=== PATIENT | male | born 1945 | race Caucasian/White ===

== ENCOUNTER 2020-03-19 10:42 | Inpatient (IN) | payer MEDICARE, SELFPAY ==
[2020-03-19 10:57] VITALS: BP 140/78; BP 169/85; PULSE 110; PULSE 112; RESP 18; TEMP 37.1; O2SAT 98; BMI 28.2
--- NOTE | 2020-03-19 11:00 | ECG_ITS ---
Test Reason : ABNORMAL LABS Blood Pressure : / mmHG Vent. Rate : 091 BPM Atrial Rate : 340 BPM P-R Int : 000 ms QRS Dur : 124 ms QT Int : 376 ms P-R-T Axes : 000 -18 -12 degrees QTc Int : 462 ms Atrial fibrillation with premature ventricular or aberrantly conducted complexes Right bundle branch block Abnormal ECG When compared with ECG of 24-JAN-2006 15:05, Atrial fibrillation has replaced Sinus rhythm Right bundle branch block has replaced Incomplete right bundle branch block Referred By: Isaac Morse Electronically Signed By:MARGIE ACEVEDO MD
--- NOTE | 2020-03-19 11:02 | XR_ITS ---
EXAMINATION: XR CHEST CLINICAL INFORMATION: Concern for pneumonia. COMPARISON: Chest radiographs from 10/05/2017 through 11/01/2019. Chest CT on 01/14/2020 TECHNIQUE: Frontal view of the chest was obtained. FINDINGS: The lungs are hyperinflated consistent with COPD. The cardiomediastinal and hilar contours are stable. The aorta is heavily calcified. There are no lobar consolidations. Coarse, diffuse interstitial markings are unchanged in extent when compared to multiple prior radiographs. No pleural effusion or pneumothorax identified. XR/XR chest 1V IMPRESSION: No acute process identified. Stable emphysematous changes.
--- NOTE | 2020-03-19 11:19 | ED.RECABL ---
HPI - Recheck/Abnormal Lab/Rx General Chief Complaint: Recheck/Abnormal Lab/Rx Stated Complaint: NEW ONSET AFIB Time Seen by Provider: 03/19/20 10:57 Source: patient Mode of arrival: ambulatory Limitations: no limitations History of Present Illness HPI narrative: Patient presentls to the ED for new Atrial fibrillation. patient has no complaint. patient was at his PCP for a physical and his PCP noticed that he had an irregular heart beat. He states he was informed he had an irregular EKG. Related Data Home Medications Medication Instructions Recorded Confirmed aspirin 81 mg tablet,delayed 81 mg PO DAILY 03/19/20 03/19/20 release fluticasone 250 mcg-salmeterol 50 1 inh INHALATION Q12H 03/19/20 03/19/20 mcg/dose blistr powdr for inhalation lidocaine 5 % topical ointment 1 applic TOPICAL BID 03/19/20 03/19/20 tamsulosin 0.4 mg capsule 0.4 mg PO DAILY 03/19/20 03/19/20 Previous Rx's Medication Instructions Recorded pregabalin 50 mg capsule 50 mg PO BID PRN 30 Days #60 cap 03/06/20 albuterol sulfate 90 mcg/actuation 2 puff INHALATION Q4-6H PRN #8.5 g 03/19/20 aerosol inhaler simvastatin 40 mg tablet 40 mg PO DAILY #90 tab 03/19/20 Allergies Allergy/AdvReac Type Severity Reaction Status Date / Time gabapentin Allergy Unknown Insomnia, Verified 03/19/20 09:50 increased pain Latex Allergy Unknown Slight Verified 03/19/20 09:50 reaction, rash nicotine Allergy Unknown patch- Verified 03/19/20 09:50 rash, rash Review of Systems Constitutional: Constitutional: Reports as per HPI and Reports no additional constitutional complaints Eyes: Eyes: Reports as per HPI and Reports no additional eye complaints ENT: Reports system reviewed and no additional complaints, except as documented and Reports as per HPI Cardiovascular: Cardiovascular: Reports as per HPI, Reports no additional cardiovascular complaints, Denies chest pain, Denies chest pain at rest, Denies chest pain with activity, Denies Epigastric Pain, Denies dyspnea, Denies dyspnea on exertion, Denies orthopnea and Denies paroxysmal nocturnal dyspnea Respiratory: Respiratory: Reports as per HPI, Reports no additional respiratory complaints, Denies cough, Denies pain on inspiration, Denies pain with cough, Denies dyspnea and Denies dyspnea on exertion Gastrointestinal: Gastrointestinal: Reports as per HPI and Reports no additional gastrointestinal complaints Genitourinary: Genitourinary: Reports no additional male genitourinary complaints and Reports as per HPI Musculoskeletal: Musculoskeletal: Reports no additional musculoskeletal complaints and Reports as per HPI Neurologic: Reports system reviewed and no additional complaints, except as documented and Reports as per HPI Psychiatric: Psychiatric: Reports no additional psychiatric complaints and Reports as per HPI [facility] Past Medical History Medical History (Updated 03/19/20 @ 16:49 by SILVA Garcia) Asbestosis Bladder diverticulum BPH (benign prostatic hyperplasia) COPD (chronic obstructive pulmonary disease) History of alcohol abuse Hypercholesterolemia Post herpetic neuralgia Thrombocytopenia Tobacco abuse Vitamin D deficiency Surgical History (Updated 03/16/20 @ 13:29 by STEPHANIE Alexander) H/O hand surgery Lesion of tongue Family History Family History (Updated 03/16/20 @ 13:31 by STEPHANIE Alexander) Father Bladder cancer Mother Colon cancer Chronic mental illness Brother Myocardial infarction Social History Social History (Updated 03/19/20 @ 09:56 by Lacho Mcdonnell MD) Alcohol intake: former Smoking Status: Former smoker Packs Per Day: 0.25 Smoked in Last 30 Days: No Use of substances other than those prescribed or required for medical reasons: No Advance Directives: No Advance Directives Information Provided: Yes Physical Exam Vital Signs: Vital Signs: Last Vital Signs Temp 98.8 F 03/19/20 10:57 Pulse 131 H 03/19/20 13:35 Resp 18 03/19/20 10:57 BP 169/85 H 03/19/20 13:35 Pulse Ox 98 03/19/20 10:57 Body Mass Index 28.2 Const: General: cooperative, healthy appearing, comfortable, no acute distress, well developed, alert, awake and Physically active Orientation/consciousness: patient oriented x3 HENMT: Head: Yes normal to inspection and Yes No palpable skull fracture present Eyes: General: appearance normal, both eyes and all related structures Neck: Neck: Yes normal visual inspection, Yes full ROM, Yes no lymphadenopathy, Yes no meningeal signs and Yes tender Chest: Chest palpation & inspection: normal inspection of the chest, normal palpation of entire chest wall and no localized rib tenderness Resp: Effort & Inspection: normal respiratory effort and able to speak in complete sentences Auscultation: clear to auscultation bilaterally Cardio: Jugular venous distension: no JVD Rate: tachycardic GI: Inspection: Yes normal to inspection and No abdominal wall ecchymosis Palpation (GI): Soft to palpation, not firm, nontender, no guarding and not rigid : General: No CVA tenderness and Yes no CVA tenderness Back/Spine/Pelvis: Back: no CVA tenderness, No CVA tenderness and No back tenderness Skin: General skin exam: no rashes or lesions noted Neuro: General: patient oriented x3, no meningeal signs and CN's II-XI intact bilaterally Cranial nerves: Yes CN's II-XII intact bilaterally Extrem: General: Yes normal to inspection and Yes full ROM Psych: Appearance: grossly normal, well kempt and not disheveled Course Course Course Narrative: patient will have baseline EKG and cardiac evaluation. patient heart rate on monitor is between 91-118. Reevaluation(s) Reevaluation #1: patient still not in any distress. patient's Heart rate on monitor fluctuates between 86 to 122. patient presently is asymptomatic. patient has elevated D-dimer and will be sent for Chest CTA to rule PE. patient's HR rate will go 131 for one second and than will go back to down to 88 immediately Time: 13:09 Reevaluation #2: patient placed on cardizem drip due to HR now stating presently in 120-130s. patient chest CTA negative for PE. Magneium and TSH is normal. patient states he has not had an alcohol drink in 35 years. patient to be admitted to the hospital. Time: 16:48 MDM - Recheck/Abnormal Lab/Rx MDM Narrative Medical decision making narrative: new onset atiral brillation Lab Data Result diagrams: 03/19/20 11:55 03/19/20 11:55 Labs: Lab Results 03/19/20 03/19/20 03/19/20 Range/Units 11:55 11:55 11:55 WBC 7.6 (4.8-10.8) X10*3/uL RBC 4.85 (4.60-5.80) X10*6/uL Hgb 14.8 (14.0-18.0) g/dl Hct 45.3 (42-52) % MCV 93.4 (80-98) fL MCH 30.5 (27.0-33.0) pg MCHC 32.7 (31.0-36.0) g/dl RDW 12.7 (11.0-16.0) % Plt Count 194 (160-400) X10*3/uL MPV 10.1 (9.4-12.4) fL Immature Gran % (Auto) 0.4 (0.0-0.4) % Neut % (Auto) 62.9 (45-73) % Lymph % (Auto) 25.7 (20-40) % [place] % (Auto) 6.5 (2-11) % Eos % (Auto) 4.2 H (0-4) % Baso % (Auto) 0.3 (0-2) % Lymph # (Auto) 2.0 (1.2-4.9) X10*3/uL [place] # (Auto) 0.5 (0.1-1.2) X10*3/uL Eos # (Auto) 0.3 (0.0-0.4) X10*3/uL Baso # (Auto) 0.0 (0.0-0.2) X10*3/uL Abs Immat Gran (auto) 0.03 (0.00-0.03) X10*3/uL Absolute Neuts (auto) 4.8 (2.0-8.3) X10*3/uL Absolute Nucleated RBC 0.000 (0.0-0.012) X10*3/uL Nucleated RBC % (auto) 0.0 (0.0-0.2) /100WBC PT 11.8 (10.8-13.0) SEC INR 1.0 (0.9-1.1) APTT 36.8 (24.1-38.0) SEC D-Dimer NG/ML Sodium 139 (135-145) mmol/L Potassium 4.7 (3.3-5.1) mmol/l Chloride 104 (96-108) mmol/L Carbon Dioxide 29 (22-29) mmol/L Anion Gap 11 L (12-20) BUN 22 H (9-16) mg/dL Creatinine 0.93 (0.5-1.4) mg/dL Estim Creat Clear Calc 65.7 Estimated GFR > 60 Random Glucose 85 (60-115) mg/dL Calcium 9.6 (8.4-10.2) mg/dL Magnesium (1.6-2.6) mg/dL Total Bilirubin 0.3 (0.0-1.0) mg/dL AST 32 (5-37) U/L ALT 37 (0-40) U/L Alkaline Phosphatase 73 (39-117) U/L Troponin I High Sens (<3.5-35.0) ng/L Total Protein 7.6 (6.5-8.0) g/dL Albumin 4.7 (3.5-5.0) g/dL TSH (0.32-4.0) uIU/mL Urine Color Urine Appearance Urine pH (5.0-8.0) Ur Specific [place] (1.005-1.025) Urine Protein (NEG-TRACE) MG/DL Urine Glucose (UA) (NEG) MG/DL Urine Ketones (NEG) MG/DL Urine Blood (NEG) Urine Nitrite (NEG) Ur Leukocyte Esterase (NEG) 03/19/20 03/19/20 03/19/20 Range/Units 11:55 11:55 11:55 WBC (4.8-10.8) X10*3/uL RBC (4.60-5.80) X10*6/uL Hgb (14.0-18.0) g/dl Hct (42-52) % MCV (80-98) fL MCH (27.0-33.0) pg MCHC (31.0-36.0) g/dl RDW (11.0-16.0) % Plt Count (160-400) X10*3/uL MPV (9.4-12.4) fL Immature Gran % (Auto) (0.0-0.4) % Neut % (Auto) (45-73) % Lymph % (Auto) (20-40) % [place] % (Auto) (2-11) % Eos % (Auto) (0-4) % Baso % (Auto) (0-2) % Lymph # (Auto) (1.2-4.9) X10*3/uL [place] # (Auto) (0.1-1.2) X10*3/uL Eos # (Auto) (0.0-0.4) X10*3/uL Baso # (Auto) (0.0-0.2) X10*3/uL Abs Immat Gran (auto) (0.00-0.03) X10*3/uL Absolute Neuts (auto) (2.0-8.3) X10*3/uL Absolute Nucleated RBC (0.0-0.012) X10*3/uL Nucleated RBC % (auto) (0.0-0.2) /100WBC PT (10.8-13.0) SEC INR (0.9-1.1) APTT (24.1-38.0) SEC D-Dimer 660 NG/ML Sodium (135-145) mmol/L Potassium (3.3-5.1) mmol/l Chloride (96-108) mmol/L Carbon Dioxide (22-29) mmol/L Anion Gap (12-20) BUN (9-16) mg/dL Creatinine (0.5-1.4) mg/dL Estim Creat Clear Calc Estimated GFR Random Glucose (60-115) mg/dL Calcium (8.4-10.2) mg/dL Magnesium 2.1 (1.6-2.6) mg/dL Total Bilirubin (0.0-1.0) mg/dL AST (5-37) U/L ALT (0-40) U/L Alkaline Phosphatase (39-117) U/L Troponin I High Sens 5.3 (<3.5-35.0) ng/L Total Protein (6.5-8.0) g/dL Albumin (3.5-5.0) g/dL TSH 0.89 (0.32-4.0) uIU/mL Urine Color Urine Appearance Urine pH (5.0-8.0) Ur Specific [place] (1.005-1.025) Urine Protein (NEG-TRACE) MG/DL Urine Glucose (UA) (NEG) MG/DL Urine Ketones (NEG) MG/DL Urine Blood (NEG) Urine Nitrite (NEG) Ur Leukocyte Esterase (NEG) 03/19/20 Range/Units 13:03 WBC (4.8-10.8) X10*3/uL RBC (4.60-5.80) X10*6/uL Hgb (14.0-18.0) g/dl Hct (42-52) % MCV (80-98) fL MCH (27.0-33.0) pg MCHC (31.0-36.0) g/dl RDW (11.0-16.0) % Plt Count (160-400) X10*3/uL MPV (9.4-12.4) fL Immature Gran % (Auto) (0.0-0.4) % Neut % (Auto) (45-73) % Lymph % (Auto) (20-40) % [place] % (Auto) (2-11) % Eos % (Auto) (0-4) % Baso % (Auto) (0-2) % Lymph # (Auto) (1.2-4.9) X10*3/uL [place] # (Auto) (0.1-1.2) X10*3/uL Eos # (Auto) (0.0-0.4) X10*3/uL Baso # (Auto) (0.0-0.2) X10*3/uL Abs Immat Gran (auto) (0.00-0.03) X10*3/uL Absolute Neuts (auto) (2.0-8.3) X10*3/uL Absolute Nucleated RBC (0.0-0.012) X10*3/uL Nucleated RBC % (auto) (0.0-0.2) /100WBC PT (10.8-13.0) SEC INR (0.9-1.1) APTT (24.1-38.0) SEC D-Dimer NG/ML Sodium (135-145) mmol/L Potassium (3.3-5.1) mmol/l Chloride (96-108) mmol/L Carbon Dioxide (22-29) mmol/L Anion Gap (12-20) BUN (9-16) mg/dL Creatinine (0.5-1.4) mg/dL Estim Creat Clear Calc Estimated GFR Random Glucose (60-115) mg/dL Calcium (8.4-10.2) mg/dL Magnesium (1.6-2.6) mg/dL Total Bilirubin (0.0-1.0) mg/dL AST (5-37) U/L ALT (0-40) U/L Alkaline Phosphatase (39-117) U/L Troponin I High Sens (<3.5-35.0) ng/L Total Protein (6.5-8.0) g/dL Albumin (3.5-5.0) g/dL TSH (0.32-4.0) uIU/mL Urine Color STRAW Urine Appearance CLEAR Urine pH 5.5 (5.0-8.0) Ur Specific [place] 1.010 (1.005-1.025) Urine Protein NEG (NEG-TRACE) MG/DL Urine Glucose (UA) NEG (NEG) MG/DL Urine Ketones NEG (NEG) MG/DL Urine Blood NEG (NEG) Urine Nitrite NEG (NEG) Ur Leukocyte Esterase NEG (NEG) ECG Data Interpretation: Atrial fribillation with PVC, Right bundle branch block. Vent rate 91 and QRS duration 124. Discharge Plan Discharge Clinical Impression: Atrial fibrillation by electrocardiogram Patient Disposition: Admitted As Inpatient
[2020-03-19 12:02] LABS: MANUAL DIFF FLAG NO
[2020-03-19 12:03] LABS: Basophils Percent Auto 0.3 % (0-2); Eosinophils Absolute Auto 0.3 X10*3/uL (0.0-0.4); Eosinophils Percent Auto 4.2 % (0-4); Hematocrit 45.3 % (42-52); Hemoglobin 14.8 g/dl (14.0-18.0); Imm Gran Abs Auto 0.03 X10*3/uL (0.00-0.03); Imm Gran Pct Auto 0.4 % (0.0-0.4); Lymphocytes Percent Auto 25.7 % (20-40); Mean Corpuscular HGB Conc 32.7 g/dl (31.0-36.0); Mean Corpuscular Hemoglobin 30.5 pg (27.0-33.0); Mean Corpuscular Volume 93.4 fL (80-98); Mean Platelet Volume 10.1 fL (9.4-12.4); Monocytes Absolute Auto 0.5 X10*3/uL (0.1-1.2); Monocytes Percent Auto 6.5 % (2-11); Neutrophils Absolute Auto 4.8 X10*3/uL (2.0-8.3); Neutrophils Percent Auto 62.9 % (45-73); Platelet Count 194 X10*3/uL (160-400); Red Blood Count 4.85 X10*6/uL (4.60-5.80); Red Cell Distribution Width 12.7 % (11.0-16.0); White Blood Count 7.6 X10*3/uL (4.8-10.8)
[2020-03-19 12:10] LABS: Prothrombin Time 11.8 SEC (10.8-13.0)
[2020-03-19 12:13] LABS: Partial Thromboplastin Time 36.8 SEC (24.1-38.0)
[2020-03-19 12:14] LABS: D Dimer 660 NG/ML
[2020-03-19 12:26] LABS: Magnesium 2.1 mg/dL (1.6-2.6)
[2020-03-19 12:29] LABS: Alanine Aminotransferase 37 U/L (0-40); Albumin Level 4.7 g/dL (3.5-5.0); Alkaline Phosphatase 73 U/L (39-117); Anion Gap 11 (12-20); Aspartate Amino Transferase 32 U/L (5-37); Bilirubin Total 0.3 mg/dL (0.0-1.0); Blood Urea Nitrogen 22 mg/dL (9-16); Calcium 9.6 mg/dL (8.4-10.2); Carbon Dioxide 29 mmol/L (22-29); Chloride 104 mmol/L (96-108); Creatinine Clr Calc Pharmacy 65.7; Estimated Glomerular Filt Rate > 60; Glucose Random 85 mg/dL (60-115); Potassium 4.7 mmol/l (3.3-5.1); Sodium 139 mmol/L (135-145); Total Protein 7.6 g/dL (6.5-8.0)
[2020-03-19 12:31] LABS: Troponin-I High Sensitivity 5.3 ng/L (<3.5-35.0)
[2020-03-19 12:48] LABS: Thyroid Stimulating Hormone 0.89 uIU/mL (0.32-4.0)
[2020-03-19 13:16] LABS: Glucose Urine UA NEG (NEG); Leukocyte Esterase Urine NEG (NEG); Nitrite Urine NEG (NEG); PH 5.5 (5.0-8.0); Urine Blood NEG (NEG); Urine Ketones NEG (NEG); Urine Protein NEG (NEG-TRACE)
[2020-03-19 13:18] LABS: Appearance Urine CLEAR; Color Urine STRAW
[2020-03-19 13:35] VITALS: BP 169/85; PULSE 131
[2020-03-19] MEDS: dilTIAZem HCL 30 MG TABLET PO (13:35)
--- NOTE | 2020-03-19 14:35 | CT_ITS ---
EXAMINATION: CT ANGIOGRAM OF THE CHEST WITH AND WITHOUT CONTRAST (CT PULMONARY ANGIOGRAM FOR PE) CLINICAL INFORMATION: Reason for Exam elevated D-dimer. PE? COMPARISON: Chest radiograph from today. CT performed 01/14/2020. TECHNIQUE: Prior to contrast administration, noncontrast localization images were obtained. Subsequently, multidetector volumetric imaging was performed from the thoracic inlet to below the diaphragms following the administration of 65 mL Omnipaque 350 intravenous contrast. No contrast reaction reported Sagittal, coronal, and MIP oblique sagittal reformatted images were obtained on the CT workstation, uploaded to PACS, and reviewed. This CT examination was performed using dose optimization techniques as appropriate, variously including the following: *Automated exposure control *Adjustment of mA and/or kV according to patient size (this includes techniques or standardized protocols for targeted exams where dose is matched to indication/reason for exam; i.e. extremities or head) *Use of iterative reconstruction technique Total exam dose-length product 254 mGy-cm FINDINGS: QUALITY OF STUDY/CONTRAST BOLUS: Satisfactory. PULMONARY ARTERIES: No central or segmental pulmonary emboli. THORACIC AORTA: No aneurysm or dissection. LUNG: The central airways are patent. There is moderate to severe centrilobular and paraseptal emphysema. Mild bronchial wall thickening noted. Subpleural changes are seen in the anterior right upper lobe with nodular scarring. This is similar to prior. Multiple areas of pleural plaque formation in the anterior left lung as well. Calcified granulomata noted. Scattered bronchial filling defects. Unchanged 0.2 cm left lower lobe nodule on series 7 image 421. PLEURA: No pleural effusion or pneumothorax. MEDIASTINUM: Normal heart size. No pericardial effusion. Coronary artery calcifications. No hilar or mediastinal lymphadenopathy. No evidence of septal bowing or right heart strain. CHEST WALL/AXILLA: No axillary or internal mammary lymphadenopathy. OSSEOUS STRUCTURES: No acute or suspicious osseous abnormality. Mild scoliotic curvature of the spine. UPPER ABDOMEN: Unremarkable. No reflux of contrast into the hepatic veins to suggest elevated right heart pressures. CT/CT angio chest PE protocol IMPRESSION: 1. No pulmonary embolism. 2. Moderate to severe emphysema. Bronchial wall thickening with bronchial filling defects noted which can be seen with chronic bronchitis. Areas of scarring and pleural thickening are again noted. VTE: negative
[2020-03-19] MEDS: iohexoL 350 MG/ML 100 ML INFUS..BTL IV (14:56)
--- NOTE | 2020-03-19 16:42 | PC.NURSE ---
updated in waiting room, will return home now and bring back some belongings for pt. hospitalist at bedside for eval, pending inpt admission.
[2020-03-19 16:44] VITALS: BP 136/59; PULSE 82; RESP 20; O2SAT 99
--- NOTE | 2020-03-19 17:11 | P.EN_ITS ---
Event Note Date of Service: 03/19/20 Event Note: AFib 74-year-old male was sent from PCP office after found to have AFib, patient currently denies any chest pain shortness of breath or palpitation on exam alert abdomen soft CVS irregular rhythm tachycardia, lungs mild rhonchi admitted with AFib with RVR new onset , Chads Vasc score 2 started on Cardizem drip monitor on telemetry cardiology consult, Will get echocardiogram tomorrow, patient wants to discuss anticoagulation with product representative Patient seen and examined with the midlevel agree with H&P assessment and plan
--- NOTE | 2020-03-19 17:21 | P.HPHOSP_ITS ---
History of Present Illness Date of Service: 03/19/20 Chief Complaint: abnormal EKG this is a 74-year-old male who was sent to the emergency department from his PCP's office after his routine EKG showed new onset atrial fibrillation. heart rate was initially in the low 100s. he received dose of oral Cardizem but continued to be tachycardic so was started on a Cardizem drip. Patient is asymptomatic and denies any chest pain, palpitations, shortness of breath, dizziness. Lab work was unremarkable with the exception of D-dimer of 660. CTA was negative for PE. Review of Systems Review of Systems: Yes all other systems are reviewed and are negative Constitutional: Constitutional: Denies chills and Denies fever(s) Cardiovascular: Cardiovascular: Denies chest pain Respiratory: Respiratory: Denies cough Gastrointestinal: Gastrointestinal: Denies abdominal pain Neurologic: Reports system reviewed and no additional complaints, except as documented and Reports as per [facility] Medical History Asbestosis Bladder diverticulum BPH (benign prostatic hyperplasia) COPD (chronic obstructive pulmonary disease) History of alcohol abuse Hypercholesterolemia Post herpetic neuralgia Thrombocytopenia Tobacco abuse Vitamin D deficiency Functional capacity: independent ambulation Family History Father Bladder cancer Mother Colon cancer Chronic mental illness Brother Myocardial infarction Surgical History H/O hand surgery Lesion of tongue Social History Alcohol intake: former Smoking Status: Former smoker Packs Per Day: 0.25 Smoked in Last 30 Days: No Use of substances other than those prescribed or required for medical reasons: No Advance Directives: No Advance Directives Information Provided: Yes Meds Allergies Allergy/AdvReac Type Severity Reaction Status Date / Time gabapentin Allergy Unknown Insomnia, Verified 03/19/20 09:50 increased pain Latex Allergy Unknown Slight Verified 03/19/20 09:50 reaction, rash nicotine Allergy Unknown patch- Verified 03/19/20 09:50 rash, rash Home Medications Medication Instructions Recorded Confirmed Type aspirin 81 mg tablet,delayed 81 mg PO DAILY 03/19/20 03/19/20 History release fluticasone 250 mcg-salmeterol 50 1 inh INHALATION Q12H 03/19/20 03/19/20 History mcg/dose blistr powdr for inhalation lidocaine 5 % topical ointment 1 applic TOPICAL TID 03/19/20 03/19/20 History oxybutynin chloride 1 tab PO DAILY 03/19/20 03/19/20 History tamsulosin 0.4 mg capsule 0.4 mg PO DAILY 03/19/20 03/19/20 History Physical Exam Vital Signs and Narrative: Vital Signs: Last Vital Signs Temp 98.8 F 03/19/20 10:57 Pulse 82 03/19/20 16:44 Resp 20 03/19/20 16:44 BP 136/59 L 03/19/20 16:44 Pulse Ox 99 03/19/20 16:44 Body Mass Index 28.2 Const: Nutritional Appearance: well nourished Orientation/consciousness: patient oriented x3 HENMT: Head: Yes normocephalic and Yes atraumatic Eyes: Sclerae: sclerae normal Chest: Chest palpation & inspection: normal inspection of the chest Resp: Other: Scattered wheezes, prolonged expiratory phase Effort & Inspection: normal respiratory effort and no respiratory distress Cardio: Rate: tachycardic Rhythm: abnormal rhythm irregularly irregular GI: Palpation (GI): Soft to palpation and nontender Skin: General skin exam: no rashes or lesions noted Neuro: General: patient oriented x3 Cranial nerves: Yes CN's II-XII intact bilaterally and Yes Bilaterally intact EOM present Extrem: General: Yes normal to inspection Results Labs CBC and Chem 7: 03/19/20 11:55 03/19/20 11:55 Labs: Laboratory Results - last 24 hr 03/19/20 03/19/20 03/19/20 11:55 11:55 11:55 MCV 93.4 MCH 30.5 MCHC 32.7 RDW 12.7 Plt Count 194 MPV 10.1 Immature Gran % (Auto) 0.4 Neut % (Auto) 62.9 Lymph % (Auto) 25.7 [place] % (Auto) 6.5 Eos % (Auto) 4.2 H Baso % (Auto) 0.3 Lymph # (Auto) 2.0 [place] # (Auto) 0.5 Eos # (Auto) 0.3 Baso # (Auto) 0.0 Abs Immat Gran (auto) 0.03 Absolute Neuts (auto) 4.8 Absolute Nucleated RBC 0.000 Nucleated RBC % (auto) 0.0 PT 11.8 INR 1.0 APTT 36.8 D-Dimer Anion Gap 11 L Estim Creat Clear Calc 65.7 Estimated GFR > 60 Random Glucose 85 Calcium 9.6 Magnesium Total Bilirubin 0.3 AST 32 ALT 37 Alkaline Phosphatase 73 Troponin I High Sens Total Protein 7.6 Albumin 4.7 TSH Urine Color Urine Appearance Urine pH Ur Specific [place] Urine Protein Urine Glucose (UA) Urine Ketones Urine Blood Urine Nitrite Ur Leukocyte Esterase 03/19/20 03/19/20 03/19/20 11:55 11:55 11:55 MCV MCH MCHC RDW Plt Count MPV Immature Gran % (Auto) Neut % (Auto) Lymph % (Auto) [place] % (Auto) Eos % (Auto) Baso % (Auto) Lymph # (Auto) [place] # (Auto) Eos # (Auto) Baso # (Auto) Abs Immat Gran (auto) Absolute Neuts (auto) Absolute Nucleated RBC Nucleated RBC % (auto) PT INR APTT D-Dimer 660 Anion Gap Estim Creat Clear Calc Estimated GFR Random Glucose Calcium Magnesium 2.1 Total Bilirubin AST ALT Alkaline Phosphatase Troponin I High Sens 5.3 Total Protein Albumin TSH 0.89 Urine Color Urine Appearance Urine pH Ur Specific [place] Urine Protein Urine Glucose (UA) Urine Ketones Urine Blood Urine Nitrite Ur Leukocyte Esterase 03/19/20 13:03 MCV MCH MCHC RDW Plt Count MPV Immature Gran % (Auto) Neut % (Auto) Lymph % (Auto) [place] % (Auto) Eos % (Auto) Baso % (Auto) Lymph # (Auto) [place] # (Auto) Eos # (Auto) Baso # (Auto) Abs Immat Gran (auto) Absolute Neuts (auto) Absolute Nucleated RBC Nucleated RBC % (auto) PT INR APTT D-Dimer Anion Gap Estim Creat Clear Calc Estimated GFR Random Glucose Calcium Magnesium Total Bilirubin AST ALT Alkaline Phosphatase Troponin I High Sens Total Protein Albumin TSH Urine Color STRAW Urine Appearance CLEAR Urine pH 5.5 Ur Specific [place] 1.010 Urine Protein NEG Urine Glucose (UA) NEG Urine Ketones NEG Urine Blood NEG Urine Nitrite NEG Ur Leukocyte Esterase NEG Imaging Radiologist's Impressions: Impressions Chest X-Ray 03/19/20 11:02 IMPRESSION: No acute process identified. Stable emphysematous changes. Chest CTA 03/19/20 14:35 IMPRESSION: 1. No pulmonary embolism. 2. Moderate to severe emphysema. Bronchial wall thickening with bronchial filling defects noted which can be seen with chronic bronchitis. Areas of scarring and pleural thickening are again noted. VTE: negative Assessment and Plan (1) Atrial fibrillation with rapid ventricular response: Status: Acute this is a 74-year-old male sent to the emergency department from PCP's office after routine EKG revealed new onset atrial fibrillation atrial fibrillation with rapid ventricular response new onset. asymptomatic TSH, magnesium wnl -CHADS2 Vasc score 2 for age 74, patient is hesitant about starting anticoagulation and would like to discuss with cardiology first. will continue aspirin for now -continue Cardizem drip - echo - cardiology consult COPD scattered wheezing, no shortness of breath continue home inhalers dyslipidemia continue statin BPH continue oxybutynin, Flomax post herpetic neuralgia continue pregabalin DVT prophylaxis- mechanical devices code status- full code this case was discussed with Dr. Randolph
--- NOTE | 2020-03-19 17:21 | PC.NURSE ---
pt ambulating to and from bathroom w steady gait.
[2020-03-19 19:15] VITALS: BP 125/50; PULSE 61; RESP 16; TEMP 36.6; O2SAT 98
[2020-03-19] MEDS: Pregabalin 50 MG CAPSULE PO (21:11)
[2020-03-19 22:08] VITALS: BP 111/61; PULSE 60; RESP 16; TEMP 36.3; O2SAT 99
[2020-03-19 23:10] VITALS: PULSE 58; RESP 16; O2SAT 98
[2020-03-19 23:31] LABS: COVID-19 Test Negative (Negative); IDNOW Serial# 9DD0AD1C
[2020-03-20 00:47] VITALS: BP 159/58; PULSE 59; RESP 20; TEMP 36.4; O2SAT 97
[2020-03-20] MEDS: 0.9 % Sodium Chloride Flush 3 ML SYRINGE IVFLUSH ×2 (01:02→09:08)
--- NOTE | 2020-03-20 01:03 | PC.NURSE ---
PT ARRIVED TO [facility] [place] FROM ED VIA STRETCHER WITH NEW AFIB. PT AMBULATED TO BED WITHOUT DIFFICULTY. HE IS NOT A FALL RISK. VSS. PAPERHANGER SUPERVISOR APPLIED. PT IS IN SR IN THE 70S WITH PVCS. NOTIFIED. PT ORIENTED TO UNIT. PLAN OF CARE EXPLAINED AND PT IS AGREEBALE TO. CALL [facility] USE DEMONSTRATED. NO C/O AT THIS TIME. CALL [facility] IN REACH. WILL CONTINUE TO MONITOR.
[2020-03-20 03:37] VITALS: BP 125/58; PULSE 64; RESP 18; TEMP 36.9; O2SAT 97
[2020-03-20 06:14] LABS: Hematocrit 40.6 % (42-52); Hemoglobin 13.4 g/dl (14.0-18.0); Mean Corpuscular Hemoglobin 30.8 pg (27.0-33.0); Mean Corpuscular Volume 93.3 fL (80-98); Mean Platelet Volume 10.7 fL (9.4-12.4); Platelet Count 191 X10*3/uL (160-400); Red Blood Count 4.35 X10*6/uL (4.60-5.80); Red Cell Distribution Width 12.7 % (11.0-16.0)
[2020-03-20 06:49] LABS: Anion Gap 15 (12-20); Blood Urea Nitrogen 29 mg/dL (9-16); Calcium 8.7 mg/dL (8.4-10.2); Carbon Dioxide 25 mmol/L (22-29); Chloride 106 mmol/L (96-108); Creatinine Clr Calc Pharmacy 58.2; Estimated Glomerular Filt Rate > 60; Glucose Random 75 mg/dL (60-115); Potassium 4.7 mmol/l (3.3-5.1); Sodium 141 mmol/L (135-145)
[2020-03-20 08:00] VITALS: BP 136/63; PULSE 64; RESP 20; TEMP 36.6; O2SAT 98
[2020-03-20] MEDS: Aspirin Enteric Coated 81 MG TABLET.DR PO (09:20)
[2020-03-20] MEDS: Atorvastatin Calcium 20 MG TABLET PO (09:20)
[2020-03-20] MEDS: Lidocaine 5 % Ointment 35 GM 1 APPL TOPICAL (09:21)
[2020-03-20] MEDS: Albuterol Sulfate 90 MCG 8 GM INHALER 2 PUFF INHALE (09:21)
[2020-03-20] MEDS: Tamsulosin HCL 0.4 MG CAPSULE PO (09:21)
[2020-03-20] MEDS: Flu Vacc QS2020-21(6mos up)/PF 0.5 ML SYRINGE IM (09:22)
--- NOTE | 2020-03-20 10:57 | PM.CNCAR ---
History of Present Illness History of Present Illness Date of Consult: March 20, 2020 Chief complaint: New onset afib Narrative: This is a cardiology consultation regarding atrial fibrillation. Patient states that he does not have any history of atrial fibrillation or other cardiac arrhythmias. He underwent a cardiac catheterization decades ago and at that time, it was unremarkable per patient. He went for a regular PCP visit in that showed atrial fibrillation leading to this hospitalization. He received oral Cardizem but he continued to be tachycardic but then was put on Cardizem drip. Subsequently, converted to sinus rhythm. He states that he never had any symptoms of angina or shortness of breath or palpitations or in fact any cardiac symptoms whatsoever. Review of Systems Review of Systems: Cardiac- no angina or shortness of breath. No palpitations or dizzy spells or syncopal episodes. Yes all other systems are reviewed and are negative [facility] Past Medical History Medical History Asbestosis Bladder diverticulum BPH (benign prostatic hyperplasia) COPD (chronic obstructive pulmonary disease) History of alcohol abuse Hypercholesterolemia Post herpetic neuralgia Thrombocytopenia Tobacco abuse Vitamin D deficiency Functional capacity: independent ambulation Family History Family History Father Bladder cancer Mother Colon cancer Chronic mental illness Brother Myocardial infarction Surgical History Surgical History H/O hand surgery Lesion of tongue Social History Social History Household Members: Spouse Housing: House Do you presently have visiting nurse or other home services: No Alcohol intake: former Smoking Status: Current every day smoker Tobacco Type: Cigarette Packs Per Day: 0.25 Cigarettes Per Day: 5.0 Smoked in Last 30 Days: Yes Patient Interested in Nicotine Replacement: No Patient Given Instructions on How to Stop Smoking: No Second Hand Smoke Exposure: No Use of substances other than those prescribed or required for medical reasons: No Currently Displaying Signs/Symptoms of Drug Intoxication Withdrawal: No Any prior treatment program specific to substance use: No Have you been hit, kicked, punched, or otherwise hurt by someone within the past year? If so, by whom?: No Do you feel safe in your current relationship?: Yes Is there a partner from a previous relationship who is making you feel unsafe now?: No Are you made to feel afraid or neglected: No Advance Directives: No Advance Directives Information Provided: Yes Advance Directives on File: No Do you have thoughts of harming others: None Do you have a plan to hurt others: No Plan Recently lost weight without trying: No Meds Allergies Allergy/AdvReac Type Severity Reaction Status Date / Time gabapentin Allergy Unknown Insomnia, Verified 03/19/20 09:50 increased pain Latex Allergy Unknown Slight Verified 03/19/20 09:50 reaction, rash nicotine Allergy Unknown patch- Verified 03/19/20 09:50 rash, rash Home Medications Medication Instructions Recorded Confirmed Type aspirin 81 mg tablet,delayed 81 mg PO DAILY 03/19/20 03/19/20 History release fluticasone 250 mcg-salmeterol 50 1 inh INHALATION Q12H 03/19/20 03/19/20 History mcg/dose blistr powdr for inhalation lidocaine 5 % topical ointment 1 applic TOPICAL TID 03/19/20 03/19/20 History oxybutynin chloride 1 tab PO DAILY 03/19/20 03/19/20 History tamsulosin 0.4 mg capsule 0.4 mg PO DAILY 03/19/20 03/19/20 History Physical Exam Vital Signs: Vital Signs: Last Vital Signs Temp 97.8 F 03/20/20 08:00 Pulse 64 03/20/20 08:00 Resp 20 03/20/20 08:00 BP 136/63 03/20/20 08:00 Pulse Ox 98 03/20/20 08:00 Body Mass Index 28.2 Comfortable, no distress No pallor, icterus or cyanosis HEENT -unremarkable JVD- normal Cardiac- normal heart sounds, no murmurs, gallops or rubs, normal PMI Respiratory-normal breath sounds bilaterally, no crackles, no wheeze Abdomen- soft, nontender Neuro- alert and oriented Lower extremities- no significant edema, warm well perfused Results Labs and Meds Result diagrams: 03/20/20 05:27 03/20/20 05:27 Lab results: Laboratory Results - last 24 hr 03/19/20 03/19/20 03/19/20 11:55 11:55 11:55 WBC 7.6 RBC 4.85 Hgb 14.8 Hct 45.3 MCV 93.4 MCH 30.5 MCHC 32.7 RDW 12.7 Plt Count 194 MPV 10.1 Immature Gran % (Auto) 0.4 Neut % (Auto) 62.9 Lymph % (Auto) 25.7 [place] % (Auto) 6.5 Eos % (Auto) 4.2 H Baso % (Auto) 0.3 Lymph # (Auto) 2.0 [place] # (Auto) 0.5 Eos # (Auto) 0.3 Baso # (Auto) 0.0 Abs Immat Gran (auto) 0.03 Absolute Neuts (auto) 4.8 Absolute Nucleated RBC 0.000 Nucleated RBC % (auto) 0.0 PT 11.8 INR 1.0 APTT 36.8 D-Dimer Sodium 139 Potassium 4.7 Chloride 104 Carbon Dioxide 29 Anion Gap 11 L BUN 22 H Creatinine 0.93 Estim Creat Clear Calc 65.7 Estimated GFR > 60 Random Glucose 85 Calcium 9.6 Magnesium Total Bilirubin 0.3 AST 32 ALT 37 Alkaline Phosphatase 73 Troponin I High Sens Total Protein 7.6 Albumin 4.7 TSH Urine Color Urine Appearance Urine pH Ur Specific [place] Urine Protein Urine Glucose (UA) Urine Ketones Urine Blood Urine Nitrite Ur Leukocyte Esterase COVID-19 (RALPH) COVID-19 [employer] Com 03/19/20 03/19/20 03/19/20 11:55 11:55 11:55 WBC RBC Hgb Hct MCV MCH MCHC RDW Plt Count MPV Immature Gran % (Auto) Neut % (Auto) Lymph % (Auto) [place] % (Auto) Eos % (Auto) Baso % (Auto) Lymph # (Auto) [place] # (Auto) Eos # (Auto) Baso # (Auto) Abs Immat Gran (auto) Absolute Neuts (auto) Absolute Nucleated RBC Nucleated RBC % (auto) PT INR APTT D-Dimer 660 Sodium Potassium Chloride Carbon Dioxide Anion Gap BUN Creatinine Estim Creat Clear Calc Estimated GFR Random Glucose Calcium Magnesium 2.1 Total Bilirubin AST ALT Alkaline Phosphatase Troponin I High Sens 5.3 Total Protein Albumin TSH 0.89 Urine Color Urine Appearance Urine pH Ur Specific [place] Urine Protein Urine Glucose (UA) Urine Ketones Urine Blood Urine Nitrite Ur Leukocyte Esterase COVID-19 (RALPH) COVID-19 Clin Com 03/19/20 03/19/20 03/20/20 13:03 22:46 05:27 WBC 7.0 RBC 4.35 L Hgb 13.4 L Hct 40.6 L MCV 93.3 MCH 30.8 MCHC 33.0 RDW 12.7 Plt Count 191 MPV 10.7 Immature Gran % (Auto) Neut % (Auto) Lymph % (Auto) [place] % (Auto) Eos % (Auto) Baso % (Auto) Lymph # (Auto) [place] # (Auto) Eos # (Auto) Baso # (Auto) Abs Immat Gran (auto) Absolute Neuts (auto) Absolute Nucleated RBC 0.000 Nucleated RBC % (auto) 0.0 PT INR APTT D-Dimer Sodium Potassium Chloride Carbon Dioxide Anion Gap BUN Creatinine Estim Creat Clear Calc Estimated GFR Random Glucose Calcium Magnesium Total Bilirubin AST ALT Alkaline Phosphatase Troponin I High Sens Total Protein Albumin TSH Urine Color STRAW Urine Appearance CLEAR Urine pH 5.5 Ur Specific [place] 1.010 Urine Protein NEG Urine Glucose (UA) NEG Urine Ketones NEG Urine Blood NEG Urine Nitrite NEG Ur Leukocyte Esterase NEG COVID-19 (RALPH) Negative COVID-19 Clin Com See Note 03/20/20 05:27 WBC RBC Hgb Hct MCV MCH MCHC RDW Plt Count MPV Immature Gran % (Auto) Neut % (Auto) Lymph % (Auto) [place] % (Auto) Eos % (Auto) Baso % (Auto) Lymph # (Auto) [place] # (Auto) Eos # (Auto) Baso # (Auto) Abs Immat Gran (auto) Absolute Neuts (auto) Absolute Nucleated RBC Nucleated RBC % (auto) PT INR APTT D-Dimer Sodium 141 Potassium 4.7 Chloride 106 Carbon Dioxide 25 Anion Gap 15 BUN 29 H Creatinine 1.05 Estim Creat Clear Calc 58.2 Estimated GFR > 60 Random Glucose 75 Calcium 8.7 D Magnesium Total Bilirubin AST ALT Alkaline Phosphatase Troponin I High Sens Total Protein Albumin TSH Urine Color Urine Appearance Urine pH Ur Specific [place] Urine Protein Urine Glucose (UA) Urine Ketones Urine Blood Urine Nitrite Ur Leukocyte Esterase COVID-19 (RALPH) COVID-19 Clin Com Assessment and Plan (1) Atrial fibrillation with rapid ventricular response: Status: Acute Admission EKG with atrial fibrillation at 91/Min with aberrantly conducted complexes versus PVC. Right bundle-branch block pattern noted. Currently, he is in sinus rhythm by EKG. Negative high sensitivity troponins. We can start him on oral diltiazem. Start Eliquis. Stop aspirin. Echocardiogram can be performed as an outpatient if it can't be completed today. Procedures Abscess I/D Date of Service: 03/20/20
--- NOTE | 2020-03-20 11:20 | MHC.CM.PN ---
pt dcd home no servceis
--- NOTE | 2020-03-20 11:33 | P.DS_ITS ---
DS: Providers Provider Date of admission: 03/19/20 17:05 Primary care physician: Lacho Mcdonnell MD Consults: 03/20/20 00:12 Consult to Cardiology Routine Consulting Provider: Anderson Lane Reason for consultation: new onset afib DS: Diagnosis Discharge Diagnosis (1) Atrial fibrillation with rapid ventricular response: Status: Acute DS: Medications Discharge Medications Home Medications: Home Medications Medication Instructions Recorded Confirmed fluticasone 250 mcg-salmeterol 50 1 inh INHALATION Q12H 03/19/20 03/19/20 mcg/dose blistr powdr for inhalation lidocaine 5 % topical ointment 1 applic TOPICAL TID 03/19/20 03/19/20 oxybutynin chloride 1 tab PO DAILY 03/19/20 03/19/20 tamsulosin 0.4 mg capsule 0.4 mg PO DAILY 03/19/20 03/19/20 Previous Rx's Medication Instructions Recorded pregabalin 50 mg capsule 50 mg PO BID PRN 30 Days #60 cap 03/06/20 albuterol sulfate 90 mcg/actuation 2 puff INHALATION Q4-6H PRN #8.5 g 03/19/20 aerosol inhaler simvastatin 40 mg tablet 40 mg PO DAILY #90 tab 03/19/20 apixaban [Eliquis] 5 mg PO BID #30 tab 03/20/20 diltiazem HCl [Cardizem CD] 120 mg PO DAILY #30 cap 03/20/20 DS: Summary Hospital Course Hospital Course: 74-year-old male admitted with chest pain with mildly elevated high sensitivity troponin admitted to rule out NSTEMI, patient was seen by Cardiology recommended Lovenox , echocardiogram was done shows EF 55-60%, CT PA chest was done shows no pulmonary embolus, patient underwent stress test, stress test was negative, cardiology recommended starting on aspirin statin and Lopressor, chest pain resolved, patient was stable discharged home on aspirin statin and Lopressor, patient will follow up cardiology as outpatient Time Spent with Patient Time attestation: Total time spent providing and/or coordinating discharge services: Physical Exam Vital Signs: Vital Signs: Last Vital Signs Temp 97.8 F 03/20/20 08:00 Pulse 64 03/20/20 08:00 Resp 20 03/20/20 08:00 BP 136/63 03/20/20 08:00 Pulse Ox 98 03/20/20 08:00 Body Mass Index 28.2 Const: Other: Last Vital Signs Temp 97.8 F 03/20/20 08:00 Pulse 64 03/20/20 08:00 Resp 20 03/20/20 08:00 BP 136/63 03/20/20 08:00 Pulse Ox 98 03/20/20 08:00 Body Mass Index 28.2 Cardio: Other: Last Vital Signs Temp 97.8 F 03/20/20 08:00 Pulse 64 03/20/20 08:00 Resp 20 03/20/20 08:00 BP 136/63 03/20/20 08:00 Pulse Ox 98 03/20/20 08:00 Body Mass Index 28.2 DS: Data Data Completed and Pending Labs on day of discharge: 03/19/20 11:00 ECG 12 lead EKG Stat 03/19/20 11:01 EKG Documentation DIRECTED 03/19/20 11:02 XR chest 1V Stat 03/19/20 11:55 Complete Blood Count Auto Diff Stat Comprehensive Met. Panel Stat D Dimer Stat Magnesium Stat Partial Thromboplastin Time Stat Prothrombin Time INR Stat Thyroid Stimulating Hormone Stat Troponin-I High Sensitivity Stat 03/19/20 13:03 UA CC w/rflx Micro + Cult Stat 03/19/20 13:26 dilTIAZem HCL [Cardizem] 30 mg PO ONCE STA 03/19/20 14:35 CT angio chest PE protocol Stat 03/19/20 14:55 iohexoL 350 MG/ML [Omnipaque 350 MG/ML] 100 ml IV ONCE ONE 03/19/20 15:27 dilTIAZem HCL [Cardizem] 125 mg IVCONT .STK-MED ONE 03/19/20 15:30 0.9 % Sodium Chloride [Ns] 100 ml dilTIAZem HCL [Cardizem] 125 mg IVCONT Per Protocol mg/hr 03/19/20 16:40 Consult Rx Perform Med Rec 1 each MISCELLANE ONCE PRN 03/19/20 17:01 Transfer Order Routine 03/19/20 20:51 Pregabalin [Lyrica] 50 mg PO ONCE ONE 03/19/20 22:46 COVID-19 ID NOW (Sung) Stat 03/20/20 01:29 RT Smoking Initial Cessation ONCE 03/20/20 05:27 Basic Metabolic Panel DAILY@0600 Complete Blood Count no Diff DAILY@0600 03/20/20 09:00 Flu Vacc [id number](6mos up)/PF [Fluarix Quad [id number]] 0.5 ml IM .ONCE ONE Laboratory Last Values WBC 7.0 X10*3/uL (4.8-10.8) 03/20/20 05:27 RBC 4.35 X10*6/uL (4.60-5.80) L 03/20/20 05:27 Hgb 13.4 g/dl (14.0-18.0) L 03/20/20 05:27 Hct 40.6 % (42-52) L 03/20/20 05:27 MCV 93.3 fL (80-98) 03/20/20 05:27 MCH 30.8 pg (27.0-33.0) 03/20/20 05:27 MCHC 33.0 g/dl (31.0-36.0) 03/20/20 05:27 RDW 12.7 % (11.0-16.0) 03/20/20 05:27 Plt Count 191 X10*3/uL (160-400) 03/20/20 05:27 MPV 10.7 fL (9.4-12.4) 03/20/20 05:27 Immature Gran % (Auto) 0.4 % (0.0-0.4) 03/19/20 11:55 Neut % (Auto) 62.9 % (45-73) 03/19/20 11:55 Lymph % (Auto) 25.7 % (20-40) 03/19/20 11:55 [place] % (Auto) 6.5 % (2-11) 03/19/20 11:55 Eos % (Auto) 4.2 % (0-4) H 03/19/20 11:55 Baso % (Auto) 0.3 % (0-2) 03/19/20 11:55 Lymph # (Auto) 2.0 X10*3/uL (1.2-4.9) 03/19/20 11:55 [place] # (Auto) 0.5 X10*3/uL (0.1-1.2) 03/19/20 11:55 Eos # (Auto) 0.3 X10*3/uL (0.0-0.4) 03/19/20 11:55 Baso # (Auto) 0.0 X10*3/uL (0.0-0.2) 03/19/20 11:55 Abs Immat Gran (auto) 0.03 X10*3/uL (0.00-0.03) 03/19/20 11:55 Absolute Neuts (auto) 4.8 X10*3/uL (2.0-8.3) 03/19/20 11:55 Absolute Nucleated RBC 0.000 X10*3/uL (0.0-0.012) 03/20/20 05:27 Nucleated RBC % (auto) 0.0 /100WBC (0.0-0.2) 03/20/20 05:27 PT 11.8 SEC (10.8-13.0) 03/19/20 11:55 INR 1.0 (0.9-1.1) 03/19/20 11:55 APTT 36.8 SEC (24.1-38.0) 03/19/20 11:55 D-Dimer 660 NG/ML 03/19/20 11:55 Sodium 141 mmol/L (135-145) 03/20/20 05:27 Potassium 4.7 mmol/l (3.3-5.1) 03/20/20 05:27 Chloride 106 mmol/L (96-108) 03/20/20 05:27 Carbon Dioxide 25 mmol/L (22-29) 03/20/20 05:27 Anion Gap 15 (12-20) 03/20/20 05:27 BUN 29 mg/dL (9-16) H 03/20/20 05:27 Creatinine 1.05 mg/dL (0.5-1.4) 03/20/20 05:27 Estim Creat Clear Calc 58.2 03/20/20 05:27 Estimated GFR > 60 03/20/20 05:27 Random Glucose 75 mg/dL (60-115) 03/20/20 05:27 Calcium 8.7 mg/dL (8.4-10.2) D 03/20/20 05:27 Magnesium 2.1 mg/dL (1.6-2.6) 03/19/20 11:55 Total Bilirubin 0.3 mg/dL (0.0-1.0) 03/19/20 11:55 AST 32 U/L (5-37) 03/19/20 11:55 ALT 37 U/L (0-40) 03/19/20 11:55 Alkaline Phosphatase 73 U/L (39-117) 03/19/20 11:55 Troponin I High Sens 5.3 ng/L (<3.5-35.0) 03/19/20 11:55 Total Protein 7.6 g/dL (6.5-8.0) 03/19/20 11:55 Albumin 4.7 g/dL (3.5-5.0) 03/19/20 11:55 TSH 0.89 uIU/mL (0.32-4.0) 03/19/20 11:55 Urine Color STRAW 03/19/20 13:03 Urine Appearance CLEAR 03/19/20 13:03 Urine pH 5.5 (5.0-8.0) 03/19/20 13:03 Ur Specific [place] 1.010 (1.005-1.025) 03/19/20 13:03 Urine Protein NEG MG/DL (NEG-TRACE) 03/19/20 13:03 Urine Glucose (UA) NEG MG/DL (NEG) 03/19/20 13:03 Urine Ketones NEG MG/DL (NEG) 03/19/20 13:03 Urine Blood NEG (NEG) 03/19/20 13:03 Urine Nitrite NEG (NEG) 03/19/20 13:03 Ur Leukocyte Esterase NEG (NEG) 03/19/20 13:03 COVID-19 (RALPH) Negative (Negative) 03/19/20 22:46 COVID-19 Clin Com See Note 03/19/20 22:46 Discharge Plan Discharge Anticipated Discharge Date/Time: 03/20/20 11:23 Patient Disposition: Home, Self-Care Referrals: Po,Lacho Delgado MD [Primary Care Provider] - Discharge Medications: New diltiazem HCl [Cardizem CD] 120 mg capsule,extended release 24hr 120 mg PO DAILY Qty: 30 RF: 0 Eliquis 5 mg tablet 5 mg PO BID Qty: 30 RF: 0 Continued pregabalin 50 mg capsule 50 mg PO BID PRN (Reason: pain) 30 Days Qty: 60 RF: 0 oxybutynin chloride 10 mg tablet extended release 24hr 1 tab PO DAILY RF: 0 tamsulosin [Flomax] 0.4 mg capsule 0.4 mg PO DAILY RF: 0 fluticasone propion-salmeterol [Wixela Inhub] 250-50 mcg/dose blister with device 1 inh inhalation Q12H RF: 0 lidocaine 5 % ointment 1 applic topical TID RF: 0 simvastatin 40 mg tablet 40 mg PO DAILY Qty: 90 RF: 2 albuterol sulfate [ProAir HFA] 90 mcg/actuation HFA aerosol inhaler 2 puff inhalation Q4-6H PRN (Reason: bronchospasm) Qty: 8.5 RF: 1 Discontinued aspirin [Adult Aspirin Regimen] 81 mg tablet,delayed release (DR/EC) 81 mg PO DAILY RF: 0 Discharge Orders: Discharge Order (Routine); Ordered 03/20/20 Ordered By: Raymond Randolph Diet: advance to usual diet Activity on Discharge: As tolerated Discharge Date/Time: 03/20/20 12:45 Visit Report Forms: Patient Portal Discharge page Care Plan Goals: treat afib Health Concerns: afib Plan of Treatment: sena
[2020-03-20 11:39] VITALS: BP 115/61; PULSE 64; RESP 20; TEMP 36.2; O2SAT 96
[2020-03-20] MEDS: Apixaban 5 MG TABLET PO (12:10)
--- NOTE | 2020-03-20 12:15 | MHC.CM.PN ---
dc plsn home no services
--- NOTE | 2020-03-20 14:04 | MHC.CM.PN ---
A request was received from the [employer] who DC this Patient today. She had received a request from to identify whether or not insurance would cover Eliquis. I called the Pts pharmacy. I spoke with the pharmacist neil Gilbert co-pay. The Pharmacy received the script for 15 day duration. Per pharmacist The patient can not use the 30 day trail of Eliqis coupon from [facility]. The MD was notified via tiger text.
--- NOTE | 2020-03-22 16:35 | PM.DS ---
DS: Providers Provider Date of admission: 03/19/20 17:05 Primary care physician: Lacho Mcdonnell MD Consults: 03/20/20 00:12 Consult to Cardiology Routine Consulting Provider: Anderson Lane Reason for consultation: new onset afib DS: Diagnosis Discharge Diagnosis (1) Atrial fibrillation with rapid ventricular response: Status: Acute DS: Medications Discharge Medications Home Medications: Home Medications Medication Instructions Recorded Confirmed fluticasone 250 mcg-salmeterol 50 1 inh INHALATION Q12H 03/19/20 03/19/20 mcg/dose blistr powdr for inhalation lidocaine 5 % topical ointment 1 applic TOPICAL TID 03/19/20 03/19/20 oxybutynin chloride 1 tab PO DAILY 03/19/20 03/19/20 tamsulosin 0.4 mg capsule 0.4 mg PO DAILY 03/19/20 03/19/20 Previous Rx's Medication Instructions Recorded pregabalin 50 mg capsule 50 mg PO BID PRN 30 Days #60 cap 03/06/20 albuterol sulfate 90 mcg/actuation 2 puff INHALATION Q4-6H PRN #8.5 g 03/19/20 aerosol inhaler simvastatin 40 mg tablet 40 mg PO DAILY #90 tab 03/19/20 apixaban [Eliquis] 5 mg PO BID #30 tab 03/20/20 diltiazem HCl [Cardizem CD] 120 mg PO DAILY #30 cap 03/20/20 DS: Summary Hospital Course Hospital Course: 74 y o m admitted with afib with RVR , patient was started on IV Cardizem drip, patient was converted to sinus rhythm, patient was seen by Cardiology commended starting Cardizem and Eliquis, patient remains in sinus rhythm, heart rate was stable, patient was discharged home on p.o. Cardizem and Eliquis, patient will follow up cardiology Dr. Lane as outpatient for echocardiogram Time Spent with Patient Time attestation: Total time spent providing and/or coordinating discharge services: Physical Exam Vital Signs: Vital Signs: Last Vital Signs Temp 97.2 F 03/20/20 11:39 Pulse 64 03/20/20 11:39 Resp 20 03/20/20 11:39 BP 115/61 03/20/20 11:39 Pulse Ox 96 03/20/20 11:39 Body Mass Index 28.2 Const: Other: Last Vital Signs Temp 97.2 F 03/20/20 11:39 Pulse 64 03/20/20 11:39 Resp 20 03/20/20 11:39 BP 115/61 03/20/20 11:39 Pulse Ox 96 03/20/20 11:39 Body Mass Index 28.2 Cardio: Other: Last Vital Signs Temp 97.2 F 03/20/20 11:39 Pulse 64 03/20/20 11:39 Resp 20 03/20/20 11:39 BP 115/61 03/20/20 11:39 Pulse Ox 96 03/20/20 11:39 Body Mass Index 28.2 DS: Data Data Completed and Pending Labs on day of discharge: 03/19/20 11:00 ECG 12 lead EKG Stat 03/19/20 11:01 EKG Documentation DIRECTED 03/19/20 11:02 XR chest 1V Stat 03/19/20 11:55 Complete Blood Count Auto Diff Stat Comprehensive Met. Panel Stat D Dimer Stat Magnesium Stat Partial Thromboplastin Time Stat Prothrombin Time INR Stat Thyroid Stimulating Hormone Stat Troponin-I High Sensitivity Stat 03/19/20 13:03 UA CC w/rflx Micro + Cult Stat 03/19/20 13:26 dilTIAZem HCL [Cardizem] 30 mg PO ONCE STA 03/19/20 14:35 CT angio chest PE protocol Stat 03/19/20 14:55 iohexoL 350 MG/ML [Omnipaque 350 MG/ML] 100 ml IV ONCE ONE 03/19/20 15:27 dilTIAZem HCL [Cardizem] 125 mg IVCONT .STK-MED ONE 03/19/20 15:30 0.9 % Sodium Chloride [Ns] 100 ml dilTIAZem HCL [Cardizem] 125 mg IVCONT Per Protocol mg/hr 03/19/20 16:40 Consult Rx Perform Med Rec 1 each MISCELLANE ONCE PRN 03/19/20 17:01 Transfer Order Routine 03/19/20 17:03 Code Status Routine 03/19/20 20:51 Pregabalin [Lyrica] 50 mg PO ONCE ONE 03/19/20 22:46 COVID-19 ID NOW (Sung) Stat 03/20/20 00:12 0.9 % Sodium Chloride Flush [NS Flush] 3 ml IVFLUSH QSHIFT Acetaminophen [Tylenol] 650 mg PO Q6H PRN Albuterol Sulfate [Ventolin] 2 puff INHALE RQ4H PRN Docusate Sodium [Colace] 100 mg PO DAILY PRN Lidocaine 5 % Ointment [Xylocaine 5 % Ointment] 1 appl TOPICAL TID Pregabalin [Lyrica] 50 mg PO BID PRN ondansetron HCL [Zofran] 4 mg IVPUSH Q8H PRN 03/20/20 00:12 Ambulate QSHIFT WHILE AWAKE Compression Therapy QSHIFT Cont. Telemetry w/Vital Sign limit Q4HR IV insert/maintain Q4HR Intake and Output QSHIFTE Pulse Oximetry Q4HR Vital Signs Q4HR 03/20/20 01:29 RT Smoking Initial Cessation ONCE 03/20/20 05:27 Basic Metabolic Panel DAILY@0600 Complete Blood Count no Diff DAILY@0600 03/20/20 08:00 Fluticasone/Vilanterol 100/25 [Breo Ellipta 100/25] 1 puff INHALE RDAILY 03/20/20 09:00 Aspirin Enteric Coated [Ecotrin] 81 mg PO DAILY Atorvastatin Calcium [Lipitor] 20 mg PO DAILY Flu Vacc [id number](6mos up)/PF [Fluarix Quad 5912-4261] 0.5 ml IM .ONCE ONE Oxybutynin Chloride ER [Ditropan XL] 10 mg PO DAILY Tamsulosin HCL [Flomax] 0.4 mg PO DAILY 03/20/20 11:21 Apixaban [Eliquis] 5 mg PO ONCE ONE Laboratory Last Values WBC 7.0 X10*3/uL (4.8-10.8) 03/20/20 05:27 RBC 4.35 X10*6/uL (4.60-5.80) L 03/20/20 05:27 Hgb 13.4 g/dl (14.0-18.0) L 03/20/20 05:27 Hct 40.6 % (42-52) L 03/20/20 05:27 MCV 93.3 fL (80-98) 03/20/20 05:27 MCH 30.8 pg (27.0-33.0) 03/20/20 05:27 MCHC 33.0 g/dl (31.0-36.0) 03/20/20 05:27 RDW 12.7 % (11.0-16.0) 03/20/20 05:27 Plt Count 191 X10*3/uL (160-400) 03/20/20 05:27 MPV 10.7 fL (9.4-12.4) 03/20/20 05:27 Immature Gran % (Auto) 0.4 % (0.0-0.4) 03/19/20 11:55 Neut % (Auto) 62.9 % (45-73) 03/19/20 11:55 Lymph % (Auto) 25.7 % (20-40) 03/19/20 11:55 [place] % (Auto) 6.5 % (2-11) 03/19/20 11:55 Eos % (Auto) 4.2 % (0-4) H 03/19/20 11:55 Baso % (Auto) 0.3 % (0-2) 03/19/20 11:55 Lymph # (Auto) 2.0 X10*3/uL (1.2-4.9) 03/19/20 11:55 [place] # (Auto) 0.5 X10*3/uL (0.1-1.2) 03/19/20 11:55 Eos # (Auto) 0.3 X10*3/uL (0.0-0.4) 03/19/20 11:55 Baso # (Auto) 0.0 X10*3/uL (0.0-0.2) 03/19/20 11:55 Abs Immat Gran (auto) 0.03 X10*3/uL (0.00-0.03) 03/19/20 11:55 Absolute Neuts (auto) 4.8 X10*3/uL (2.0-8.3) 03/19/20 11:55 Absolute Nucleated RBC 0.000 X10*3/uL (0.0-0.012) 03/20/20 05:27 Nucleated RBC % (auto) 0.0 /100WBC (0.0-0.2) 03/20/20 05:27 PT 11.8 SEC (10.8-13.0) 03/19/20 11:55 INR 1.0 (0.9-1.1) 03/19/20 11:55 APTT 36.8 SEC (24.1-38.0) 03/19/20 11:55 D-Dimer 660 NG/ML 03/19/20 11:55 Sodium 141 mmol/L (135-145) 03/20/20 05:27 Potassium 4.7 mmol/l (3.3-5.1) 03/20/20 05:27 Chloride 106 mmol/L (96-108) 03/20/20 05:27 Carbon Dioxide 25 mmol/L (22-29) 03/20/20 05:27 Anion Gap 15 (12-20) 03/20/20 05:27 BUN 29 mg/dL (9-16) H 03/20/20 05:27 Creatinine 1.05 mg/dL (0.5-1.4) 03/20/20 05:27 Estim Creat Clear Calc 58.2 03/20/20 05:27 Estimated GFR > 60 03/20/20 05:27 Random Glucose 75 mg/dL (60-115) 03/20/20 05:27 Calcium 8.7 mg/dL (8.4-10.2) D 03/20/20 05:27 Magnesium 2.1 mg/dL (1.6-2.6) 03/19/20 11:55 Total Bilirubin 0.3 mg/dL (0.0-1.0) 03/19/20 11:55 AST 32 U/L (5-37) 03/19/20 11:55 ALT 37 U/L (0-40) 03/19/20 11:55 Alkaline Phosphatase 73 U/L (39-117) 03/19/20 11:55 Troponin I High Sens 5.3 ng/L (<3.5-35.0) 03/19/20 11:55 Total Protein 7.6 g/dL (6.5-8.0) 03/19/20 11:55 Albumin 4.7 g/dL (3.5-5.0) 03/19/20 11:55 TSH 0.89 uIU/mL (0.32-4.0) 03/19/20 11:55 Urine Color STRAW 03/19/20 13:03 Urine Appearance CLEAR 03/19/20 13:03 Urine pH 5.5 (5.0-8.0) 03/19/20 13:03 Ur Specific [place] 1.010 (1.005-1.025) 03/19/20 13:03 Urine Protein NEG MG/DL (NEG-TRACE) 03/19/20 13:03 Urine Glucose (UA) NEG MG/DL (NEG) 03/19/20 13:03 Urine Ketones NEG MG/DL (NEG) 03/19/20 13:03 Urine Blood NEG (NEG) 03/19/20 13:03 Urine Nitrite NEG (NEG) 03/19/20 13:03 Ur Leukocyte Esterase NEG (NEG) 03/19/20 13:03 COVID-19 (RALPH) Negative (Negative) 03/19/20 22:46 COVID-19 Clin Com See Note 03/19/20 22:46 Discharge Plan Discharge Anticipated Discharge Date/Time: 03/20/20 11:23 Patient Disposition: Home, Self-Care Referrals: Po,Lacho Delgado MD [Primary Care Provider] - Discharge Medications: New diltiazem HCl [Cardizem CD] 120 mg capsule,extended release 24hr 120 mg PO DAILY Qty: 30 RF: 0 Eliquis 5 mg tablet 5 mg PO BID Qty: 30 RF: 0 Continued pregabalin 50 mg capsule 50 mg PO BID PRN (Reason: pain) 30 Days Qty: 60 RF: 0 oxybutynin chloride 10 mg tablet extended release 24hr 1 tab PO DAILY RF: 0 tamsulosin [Flomax] 0.4 mg capsule 0.4 mg PO DAILY RF: 0 fluticasone propion-salmeterol [Wixela Inhub] 250-50 mcg/dose blister with device 1 inh inhalation Q12H RF: 0 lidocaine 5 % ointment 1 applic topical TID RF: 0 simvastatin 40 mg tablet 40 mg PO DAILY Qty: 90 RF: 2 albuterol sulfate [ProAir HFA] 90 mcg/actuation HFA aerosol inhaler 2 puff inhalation Q4-6H PRN (Reason: bronchospasm) Qty: 8.5 RF: 1 Discontinued aspirin [Adult Aspirin Regimen] 81 mg tablet,delayed release (DR/EC) 81 mg PO DAILY RF: 0 Discharge Orders: Discharge Order (Routine); Ordered 03/20/20 Ordered By: Raymond Randolph Diet: advance to usual diet Activity on Discharge: As tolerated Discharge Date/Time: 03/20/20 12:45 Visit Report Forms: Patient Portal Discharge page Care Plan Goals: treat afib Health Concerns: afib Plan of Treatment: sena
== END 2020-03-20 12:45 | disposition home or self-care (01) | DRG 309 ==
LOC: HO.ED 22:12 → HO.IMC 03-20 00:01
PROVIDERS: Physician Assistant; Physician Assistant Medical; Admitting Provider Internal Medicine; Emergency Provider Emergency Medicine; PCP Internal Medicine; Visit Provider Internal Medicine
DX: I48.91 Unspecified atrial fibrillation (principal); B02.29 Other postherpetic nervous system involvement; E78.5 Hyperlipidemia, unspecified; Z20.828 Contact with and (suspected) exposure to other viral communicable diseases; Z23 Encounter for immunization; Z79.01 Long term (current) use of anticoagulants; Z79.52 Long term (current) use of systemic steroids; Z79.899 Other long term (current) drug therapy
CPT/HCPCS: 36415; 71045; 71275; 80048; 80053; 81003; 83735; 84443; 84484; 85025; 85027; 85379; 85610; 85730; 87635; 90686; 93005; 99285; Q9967

== ENCOUNTER → 2020-03-24 10:47 | Outpatient (BNVA) | payer MEDICARE, SELFPAY | PROVIDERS: PCP Internal Medicine; Visit Provider Urology | DX: R35.0 Frequency of micturition (principal) | CPT/HCPCS: 81002; 99202 ==

== ENCOUNTER → 2020-04-16 12:43 | Outpatient (REF) | payer MEDICARE, SELFPAY ==
--- NOTE | 2020-04-16 12:48 | ECG_ITS ---
Hook-up date: 2020-04-16 13:32:00 Duration: 25:40:00 Test Indications: AFIB Medications: 64247 QRS complexes 43 Ventricular ectopics which represent <1 % of total QRS comp. 155 Supraventricular ectopics which represent <1 % of total QRS comp. * Paced QRS complexs which represent % of total QRS comp. VENTRICULAR ECTOPY 41 Isolated 0 Bigeminal Cycles 1 Couplets 0 Runs 0 Beats in Runs * Beats LONGEST at * BPM at :: -- * Beats FASTEST at * BPM at :: -- SUPRAVENTRICULAR ECTOPY 109 Isolated 12 Couplets 5 Runs 22 Beats in Runs 8 Beats LONGEST at 96 BPM at 01:46:18 2020-04-17 3 Beats FASTEST at 119 BPM at 09:48:43 2020-04-17 HEART RATES 46 MIN at 22:28:36 2020-04-16 60 AVG 101 MAX at 15:02:38 2020-04-16 LONGEST RR 1.3920 secs at 23:25:51 2020-04-16 S-T LEVELS Channel 1 - 128 mm at 13:32:00 2020-04-16 - 128 mm at 13:32:00 2020-04-16 Channel 2 - 128 mm at 13:32:00 2020-04-16 - 128 mm at 13:32:00 2020-04-16 Channel 3 - 128 mm at 03:25:11 -- - 128 mm at 03:25:11 Underlying rhythm is sinus; Average ventricular rate 60/min; range 46-101/min; Occasional supraventricular and ventricular ectopy; No sustained arrhythmias; Patient did not report any symptoms in the diary Referred By: Jannie Morales Overread By: KRISTINE RICHEY
--- NOTE | 2020-04-16 12:48 | CA_ITS ---
Transthoracic Echocardiogram Patient (Last, First, Middle): Ravin Lowery P Gender: Male Date of : 1945 Age: 74 Procedure Date: 04/16/2020 Procedure Type: Transthoracic Echocardiogram Location: OP Height: 170.18 cm Weight: 65.77 kg BSA: 1.76 m2 Heart Rate: bpm BP: 164 / 50 mmHg Box Attacher: Referring MD: Jannie Morales SUBSTATION OPERATOR HELPER- Fire Prevention Inspector: Leopoldo Mcclendon MD Symptoms: I48.91 - Unspecified atrial fibrillation Study Quality: Good ECG Rhythm: Sinus Conclusions: - 1. Normal LV systolic function with impaired relaxation filling pattern 2. Mild aortic regurgitation 3. Normal RV systolic pressure 4. No pericardial effusion Findings Left Ventricle Normal left ventricular size, thickness, and systolic function. The visually estimated ejection fraction is between 60-65%. Spectral Doppler is indicative of an impaired relaxation filling pattern. E/E prime ratio is between 8 and 15 consistent with indeterminate filling pressures. Right Ventricle Normal right ventricular cavity size and systolic function. Atria The left atrium is likely dilated. There is lipomatous hypertrophy of the interatrial septum. There is a mobile atrial septum noted. There is no evidence of interatrial shunt. The right atrium is normal in size. Aortic Valve There is mild calcification of the aortic valve. There is moderate thickening of the aortic valve. There is no aortic valve stenosis. There is mild aortic valve regurgitation. Mitral Valve There is mild anterior and posterior mitral leaflet thickening. There is mild mitral annular calcification. There is trace mitral valve regurgitation. There is no mitral valve stenosis. Pulmonic Valve The pulmonic valve was not well visualized. Tricuspid Valve Likely normal tricuspid valve structure and function. There is mild tricuspid valve regurgitation. The right ventricular systolic pressure is normal. The right ventricular systolic pressure is 34 mmHg. Normal right atrial pressure. Great Vessels All visible segments of the aorta are normal in size. The pulmonary artery was not well visualized. Venous The inferior vena cava is normal in size and collapses greater than 50% with inspiration. Pericardium/Pleural There is no evidence of pericardial effusion. Prior Study Comparison No prior study available for comparison. Measurements 2D Linear Measurements RVIDd: 2.75 RVIDd Index: 1.56 IVSd: 0.67 0.6-0.9/0.6-1.0 cm LVIDd: 4.78 3.9-5.3/4.2-5.9 cm LVIDd Index: 2.72 2.4-3.2/2.2-3.1 cm/m2 LVIDs: 2.84 2.0-3.6 cm LVPWd: 1.05 0.7-1.1 cm Ao Root: 3.10 2.1-3.5 cm LA Diam: 3.30 2.7-3.8/3.0-4.0 cm LAIDs Index: 1.88 1.5-2.3 cm/m2 LV Mass: 172.42 67-162/88-224 g LV Mass Index: 97.97 43-95/49-115 g/m2 LVOT Diam: 2.00 3.0+(-)1.3 cm 2D Systolic Function EF 4C: 78.20 >55% EF 2C: 57.50 >55% EF BiP: 67.90 >55% Mitral Valve MV Pk E: 0.86 MV PK A: 0.92 MV Decel Time: 276.00 E/A: 0.90 E'Lateral: 9.57 E'Medial: 5.87 E/E' Med: 14.60 E/E' Lat: 9.00 Aortic Valve AoV Pk Royce: 1.85 AoV Mn Royce: 1.39 AoV VTI: 0.44 AoV Pk Grad: 14.00 Aov Mn Grad: 9.00 GARRETT Cont.VTI: 1.90 AI Pk Royce: 4.23 AI Hart: 2.23 LVOT LVOT Pk Royce: 1.30 LVOT Mn Royce: 0.89 LVOT VTI: 0.27 LVOT Pk Grad: 7.00 LVOT Mn Grad: 4.00 LVOT Diam: 2.00 LVOT Area: 3.14 Diastolic Function MV Pk E: 0.86 MV Pk A: 0.92 E/A: 0.90 E'Medial: 5.87 E/E' Med: 14.60 E' Laterial: 9.57 E/E' Lat: 9.00 Tricuspid Valve TR Pk Royce: 2.80 TR Pk Grad: 31.00 RA Press: 3.00 RVSP: 34.00 Great Vessels Aorta Ao Root-2D: 3.10 2.0-3.7 cm Ao Asc: 3.10 2.1-3.4 cm Updated in Other Vendor System with Status of Final Leopoldo Mcclendon MD electronically signed on 04/16/2020 2:49:50 PM with status of Final
== END ==
LOC: HO.CARD 12:43
PROVIDERS: Visit Provider Nurse Practitioner Family
DX: I48.91 Unspecified atrial fibrillation (principal)
CPT/HCPCS: 93225; 93226; 93306

== ENCOUNTER → 2020-04-28 13:08 | Outpatient (BNVA) | payer MEDICARE, SELFPAY | PROVIDERS: PCP Internal Medicine; Visit Provider Internal Medicine | DX: I48.0 Paroxysmal atrial fibrillation (principal); Z79.01 Long term (current) use of anticoagulants; I35.1 Nonrheumatic aortic (valve) insufficiency | CPT/HCPCS: 99212 ==

== ENCOUNTER 2020-05-19 04:27 | Emergency (ER) | payer MEDICARE, SELFPAY ==
--- NOTE | 2020-05-19 | CT_ITS ---
EXAMINATION: CT HEAD WITHOUT CONTRAST CLINICAL INFORMATION: Fall on atelectasis COMPARISON: None TECHNIQUE: Contiguous axial imaging was performed from the skull base to vertex without intravenous administration of contrast. This CT examination was performed using dose optimization techniques as appropriate, variously including the following: *Automated exposure control *Adjustment of mA and/or kV according to patient size (this includes techniques or standardized protocols for targeted exams where dose is matched to indication/reason for exam; i.e. extremities or head) *Use of iterative reconstruction technique DLP: 748 mGy-cm FINDINGS: There is no evidence of acute intracranial hemorrhage or territorial infarction. There is a subtle hypodensity seen in the left devon. No abnormal mass effect or midline shift is seen. Erazo to white matter differentiation is well preserved. No extra-axial fluid collections are identified. The lateral ventricles are enlarged and slightly asymmetrical. Mild prominence of cortical sulci seen. The osseous structures and soft tissues are normal. The mastoid air cells and visualized portions of the paranasal sinuses are well aerated. CT/CT head/brain wo con IMPRESSION: No acute intracranial bleed seen. There is subtle hypodensity left devon likely artifact, less likely tiny infarct. Correlate with clinical symptoms Results were discussed with Dr. Lewis in ER by phone at 8:30 AM
--- NOTE | 2020-05-19 | ECG_ITS ---
Test Reason : SYNCOPE Blood Pressure : / mmHG Vent. Rate : 103 BPM Atrial Rate : 110 BPM P-R Int : 000 ms QRS Dur : 134 ms QT Int : 396 ms P-R-T Axes : 000 010 -26 degrees QTc Int : 518 ms Atrial fibrillation with rapid rate Right bundle branch block Abnormal ECG No significant changes when compared with the previous EKG of 19 mar 2020 Referred By: Ernesto Arora Electronically Signed By:KRISTINE RICHEY
--- NOTE | 2020-05-19 | CT_ITS ---
EXAMINATION: CT ANGIOGRAM NECK WITH CONTRAST CT ANGIOGRAM BRAIN WITH CONTRAST CLINICAL INFORMATION: Syncope. COMPARISON: None available. TECHNIQUE: Test bolus sequences followed by intravenous administration 80 mL of Omnipaque 350. Helical imaging was performed in the axial plane from the thoracic inlet to the skull vertex. Delayed postcontrast imaging of the head was also performed. The data was processed at the tissue technologist workstation for generation of MIP sequences. Angled MIPs and volume rendered reformatted images were also generated at an offline 3D workstation under concurrent supervision. Stenoses are assessed in accordance with NASCET criteria unless otherwise indicated. This CT examination was performed using dose optimization techniques as appropriate, variously including the following: *Automated exposure control *Adjustment of mA and/or kV according to patient size (this includes techniques or standardized protocols for targeted exams where dose is matched to indication/reason for exam; i.e. extremities or head) *Use of iterative reconstruction technique FINDINGS: BRAIN: [There is no intracranial hemorrhage, hydrocephalus, extra-axial surface collection, midline shift, or other herniation pattern. Erazo to white matter differentiation is diffusely maintained without evidence of an evolved acute territorial infarct. The basilar cisterns are preserved. No significant soft tissue abnormality. No acute osseous abnormality. The paranasal sinuses and the mastoid air cells are well aerated.] CERVICAL SOFT TISSUES AND LUNG APICES: Partially imaged pleural parenchymal scarring adjacent to chronic right rib fractures is stable in appearance. There is centrilobular emphysema within the imaged upper lungs. No significant soft tissue findings within the neck. There is multilevel cervical spondylosis. NECK CTA: [There is a classic 3 vessel configuration of the aortic arch. Proximal arch vessels are non-stenotic. The vertebral arteries are codominant. No significant ostial stenosis is visualized on either side. Both vertebral arteries are widely patent throughout their extracranial cervical course. Both common carotid arteries are normal in course and caliber. There is evidence is chronic calcification involving the carotid bifurcations bilaterally resulting in less than 50% stenoses of the proximal internal carotid arteries bilaterally.] BRAIN CTA: -type certified medical coding specialist bilaterally. No focal flow-limiting stenosis nor discrete proximal large artery occlusion. No aneurysm. Timing of the contrast bolus allows assessment of the major dural venous sinuses, which all opacify normally] CT/CT angio head neck IMPRESSION: - No acute intracranial findings. - No acute arterial occlusion and no significant arterial stenoses within the head or neck.
[2020-05-19 07:27] LABS: Anion Gap 14 (12-20); Blood Urea Nitrogen 21 mg/dL (9-16); Calcium 9.2 mg/dL (8.4-10.2); Carbon Dioxide 25 mmol/L (22-29); Chloride 107 mmol/L (96-108); Estimated Glomerular Filt Rate > 60; Glucose Random 99 mg/dL (60-115); Sodium 142 mmol/L (135-145)
[2020-05-19 07:31] VITALS: BMI 26.6
[2020-05-19 07:39] LABS: MANUAL DIFF FLAG NO
[2020-05-19 07:42] LABS: INTERNATIONAL NORM RATIO 1.1 (0.9-1.1); Partial Thromboplastin Time 36.6 SEC (24.1-38.0); Prothrombin Time 13.2 SEC (10.8-13.0)
--- NOTE | 2020-05-19 07:42 | PC.NURSE ---
report taken from obey donovan pt here for syncopal episode at home, pt known afib, hr appears 110-130 on tele and irregular. pt comfortable in stretcher, rr even/unlabored. asking for bacitracin for small lac on r eye, provided. awaiting ct scan results. wctm.
[2020-05-19 07:51] LABS: Basophils Percent Auto 0.3 % (0-2); Eosinophils Absolute Auto 0.3 X10*3/uL (0.0-0.4); Eosinophils Percent Auto 3.8 % (0-4); Hemoglobin 14.8 g/dl (14.0-18.0); Imm Gran Abs Auto 0.02 X10*3/uL (0.00-0.03); Imm Gran Pct Auto 0.3 % (0.0-0.4); Lymphocytes Absolute Auto 1.5 X10*3/uL (1.2-4.9); Lymphocytes Percent Auto 21.7 % (20-40); Mean Corpuscular HGB Conc 33.6 g/dl (31.0-36.0); Mean Corpuscular Hemoglobin 29.8 pg (27.0-33.0); Mean Corpuscular Volume 88.5 fL (80-98); Monocytes Absolute Auto 0.5 X10*3/uL (0.1-1.2); Monocytes Percent Auto 7.3 % (2-11); Neutrophils Absolute Auto 4.7 X10*3/uL (2.0-8.3); Neutrophils Percent Auto 66.6 % (45-73); Platelet Count 149 X10*3/uL (160-400); Red Blood Count 4.97 X10*6/uL (4.60-5.80); Red Cell Distribution Width 12.7 % (11.0-16.0)
--- NOTE | 2020-05-19 08:16 | PC.NURSE ---
troy rec completed w help from pt via telephone.
[2020-05-19 08:42] LABS: Glucose, Whole Blood 100 mg/dL (60-115)
[2020-05-19] MEDS: iohexoL 350 MG/ML 100 ML INFUS..BTL IV (10:48)
[2020-05-19 11:59] VITALS: BP 119/68; PULSE 126; RESP 18; O2SAT 99
--- NOTE | 2020-05-19 12:00 | PC.NURSE ---
rsting quietly in bed. recalls events of the am, states he likely lost equilibrium d/t ear issues, leaking ear:. skin pwd. no nuero deficits. st in 120's.
[2020-05-19 12:58] VITALS: BP 126/76; PULSE 121
[2020-05-19] MEDS: dilTIAZem HCL CD 120 MG CAP.ER.DEG PO (12:58)
== END 2020-05-19 04:36 | disposition home or self-care (01) ==
PROVIDERS: Emergency Provider Emergency Medicine; PCP Internal Medicine
DX: R55 Syncope and collapse (principal); S01.112A Laceration without foreign body of left eyelid and periocular area, initial encounter; R00.0 Tachycardia, unspecified; I48.0 Paroxysmal atrial fibrillation; F10.21 Alcohol dependence, in remission; F17.210 Nicotine dependence, cigarettes, uncomplicated; W17.89XA Other fall from one level to another, initial encounter; Y93.9 Activity, unspecified; Y92.019 Unspecified place in single-family (private) house as the place of occurrence of the external cause; Y99.9 Unspecified external cause status; Z79.01 Long term (current) use of anticoagulants
CPT/HCPCS: 36415; 70450; 70496; 70498; 80048; 82947; 84484; 85025; 85610; 85730; 93005; 99283; Q9967

== ENCOUNTER → 2020-05-21 13:57 | Outpatient (BNVA) | payer MEDICARE, SELFPAY | PROVIDERS: PCP Internal Medicine; Visit Provider Internal Medicine | DX: I48.0 Paroxysmal atrial fibrillation (principal); I35.1 Nonrheumatic aortic (valve) insufficiency; R55 Syncope and collapse; Z79.01 Long term (current) use of anticoagulants | CPT/HCPCS: 99212 ==

== ENCOUNTER 2020-06-03 | Outpatient (REF) | payer MEDICARE, SELFPAY | END 2020-06-03 00:01 | disposition home or self-care (01) | LOC: HO.VC | PROVIDERS: Visit Provider Internal Medicine | DX: Z23 Encounter for immunization (principal) | CPT/HCPCS: 0011A ==

== ENCOUNTER → 2020-06-23 09:45 | Outpatient (BNVA) | payer MEDICARE, SELFPAY | PROVIDERS: PCP Internal Medicine; Visit Provider Urology | DX: B02.29 Other postherpetic nervous system involvement (principal); N40.1 Benign prostatic hyperplasia with lower urinary tract symptoms; R39.14 Feeling of incomplete bladder emptying | CPT/HCPCS: 81002; 99212 ==

== ENCOUNTER 2020-06-30 | Outpatient (REF) | payer MEDICARE, SELFPAY | END 2020-06-30 00:01 | disposition home or self-care (01) | LOC: HO.VC | PROVIDERS: Visit Provider Internal Medicine | DX: Z23 Encounter for immunization (principal) | CPT/HCPCS: 0012A ==

== ENCOUNTER 2020-08-06 06:36 | Outpatient (REF) | payer MEDICARE, SELFPAY ==
[2020-08-06 06:58] LABS: MANUAL DIFF FLAG NO
[2020-08-06 07:08] LABS: Basophils Percent Auto 0.4 % (0-2); Eosinophils Absolute Auto 0.3 X10*3/uL (0.0-0.4); Eosinophils Percent Auto 3.7 % (0-4); Hematocrit 45.9 % (42-52); Imm Gran Abs Auto 0.03 X10*3/uL (0.00-0.03); Imm Gran Pct Auto 0.4 % (0.0-0.4); Lymphocytes Absolute Auto 2.9 X10*3/uL (1.2-4.9); Lymphocytes Percent Auto 36.6 % (20-40); Mean Corpuscular HGB Conc 32.7 g/dl (31.0-36.0); Mean Corpuscular Hemoglobin 29.4 pg (27.0-33.0); Mean Corpuscular Volume 89.8 fL (80-98); Monocytes Absolute Auto 0.7 X10*3/uL (0.1-1.2); Monocytes Percent Auto 8.8 % (2-11); Neutrophils Percent Auto 50.1 % (45-73); Platelet Count 172 X10*3/uL (160-400); Red Blood Count 5.11 X10*6/uL (4.60-5.80); Red Cell Distribution Width 13.6 % (11.0-16.0); White Blood Count 7.9 X10*3/uL (4.8-10.8)
[2020-08-06 07:29] LABS: Alanine Aminotransferase 23 U/L (0-40); Albumin Level 4.4 g/dL (3.5-5.0); Alkaline Phosphatase 68 U/L (39-117); Anion Gap 11 (12-20); Aspartate Amino Transferase 21 U/L (5-37); Bilirubin Total 0.8 mg/dL (0.0-1.0); Blood Urea Nitrogen 22 mg/dL (9-16); Calcium 9.4 mg/dL (8.4-10.2); Carbon Dioxide 29 mmol/L (22-29); Chloride 105 mmol/L (96-108); Cholesterol 210 mg/dL; Estimated Glomerular Filt Rate > 60; Glucose Random 101 mg/dL (60-115); HDL Cholesterol 69 mg/dL; LDL Cholesterol Calculated 124 mg/dl; Magnesium 2.2 mg/dL (1.6-2.6); Potassium 4.3 mmol/L (3.3-5.1); Sodium 141 mmol/L (135-145); Total Protein 6.9 g/dL (6.5-8.0); Triglycerides 86 mg/dL
[2020-08-06 07:52] LABS: Free T4 (Free Thyroxine) 0.96 ng/dL (0.71-1.85); Thyroid Stimulating Hormone 2.46 uIU/mL (0.32-4.0)
[2020-08-06 08:26] LABS: Prostate Specific Antigen Scr 9.08 ng/mL (<0.05-4.0)
== END 2020-08-06 06:37 | disposition home or self-care (01) ==
LOC: HO.LAB 06:36
PROVIDERS: PCP Internal Medicine; Visit Provider Internal Medicine
DX: R97.20 Elevated prostate specific antigen [PSA] (principal); I48.0 Paroxysmal atrial fibrillation; E78.00 Pure hypercholesterolemia, unspecified; N40.1 Benign prostatic hyperplasia with lower urinary tract symptoms; R39.14 Feeling of incomplete bladder emptying
CPT/HCPCS: 36415; 80053; 80061; 83735; 84153; 84439; 84443; 85025

== ENCOUNTER 2020-08-20 06:22 | Outpatient (REF) | payer MEDICARE, SELFPAY ==
[2020-08-20 08:19] LABS: PSA,Total (Free>4and<10) 8.44 ng/mL (0.00-4.00)
[2020-08-21 12:07] LABS: Free Prostate Spec Ag 1.1 ng/mL; Percent Free Prostate Spec Ag 16 % (calc) (>25)
== END 2020-08-20 06:23 | disposition home or self-care (01) ==
LOC: HO.LAB 06:22
PROVIDERS: Visit Provider Internal Medicine
DX: R97.20 Elevated prostate specific antigen [PSA] (principal)
CPT/HCPCS: 36415; 84153; 84154

== ENCOUNTER → 2020-09-22 08:35 | Outpatient (BNVA) | payer MEDICARE, SELFPAY | PROVIDERS: PCP Internal Medicine; Visit Provider Urology | DX: N40.1 Benign prostatic hyperplasia with lower urinary tract symptoms (principal); R39.14 Feeling of incomplete bladder emptying; R97.20 Elevated prostate specific antigen [PSA] | CPT/HCPCS: 51798; 99212 ==

== ENCOUNTER 2020-10-06 11:15 | Outpatient (REF) | payer MEDICARE, SELFPAY ==
[2020-10-06 11:55] VITALS: BMI 23.5
[2020-10-06 11:56] VITALS: BP 136/50; PULSE 68; RESP 16; TEMP 36.8; O2SAT 98
--- NOTE | 2020-10-06 12:46 | W.PM.OPN ---
Operative Note Operative Note Date of Service: 10/06/20 Narrative: Preoperative diagnosis: Elevated PSA Postoperative diagnosis: Elevated PSA Procedure: 1. transrectal ultrasound measurement of prostate 2. transrectal ultrasound-guided pudendal nerve block 3. transrectal ultrasound-guided prostate biopsy 12 core Surgeon: Dr. Trevor Malave Anesthetic: Local Indications for procedure: Elevated PSA 8-9 range Procedure: After informed consent was verified, the patient was brought into the procedure area and lay left-hand side down on the table. Patient identity confirmed. Perioperative antibiotics confirmed. Gel was placed per rectum Ultrasound probe was placed per rectum The prostate was measured in 3 dimensions Total volume equals 40 gm There were no cystic structures and no calcifications noted and the prostate was homogeneous in nature A ultrasound-guided pudendal nerve block was performed using 10 cc of 1% lidocaine. 8 cc was placed at the base and 2 cc of the apex. A 12 core biopsy was performed with 6 cores each side. Two cores were taken at the apex, mid and base. Cores were spaced between lateral and medial. He tolerated the procedure well. Was able to ambulate to bathroom after 5 minutes. Printed instructions regarding antibiotic use and common side effects such as low-grade temperature and bleeding were given.
[2020-10-06 12:50] VITALS: BP 152/44; PULSE 70; RESP 16; O2SAT 98
== END 2020-10-06 11:16 | disposition home or self-care (01) ==
LOC: HO.MS 11:15
PROVIDERS: PCP Internal Medicine; Visit Provider Urology
PROC: (CPT 55700; principal; 2020-10-06 12:00)
DX: C61 Malignant neoplasm of prostate (principal); R97.20 Elevated prostate specific antigen [PSA]
CPT/HCPCS: 55700; 76942; 88305

== ENCOUNTER → 2020-10-12 09:42 | Outpatient (REF) | payer BC, SELFPAY ==
--- NOTE | 2020-10-12 16:00 | ECG_ITS ---
Hook-up date: 2020-10-12 10:15:00 Duration: 28:32:00 Test Indications: PAF Medications: 03016 QRS complexes 490 Ventricular ectopics which represent <1 % of total QRS comp. 528 Supraventricular ectopics which represent <1 % of total QRS comp. * Paced QRS complexs which represent % of total QRS comp. VENTRICULAR ECTOPY 483 Isolated 0 Bigeminal Cycles 2 Couplets 1 Runs 3 Beats in Runs 3 Beats LONGEST at 58 BPM at 10:19:58 2020-10-12 3 Beats FASTEST at 58 BPM at 10:19:58 2020-10-12 SUPRAVENTRICULAR ECTOPY 483 Isolated 10 Couplets 4 Runs 25 Beats in Runs 11 Beats LONGEST at 133 BPM at 08:51:16 2020-10-13 11 Beats FASTEST at 133 BPM at 08:51:16 2020-10-13 HEART RATES 47 MIN at 23:21:23 2020-10-12 62 AVG 101 MAX at 07:29:09 2020-10-13 LONGEST RR 1.5360 secs at 05:43:01 2020-10-13 S-T LEVELS Channel 1 - 128 mm at 10:15:00 2020-10-12 - 128 mm at 10:15:00 2020-10-12 Channel 2 - 128 mm at 10:15:00 2020-10-12 - 128 mm at 10:15:00 2020-10-12 Channel 3 - 128 mm at 02:93:41 -- - 128 mm at 02:93:41 Underlying rhythm is sinus; Average ventricular rate 62/min; range 47-101/min; About 53% of the time, rate <60/min; Rare PACs with very brief runs (possibly brief flutter episode); Rare PVCs with no significant runs; Patient did not report any symptoms in the diary Referred By: Kristine Richey Overread By: KRISTINE RICHEY
== END ==
LOC: HO.CARD 09:42
PROVIDERS: PCP Internal Medicine; Visit Provider Internal Medicine
DX: I48.0 Paroxysmal atrial fibrillation (principal)
CPT/HCPCS: 93226

== ENCOUNTER → 2020-10-13 10:00 | Outpatient (BNVA) | payer BC, SELFPAY | PROVIDERS: Visit Provider Urology ==

== ENCOUNTER 2020-10-21 08:49 | Outpatient (REF) | payer BC, SELFPAY ==
--- NOTE | ~2020-10-21 | NM_ITS ---
EXAMINATION: NM BONE SCAN OF THE WHOLE BODY CLINICAL INFORMATION: Malignant neoplasm of prostate. COMPARISON: No previous bone scan or recent radiographs are available for comparison. CTA the chest dated 03/19/2020 and of the head and neck dated 05/19/2020 are available for comparison. TECHNIQUE: Multiple gamma scintillation camera images of the whole body were performed 3 hours following the intravenous administration of 25 mCi Tc-99m MDP. FINDINGS: In the head, no significant abnormalities are present. In the thoracic cage and upper extremities, there is minimally increased activity in the sternoclavicular joints bilaterally. Some residual radiopharmaceutical at the injection site in the left antecubital fossa is noted. In the spine, a minimal S-shaped thoracolumbar scoliosis is present with lumbar convexity to the right. There is mildly increased activity in the right posterior elements at L5-S1, likely due to facet arthropathy. In the pelvis, there is very mildly increased activity in the inferior aspect of the right sacroiliac joint. In the lower extremities, minimally increased activity in the patellar and medial compartments of the right knee are noted. No other definite bony abnormalities are noted. The urinary bladder and faint visualization of both kidneys are noted. NM/NM bone scan whole body IMPRESSION: A few minimal nonspecific abnormalities are noted as described above and these are all likely arthritic or traumatic in etiology. None of these abnormalities is strongly suspicious for metastatic disease.
--- NOTE | ~2020-10-21 | CT_ITS ---
EXAMINATION: CT PELVIS WITHOUT CONTRAST CLINICAL INFORMATION: Malignant neoplasm of prostate COMPARISON: None TECHNIQUE: Helical scanning was performed with submillimeter collimation through the pelvis. Sagittal and coronal multiplanar 2-D reconstructions were obtained. This CT examination was performed using dose optimization techniques as appropriate, variously including the following: *Automated exposure control *Adjustment of mA and/or kV according to patient size (this includes techniques or standardized protocols for targeted exams where dose is matched to indication/reason for exam; i.e. extremities or head) *Use of iterative reconstruction technique DLP: 371 mGy-cm FINDINGS: PELVIS: The prostate gland is enlarged and slightly irregular shaped. The urinary bladder is nondistended with mild bladder wall thickening. No mass or radiopaque calculi seen. There is scattered diverticuli and stool seen in the mid sigmoid colon and the rest of the visualized colon. The appendix is normal caliber. There is no free air or free fluid. There is no abnormal inguinal or pelvic lymph nodes. OSSEOUS STRUCTURES: Visualized sacrum, pelvic and lower lumbar spine appear unremarkable. No lytic process. CT/CT pelvis wo con IMPRESSION: 1. Mild prostate enlargement with irregular shape but no focal heterogeneity seen. 2. No abnormal pelvic or inguinal lymph nodes. 3. Colonic diverticulosis without diverticulitis.
== END 2020-10-21 08:50 | disposition home or self-care (01) ==
LOC: HO.CT 08:49
PROVIDERS: Visit Provider Urology
DX: C61 Malignant neoplasm of prostate (principal); C79.51 Secondary malignant neoplasm of bone
CPT/HCPCS: 72192; 78306; A9503

== ENCOUNTER → 2020-10-28 11:32 | Outpatient (BNVA) | payer BC, SELFPAY | PROVIDERS: PCP Internal Medicine; Visit Provider Urology | DX: I48.0 Paroxysmal atrial fibrillation (principal); I35.1 Nonrheumatic aortic (valve) insufficiency; F17.200 Nicotine dependence, unspecified, uncomplicated | CPT/HCPCS: 96402; J9217 ==

== ENCOUNTER 2020-12-14 08:47 | Outpatient (REF) | payer MEDICARE, SELFPAY ==
[2020-12-14 10:56] LABS: Blood Urea Nitrogen 27 mg/dL (9-16); Estimated Glomerular Filt Rate > 60
== END 2020-12-14 08:48 | disposition home or self-care (01) ==
LOC: HO.LAB 08:47
PROVIDERS: PCP Internal Medicine; Visit Provider Urology
DX: C61 Malignant neoplasm of prostate (principal); R39.15 Urgency of urination
CPT/HCPCS: 36415; 82565; 84520

== ENCOUNTER → 2020-12-25 15:34 | Outpatient (BNVA) | payer MEDICARE, SELFPAY | PROVIDERS: PCP Internal Medicine; Visit Provider Urology | CPT/HCPCS: Q3014 ==

== ENCOUNTER 2021-01-14 07:29 | Outpatient (REF) | payer MEDICARE, SELFPAY ==
[2021-01-14 07:46] VITALS: BP 154/42; PULSE 67; RESP 16; TEMP 36.6; O2SAT 97
[2021-01-14 07:48] VITALS: BMI 23.3
--- NOTE | 2021-01-14 08:35 | W.PM.OPN ---
Operative Note Operative Note Date of Service: 01/14/21 Narrative: Preoperative diagnosis: Prostate cancer Postoperative diagnosis: Prostate cancer Procedure: 1. Transrectal ultrasound-guided pudendal nerve block 2. Transrectal ultrasound-guided gold seed placement Surgeon: Dr. Trevor Malave Anesthetic: Local Indications for procedure: Prostate Cancer Procedure: After informed consent was verified, the patient was brought into the procedure area and lay left-hand side down on the table. Patient identity confirmed. Perioperative antibiotics confirmed. Gel was placed per rectum Ultrasound probe was placed per rectum A ultrasound-guided pudendal nerve block was performed using 10 cc of 1% lidocaine. 8 cc was placed at the base and 2 cc of the apex. 3 gold seed markers placed. 2 on the right (Base and apex), 1 on the left (mid) The purpose is for triangulation. He tolerated the procedure well. Was able to ambulate to bathroom after 5 minutes. Printed instructions regarding antibiotic use and common side effects such as low-grade temperature and bleeding were given
== END 2021-01-14 07:30 | disposition home or self-care (01) ==
LOC: HO.MS 07:29
PROVIDERS: PCP Internal Medicine; Visit Provider Urology
PROC: (CPT 55876; principal; 2021-01-14 08:00)
DX: C61 Malignant neoplasm of prostate (principal)
CPT/HCPCS: 55876; 76942; A4648

== ENCOUNTER 2021-04-19 13:12 | Inpatient (IN) | payer MEDICARE, SELFPAY ==
[2021-04-19] VITALS (8 sets, daily range): BP systolic 100–144; BP diastolic 46–60; PULSE 59–82; RESP 15–22; TEMP 36.6–36.8; O2SAT 85–95; BMI 23.3
--- NOTE | ~2021-04-19 | US_ITS ---
EXAMINATION: US RETROPERITONEAL LIMITED (RENAL ONLY) CLINICAL INFORMATION: Urinary retention. UTI. History of prostate cancer.. COMPARISON: CT abdomen 03/25/2008 TECHNIQUE: Grayscale ultrasound. Color Doppler exam. FINDINGS: RIGHT KIDNEY: 11 x 3.6 x 4.5 cm (SAG x AP x TRV). The kidney is normal in size, contour, and echogenicity. Renal cortical thickness is normal. No calculi or focal parenchymal lesions. No hydronephrosis. LEFT KIDNEY: 10.7 x 4.7 x 6 cm (SAG x AP x TRV). The kidney is normal in size, contour, and echogenicity. Renal cortical thickness is normal. No calculi or focal parenchymal lesions. No hydronephrosis. US/US renal BI IMPRESSION: Normal ultrasound of the kidneys..
--- NOTE | ~2021-04-19 | XR_ITS ---
EXAMINATION: XR CHEST CLINICAL INFORMATION: Hypoxia. COMPARISON: Chest upright AP 03/19/2020 TECHNIQUE: Frontal view of the chest was obtained. FINDINGS: The lungs are well-expanded with coarse interstitial markings throughout both lungs. There is bandlike density in the right midlung likely scarring or atelectasis. No consolidation seen. There is mild blunting of right CP angle from pleural thickening. Heart size and pulmonary vascularity is normal. No gross bony abnormality except for mild scoliosis. XR/XR chest 1V IMPRESSION: Hyperinflated lungs with bilateral increase interstitial markings, stable. Chronic bandlike atelectasis right midlung. Blunting of right CP angle from pleural thickening.
--- NOTE | ~2021-04-19 | CT_ITS ---
EXAMINATION: CT ANGIOGRAM OF THE CHEST WITH AND WITHOUT CONTRAST (CT PULMONARY ANGIOGRAM FOR PE) CLINICAL INFORMATION: Reason for Exam hypoxia with hx prostate ca COMPARISON: CT angiogram chest 03/19/2020 TECHNIQUE: Prior to contrast administration, noncontrast localization images were obtained. Subsequently, multidetector volumetric imaging was performed from the thoracic inlet to below the diaphragms following the administration of 65 mL Omnipaque 350 intravenous contrast. No contrast reaction reported Sagittal, coronal, and MIP oblique sagittal reformatted images were obtained on the CT workstation, uploaded to PACS, and reviewed. This CT examination was performed using dose optimization techniques as appropriate, variously including the following: *Automated exposure control *Adjustment of mA and/or kV according to patient size (this includes techniques or standardized protocols for targeted exams where dose is matched to indication/reason for exam; i.e. extremities or head) *Use of iterative reconstruction technique Total exam dose-length product 263 mGy-cm FINDINGS: QUALITY OF STUDY/CONTRAST BOLUS: Satisfactory. PULMONARY ARTERIES: No central or segmental pulmonary emboli. THORACIC AORTA: No aneurysm or dissection. LUNGS and PLEURA: Again seen are severe emphysematous changes throughout the lungs. New small pleural effusions are seen. Again seen are some pleural plaques bilaterally some with calcification (7:138, 206 and 301). An area of scarring/rounded atelectasis in the right middle lobe is increased when compared to the prior study. Again seen is peribronchial thickening/cuffing, slightly worse when compared to the prior study. No evidence of pulmonary metastatic disease. MEDIASTINUM: Normal heart size. No pericardial effusion. No hilar or mediastinal lymphadenopathy. No evidence of septal bowing or right heart strain. CHEST WALL/AXILLA: No axillary or internal mammary lymphadenopathy. OSSEOUS STRUCTURES: No acute or suspicious osseous abnormality. Small sclerotic area in right lateral fifth rib unchanged (7:227). No evidence of metastatic disease. UPPER ABDOMEN: Unremarkable. No reflux of contrast into the hepatic veins to suggest elevated right heart pressures. CT/CT angio chest PE protocol IMPRESSION: 1. No evidence of pulmonary emboli. 2. Severe COPD 3. No bilateral pleural effusions with slight increase in peribronchial thickening. Correlate for CHF on physical exam. 4. Bilateral pleural plaques and rounded atelectasis again noted, slightly increased in the right middle lobe. 5. No convincing evidence of metastatic prostate carcinoma VTE: negative
--- NOTE | 2021-04-19 13:58 | ECG_ITS ---
Test Reason : FATIGUE Blood Pressure : / mmHG Vent. Rate : 059 BPM Atrial Rate : 059 BPM P-R Int : 174 ms QRS Dur : 120 ms QT Int : 480 ms P-R-T Axes : 050 004 014 degrees QTc Int : 475 ms Sinus bradycardia with Premature atrial complexes Right bundle branch block Abnormal ECG When compared with ECG of 19-MAY-2020 04:55, Sinus rhythm has replaced Atrial fibrillation Vent. rate has decreased BY 44 BPM Referred By: Nicholas Liu Electronically Signed By:KRISTINE RICHEY
--- NOTE | 2021-04-19 14:01 | ED.GENADULT ---
HPI - General Adult General Chief complaint: Weakness Stated complaint: WEAKNESS S/P CHEMO Time Seen by Provider: 04/19/21 13:19 Source: patient, family and old records reviewed History of Present Illness HPI narrative: Patient with a history of prostate cancer was several weeks post radiation therapy presents with generalized weakness and dyspnea on exertion. For the patient and his he has been getting progressively more weak which he describes general weakness and fatigue. He has also been more short of breath and can not walk across the room without severe dyspnea. He has been having urinary frequency and urgency. No fevers or chills. Cough with phlegm. He called his radiation oncologist last week and was encouraged to come to the emergency department for Sykes catheter and workup of potential sepsis. He comes in today as she has been progressively getting worse. No history of home oxygen dependence, but he does have a history of COPD. Related Data Home Medications Medication Instructions Recorded Confirmed naproxen sodium 220 mg capsule 220 mg PO BID PRN 04/19/21 04/19/21 (Aleve) omeprazole 20 mg capsule,delayed 1 cap PO DAILY 04/19/21 04/19/21 release simvastatin 40 mg tablet 1 tab PO DAILY 04/19/21 04/19/21 tolterodine 4 mg capsule,extended 1 cap PO DAILY 04/19/21 04/19/21 release 24 hr Previous Rx's Medication Instructions Recorded tamsulosin 0.4 mg capsule (Flomax) 0.8 mg PO BEDTIME 90 Days #180 cap 09/22/20 diltiazem HCl 120 mg 120 mg PO DAILY 30 Days #30 cap 10/13/20 capsule,extended release 24 hr (Cardizem CD) apixaban 5 mg tablet (Eliquis) 5 mg PO BID #60 tab 11/10/20 fluticasone 250 mcg-salmeterol 50 1 inh INHALATION BID #3 ea 01/26/21 mcg/dose blistr powdr for inhalation (Advair Diskus) albuterol sulfate 90 mcg/actuation 2 puff INHALATION QID PRN #1 ea 03/03/21 aerosol inhaler (ProAir HFA) finasteride 5 mg tablet 5 mg PO DAILY 90 Days #90 tab 04/07/21 Allergies Allergy/AdvReac Type Severity Reaction Status Date / Time gabapentin Allergy Unknown Insomnia, Verified 12/16/20 08:45 increased pain Latex Allergy Unknown Slight Verified 12/16/20 08:45 reaction, rash nicotine Allergy Unknown patch- Verified 12/16/20 08:45 rash, rash Review of Systems Constitutional: Comments: General malaise Cardiovascular: Comments: No chest pain Respiratory: Comments: Cough with phlegm, dyspnea especially on exertion Gastrointestinal: Comments: No nausea vomiting diarrhea or constipation Genitourinary: Comments: Urinary frequency Integumentary/Breasts: Comments: No rash Neurologic: Comments: Generalized weakness without focal deficit [facility] Past Medical History Medical History (Updated 04/19/21 @ 18:07 by Nicholas Liu MD) Asbestosis Bladder diverticulum BPH (benign prostatic hyperplasia) COPD (chronic obstructive pulmonary disease) History of alcohol abuse 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 PAF (paroxysmal atrial fibrillation) Post herpetic neuralgia Thrombocytopenia Tobacco abuse Vitamin D deficiency Surgical History H/O hand surgery Lesion of tongue Family History Family History Father Bladder cancer Mother Colon cancer Chronic mental illness Brother Myocardial infarction Social History Social History Household Members: Spouse Housing: House Do you presently have visiting nurse or other home services: No Alcohol intake: former Patient Tobacco Use Status: Former Tobacco user Tobacco use type: Cigarette Cigarette Packs Per Day: 0.25 Cigarettes Per Day: 3 Years Smoked: stopped smoking april 14, 2020 Smoked in Last 30 Days: Yes e-Cigarette/Vaping Use: Never Used Second Hand Smoke Exposure: No Use of substances other than those prescribed or required for medical reasons: No Advance Directives: Yes Advance Directives on File: Yes Advance Directives Date on File: 03/23/20 service: No Current occupational status: retired Physical Exam Vital Signs: Vital Signs: Last Vital Signs Temp 98.1 F 04/19/21 16:37 Pulse 62 04/19/21 16:37 Resp 15 04/19/21 16:37 BP 130/55 L 04/19/21 16:37 Pulse Ox 95 04/19/21 16:37 BMI result Body Mass Index 23.3 Const: Other: Awake and alert. Appears fatigued. HENMT: Other: Mucosa dry Resp: Other: Lung sounds diminished bilaterally without wheezes rales or rhonchi. Poor to fair air entry overall Cardio: Other: Regular rate and rhythm without murmurs rubs or gallops GI: Other: Soft nontender nondistended. No specific suprapubic mass or tenderness noted Skin: Other: Warm pink and dry without rash. Poor turgor Neuro: Other: Nonfocal Course Course Course Narrative: Hypoxia and dyspnea. Pneumonia Pulmonary embolism possible given history of cancer COPD exacerbation Urinary frequency post recent radiation therapy Urinary retention Urinary tract infection Generalized weakness Renal failure Dehydration Electrolyte imbalance No obvious evidence of sepsis at this time given no fevers and stable blood pressure and heart rate. Treatment IV fluids Albuterol nebulizer IV Solu-Medrol Bladder scan for possible urinary retention 4:30 p.m.. Bladder scan shows over 600 cc. Sykes catheter ordered. 6:05 p.m. a hemoglobin noted to be significantly lower than prior results. Stool guaiac performed. Brown stool, no melena or bright blood. Specimen sent to lab. No evidence of active GI bleeding at the moment however. Medical Decision Making Lab Data Result diagrams: 04/19/21 14:38 04/19/21 14:38 Labs: Lab Results 04/19/21 04/19/21 04/19/21 Range/Units 14:38 14:38 14:38 WBC 3.8 L (4.8-10.8) X10*3/uL RBC 2.77 L (4.60-5.80) X10*6/uL Hgb 8.9 L (14.0-18.0) g/dl Hct 28.0 L (42.0-52.0) % MCV 101.1 H (80.0-98.0) fL MCH 32.1 (27.0-33.0) pg MCHC 31.8 (31.0-36.0) g/dl RDW 14.7 (11.0-16.0) % Plt Count 285 (160-400) X10*3/uL MPV 9.6 (9.4-12.4) fL Immature Gran % (Auto) 2.1 H (0.0-0.4) % Neut % (Auto) 67.0 (45-73) % Lymph % (Auto) 15.3 L (20-40) % [place] % (Auto) 10.0 (2-11) % Eos % (Auto) 5.3 H (0-4) % Baso % (Auto) 0.3 (0-2) % Lymph # (Auto) 0.6 L (1.2-4.9) X10*3/uL [place] # (Auto) 0.4 (0.1-1.2) X10*3/uL Eos # (Auto) 0.2 (0.0-0.4) X10*3/uL Baso # (Auto) 0.0 (0.0-0.2) X10*3/uL Abs Immat Gran (auto) 0.08 H (0.00-0.03) X10*3/uL Absolute Neuts (auto) 2.6 (2.0-8.3) x10*3/uL Absolute Nucleated RBC 0.000 (0.0-0.012) X10*3/uL Nucleated RBC % (auto) 0.0 (0.0-0.2) /100WBC PT (9.9-13.0) SEC INR (0.9-1.1) Sodium 140 (135-145) mmol/L Potassium 4.6 (3.3-5.1) mmol/L Chloride 106 (96-108) mmol/L Carbon Dioxide 27 (22-29) mmol/L Anion Gap 12 (12-20) BUN 20 H (9-16) mg/dL Creatinine 0.82 (0.5-1.4) mg/dL Estim Creat Clear Calc 71.6 Estimated GFR > 60 Random Glucose 98 (60-115) mg/dL Lactic Acid 2.2 H* (0.5-2.0) mmol/L Calcium 8.6 D (8.4-10.2) mg/dL Total Bilirubin 0.5 (0.0-1.0) mg/dL AST 40 H D (5-37) U/L ALT 62 H (0-40) U/L Alkaline Phosphatase 140 H D (39-117) U/L Troponin I High Sens (<3.5-35.0) ng/L B-Natriuretic Peptide (<100) pg/mL Total Protein 5.3 L D (6.5-8.0) g/dL Albumin 3.0 L D (3.5-5.0) g/dL Urine Color Urine Appearance Urine pH (5.0-8.0) Ur Specific [place] (1.005-1.025) Urine Protein (NEG-TRACE) MG/DL Urine Glucose (UA) (NEG) MG/DL Urine Ketones (NEG) MG/DL Urine Blood (NEG) Urine Nitrite (NEG) Ur Leukocyte Esterase (NEG) Influenza Type A (PCR) (Negative) Influenza Type B (PCR) (Negative) RSV RNA Qual (PCR) (Negative) SARS-CoV-2 RNA (RT-PCR) (Negative) 04/19/21 04/19/21 04/19/21 Range/Units 14:38 14:43 16:16 WBC (4.8-10.8) X10*3/uL RBC (4.60-5.80) X10*6/uL Hgb (14.0-18.0) g/dl Hct (42.0-52.0) % MCV (80.0-98.0) fL MCH (27.0-33.0) pg MCHC (31.0-36.0) g/dl RDW (11.0-16.0) % Plt Count (160-400) X10*3/uL MPV (9.4-12.4) fL Immature Gran % (Auto) (0.0-0.4) % Neut % (Auto) (45-73) % Lymph % (Auto) (20-40) % [place] % (Auto) (2-11) % Eos % (Auto) (0-4) % Baso % (Auto) (0-2) % Lymph # (Auto) (1.2-4.9) X10*3/uL [place] # (Auto) (0.1-1.2) X10*3/uL Eos # (Auto) (0.0-0.4) X10*3/uL Baso # (Auto) (0.0-0.2) X10*3/uL Abs Immat Gran (auto) (0.00-0.03) X10*3/uL Absolute Neuts (auto) (2.0-8.3) x10*3/uL Absolute Nucleated RBC (0.0-0.012) X10*3/uL Nucleated RBC % (auto) (0.0-0.2) /100WBC PT (9.9-13.0) SEC INR (0.9-1.1) Sodium (135-145) mmol/L Potassium (3.3-5.1) mmol/L Chloride (96-108) mmol/L Carbon Dioxide (22-29) mmol/L Anion Gap (12-20) BUN (9-16) mg/dL Creatinine (0.5-1.4) mg/dL Estim Creat Clear Calc Estimated GFR Random Glucose (60-115) mg/dL Lactic Acid (0.5-2.0) mmol/L Calcium (8.4-10.2) mg/dL Total Bilirubin (0.0-1.0) mg/dL AST (5-37) U/L ALT (0-40) U/L Alkaline Phosphatase (39-117) U/L Troponin I High Sens 8.9 (<3.5-35.0) ng/L B-Natriuretic Peptide 93 (<100) pg/mL Total Protein (6.5-8.0) g/dL Albumin (3.5-5.0) g/dL Urine Color ORANGE Urine Appearance HAZY Urine pH 7.0 (5.0-8.0) Ur Specific [place] 1.010 (1.005-1.025) Urine Protein 1+ H (NEG-TRACE) MG/DL Urine Glucose (UA) 100 H (NEG) MG/DL Urine Ketones NEG (NEG) MG/DL Urine Blood NEG (NEG) Urine Nitrite POS H (NEG) Ur Leukocyte Esterase 2+ H (NEG) Influenza Type A (PCR) NEGATIVE (Negative) Influenza Type B (PCR) NEGATIVE (Negative) RSV RNA Qual (PCR) NEGATIVE (Negative) SARS-CoV-2 RNA (RT-PCR) NEGATIVE (Negative) 04/19/21 Range/Units 16:20 WBC (4.8-10.8) X10*3/uL RBC (4.60-5.80) X10*6/uL Hgb (14.0-18.0) g/dl Hct (42.0-52.0) % MCV (80.0-98.0) fL MCH (27.0-33.0) pg MCHC (31.0-36.0) g/dl RDW (11.0-16.0) % Plt Count (160-400) X10*3/uL MPV (9.4-12.4) fL Immature Gran % (Auto) (0.0-0.4) % Neut % (Auto) (45-73) % Lymph % (Auto) (20-40) % [place] % (Auto) (2-11) % Eos % (Auto) (0-4) % Baso % (Auto) (0-2) % Lymph # (Auto) (1.2-4.9) X10*3/uL [place] # (Auto) (0.1-1.2) X10*3/uL Eos # (Auto) (0.0-0.4) X10*3/uL Baso # (Auto) (0.0-0.2) X10*3/uL Abs Immat Gran (auto) (0.00-0.03) X10*3/uL Absolute Neuts (auto) (2.0-8.3) x10*3/uL Absolute Nucleated RBC (0.0-0.012) X10*3/uL Nucleated RBC % (auto) (0.0-0.2) /100WBC PT 18.7 H (9.9-13.0) SEC INR 1.6 H (0.9-1.1) Sodium (135-145) mmol/L Potassium (3.3-5.1) mmol/L Chloride (96-108) mmol/L Carbon Dioxide (22-29) mmol/L Anion Gap (12-20) BUN (9-16) mg/dL Creatinine (0.5-1.4) mg/dL Estim Creat Clear Calc Estimated GFR Random Glucose (60-115) mg/dL Lactic Acid (0.5-2.0) mmol/L Calcium (8.4-10.2) mg/dL Total Bilirubin (0.0-1.0) mg/dL AST (5-37) U/L ALT (0-40) U/L Alkaline Phosphatase (39-117) U/L Troponin I High Sens (<3.5-35.0) ng/L B-Natriuretic Peptide (<100) pg/mL Total Protein (6.5-8.0) g/dL Albumin (3.5-5.0) g/dL Urine Color Urine Appearance Urine pH (5.0-8.0) Ur Specific [place] (1.005-1.025) Urine Protein (NEG-TRACE) MG/DL Urine Glucose (UA) (NEG) MG/DL Urine Ketones (NEG) MG/DL Urine Blood (NEG) Urine Nitrite (NEG) Ur Leukocyte Esterase (NEG) Influenza Type A (PCR) (Negative) Influenza Type B (PCR) (Negative) RSV RNA Qual (PCR) (Negative) SARS-CoV-2 RNA (RT-PCR) (Negative) Discharge Plan Discharge Patient Disposition: Admitted As Inpatient Prescriptions: No Action tamsulosin [Flomax] 0.4 mg capsule 0.8 mg PO BEDTIME 90 Days Qty: 180 RF: 2 diltiazem HCl [Cardizem CD] 120 mg capsule,extended release 24hr 120 mg PO DAILY 30 Days Qty: 30 RF: 6 apixaban [Eliquis] 5 mg tablet 5 mg PO BID Qty: 60 RF: 6 fluticasone propion-salmeterol [Advair Diskus] 250-50 mcg/dose blister with device 1 inh inhalation BID Qty: 3 RF: 3 albuterol sulfate [ProAir HFA] 90 mcg/actuation HFA aerosol inhaler 2 puff inhalation QID PRN (Reason: shortness of breath or wheezing) Qty: 1 RF: 0 finasteride 5 mg tablet 5 mg PO DAILY 90 Days Qty: 90 RF: 0 tolterodine 4 mg capsule,extended release 24hr 1 cap PO DAILY RF: 0 simvastatin 40 mg tablet 1 tab PO DAILY RF: 0 omeprazole 20 mg capsule,delayed release(DR/EC) 1 cap PO DAILY RF: 0 naproxen sodium [Aleve] 220 mg Capsule 220 mg PO BID PRN (Reason: Pain) RF: 0
[2021-04-19] MEDS: Albuterol Sulfate (0.083%) 2.5 MG/3 ML VIAL.NEB INHALE (14:15)
[2021-04-19] MEDS: 0.9 % Sodium Chloride 1,000 ML 999 ML IV (14:41)
[2021-04-19 14:45] LABS: Basophils Percent Auto 0.3 % (0-2); Eosinophils Absolute Auto 0.2 X10*3/uL (0.0-0.4); Eosinophils Percent Auto 5.3 % (0-4); Hemoglobin 8.9 g/dl (14.0-18.0); Imm Gran Abs Auto 0.08 X10*3/uL (0.00-0.03); Imm Gran Pct Auto 2.1 % (0.0-0.4); Lymphocytes Absolute Auto 0.6 X10*3/uL (1.2-4.9); Lymphocytes Percent Auto 15.3 % (20-40); MANUAL DIFF FLAG NO; Mean Corpuscular HGB Conc 31.8 g/dl (31.0-36.0); Mean Corpuscular Hemoglobin 32.1 pg (27.0-33.0); Mean Corpuscular Volume 101.1 fL (80.0-98.0); Mean Platelet Volume 9.6 fL (9.4-12.4); Monocytes Absolute Auto 0.4 X10*3/uL (0.1-1.2); Neutrophils Absolute Auto 2.6 x10*3/uL (2.0-8.3); Platelet Count 285 X10*3/uL (160-400); Red Blood Count 2.77 X10*6/uL (4.60-5.80); Red Cell Distribution Width 14.7 % (11.0-16.0); White Blood Count 3.8 X10*3/uL (4.8-10.8)
[2021-04-19 14:54] LABS: Lactic Acid 2.2 mmol/L (0.5-2.0)
[2021-04-19 15:01] LABS: Alanine Aminotransferase 62 U/L (0-40); Alkaline Phosphatase 140 U/L (39-117); Anion Gap 12 (12-20); Aspartate Amino Transferase 40 U/L (5-37); Bilirubin Total 0.5 mg/dL (0.0-1.0); Blood Urea Nitrogen 20 mg/dL (9-16); Calcium 8.6 mg/dL (8.4-10.2); Carbon Dioxide 27 mmol/L (22-29); Chloride 106 mmol/L (96-108); Creatinine Clr Calc Pharmacy 71.6; Estimated Glomerular Filt Rate > 60; Glucose Random 98 mg/dL (60-115); Potassium 4.6 mmol/L (3.3-5.1); Sodium 140 mmol/L (135-145); Total Protein 5.3 g/dL (6.5-8.0)
[2021-04-19 15:06] LABS: B Type Natriuretic Peptide 93 pg/mL (<100); Troponin-I High Sensitivity 8.9 ng/L (<3.5-35.0)
--- NOTE | 2021-04-19 15:26 | PC.NURSE ---
Pt. retaining 600+ cc of urine post void residual
[2021-04-19 15:27] LABS: Influenza A PCR NEGATIVE (Negative); Influenza B PCR NEGATIVE (Negative); Resp Syncy Virus RNA Qual PCR NEGATIVE (Negative); SARS COV2 PCR INHOUSE NEGATIVE (Negative)
--- NOTE | 2021-04-19 16:28 | PHA.MEDREC ---
Pharmacy Consult ? Medication Reconciliation Pharmacy has completed the medication reconciliation.
[2021-04-19] MEDS: cefTRIAXone sodium 1 GM in 0.9 % Sodium Chloride 50 ML IV (16:33)
[2021-04-19 16:42] LABS: Reflex Lactate? Lactic Acid Added
[2021-04-19] MEDS: iohexoL 350 MG/ML 100 ML INFUS..BTL IV (17:06)
[2021-04-19 17:08] LABS: Appearance Urine HAZY; Glucose Urine UA 100 MG/DL (NEG); Leukocyte Esterase Urine 2+ (NEG); Nitrite Urine POS (NEG); UACC Culture Trigger YES; Urine Blood NEG (NEG); Urine Ketones NEG (NEG); Urine Protein 1+ MG/DL (NEG-TRACE)
[2021-04-19 17:16] LABS: Color Urine ORANGE
[2021-04-19 17:48] LABS: INTERNATIONAL NORM RATIO 1.6 (0.9-1.1); Prothrombin Time 18.7 SEC (9.9-13.0)
[2021-04-19 18:15] LABS: Mucus Urine TRACE /LPF; Squamous Epithelial Cell Urine TRACE /LPF
[2021-04-19 18:16] LABS: Bacteria Urine 1+ /LPF; RBC Urine 0 /HPF (0)
[2021-04-19 18:19] LABS: OBS Int Ctl Valid YES; OBS1 NEGATIVE (NEGATIVE)
--- NOTE | 2021-04-19 19:39 | P.HPHOSP_ITS ---
History of Present Illness Date of Service: 04/19/21 Chief Complaint: SOB 75-year-old male with a past medical history of paroxysmal AFib on Eliquis, BPH, COPD, tobacco dependence, hyperlipidemia, vitamin-D deficiency, asbestosis, recent history of prostate cancer status post radiotherapy finished 2 weeks ago; presented to the hospital today with a chief complaint of shortness of breath. Patient reports that over the past 1 month he has been having shortness of breath which has been gradually worsening. More decline over the past 2 weeks. Mentioned that he has been smoking cigarettes. Denies any chest pain palpitations, cough, fever or chills. Reports that over the past few days he also noted difficulty urinating; Noted to be generally weak and tired; hence presented to the ER for further evaluation. Denies any numbness tingling or focal weakness. Denies any falls or trauma. Denies any blood in the urine. Review of all other systems is negative except mentioned above ER course: Per ER team patient on presentation noted to be saturating 87% on room air; placed on supplemental oxygen with improvement in oxygenation; lung sounds are diminished/tight; given nebulizer treatments; improved. Patient refused steroid given he had prior history of a steroid induced agitation/psychosis when he got dexamethasone during his prostate cancer therapy. Also noted to have abnormal urinalysis consistent UTI-given antibiotics. CT chest was done which showed no evidence of pulmonary embolism. On labs noted to have hip drop in hemoglobin from 12-8.9; stool guaiac was negative. Patient denied any obvious signs of bleeding. Likely contributing to his fatigue. Patient had Sykes catheter placed with 600 cc of urine output. Admitted for further management. [facility] Medical History (Updated 04/19/21 @ 18:07 by Nicholas Liu MD) Asbestosis Bladder diverticulum BPH (benign prostatic hyperplasia) COPD (chronic obstructive pulmonary disease) History of alcohol abuse Hypercholesterolemia USP current use of anticoagulant PAF (paroxysmal atrial fibrillation) Post herpetic neuralgia Thrombocytopenia Tobacco abuse Vitamin D deficiency Family History Father Bladder cancer Mother Colon cancer Chronic mental illness Brother Myocardial infarction Pertinent family history: As mentioned above Surgical History H/O hand surgery Lesion of tongue Social History Household Members: Spouse Housing: House Do you presently have visiting nurse or other home services: No Alcohol intake: former Patient Tobacco Use Status: Former Tobacco user Tobacco use type: Cigarette Cigarette Packs Per Day: 0.25 Cigarettes Per Day: 3 Years Smoked: stopped smoking april 14, 2020 Smoked in Last 30 Days: Yes e-Cigarette/Vaping Use: Never Used Second Hand Smoke Exposure: No Use of substances other than those prescribed or required for medical reasons: No Advance Directives: Yes Advance Directives on File: Yes Advance Directives Date on File: 03/23/20 service: No Current occupational status: retired Meds Allergies Allergy/AdvReac Type Severity Reaction Status Date / Time gabapentin Allergy Unknown Insomnia, Verified 12/16/20 08:45 increased pain Latex Allergy Unknown Slight Verified 12/16/20 08:45 reaction, rash nicotine Allergy Unknown patch- Verified 12/16/20 08:45 rash, rash Active Medications: Current Medications Acetaminophen (Acetaminophen 325 Mg Tablet) 650 mg PO Q6H PRN PRN Reason: Pain, Mild (Pain Scale 1-3) Albuterol Sulfate (Albuterol Sulfate 90 Mcg 8 Gm Inhaler) 2 puff INHALE QID PRN PRN Reason: shortness of breath or wheezin Albuterol/Ipratropium (Albuterol/Iprat 2.5/0.5mg 3 Ml Ampul.Neb) 3 ml INHALE RQ6H WHILE AWAKE EMILY Albuterol/Ipratropium (Albuterol/Iprat 2.5/0.5mg 3 Ml Ampul.Neb) 3 ml INHALE RQ4H PRN PRN Reason: Shortness of Breath/Wheezing Apixaban (Apixaban 5 Mg Tablet) 5 mg PO BID EMILY Diltiazem HCl (Diltiazem Hcl Cd 120 Mg Cap.Er.Deg) 60 mg PO DAILY EMILY; Protocol Docusate Sodium (Docusate Sodium 100 Mg Capsule) 100 mg PO DAILY PRN PRN Reason: Constipation Finasteride (Finasteride 5 Mg Tablet) 5 mg PO DAILY EMILY Sodium Chloride (Ns) 1,000 mls @ 100 mls/hr IVCONT .Q10H EMILY Melatonin (Melatonin 3 Mg Tablet) 6 mg PO BEDTIME PRN PRN Reason: Insomnia Omeprazole (Omeprazole 20 Mg Capsule.Dr) 20 mg PO DAILY EMILY Oxycodone HCl (Oxycodone Hcl Immed Release 5 Mg Tablet) 5 mg PO Q6H PRN PRN Reason: Pain, Severe (Pain Scale 7-10) Pharmacy Consult (Consult Rx Perform Med Rec) 1 each MISCELLANE ONCE PRN PRN Reason: Consult order Pharmacy Consult (Consult Rx Perform Med Rec) 1 each MISCELLANE ONCE PRN PRN Reason: Consult order Senna (Sennosides 8.6 Mg Tablet) 17.2 mg PO BEDTIME PRN PRN Reason: Constipation Sodium Chloride (0.9 % Sodium Chloride Flush 3 Ml Syringe) 3 ml IVFLUSH QSHIFT EMILY Tamsulosin HCl (Tamsulosin Hcl 0.4 Mg Capsule) 0.8 mg PO BEDTIME EMILY Tolterodine Tartrate (Tolterodine Tartrate La 4 Mg Cap.Er.24h) 4 mg PO DAILY COUNT INCLUDES THE [facility] Home Medications Medication Instructions Recorded Confirmed Last Taken Type naproxen sodium 220 mg capsule 220 mg PO BID PRN 04/19/21 04/19/21 04/19/21 History (Aleve) omeprazole 20 mg capsule,delayed 1 cap PO DAILY 04/19/21 04/19/21 04/19/21 History release simvastatin 40 mg tablet 1 tab PO DAILY 04/19/21 04/19/21 04/19/21 History tolterodine 4 mg capsule,extended 1 cap PO DAILY 04/19/21 04/19/21 04/19/21 History release 24 hr Physical Exam Vital Signs and Narrative: Vital Signs: Last Vital Signs Temp 98.1 F 04/19/21 18:34 Pulse 62 04/19/21 18:34 Resp 16 04/19/21 18:34 BP 100/46 L 04/19/21 18:34 Pulse Ox 95 04/19/21 18:34 BMI result Body Mass Index 23.3 Gen: Appears be in no acute distress HEENT: NCAT, Moist mucosa. Pulmonary: Occasional expiratory wheezes. On supplemental oxygen. Breathing comfortably. Speaks in full sentences. CVS: Normal S1-S2 Abdomen: BS+, Soft, Nontender Extremities: Warm well perfused Neuro: Alert and awake. Results Labs CBC and Chem 7: 04/19/21 14:38 04/19/21 14:38 Labs: Laboratory Results - last 24 hr 04/19/21 04/19/21 04/19/21 14:38 14:38 14:38 MCV 101.1 H MCH 32.1 MCHC 31.8 RDW 14.7 Plt Count 285 MPV 9.6 Immature Gran % (Auto) 2.1 H Neut % (Auto) 67.0 Lymph % (Auto) 15.3 L Bradford % (Auto) 10.0 Eos % (Auto) 5.3 H Baso % (Auto) 0.3 Lymph # (Auto) 0.6 L Bradford # (Auto) 0.4 Eos # (Auto) 0.2 Baso # (Auto) 0.0 Abs Immat Gran (auto) 0.08 H Absolute Neuts (auto) 2.6 Absolute Nucleated RBC 0.000 Nucleated RBC % (auto) 0.0 PT INR Anion Gap 12 Estim Creat Clear Calc 71.6 Estimated GFR > 60 Random Glucose 98 Lactic Acid 2.2 H* Calcium 8.6 D Total Bilirubin 0.5 AST 40 H D ALT 62 H Alkaline Phosphatase 140 H D Troponin I High Sens B-Natriuretic Peptide Total Protein 5.3 L D Albumin 3.0 L D Urine Color Urine Appearance Urine pH Ur Specific [place] Urine Protein Urine Glucose (UA) Urine Ketones Urine Blood Urine Nitrite Ur Leukocyte Esterase Urine RBC Urine WBC Ur Squamous Epith Cells Urine Bacteria Urine Mucus Stool Occult Blood Influenza Type A (PCR) Influenza Type B (PCR) RSV RNA Qual (PCR) SARS-CoV-2 RNA (RT-PCR) 04/19/21 04/19/21 04/19/21 14:38 14:43 16:16 MCV MCH MCHC RDW Plt Count MPV Immature Gran % (Auto) Neut % (Auto) Lymph % (Auto) Bradford % (Auto) Eos % (Auto) Baso % (Auto) Lymph # (Auto) Bradford # (Auto) Eos # (Auto) Baso # (Auto) Abs Immat Gran (auto) Absolute Neuts (auto) Absolute Nucleated RBC Nucleated RBC % (auto) PT INR Anion Gap Estim Creat Clear Calc Estimated GFR Random Glucose Lactic Acid Calcium Total Bilirubin AST ALT Alkaline Phosphatase Troponin I High Sens 8.9 B-Natriuretic Peptide 93 Total Protein Albumin Urine Color ORANGE Urine Appearance HAZY Urine pH 7.0 Ur Specific [place] 1.010 Urine Protein 1+ H Urine Glucose (UA) 100 H Urine Ketones NEG Urine Blood NEG Urine Nitrite POS H Ur Leukocyte Esterase 2+ H Urine RBC 0 Urine WBC 15-29 H Ur Squamous Epith Cells TRACE Urine Bacteria 1+ Urine Mucus TRACE Stool Occult Blood Influenza Type A (PCR) NEGATIVE Influenza Type B (PCR) NEGATIVE RSV RNA Qual (PCR) NEGATIVE SARS-CoV-2 RNA (RT-PCR) NEGATIVE 04/19/21 04/19/21 16:20 18:10 MCV MCH MCHC RDW Plt Count MPV Immature Gran % (Auto) Neut % (Auto) Lymph % (Auto) Bradford % (Auto) Eos % (Auto) Baso % (Auto) Lymph # (Auto) Bradford # (Auto) Eos # (Auto) Baso # (Auto) Abs Immat Gran (auto) Absolute Neuts (auto) Absolute Nucleated RBC Nucleated RBC % (auto) PT 18.7 H INR 1.6 H Anion Gap Estim Creat Clear Calc Estimated GFR Random Glucose Lactic Acid Calcium Total Bilirubin AST ALT Alkaline Phosphatase Troponin I High Sens B-Natriuretic Peptide Total Protein Albumin Urine Color Urine Appearance Urine pH Ur Specific [place] Urine Protein Urine Glucose (UA) Urine Ketones Urine Blood Urine Nitrite Ur Leukocyte Esterase Urine RBC Urine WBC Ur Squamous Epith Cells Urine Bacteria Urine Mucus Stool Occult Blood NEGATIVE Influenza Type A (PCR) Influenza Type B (PCR) RSV RNA Qual (PCR) SARS-CoV-2 RNA (RT-PCR) Imaging Radiologist's Impressions: Impressions Chest X-Ray 04/19/21 14:30 IMPRESSION: Hyperinflated lungs with bilateral increase interstitial markings, stable. Chronic bandlike atelectasis right midlung. Blunting of right CP angle from pleural thickening. Chest CTA 04/19/21 17:09 IMPRESSION: 1. No evidence of pulmonary emboli. 2. Severe COPD 3. No bilateral pleural effusions with slight increase in peribronchial thickening. Correlate for CHF on physical exam. 4. Bilateral pleural plaques and rounded atelectasis again noted, slightly increased in the right middle lobe. 5. No convincing evidence of metastatic prostate carcinoma VTE: negative Assessment and Plan 75-year-old male with a past medical history of paroxysmal AFib on Eliquis, BPH, COPD, tobacco dependence, hyperlipidemia, vitamin-D deficiency, asbestosis, recent history of prostate cancer status post radiotherapy finished 2 weeks ago; presented to the hospital today with a chief complaint of shortness of breath. Noted to have following conditions Acute COPD exacerbation: Patient was noted to be hypoxic on presentation; placed on supplemental oxygen. Goal oxygen saturation 93%. Improving respiratory status. Continue nebulizations standing and p.r.n. Patient denied steroids for now. Azithromycin UTI/urinary retention: Continue ceftriaxone. Follow up cultures. Patient had Sykes placed in the ER with 600 cc of urine output. Given recent history of prostate cancer 3 status post radiotherapy-will consult Urology for further recommendations. Renal ultrasound BPH: Continue home Flomax, finasteride, tolterodine Atrial fibrillation: Currently rate controlled. Patient on diltiazem. Will reduce the dose of diltiazem to 60mg given blood pressure on the normal side. Can be titrated up as tolerated. Continue home Eliquis. Anemia: Patient is drop in hemoglobin from 12-8.9; likely contributing to his fatigue. Stool guaiac negative. Will continue to monitor. Iron studies. Tobacco dependence: Counseled on smoking cessation. DVT prophylaxis:Patient on Eliquis Code status: Full code Quality Stroke Does the patient have a stroke diagnosis?: No VTE Prior VTE?: No VTE Risk Level:: Medical - moderate - high VTE Device Contraindication: N/A - Device Ordered VTE Drug Contraindication: Treatment Not Indicated
[2021-04-19] MEDS: Albuterol/Iprat 2.5/0.5MG 3 ML AMPUL.NEB INHALE (20:03)
[2021-04-19 20:13] LABS: ~Lactic Acid-LAB USE ONLY 1.2 mmol/L (0.5-2.0)
[2021-04-19] MEDS: Tamsulosin HCL 0.4 MG CAPSULE 0.8 MG PO (20:46)
[2021-04-19] MEDS: 0.9 % Sodium Chloride 1,000 ML 100 ML IVCONT (20:46)
[2021-04-19] MEDS: Apixaban 5 MG TABLET PO (20:46)
[2021-04-19 22:24] LABS: Iron 45 mcg/dL (45-160); Percent Iron Saturation 18 % (15-50); Total Iron Binding Capacity 251 mcg/dL (228-428); Unsaturated Iron Binding 206 ug/dL
[2021-04-19 22:31] LABS: Ferritin 920 ng/mL (20-250)
[2021-04-19 22:50] LABS: Folate 11.8 ng/mL (> or = 4.0); Vitamin B12 728 pg/mL (200-900)
[2021-04-19] MEDS: Azithromycin 500 MG TABLET PO (22:51)
[2021-04-20] VITALS (13 sets, daily range): BP systolic 120–149; BP diastolic 47–56; PULSE 74–97; RESP 16–25; TEMP 36.4–36.8; O2SAT 95–96
--- NOTE | 2021-04-20 04:00 | PC.NURSE ---
PT called this RN into the room and requested to use the bathroom to have BM. This RN informed the PT that a bedside commode would be easier for the PT to use while still on oxygen. PT agreed and then this RN helped the PT transfer to commode. PT left in room until he rang call vera and informed this RN that he needed help getting back into bed. After PT transferred to bed he began to become SOB. O2 sat dropped to 75% on 4 L/min of O2 and PT had audible wheezing. This RN increased O2 to 6 L/min via NC and called RT to request administration of breathing treatment. When RT arrived, PT O2 sat had improved to 93% with O2 titrated back down to 4 L/min. PT received breathing treatment and reported decreased SOB. PT titrated down to 3 L/min of O2 per RT, current O2 sat at 90-91%.
--- NOTE | 2021-04-20 05:20 | PC.NURSE ---
PT satting at 87-88% while sleeping with 3 L/min of O2. O2 increased to 4 L/min. Sat increased to 90-91%
[2021-04-20] MEDS: 0.9 % Sodium Chloride 1,000 ML 100 ML IVCONT (06:42)
[2021-04-20 07:26] LABS: MANUAL DIFF FLAG NO
[2021-04-20] MEDS: Albuterol/Iprat 2.5/0.5MG 3 ML AMPUL.NEB INHALE ×2 (07:38→13:39)
[2021-04-20 07:41] LABS: Basophils Percent Auto 0.2 % (0-2); Eosinophils Absolute Auto 0.1 X10*3/uL (0.0-0.4); Eosinophils Percent Auto 1.7 % (0-4); Hemoglobin 7.7 g/dl (14.0-18.0); Imm Gran Abs Auto 0.08 X10*3/uL (0.00-0.03); Imm Gran Pct Auto 1.7 % (0.0-0.4); Lymphocytes Absolute Auto 0.5 X10*3/uL (1.2-4.9); Lymphocytes Percent Auto 9.5 % (20-40); Mean Corpuscular HGB Conc 30.8 g/dl (31.0-36.0); Mean Corpuscular Hemoglobin 31.6 pg (27.0-33.0); Mean Corpuscular Volume 102.5 fL (80.0-98.0); Monocytes Absolute Auto 0.5 X10*3/uL (0.1-1.2); Monocytes Percent Auto 10.1 % (2-11); Neutrophils Absolute Auto 3.7 x10*3/uL (2.0-8.3); Neutrophils Percent Auto 76.8 % (45-73); Platelet Count 271 X10*3/uL (160-400); Red Blood Count 2.44 X10*6/uL (4.60-5.80); Red Cell Distribution Width 14.9 % (11.0-16.0); White Blood Count 4.8 X10*3/uL (4.8-10.8)
[2021-04-20 08:11] LABS: Anion Gap 9 (12-20); Blood Urea Nitrogen 17 mg/dL (9-16); Calcium 8.1 mg/dL (8.4-10.2); Carbon Dioxide 25 mmol/L (22-29); Chloride 110 mmol/L (96-108); Creatinine Clr Calc Pharmacy 72.5; Estimated Glomerular Filt Rate > 60; Glucose Random 95 mg/dL (60-115); Potassium 3.9 mmol/L (3.3-5.1); Sodium 140 mmol/L (135-145)
[2021-04-20] MEDS: Finasteride 5 MG TABLET PO (08:33)
[2021-04-20] MEDS: Omeprazole 20 MG CAPSULE.DR PO (08:33)
[2021-04-20] MEDS: Apixaban 5 MG TABLET PO ×2 (08:33→22:31)
--- NOTE | 2021-04-20 09:37 | PC.NURSE ---
Pt A&Ox3, lungs with crackles throughout, no complaints of pain at this time, floey draining damian colored urine at this time. Unable to give Dilt due to wrong dose/fomula, called pharmacy who is working on the discrepancy. Pt controlled A fib in the 80's on the monitor. VS as charted, awaiting bed assignment, O2 sat mid 90's on 4L NC at this time. Call vera within reach, will continue to monitor.
[2021-04-20] MEDS: Tolterodine Tartrate LA 4 MG CAP.ER.24H PO (10:34)
--- NOTE | 2021-04-20 11:04 | PC.NURSE ---
Pt resting at this time, no complaints, discussed why IV fluids were stopped. Family visiting at this time, awaiting bed assignment, will continue to monitor.
--- NOTE | 2021-04-20 11:10 | MHC.CM.PN ---
Addendum entered by Leslie Catalan 04/20/21 11:16: Patient received Moderna vaccines on 06/03 and 06/30. Original Note: Met with patient in regards to discharge planning. Patient lives with his , ambulates independently and had no services prior to coming to the hospital. PCP verified. Copy of HCP verified to be on file. IMM explained and signed. Patient received 2 Moderna vaccines. Patient's will transport him home when medically stable. Continue to monitor for d/c needs.
--- NOTE | 2021-04-20 12:49 | PC.NURSE ---
Pt has RBS ready in blood bank, MD Bruno made aware of need for signed consent, awaiting consent to be signed, then will request blood. Pt resting at this time, offers no complaints. Will continue to monitor.
--- NOTE | 2021-04-20 14:32 | HO.PM.IMPN ---
Subjective Subjective Date of Service: 04/20/21 Interval History: Complaining of weakness, shortness of breath is better at rest, denies lightheadedness or dizziness, no chest pain, no palpitation. Review of Systems Review of Systems: Yes all other systems are reviewed and are negative Physical Exam Vital Signs: Vital Signs: Last Vital Signs Temp 98.1 F 04/20/21 13:50 Pulse 97 04/20/21 13:50 Resp 16 04/20/21 13:50 BP 127/54 L 04/20/21 13:50 Pulse Ox 96 04/20/21 08:37 BMI result Body Mass Index 23.3 General awake alert x3, no acute distress. Neck supple no JVD. CVS regular rate rhythm, Respiratory lungs clear to auscultation, no respiratory distress, no wheeze, no rhonchi. Gastrointestinal abdomen soft, nontender, bowel sounds audible, Extremities no edema. Neuro nonfocal . Skin pale/warm/ no rash Psych appropriate affect Sykes orange tinged urine Objective Data Active Medications Acetaminophen (Acetaminophen 325 Mg Tablet) 650 mg PO Q6H PRN PRN Reason: Pain, Mild (Pain Scale 1-3) Albuterol Sulfate (Albuterol Sulfate 90 Mcg 8 Gm Inhaler) 2 puff INHALE QID PRN PRN Reason: shortness of breath or wheezin Albuterol/Ipratropium (Albuterol/Iprat 2.5/0.5mg 3 Ml Ampul.Neb) 3 ml INHALE RQ6H WHILE AWAKE [facility] Last Admin: 04/20/21 13:39 Dose: 3 ml Documented by: ALEXUS Albuterol/Ipratropium (Albuterol/Iprat 2.5/0.5mg 3 Ml Ampul.Neb) 3 ml INHALE RQ4H PRN PRN Reason: Shortness of Breath/Wheezing Apixaban (Apixaban 5 Mg Tablet) 5 mg PO BID [facility] Last Admin: 04/20/21 08:33 Dose: 5 mg Documented by: ARIANA Azithromycin (Azithromycin 500 Mg Tablet) 500 mg PO Q24H [facility] Last Admin: 04/19/21 22:51 Dose: 500 mg Documented by: SHREYA Diltiazem HCl (Diltiazem Hcl Cd 120 Mg Cap.Er.Deg) 60 mg PO DAILY [facility]; Protocol Docusate Sodium (Docusate Sodium 100 Mg Capsule) 100 mg PO DAILY PRN PRN Reason: Constipation Finasteride (Finasteride 5 Mg Tablet) 5 mg PO DAILY [facility] Last Admin: 04/20/21 08:33 Dose: 5 mg Documented by: ARIANA Melatonin (Melatonin 3 Mg Tablet) 6 mg PO BEDTIME PRN PRN Reason: Insomnia Omeprazole (Omeprazole 20 Mg Capsule.Dr) 20 mg PO DAILY [facility] Last Admin: 04/20/21 08:33 Dose: 20 mg Documented by: ARIANA Oxycodone HCl (Oxycodone Hcl Immed Release 5 Mg Tablet) 5 mg PO Q6H PRN PRN Reason: Pain, Severe (Pain Scale 7-10) Pharmacy Consult (Consult Rx Perform Med Rec) 1 each MISCELLANE ONCE PRN PRN Reason: Consult order Pharmacy Consult (Consult Rx Perform Med Rec) 1 each MISCELLANE ONCE PRN PRN Reason: Consult order Senna (Sennosides 8.6 Mg Tablet) 17.2 mg PO BEDTIME PRN PRN Reason: Constipation Sodium Chloride (0.9 % Sodium Chloride Flush 3 Ml Syringe) 3 ml IVFLUSH QSHIFT [facility] Last Admin: 04/20/21 09:40 Dose: Not Given Documented by: ARIANA Non-Admin Reason: IV Running Tamsulosin HCl (Tamsulosin Hcl 0.4 Mg Capsule) 0.8 mg PO BEDTIME [facility] Last Admin: 04/19/21 20:46 Dose: 0.8 mg Documented by: SHREYA Tolterodine Tartrate (Tolterodine Tartrate La 4 Mg Cap.Er.24h) 4 mg PO DAILY [facility] Last Admin: 04/20/21 10:34 Dose: 4 mg Documented by: ARIANA Labs CBC & Chem 7: 04/20/21 06:57 04/20/21 06:57 Labs: Laboratory Results - last 24 hr 04/19/21 04/19/21 04/19/21 14:38 14:38 14:38 MCV 101.1 H MCH 32.1 MCHC 31.8 RDW 14.7 Plt Count 285 MPV 9.6 Immature Gran % (Auto) 2.1 H Neut % (Auto) 67.0 Lymph % (Auto) 15.3 L [place] % (Auto) 10.0 Eos % (Auto) 5.3 H Baso % (Auto) 0.3 Lymph # (Auto) 0.6 L [place] # (Auto) 0.4 Eos # (Auto) 0.2 Baso # (Auto) 0.0 Abs Immat Gran (auto) 0.08 H Absolute Neuts (auto) 2.6 Absolute Nucleated RBC 0.000 Nucleated RBC % (auto) 0.0 PT INR Anion Gap 12 Estim Creat Clear Calc 71.6 Estimated GFR > 60 Random Glucose 98 Lactic Acid 2.2 H* Lactic Acid F/U @ 2Hr Calcium 8.6 D Iron 45 TIBC 251 % Saturation 18 Unsat Iron Binding 206 Ferritin 920 H Total Bilirubin 0.5 AST 40 H D ALT 62 H Alkaline Phosphatase 140 H D Troponin I High Sens B-Natriuretic Peptide Total Protein 5.3 L D Albumin 3.0 L D Vitamin B12 Folate Urine Color Urine Appearance Urine pH Ur Specific Morrice Urine Protein Urine Glucose (UA) Urine Ketones Urine Blood Urine Nitrite Ur Leukocyte Esterase Urine RBC Urine WBC Ur Squamous Epith Cells Urine Bacteria Urine Mucus Stool Occult Blood Influenza Type A (PCR) Influenza Type B (PCR) RSV RNA Qual (PCR) SARS-CoV-2 RNA (RT-PCR) Blood Type Antibody Screen Crossmatch 04/19/21 04/19/21 04/19/21 14:38 14:38 14:43 MCV MCH MCHC RDW Plt Count MPV Immature Gran % (Auto) Neut % (Auto) Lymph % (Auto) [place] % (Auto) Eos % (Auto) Baso % (Auto) Lymph # (Auto) [place] # (Auto) Eos # (Auto) Baso # (Auto) Abs Immat Gran (auto) Absolute Neuts (auto) Absolute Nucleated RBC Nucleated RBC % (auto) PT INR Anion Gap Estim Creat Clear Calc Estimated GFR Random Glucose Lactic Acid Lactic Acid F/U @ 2Hr Calcium Iron TIBC % Saturation Unsat Iron Binding Ferritin Total Bilirubin AST ALT Alkaline Phosphatase Troponin I High Sens 8.9 B-Natriuretic Peptide 93 Total Protein Albumin Vitamin B12 728 Folate 11.8 Urine Color Urine Appearance Urine pH Ur Specific [place] Urine Protein Urine Glucose (UA) Urine Ketones Urine Blood Urine Nitrite Ur Leukocyte Esterase Urine RBC Urine WBC Ur Squamous Epith Cells Urine Bacteria Urine Mucus Stool Occult Blood Influenza Type A (PCR) NEGATIVE Influenza Type B (PCR) NEGATIVE RSV RNA Qual (PCR) NEGATIVE SARS-CoV-2 RNA (RT-PCR) NEGATIVE Blood Type Antibody Screen Crossmatch 04/19/21 04/19/21 04/19/21 16:16 16:20 18:10 MCV MCH MCHC RDW Plt Count MPV Immature Gran % (Auto) Neut % (Auto) Lymph % (Auto) [place] % (Auto) Eos % (Auto) Baso % (Auto) Lymph # (Auto) [place] # (Auto) Eos # (Auto) Baso # (Auto) Abs Immat Gran (auto) Absolute Neuts (auto) Absolute Nucleated RBC Nucleated RBC % (auto) PT 18.7 H INR 1.6 H Anion Gap Estim Creat Clear Calc Estimated GFR Random Glucose Lactic Acid Lactic Acid F/U @ 2Hr Calcium Iron TIBC % Saturation Unsat Iron Binding Ferritin Total Bilirubin AST ALT Alkaline Phosphatase Troponin I High Sens B-Natriuretic Peptide Total Protein Albumin Vitamin B12 Folate Urine Color ORANGE Urine Appearance HAZY Urine pH 7.0 Ur Specific Morrice 1.010 Urine Protein 1+ H Urine Glucose (UA) 100 H Urine Ketones NEG Urine Blood NEG Urine Nitrite POS H Ur Leukocyte Esterase 2+ H Urine RBC 0 Urine WBC 15-29 H Ur Squamous Epith Cells TRACE Urine Bacteria 1+ Urine Mucus TRACE Stool Occult Blood NEGATIVE Influenza Type A (PCR) Influenza Type B (PCR) RSV RNA Qual (PCR) SARS-CoV-2 RNA (RT-PCR) Blood Type Antibody Screen Crossmatch 04/19/21 04/20/21 04/20/21 19:39 06:57 06:57 MCV 102.5 H MCH 31.6 MCHC 30.8 L RDW 14.9 Plt Count 271 MPV 10.0 Immature Gran % (Auto) 1.7 H Neut % (Auto) 76.8 H Lymph % (Auto) 9.5 L [place] % (Auto) 10.1 Eos % (Auto) 1.7 Baso % (Auto) 0.2 Lymph # (Auto) 0.5 L [place] # (Auto) 0.5 Eos # (Auto) 0.1 Baso # (Auto) 0.0 Abs Immat Gran (auto) 0.08 H Absolute Neuts (auto) 3.7 Absolute Nucleated RBC 0.000 Nucleated RBC % (auto) 0.0 PT INR Anion Gap 9 L Estim Creat Clear Calc 72.5 Estimated GFR > 60 Random Glucose 95 Lactic Acid Lactic Acid F/U @ 2Hr 1.2 Calcium 8.1 L Iron TIBC % Saturation Unsat Iron Binding Ferritin Total Bilirubin AST ALT Alkaline Phosphatase Troponin I High Sens B-Natriuretic Peptide Total Protein Albumin Vitamin B12 Folate Urine Color Urine Appearance Urine pH Ur Specific [place]rice Urine Protein Urine Glucose (UA) Urine Ketones Urine Blood Urine Nitrite Ur Leukocyte Esterase Urine RBC Urine WBC Ur Squamous Epith Cells Urine Bacteria Urine Mucus Stool Occult Blood Influenza Type A (PCR) Influenza Type B (PCR) RSV RNA Qual (PCR) SARS-CoV-2 RNA (RT-PCR) Blood Type Antibody Screen Crossmatch 04/20/21 10:33 MCV MCH MCHC RDW Plt Count MPV Immature Gran % (Auto) Neut % (Auto) Lymph % (Auto) [place] % (Auto) Eos % (Auto) Baso % (Auto) Lymph # (Auto) [place] # (Auto) Eos # (Auto) Baso # (Auto) Abs Immat Gran (auto) Absolute Neuts (auto) Absolute Nucleated RBC Nucleated RBC % (auto) PT INR Anion Gap Estim Creat Clear Calc Estimated GFR Random Glucose Lactic Acid Lactic Acid F/U @ 2Hr Calcium Iron TIBC % Saturation Unsat Iron Binding Ferritin Total Bilirubin AST ALT Alkaline Phosphatase Troponin I High Sens B-Natriuretic Peptide Total Protein Albumin Vitamin B12 Folate Urine Color Urine Appearance Urine pH Ur Specific [place] Urine Protein Urine Glucose (UA) Urine Ketones Urine Blood Urine Nitrite Ur Leukocyte Esterase Urine RBC Urine WBC Ur Squamous Epith Cells Urine Bacteria Urine Mucus Stool Occult Blood Influenza Type A (PCR) Influenza Type B (PCR) RSV RNA Qual (PCR) SARS-CoV-2 RNA (RT-PCR) Blood Type B Positive Antibody Screen NEGATIVE Crossmatch See Detail Microbiology Microbiology Results: Microbiology 04/19/21 Unknown Urine Culture - Preliminary Urine clean catch - Urine turcios top Enterococcus/Streptococcus sp Assessment and Plan (1) Acute dehydration: Status: Acute (2) Acute urinary retention: Status: Acute (3) Urinary tract infection: Status: Acute (4) Prostate cancer: Status: Acute (5) Anemia: Status: Acute Assessment and Plan: 75-year-old male with a past medical history of paroxysmal AFib on Eliquis, BPH, COPD, tobacco dependence, hyperlipidemia, vitamin-D deficiency, asbestosis, recent history of prostate cancer status post radiotherapy finished 2 weeks ago; presented to the hospital today with a chief complaint of shortness of breath.? Noted to have following conditions Shortness of breath likely multifactorial due to Acute COPD exacerbation and acute anemia Feels better continue nebulizer treatment, azithromycin, oxygen support, hold steroid since patient declined, transfuse blood. UTI/urinary retention:? Urine culture grew Enterococcus /enterococcus, urine WBC 15 to 29, 1+ bacteria will place on iv vanco consult ID /Sykes catheter with clear orange urine Normal Renal ultrasound BPH/prostate cancer: Continue home Flomax, finasteride, tolterodine, await Uro input Atrial fibrillation: Currently rate controlled. At home on diltiazem 120 mg due to low blood pressure will change diltiazem to 15 mg q.6 hours continue home Eliquis no active bleeding noted Acute Anemia: No acute blood loss noted stool guaiac negative, elevated MCV will check hemolysis screen, B12 and folate will transfuse 1 unit follow CBC likely due to chemotherapy Tobacco dependence:? Patient not smoking for last couple months ,Counseled on smoking cessation. DVT prophylaxis:Patient on Eliquis Code status: Full code Quality Stroke Does the patient have a stroke diagnosis?: No VTE Prior VTE?: No VTE Risk Level:: Medical - moderate - high VTE Device Contraindication: N/A - Device Ordered VTE Drug Contraindication: Treatment Not Indicated
--- NOTE | 2021-04-20 16:51 | PC.NURSE ---
Blood transfusion completed, pt offers no complaints. Will continue to moniotr.
[2021-04-20] MEDS: vancomycin HCL 1,250 MG in 0.9 % Sodium Chloride 250 ML 166.67 MG IV (17:52)
--- NOTE | 2021-04-20 18:40 | PC.NURSE ---
Pt A&Ox3, no complaints of pain at this time. tolerated blood transfusion with no reaction. A fib on the monitor, called pharmacy for 1800 dose of cardizem, awaiting arrival at this time. Call vera within reach, dinner tray provided, will continue to monitor.
--- NOTE | 2021-04-20 19:45 | PC.NURSE ---
Assumed care of pt Pt resting on stretcher Denies any pain NAD Will continue to monitor
[2021-04-20 20:31] LABS: Immature Retic Fraction 27.4 % (2.3-13.4); Retic HGB Equivalent 29.4 pg (30.0-35.0); Reticulocyte Percent 6.2 % (0.5-1.8)
[2021-04-20 20:46] LABS: Lactate Dehydrogenase 315 U/L (118-273)
[2021-04-20 20:48] LABS: Iron 203 mcg/dL (45-160); Percent Iron Saturation 90 % (15-50); Total Iron Binding Capacity 225 mcg/dL (228-428); Unsaturated Iron Binding 22 ug/dL
[2021-04-20 21:08] LABS: Ferritin 670 ng/mL (20-250)
[2021-04-20 21:20] LABS: Folate 11.4 ng/mL (> or = 4.0); Vitamin B12 581 pg/mL (200-900)
--- NOTE | 2021-04-20 22:15 | PC.NURSE ---
Pt assisted to bedside commode, standby assist Pt given wipes Small soft BM Pt back on stretcher Will continue to monitor
[2021-04-20] MEDS: Tamsulosin HCL 0.4 MG CAPSULE 0.8 MG PO (22:31)
[2021-04-20] MEDS: dilTIAZem HCL 30 MG TABLET 15 MG PO (22:32)
--- NOTE | 2021-04-20 22:40 | PC.NURSE ---
Pt medicated per MAR Pt tolerated well Will continue to monitor
[2021-04-20] MEDS: Azithromycin 500 MG TABLET PO (23:29)
[2021-04-21] VITALS (14 sets, daily range): BP systolic 111–131; BP diastolic 41–82; PULSE 66–125; RESP 11–20; TEMP 36.3–37.2; O2SAT 92–95; BMI 23.3
[2021-04-21] MEDS: dilTIAZem HCL 30 MG TABLET 15 MG PO ×3 (03:03→12:49)
--- NOTE | 2021-04-21 03:03 | PC.NURSE ---
Pt's HR increased to 110s-120s bpm A. fib on monitor Pt denies any increasing SOB or CP or palpitations Dr. Lyn made aware. Per Dr. Jenkins, edin to give midnight dose of diltiazem. per Dr. Jenkins, edin for HR to fluctuate between 110 and 120s. Call if HR is consistent in 120s or goes up above 120s. Pt medicated per JUN Will continue to monitor
--- NOTE | 2021-04-21 04:20 | PC.NURSE ---
Pt resting on stretcher wtih eyes closed breathing even and unlabored A. fib with HR fluctuating from low 100s to 120s bpm Will continue to monitor
--- NOTE | 2021-04-21 05:25 | PC.NURSE ---
Pt HR fluctuating between 110s to low 130s. Pt asymptomatic Per edin Kennedy to give pt next dose of PO diltiazem. Pt medicated per JUN Pt tolerated well Will continue to monitor
[2021-04-21 06:50] LABS: Hematocrit 31.5 % (42.0-52.0); Mean Corpuscular HGB Conc 31.7 g/dl (31.0-36.0); Mean Corpuscular Hemoglobin 30.9 pg (27.0-33.0); Mean Corpuscular Volume 97.2 fL (80.0-98.0); Mean Platelet Volume 9.2 fL (9.4-12.4); Platelet Count 265 X10*3/uL (160-400); Red Blood Count 3.24 X10*6/uL (4.60-5.80); Red Cell Distribution Width 16.8 % (11.0-16.0); White Blood Count 5.2 X10*3/uL (4.8-10.8)
[2021-04-21 07:02] LABS: Anion Gap 11 (12-20); Blood Urea Nitrogen 14 mg/dL (9-16); Calcium 8.3 mg/dL (8.4-10.2); Carbon Dioxide 25 mmol/L (22-29); Chloride 106 mmol/L (96-108); Creatinine Clr Calc Pharmacy 78.3; Estimated Glomerular Filt Rate > 60; Glucose Random 90 mg/dL (60-115); Potassium 3.9 mmol/L (3.3-5.1); Sodium 138 mmol/L (135-145)
--- NOTE | 2021-04-21 07:30 | HE.PHANOTE ---
VANCOMYCIN ADDENDUM Renal function is stable with SCr of 0.75. With current regimen of 1250mg Q24H the predicted AUC would be subtherapeutic using the modified model on insight. Will increase dose to 1500mg Q24H. Trough will be drawn on 04/23. Pharmacy will continue to monitor renal function daily. Gema Gonzalez [facility]
[2021-04-21] MEDS: Omeprazole 20 MG CAPSULE.DR PO (08:34)
[2021-04-21] MEDS: Apixaban 5 MG TABLET PO ×2 (08:34→20:20)
[2021-04-21] MEDS: Finasteride 5 MG TABLET PO (08:35)
[2021-04-21] MEDS: Tolterodine Tartrate LA 4 MG CAP.ER.24H PO (08:35)
[2021-04-21] MEDS: 0.9 % Sodium Chloride Flush 3 ML SYRINGE IVFLUSH ×2 (08:36→17:40)
[2021-04-21] MEDS: Albuterol/Iprat 2.5/0.5MG 3 ML AMPUL.NEB INHALE ×3 (08:46→20:02)
--- NOTE | 2021-04-21 09:15 | PM.HEMONCCN ---
Subjective - Subjective Chief complaint: Consult for: Prostate carcinoma. Anemia. Patient: new to practice Consult date: 04/21/21 Requesting Physician: ANGELIA Primary Care Provider: Lacho Mcdonnell MD Medical Summary: DIAGNOSIS: ANEMIA. PROSTATE CANCER. HPI - Consult Narrative Reason for consult: Consult for: 1. Prostate cancer. 2. Anemia. Narrative: Ravin Lowery is a pleasant 75 year old gentleman, with recent history of prostate cancer status post radiotherapy finished 2 weeks ago; presented to the hospital today with a chief complaint of shortness of breath. Patient reports that over the past 1 month he has been having shortness of breath which has been gradually worsening. More decline over the past 2 weeks. Mentioned that he has been smoking cigarettes. Denies any chest pain palpitations, cough, fever or chills. Reports that over the past few days he also noted difficulty urinating; Noted to be generally weak and tired; hence presented to the ER for further evaluation. Denies any numbness tingling or focal weakness. Denies any falls or trauma. Denies any blood in the urine. PAST MEDICAL HISTORY: 1. Paroxysmal AFib on Eliquis, BPH, COPD, tobacco dependence, hyperlipidemia, vitamin-D deficiency, asbestosis. Review of Systems - Constitutional Reports system reviewed and no additional complaints, except as documented, Reports daytime sleepiness, Reports lack of energy, Reports malaise - Eyes Reports system reviewed and no additional complaints, except as documented - ENT Reports system reviewed and no additional complaints, except as documented - Cardiovascular Reports system reviewed and no additional complaints, except as documented - Respiratory Reports no additional respiratory complaints - Gastrointestinal Reports system reviewed and no additional complaints, except as documented - Genitourinary Genitourinary: Reports no additional male genitourinary complaints - Musculoskeletal Reports system reviewed and no additional complaints, except as documented - Integumentary/Breasts Skin/Breast: Reports no additional skin complaints - Neurologic Reports system reviewed and no additional complaints, except as documented - Psychiatric Reports system reviewed and no additional complaints, except as documented - Endocrine Reports no additional endocrine complaints - Hematologic/Lymphatic Reports system reviewed and no additional complaints, except as documented - Allergic/Immunologic Reports system reviewed and no additional complaints, except as documented Oncology Screenings - ECOG Performance Status ECOG Performance Status: 1 ON LICENSE OF [facility] Medical History: Medical History (Last Updated 05/06/21 @ 14:00 by Trevor Malave MD) Asbestosis Bladder diverticulum BPH (benign prostatic hyperplasia) COPD (chronic obstructive pulmonary disease) History of alcohol abuse 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 PAF (paroxysmal atrial fibrillation) Post herpetic neuralgia Prostate cancer Prostate cancer Thrombocytopenia Tobacco abuse Vitamin D deficiency Functional capacity: uses cane/walker Patient : No Family History: Family History (Last Reviewed 05/04/21 @ 16:[address] MD) Father Bladder cancer Mother Colon cancer Chronic mental illness Brother Myocardial infarction Surgical History: Surgical History (Last Reviewed 05/04/21 @ 16:[address] MD) H/O hand surgery Lesion of tongue Social History: Social History (Last Reviewed 05/04/21 @ 16:[address] MD) Living Situation History: Household Members: Spouse Housing: House Do you presently have visiting nurse or other home services: No Tobacco History: Patient Tobacco Use Status: Former Tobacco user Tobacco use type: Cigarette Cigarette Packs Per Day: 0.25 Years Smoked: stopped smoking april 14, 2020 Packs Per Year: 0 e-Cigarette/Vaping Use: Never Used Second Hand Smoke Exposure: No Advance Directives: Advance Directives Date on File: 03/23/20 Occupation Assessmet: service: No Current occupational status: retired Home Medications and Allergies Current Medications: Current Medications Acetaminophen (Acetaminophen 325 Mg Tablet) 650 mg PO Q6H PRN PRN Reason: Pain, Mild (Pain Scale 1-3) Albuterol Sulfate (Albuterol Sulfate 90 Mcg 8 Gm Inhaler) 2 puff INHALE QID PRN PRN Reason: shortness of breath or wheezin Albuterol/Ipratropium (Albuterol/Iprat 2.5/0.5mg 3 Ml Ampul.Neb) 3 ml INHALE RQ6H WHILE AWAKE [facility] Last Admin: 04/21/21 08:46 Dose: 3 ml Documented by: Albuterol/Ipratropium (Albuterol/Iprat 2.5/0.5mg 3 Ml Ampul.Neb) 3 ml INHALE RQ4H PRN PRN Reason: Shortness of Breath/Wheezing Apixaban (Apixaban 5 Mg Tablet) 5 mg PO BID [facility] Last Admin: 04/21/21 08:34 Dose: 5 mg Documented by: Azithromycin (Azithromycin 500 Mg Tablet) 500 mg PO Q24H [facility] Last Admin: 04/20/21 23:29 Dose: 500 mg Documented by: Diltiazem HCl (Diltiazem Hcl 30 Mg Tablet) 15 mg PO Q6H [facility] Last Admin: 04/21/21 05:22 Dose: 15 mg Documented by: Docusate Sodium (Docusate Sodium 100 Mg Capsule) 100 mg PO DAILY PRN PRN Reason: Constipation Finasteride (Finasteride 5 Mg Tablet) 5 mg PO DAILY [facility] Last Admin: 04/21/21 08:35 Dose: 5 mg Documented by: Vancomycin HCl 1,500 mg/ (Sodium Chloride) 500 mls @ 333.333 mls/hr IV Q24H [facility] Melatonin (Melatonin 3 Mg Tablet) 6 mg PO BEDTIME PRN PRN Reason: Insomnia Omeprazole (Omeprazole 20 Mg Capsule.Dr) 20 mg PO DAILY [facility] Last Admin: 04/21/21 08:34 Dose: 20 mg Documented by: Oxycodone HCl (Oxycodone Hcl Immed Release 5 Mg Tablet) 5 mg PO Q6H PRN PRN Reason: Pain, Severe (Pain Scale 7-10) Pharmacy Consult (Consult Rx Perform Med Rec) 1 each MISCELLANE ONCE PRN PRN Reason: Consult order Pharmacy Consult (Consult Rx Perform Med Rec) 1 each MISCELLANE ONCE PRN PRN Reason: Consult order Pharmacy Consult (Consult Rx Vancomycin Dosing) 1 each MISCELLANE DAILY PRN PRN Reason: Consult order Senna (Sennosides 8.6 Mg Tablet) 17.2 mg PO BEDTIME PRN PRN Reason: Constipation Sodium Chloride (0.9 % Sodium Chloride Flush 3 Ml Syringe) 3 ml IVFLUSH QSHIFT [facility] Last Admin: 04/21/21 08:36 Dose: 3 ml Documented by: Tamsulosin HCl (Tamsulosin Hcl 0.4 Mg Capsule) 0.8 mg PO BEDTIME [facility] Last Admin: 04/20/21 22:31 Dose: 0.8 mg Documented by: Tolterodine Tartrate (Tolterodine Tartrate La 4 Mg Cap.Er.24h) 4 mg PO DAILY [facility] Last Admin: 04/21/21 08:35 Dose: 4 mg Documented by: Home Medications Medication Instructions Recorded Confirmed Type omeprazole 20 mg capsule,delayed 1 cap PO DAILY 04/19/21 05/04/21 History release simvastatin 40 mg tablet 1 tab PO DAILY 04/19/21 05/04/21 History Allergies Allergy/AdvReac Type Severity Reaction Status Date / Time gabapentin Allergy Unknown Insomnia, Verified 05/07/21 13:05 increased pain Latex Allergy Unknown Slight Verified 05/07/21 13:05 reaction, rash nicotine Allergy Unknown patch- Verified 05/07/21 13:05 rash, rash Physical Exam Vital signs: Vital Signs Temp 97.5 F 04/21/21 06:00 Pulse 82 04/21/21 08:46 Resp 16 04/21/21 06:00 BP 127/59 L 04/21/21 06:00 Pulse Ox 95 04/21/21 06:00 Intake & Output 04/20/21 04/21/21 04/21/21 18:59 06:59 18:59 Intake Total 1350.000 / 1600.000 250 / 1600.000 Output Total 1200 / 3350 2150 / 3350 Balance 150.000 / -1750.000 -1900 / -1750.000 Urine Output (Average ml/kg/hr) 1.48 2.65 Intake: Intake (Blood Product) Amount 350 / 350 Red Blood Cells (E0382) Unit 350 / 350 [id number] Intake, IV Amount 1000.000 / 1250.000 250 / 1250.000 vancomycin HCL 1,250 mg In 0.9 250 / 250 % Sodium Chloride 250 ml @ 166. 667 mls/hr IV Q24H [facility] Rx#: [id number] 0.9 % Sodium Chloride 1,000 ml 1000.000 / 1000.000 @ 100 mls/hr IVCONT .Q10H [facility] Rx#:[id number] Output: Output, Urine Amount (Catheter) 1200 / 3350 2150 / 3350 2-way Urethral 1200 / 3350 2150 / 3350 Other: Urine Color Straw Weight 67.585 kg - Constitutional Present: mild distress - Routine HEENT Exam Head: Present: normal inspection ENT: Present: mucous membranes moist - Routine Neck Exam Present: supple - Routine Respiratory Exam Present: CTAB - Routine Cardiovascular Exam Cardiovascular: Present: RRR, S2 - Routine Extremities Exam Present: nontender - Routine Neurological Exam Present: alert, oriented X3 - Detailed Neurological Exam: Coma Scale Eye Opening: Spontaneous (4) Verbal Response: Oriented (5) Motor Response: Obeys commands (6) Cuate Coma Scale Total: 15 - Routine Psychiatric Exam Present: depressed Hem/Onc Consult Result - Labs CBC & Chem 7: 04/23/21 05:56 04/23/21 05:56 Labs: Short CBC 04/21/21 Range/Units 06:35 WBC 5.2 (4.8-10.8) X10*3/uL Hgb 10.0 L D (14.0-18.0) g/dl Hct 31.5 L D (42.0-52.0) % Plt Count 265 (160-400) X10*3/uL [facility] 04/21/21 06:35 Sodium 138 Potassium 3.9 Chloride 106 Carbon Dioxide 25 BUN 14 Creatinine 0.75 Calcium 8.3 L Assessment and Plan Patient Active problem list reviewed?: Yes (1) Prostate cancer Status: Inactive Assessment and plan: 75-year-old gentleman with history of Prostate Cancer, recently completed radical radiation therapy, for cure. Presents with significant anemia. DIFFERENTIAL DIAGNOSIS: 1. IRON DEFICIENCY ANEMIA: IRON PROFILE: 203/225/22/670. 2. ANEMIA OF CHRONIC DISEASE: 3. HEMOLYTIC ANEMIA: Retic count is elevated at 6.2. LDH elevated at 315. Haptoglobin and Eva test are pending. 4. BONE MARROW SUPPRESSION: Related to the recent radiation to the pelvis. This is most likely, since the patient has recently completed radiation. 5. MYELO INFILTRATIVE DISORDER: Possible at his age however less likely. Can have myelo infiltration from prostate cancer but he has early stage disease, radiation given as an attempt for cure. PLAN: Will proceed with further evaluation. Will check haptoglobin: 149, normal and Eva test: Negative, to complete workup for hemolysis. Follow his blood count. Hemoglobin is up after transfusion. If the above workup is non revealing can consider proceeding with a bone marrow exam, in future. Thank you for this consult, I will follow along with you. - Time Spent With Patient Time Spent with Patient (in minutes): 30
--- NOTE | 2021-04-21 11:35 | PM.UROCN ---
History of Present Illness Consult details Consult date: 04/20/21 Narrative: Ravin is known to Urology Has recently completed external beam radiation for prostate cancer Towards the end of therapy started to have weakness of stream Since then has had trouble with his urination Appears to have developed urinary tract infection on the background of incomplete emptying May have infection within prostate Presents for treatment and is being given IV antibiotics Urine culture pending Recommendation to maximize tamsulosin with 0.8 mg p.o. daily Has outpatient follow-up with me in a few weeks Review of Systems Constitutional: Constitutional: Reports as per HPI and Reports no additional constitutional complaints Cardiovascular: Cardiovascular: Reports as per HPI and Reports no additional cardiovascular complaints Respiratory: Respiratory: Reports as per HPI and Reports no additional respiratory complaints Gastrointestinal: Gastrointestinal: Reports as per HPI and Reports no additional gastrointestinal complaints Genitourinary: Genitourinary: Reports as per HPI Musculoskeletal: Musculoskeletal: Reports no additional musculoskeletal complaints and Reports as per HPI Neurologic: Reports system reviewed and no additional complaints, except as documented and Reports as per HPI PMFSH Past Medical History Medical History (Updated 04/21/21 @ 09:18 by Subha Mata MD) Asbestosis Bladder diverticulum BPH (benign prostatic hyperplasia) COPD (chronic obstructive pulmonary disease) History of alcohol abuse Hypercholesterolemia assisted current use of anticoagulant PAF (paroxysmal atrial fibrillation) Post herpetic neuralgia Thrombocytopenia Tobacco abuse Vitamin D deficiency Functional capacity: uses cane/walker Family History Family History Father Bladder cancer Mother Colon cancer Chronic mental illness Brother Myocardial infarction Surgical History Surgical History (Updated 04/21/21 @ 09:18 by Subha Mata MD) H/O hand surgery Lesion of tongue Social History Social History Household Members: Spouse Housing: House Do you presently have visiting nurse or other home services: No Alcohol intake: former Patient Tobacco Use Status: Former Tobacco user Tobacco use type: Cigarette Cigarette Packs Per Day: 0.25 Years Smoked: stopped smoking april 14, 2020 Smoked in Last 30 Days: Yes e-Cigarette/Vaping Use: Never Used Second Hand Smoke Exposure: No Use of substances other than those prescribed or required for medical reasons: No Advance Directives: Yes Advance Directives on File: Yes Advance Directives Date on File: 03/23/20 service: No Current occupational status: retired Meds Allergies Allergy/AdvReac Type Severity Reaction Status Date / Time gabapentin Allergy Unknown Insomnia, Verified 12/16/20 08:45 increased pain Latex Allergy Unknown Slight Verified 12/16/20 08:45 reaction, rash nicotine Allergy Unknown patch- Verified 12/16/20 08:45 rash, rash Active Medications: Current Medications Acetaminophen (Acetaminophen 325 Mg Tablet) 650 mg PO Q6H PRN PRN Reason: Pain, Mild (Pain Scale 1-3) Albuterol Sulfate (Albuterol Sulfate 90 Mcg 8 Gm Inhaler) 2 puff INHALE QID PRN PRN Reason: shortness of breath or wheezin Albuterol/Ipratropium (Albuterol/Iprat 2.5/0.5mg 3 Ml Ampul.Neb) 3 ml INHALE RQ6H WHILE AWAKE [facility] Last Admin: 04/21/21 08:46 Dose: 3 ml Documented by: Albuterol/Ipratropium (Albuterol/Iprat 2.5/0.5mg 3 Ml Ampul.Neb) 3 ml INHALE RQ4H PRN PRN Reason: Shortness of Breath/Wheezing Apixaban (Apixaban 5 Mg Tablet) 5 mg PO BID [facility] Last Admin: 04/21/21 08:34 Dose: 5 mg Documented by: Azithromycin (Azithromycin 500 Mg Tablet) 500 mg PO Q24H [facility] Last Admin: 04/20/21 23:29 Dose: 500 mg Documented by: Diltiazem HCl (Diltiazem Hcl 30 Mg Tablet) 15 mg PO Q6H [facility] Last Admin: 04/21/21 05:22 Dose: 15 mg Documented by: Docusate Sodium (Docusate Sodium 100 Mg Capsule) 100 mg PO DAILY PRN PRN Reason: Constipation Finasteride (Finasteride 5 Mg Tablet) 5 mg PO DAILY [facility] Last Admin: 04/21/21 08:35 Dose: 5 mg Documented by: Vancomycin HCl 1,500 mg/ (Sodium Chloride) 500 mls @ 333.333 mls/hr IV Q24H [facility] Melatonin (Melatonin 3 Mg Tablet) 6 mg PO BEDTIME PRN PRN Reason: Insomnia Omeprazole (Omeprazole 20 Mg Capsule.) 20 mg PO DAILY [facility] Last Admin: 04/21/21 08:34 Dose: 20 mg Documented by: Oxycodone HCl (Oxycodone Hcl Immed Release 5 Mg Tablet) 5 mg PO Q6H PRN PRN Reason: Pain, Severe (Pain Scale 7-10) Pharmacy Consult (Consult Rx Perform Med Rec) 1 each MISCELLANE ONCE PRN PRN Reason: Consult order Pharmacy Consult (Consult Rx Perform Med Rec) 1 each MISCELLANE ONCE PRN PRN Reason: Consult order Pharmacy Consult (Consult Rx Vancomycin Dosing) 1 each MISCELLANE DAILY PRN PRN Reason: Consult order Senna (Sennosides 8.6 Mg Tablet) 17.2 mg PO BEDTIME PRN PRN Reason: Constipation Sodium Chloride (0.9 % Sodium Chloride Flush 3 Ml Syringe) 3 ml IVFLUSH QSHIFT [facility] Last Admin: 04/21/21 08:36 Dose: 3 ml Documented by: Tamsulosin HCl (Tamsulosin Hcl 0.4 Mg Capsule) 0.8 mg PO BEDTIME [facility] Last Admin: 04/20/21 22:31 Dose: 0.8 mg Documented by: Tolterodine Tartrate (Tolterodine Tartrate La 4 Mg Cap.Er.24h) 4 mg PO DAILY [facility] Last Admin: 04/21/21 08:35 Dose: 4 mg Documented by: Home Medications Medication Instructions Recorded Confirmed Last Taken Type naproxen sodium 220 mg capsule 220 mg PO BID PRN 04/19/21 04/19/21 04/19/21 History (Aleve) omeprazole 20 mg capsule,delayed 1 cap PO DAILY 04/19/21 04/19/21 04/19/21 History release simvastatin 40 mg tablet 1 tab PO DAILY 04/19/21 04/19/21 04/19/21 History tolterodine 4 mg capsule,extended 1 cap PO DAILY 04/19/21 04/19/21 04/19/21 History release 24 hr Physical Exam Vital Signs: Vital Signs: Last Vital Signs Temp 97.7 F 04/21/21 10:23 Pulse 78 04/21/21 10:23 Resp 11 L 04/21/21 10:23 BP 116/45 L 04/21/21 10:23 Pulse Ox 94 04/21/21 10:23 BMI result Body Mass Index 23.3 Const: General: cooperative, healthy appearing, comfortable and no acute distress Orientation/consciousness: patient oriented x3 HENMT: Face and sinus: Yes normal facial exam Mouth: moist mucous membranes Neck: Neck: Yes normal visual inspection, Yes full ROM and Yes trachea midline Chest: Chest palpation & inspection: normal inspection of the chest Resp: Effort & Inspection: normal respiratory effort, able to speak in complete sentences and no respiratory distress GI: Inspection: Yes normal to inspection Back/Spine/Pelvis: Cervical Spine: normal cervical lordosis Thoracic/Lumbar Spine: thoracic and lumbar spine normal to inspection Skin: General skin exam: no rashes or lesions noted Neuro: General: patient oriented x3, tone normal and moves all extremities Extrem: General: Yes normal to inspection and Yes capillary refill normal Results Labs Result diagrams: 04/21/21 06:35 04/21/21 06:35 Labs: Abnormal lab results 04/20/21 04/20/21 04/20/21 Range/Units 10:33 20:14 20:14 RBC (4.60-5.80) X10*6/uL Hgb (14.0-18.0) g/dl Hct (42.0-52.0) % RDW (11.0-16.0) % MPV (9.4-12.4) fL Absolute Retic 0.180 H (0.026-0.095) X10*6/uL Percent Retic 6.2 H (0.5-1.8) % Immature Retic Fraction 27.4 H (2.3-13.4) % Retic Hgb Equivalent 29.4 L (30.0-35.0) pg Anion Gap (12-20) Calcium (8.4-10.2) mg/dL Iron (45-160) mcg/dL TIBC (228-428) mcg/dL % Saturation (15-50) % Ferritin (20-250) ng/mL Lactate Dehydrogenase 315 H (118-273) U/L Crossmatch See Detail 04/20/21 04/21/21 04/21/21 Range/Units 20:14 06:35 06:35 RBC 3.24 L D (4.60-5.80) X10*6/uL Hgb 10.0 L D (14.0-18.0) g/dl Hct 31.5 L D (42.0-52.0) % RDW 16.8 H (11.0-16.0) % MPV 9.2 L (9.4-12.4) fL Absolute Retic (0.026-0.095) X10*6/uL Percent Retic (0.5-1.8) % Immature Retic Fraction (2.3-13.4) % Retic Hgb Equivalent (30.0-35.0) pg Anion Gap 11 L (12-20) Calcium 8.3 L (8.4-10.2) mg/dL Iron 203 H (45-160) mcg/dL TIBC 225 L (228-428) mcg/dL % Saturation 90 H (15-50) % Ferritin 670 H (20-250) ng/mL Lactate Dehydrogenase (118-273) U/L Crossmatch Short CBC 04/21/21 Range/Units 06:35 WBC 5.2 (4.8-10.8) X10*3/uL Hgb 10.0 L D (14.0-18.0) g/dl Hct 31.5 L D (42.0-52.0) % Plt Count 265 (160-400) X10*3/uL BMP 04/21/21 06:35 Sodium 138 Potassium 3.9 Chloride 106 Carbon Dioxide 25 BUN 14 Creatinine 0.75 Calcium 8.3 L Urine 04/19/21 Range/Units 16:16 Urine Color ORANGE Urine Appearance HAZY Urine pH 7.0 (5.0-8.0) Ur Specific [place] 1.010 (1.005-1.025) Urine Protein 1+ H (NEG-TRACE) MG/DL Urine Glucose (UA) 100 H (NEG) MG/DL All other labs normal. Assessment and Plan (1) Urinary tract infection: Qualifiers: Hematuria presence: with hematuria Urinary tract infection type: acute cystitis Qualified Code(s): N30.01 - Acute cystitis with hematuria Status: Acute (2) Prostate cancer: Status: Acute Antibiotics Would continue for total of 14 days Procedures Date of Service Date of Service: 04/20/21
--- NOTE | 2021-04-21 13:01 | PC.NURSE ---
Pt medicated as per MAR orders with VS as charted, MD aware of HR and BP at time of medical biller/coder. Pt is A&Ox3, no complaints of pain at this time. Awaiting bed assignment, will continue to monitor.
--- NOTE | 2021-04-21 14:40 | MHC.CM.PN ---
[facility] is still in play to offer a bed today. in the event this does not materialize refs have been made to an expanded [facility]. cm to cont. to follow.
--- NOTE | 2021-04-21 16:00 | P.CNID_ITS ---
History of Present Illness Data of Consult Service Date: 04/21/21 Requesting physician: Jarrett Damon Primary Care Provider: MD YASMIN Jacobs Reason for consult: weakness post radiation therapy He presents with weakness and frequent urination worse over last 3-4 days He has enterococcus in urine He has no fever or chills He does have cough and COPD Review of Systems Review of Systems: Yes all other systems are reviewed and are negative PMFSH Past Medical History Medical History Asbestosis Bladder diverticulum BPH (benign prostatic hyperplasia) COPD (chronic obstructive pulmonary disease) History of alcohol abuse Hypercholesterolemia [facility] current use of anticoagulant PAF (paroxysmal atrial fibrillation) Post herpetic neuralgia Thrombocytopenia Tobacco abuse Vitamin D deficiency Functional capacity: uses cane/walker Family History Family History Father Bladder cancer Mother Colon cancer Chronic mental illness Brother Myocardial infarction Family history: reviewed and not pertinent Surgical History Surgical History H/O hand surgery Lesion of tongue Social History Social History Household Members: Spouse Housing: House Do you presently have visiting nurse or other home services: No Alcohol intake: former Patient Tobacco Use Status: Former Tobacco user Tobacco use type: Cigarette Cigarette Packs Per Day: 0.25 Years Smoked: stopped smoking april 14, 2020 Smoked in Last 30 Days: Yes e-Cigarette/Vaping Use: Never Used Second Hand Smoke Exposure: No Use of substances other than those prescribed or required for medical reasons: No Advance Directives: Yes Advance Directives on File: Yes Advance Directives Date on File: 03/23/20 service: No Current occupational status: retired Meds Allergies Allergy/AdvReac Type Severity Reaction Status Date / Time gabapentin Allergy Unknown Insomnia, Verified 12/16/20 08:45 increased pain Latex Allergy Unknown Slight Verified 12/16/20 08:45 reaction, rash nicotine Allergy Unknown patch- Verified 12/16/20 08:45 rash, rash Active Medications: Current Medications Acetaminophen (Acetaminophen 325 Mg Tablet) 650 mg PO Q6H PRN PRN Reason: Pain, Mild (Pain Scale 1-3) Albuterol Sulfate (Albuterol Sulfate 90 Mcg 8 Gm Inhaler) 2 puff INHALE QID PRN PRN Reason: shortness of breath or wheezin Albuterol/Ipratropium (Albuterol/Iprat 2.5/0.5mg 3 Ml Ampul.Neb) 3 ml INHALE RQ6H WHILE AWAKE [facility] Last Admin: 04/21/21 13:04 Dose: 3 ml Documented by: Albuterol/Ipratropium (Albuterol/Iprat 2.5/0.5mg 3 Ml Ampul.Neb) 3 ml INHALE RQ4H PRN PRN Reason: Shortness of Breath/Wheezing Apixaban (Apixaban 5 Mg Tablet) 5 mg PO BID [facility] Last Admin: 04/21/21 08:34 Dose: 5 mg Documented by: Azithromycin (Azithromycin 500 Mg Tablet) 500 mg PO Q24H [facility] Last Admin: 04/20/21 23:29 Dose: 500 mg Documented by: Diltiazem HCl (Diltiazem Hcl 30 Mg Tablet) 15 mg PO Q6H [facility] Last Admin: 04/21/21 12:49 Dose: 15 mg Documented by: Docusate Sodium (Docusate Sodium 100 Mg Capsule) 100 mg PO DAILY PRN PRN Reason: Constipation Finasteride (Finasteride 5 Mg Tablet) 5 mg PO DAILY [facility] Last Admin: 04/21/21 08:35 Dose: 5 mg Documented by: Levofloxacin (Levofloxacin 500 Mg Tablet) 500 mg PO Q24H [facility] Melatonin (Melatonin 3 Mg Tablet) 6 mg PO BEDTIME PRN PRN Reason: Insomnia Omeprazole (Omeprazole 20 Mg Capsule.) 20 mg PO DAILY [facility] Last Admin: 04/21/21 08:34 Dose: 20 mg Documented by: Oxycodone HCl (Oxycodone Hcl Immed Release 5 Mg Tablet) 5 mg PO Q6H PRN PRN Reason: Pain, Severe (Pain Scale 7-10) Pharmacy Consult (Consult Rx Perform Med Rec) 1 each MISCELLANE ONCE PRN PRN Reason: Consult order Pharmacy Consult (Consult Rx Perform Med Rec) 1 each MISCELLANE ONCE PRN PRN Reason: Consult order Pharmacy Consult (Consult Rx Vancomycin Dosing) 1 each MISCELLANE DAILY PRN PRN Reason: Consult order Senna (Sennosides 8.6 Mg Tablet) 17.2 mg PO BEDTIME PRN PRN Reason: Constipation Sodium Chloride (0.9 % Sodium Chloride Flush 3 Ml Syringe) 3 ml IVFLUSH QSHIFT [facility] Last Admin: 04/21/21 08:36 Dose: 3 ml Documented by: Tamsulosin HCl (Tamsulosin Hcl 0.4 Mg Capsule) 0.8 mg PO BEDTIME [facility] Last Admin: 04/20/21 22:31 Dose: 0.8 mg Documented by: Tolterodine Tartrate (Tolterodine Tartrate La 4 Mg Cap.Er.24h) 4 mg PO DAILY [facility] Last Admin: 04/21/21 08:35 Dose: 4 mg Documented by: Home Medications Medication Instructions Recorded Confirmed Last Taken Type naproxen sodium 220 mg capsule 220 mg PO BID PRN 04/19/21 04/19/21 04/19/21 History (Aleve) omeprazole 20 mg capsule,delayed 1 cap PO DAILY 04/19/21 04/19/21 04/19/21 History release simvastatin 40 mg tablet 1 tab PO DAILY 04/19/21 04/19/21 04/19/21 History tolterodine 4 mg capsule,extended 1 cap PO DAILY 04/19/21 04/19/21 04/19/21 History release 24 hr Physical Exam Vital Signs: Vital Signs: Last Vital Signs Temp 97.7 F 04/21/21 10:23 Pulse 72 04/21/21 14:17 Resp 20 04/21/21 14:17 BP 111/41 L 04/21/21 14:17 Pulse Ox 95 04/21/21 14:17 BMI result Body Mass Index 23.3 Const: General: cooperative Orientation/consciousness: patient oriented x3 Eyes: Pupils: Equal, round and reactive pupils present Resp: Effort & Inspection: normal respiratory effort Cardio: Rate: regular rate Rhythm: regular rhythm GI: Palpation (GI): Soft to palpation and nontender Percussion: Yes Other (Sykes catheter) Skin: General skin exam: no rashes or lesions noted Neuro: General: patient oriented x3 and moves all extremities Cranial nerves: Yes Equal, round and reactive pupils present Results Labs CBC & Chem 7: 04/21/21 06:35 04/21/21 06:35 Labs: Short CBC 04/21/21 Range/Units 06:35 WBC 5.2 (4.8-10.8) X10*3/uL Hgb 10.0 L D (14.0-18.0) g/dl Hct 31.5 L D (42.0-52.0) % Plt Count 265 (160-400) X10*3/uL BMP 04/21/21 06:35 Sodium 138 Potassium 3.9 Chloride 106 Carbon Dioxide 25 BUN 14 Creatinine 0.75 Calcium 8.3 L Microbiology Microbiology Results: Microbiology 04/19/21 Unknown Urine clean catch - Urine turcios top Urine Culture - Final Enterococcus faecalis 04/19/21 16:20 Blood - Venous Blood Culture - Preliminary No growth after 24 hours. 04/19/21 14:37 Blood - Venous Blood Culture - Preliminary No growth after 24 hours. Assessment and Plan (1) Urinary tract infection: Qualifiers: Hematuria presence: with hematuria Urinary tract infection type: acute cystitis Qualified Code(s): N30.01 - Acute cystitis with hematuria Status: Acute He has enterococcal UTI,symptomatic Blood cultures are pending He has prostate cancer (2) Prostate cancer: Status: Acute Levaquin and may change to po for 10 days Urology to evaluate as patient has Sykes
--- NOTE | 2021-04-21 16:31 | HO.PM.IMPN ---
Subjective Subjective Date of Service: 04/21/21 Interval History: Events from last night noted patient went into AFib with RVR last night converted to normal sinus rhythm this morning, denies chest pain, no palpitation, overall feels better this morning with less weakness. Sykes catheter with clear urine, no fevers no chills no nausea vomiting diarrhea. Review of Systems Review of Systems: Yes all other systems are reviewed and are negative Physical Exam Vital Signs: Vital Signs: Last Vital Signs Temp 97.7 F 04/21/21 10:23 Pulse 72 04/21/21 14:17 Resp 20 04/21/21 14:17 BP 111/41 L 04/21/21 14:17 Pulse Ox 95 04/21/21 14:17 BMI result Body Mass Index 23.3 General awake aler t x3, no acute dis tress.? Neck suppl e no JVD. CVS? reg ular rate rhythm, Respiratory lungs clear to auscultat ion, no respirator y distress, no whe blaise, no rhonchi. G astrointestinal ab domen soft, nonten cindy, bowel sounds audible, Extremiti es no edema. Neuro nonfocal . Skin p reid/warm/ no rash Psych appropriate affect Sykes orang e tinged urine Objective Data Active Medications Acetaminophen (Acetaminophen 325 Mg Tablet) 650 mg PO Q6H PRN PRN Reason: Pain, Mild (Pain Scale 1-3) Albuterol Sulfate (Albuterol Sulfate 90 Mcg 8 Gm Inhaler) 2 puff INHALE QID PRN PRN Reason: shortness of breath or wheezin Albuterol/Ipratropium (Albuterol/Iprat 2.5/0.5mg 3 Ml Ampul.Neb) 3 ml INHALE RQ6H WHILE AWAKE [facility] Last Admin: 04/21/21 13:04 Dose: 3 ml Documented by: CASEY Albuterol/Ipratropium (Albuterol/Iprat 2.5/0.5mg 3 Ml Ampul.Neb) 3 ml INHALE RQ4H PRN PRN Reason: Shortness of Breath/Wheezing Apixaban (Apixaban 5 Mg Tablet) 5 mg PO BID [facility] Last Admin: 04/21/21 08:34 Dose: 5 mg Documented by: ARIANA Diltiazem HCl (Diltiazem Hcl 30 Mg Tablet) 15 mg PO Q6H [facility] Last Admin: 04/21/21 12:49 Dose: 15 mg Documented by: ARIANA Docusate Sodium (Docusate Sodium 100 Mg Capsule) 100 mg PO DAILY PRN PRN Reason: Constipation Finasteride (Finasteride 5 Mg Tablet) 5 mg PO DAILY [facility] Last Admin: 04/21/21 08:35 Dose: 5 mg Documented by: ARIANA Levofloxacin (Levofloxacin 500 Mg Tablet) 500 mg PO Q24H [facility] Melatonin (Melatonin 3 Mg Tablet) 6 mg PO BEDTIME PRN PRN Reason: Insomnia Omeprazole (Omeprazole 20 Mg Capsule.Dr) 20 mg PO DAILY [facility] Last Admin: 04/21/21 08:34 Dose: 20 mg Documented by: ARIANA Oxycodone HCl (Oxycodone Hcl Immed Release 5 Mg Tablet) 5 mg PO Q6H PRN PRN Reason: Pain, Severe (Pain Scale 7-10) Pharmacy Consult (Consult Rx Perform Med Rec) 1 each MISCELLANE ONCE PRN PRN Reason: Consult order Pharmacy Consult (Consult Rx Perform Med Rec) 1 each MISCELLANE ONCE PRN PRN Reason: Consult order Pharmacy Consult (Consult Rx Vancomycin Dosing) 1 each MISCELLANE DAILY PRN PRN Reason: Consult order Senna (Sennosides 8.6 Mg Tablet) 17.2 mg PO BEDTIME PRN PRN Reason: Constipation Sodium Chloride (0.9 % Sodium Chloride Flush 3 Ml Syringe) 3 ml IVFLUSH QSHIFT [facility] Last Admin: 04/21/21 08:36 Dose: 3 ml Documented by: ARIANA Tamsulosin HCl (Tamsulosin Hcl 0.4 Mg Capsule) 0.8 mg PO BEDTIME [facility] Last Admin: 04/20/21 22:31 Dose: 0.8 mg Documented by: TURNER Tolterodine Tartrate (Tolterodine Tartrate La 4 Mg Cap.Er.24h) 4 mg PO DAILY [facility] Last Admin: 04/21/21 08:35 Dose: 4 mg Documented by: ARIANA Labs CBC & Chem 7: 04/21/21 06:35 04/21/21 06:35 Labs: Laboratory Results - last 24 hr 04/20/21 04/20/21 04/20/21 10:33 20:14 20:14 MCV MCH MCHC RDW Plt Count MPV Absolute Nucleated RBC Nucleated RBC % (auto) Absolute Retic 0.180 H Percent Retic 6.2 H Immature Retic Fraction 27.4 H Retic Hgb Equivalent 29.4 L Anion Gap Estim Creat Clear Calc Estimated GFR Random Glucose Calcium Iron TIBC % Saturation Unsat Iron Binding Ferritin Lactate Dehydrogenase 315 H Prostate Specific Ag Vitamin B12 Folate Blood Type B Positive Antibody Screen NEGATIVE ANAYELI, Polyspecific NEGATIVE Positive ANAYELI Work-up TNP Crossmatch See Detail 04/20/21 04/20/21 04/21/21 20:14 20:14 06:35 MCV 97.2 D MCH 30.9 MCHC 31.7 RDW 16.8 H Plt Count 265 MPV 9.2 L Absolute Nucleated RBC 0.000 Nucleated RBC % (auto) 0.0 Absolute Retic Percent Retic Immature Retic Fraction Retic Hgb Equivalent Anion Gap Estim Creat Clear Calc Estimated GFR Random Glucose Calcium Iron 203 H TIBC 225 L % Saturation 90 H Unsat Iron Binding 22 Ferritin 670 H Lactate Dehydrogenase Prostate Specific Ag Vitamin B12 581 Folate 11.4 Blood Type Antibody Screen ANAYELI, Polyspecific Positive ANAYELI Work-up Crossmatch 04/21/21 06:35 MCV MCH MCHC RDW Plt Count MPV Absolute Nucleated RBC Nucleated RBC % (auto) Absolute Retic Percent Retic Immature Retic Fraction Retic Hgb Equivalent Anion Gap 11 L Estim Creat Clear Calc 78.3 Estimated GFR > 60 Random Glucose 90 Calcium 8.3 L Iron TIBC % Saturation Unsat Iron Binding Ferritin Lactate Dehydrogenase Prostate Specific Ag 0.90 Vitamin B12 Folate Blood Type Antibody Screen ANAYELI, Polyspecific Positive ANAYELI Work-up Crossmatch Microbiology Microbiology Results: Microbiology 04/19/21 Unknown Urine Culture - Final Urine clean catch - Urine turcios top Enterococcus faecalis 04/19/21 16:20 Blood Culture - Preliminary Blood - Venous No growth after 24 hours. 04/19/21 14:37 Blood Culture - Preliminary Blood - Venous No growth after 24 hours. Assessment and Plan (1) Prostate cancer: Status: Acute (2) Anemia: Status: Acute (3) Acute dehydration: Status: Acute (4) Acute urinary retention: Status: Acute (5) Urinary tract infection: Status: Acute Assessment and Plan: 75-year-old male with a past medical history of paroxysmal AFib on Eliquis, BPH, COPD, tobacco dependence, hyperlipidemia, vitamin-D deficiency, asbestosis, recent history of prostate cancer status post radiotherapy finished 2 weeks ago; presented to the hospital today with a chief complaint of shortness of breath.? Noted to have following conditions Shortness of breath likely multifactorial due to Acute COPD exacerbation and acute anemia Feels better continue nebulizer treatment, azithromycin,and oxygen support, gradually wean oxygen as tolerated, not on home oxygen, recommend out of bed and ambulation Obtain PT eval prior to discharge UTI/urinary retention:? Urine culture grew Enterococcus sensitive to Levaquin, will DC IV vanco and place patient on by mouth Levaquin for total 10 days Normal Renal ultrasound BPH/prostate cancer: Continue Flomax, finasteride, tolterodine, seen by Dr. Malave case discussed with him he recommend outpatient follow-up with him in 2 weeks and to continue Sykes catheter Atrial fibrillation: Currently rate controlled. Will increase dose of diltiazem to 30 mg q.6 hours and if tolerated will place him back on home dose diltiazem 120 mg daily continue Eliquis Acute Anemia:? No acute blood loss noted stool guaiac negative, elevated MCV, B12 and folate within normal range, hematocrit improved after 1 unit of packed Haptoglobin and Eva test pending, followed by Dr. Mata from Hematology Tobacco dependence:? Patient not smoking for last couple months ,Counseled on smoking cessation. DVT prophylaxis:Patient on Eliquis Code status: Full code Quality Stroke Does the patient have a stroke diagnosis?: No VTE Prior VTE?: No VTE Risk Level:: Medical - moderate - high VTE Device Contraindication: N/A - Device Ordered VTE Drug Contraindication: Treatment Not Indicated
[2021-04-21] MEDS: levoFLOXacin 500 MG TABLET PO (17:37)
[2021-04-21] MEDS: dilTIAZem HCL 30 MG TABLET PO ×2 (17:37→23:31)
--- NOTE | 2021-04-21 19:19 | PC.NURSE ---
Admission assessment completed by this RN.
[2021-04-21] MEDS: Tamsulosin HCL 0.4 MG CAPSULE 0.8 MG PO (20:19)
[2021-04-22] VITALS (12 sets, daily range): BP systolic 114–137; BP diastolic 49–63; PULSE 60–88; RESP 18–20; TEMP 36.1–37.4; O2SAT 86–96
[2021-04-22] MEDS: 0.9 % Sodium Chloride Flush 3 ML SYRINGE IVFLUSH ×3 (00:35→14:16)
--- NOTE | 2021-04-22 01:28 | PC.NURSE ---
Pt arrived to rm 452 at 2159 on a bed, alert and oriented, denies any pain, conversant, still with mild SOB on exertion as claimed, tolerating O2 at 5L/min via NC, ko cath intact and patent, instructed to use callbell for needs, plan of care instructed, slept after.
[2021-04-22] MEDS: dilTIAZem HCL 30 MG TABLET PO ×3 (05:30→17:27)
[2021-04-22 05:45] LABS: Hematocrit 29.9 % (42.0-52.0); Hemoglobin 9.3 g/dl (14.0-18.0); Mean Corpuscular HGB Conc 31.1 g/dl (31.0-36.0); Mean Corpuscular Hemoglobin 30.1 pg (27.0-33.0); Mean Corpuscular Volume 96.8 fL (80.0-98.0); Mean Platelet Volume 9.5 fL (9.4-12.4); Platelet Count 268 X10*3/uL (160-400); Red Blood Count 3.09 X10*6/uL (4.60-5.80); Red Cell Distribution Width 16.5 % (11.0-16.0); White Blood Count 4.3 X10*3/uL (4.8-10.8)
[2021-04-22 06:11] LABS: Creatinine Clr Calc Pharmacy 64.5; Estimated Glomerular Filt Rate > 60
[2021-04-22] MEDS: Albuterol/Iprat 2.5/0.5MG 3 ML AMPUL.NEB INHALE ×3 (07:41→20:33)
[2021-04-22] MEDS: Finasteride 5 MG TABLET PO (08:35)
[2021-04-22] MEDS: Omeprazole 20 MG CAPSULE.DR PO (08:35)
[2021-04-22] MEDS: Tolterodine Tartrate LA 4 MG CAP.ER.24H PO (08:35)
[2021-04-22] MEDS: Apixaban 5 MG TABLET PO ×2 (08:35→20:57)
--- NOTE | 2021-04-22 12:46 | MHC.CM.PN ---
met with pt who lives with he is agreeable to hvns when dcd for home pt
[2021-04-22] MEDS: levoFLOXacin 500 MG TABLET PO (14:16)
--- NOTE | 2021-04-22 14:28 | HO.PM.IMPN ---
Subjective Subjective Date of Service: 04/22/21 Interval History: Feeling better this morning, slept well no nausea no vomiting, less generalized weakness, denies shortness of breath , no chest pain, no palpitations, no other acute issues overnight. Review of Systems Review of Systems: Yes all other systems are reviewed and are negative Physical Exam Vital Signs: Vital Signs: Last Vital Signs Temp 98 F 04/22/21 11:05 Pulse 76 04/22/21 13:35 Resp 18 04/22/21 13:35 BP 119/52 L 04/22/21 11:05 Pulse Ox 90 L 04/22/21 11:05 BMI result Body Mass Index 23.3 General awake alert x3, no acute distress.? Neck supple no JVD. CVS? regular rate rhythm, Respiratory lungs clear to auscultation, no respiratory distress, no wheeze, no rhonchi. Gastrointestinal abdomen soft, non tender, bowel sounds audible, Extremities no edema. Neuro?non focal . Skin pale/warm/ no rash Psych appropriate affect Sykes orange tinged urine Objective Data Active Medications Acetaminophen (Acetaminophen 325 Mg Tablet) 650 mg PO Q6H PRN PRN Reason: Pain, Mild (Pain Scale 1-3) Albuterol Sulfate (Albuterol Sulfate 90 Mcg 8 Gm Inhaler) 2 puff INHALE QID PRN PRN Reason: shortness of breath or wheezin Albuterol/Ipratropium (Albuterol/Iprat 2.5/0.5mg 3 Ml Ampul.Neb) 3 ml INHALE RQ6H WHILE AWAKE [facility] Last Admin: 04/22/21 13:32 Dose: 3 ml Documented by: JAKE Albuterol/Ipratropium (Albuterol/Iprat 2.5/0.5mg 3 Ml Ampul.Neb) 3 ml INHALE RQ4H PRN PRN Reason: Shortness of Breath/Wheezing Apixaban (Apixaban 5 Mg Tablet) 5 mg PO BID [facility] Last Admin: 04/22/21 08:35 Dose: 5 mg Documented by: CELESTINO Diltiazem HCl (Diltiazem Hcl 30 Mg Tablet) 30 mg PO Q6H [facility] Last Admin: 04/22/21 12:23 Dose: 30 mg Documented by: LANDON Docusate Sodium (Docusate Sodium 100 Mg Capsule) 100 mg PO DAILY PRN PRN Reason: Constipation Finasteride (Finasteride 5 Mg Tablet) 5 mg PO DAILY [facility] Last Admin: 04/22/21 08:35 Dose: 5 mg Documented by: CELESTINO Levofloxacin (Levofloxacin 500 Mg Tablet) 500 mg PO Q24H [facility] Last Admin: 04/22/21 14:16 Dose: 500 mg Documented by: LANDON Melatonin (Melatonin 3 Mg Tablet) 6 mg PO BEDTIME PRN PRN Reason: Insomnia Omeprazole (Omeprazole 20 Mg Capsule.Dr) 20 mg PO DAILY [facility] Last Admin: 04/22/21 08:35 Dose: 20 mg Documented by: CELESTINO Oxycodone HCl (Oxycodone Hcl Immed Release 5 Mg Tablet) 5 mg PO Q6H PRN PRN Reason: Pain, Severe (Pain Scale 7-10) Pharmacy Consult (Consult Rx Perform Med Rec) 1 each MISCELLANE ONCE PRN PRN Reason: Consult order Pharmacy Consult (Consult Rx Perform Med Rec) 1 each MISCELLANE ONCE PRN PRN Reason: Consult order Pharmacy Consult (Consult Rx Vancomycin Dosing) 1 each MISCELLANE DAILY PRN PRN Reason: Consult order Senna (Sennosides 8.6 Mg Tablet) 17.2 mg PO BEDTIME PRN PRN Reason: Constipation Sodium Chloride (0.9 % Sodium Chloride Flush 3 Ml Syringe) 3 ml IVFLUSH QSHIFT [facility] Last Admin: 04/22/21 14:16 Dose: 3 ml Documented by: LANDON Tamsulosin HCl (Tamsulosin Hcl 0.4 Mg Capsule) 0.8 mg PO BEDTIME [facility] Last Admin: 04/21/21 20:19 Dose: 0.8 mg Documented by: ARINA Tolterodine Tartrate (Tolterodine Tartrate La 4 Mg Cap.Er.24h) 4 mg PO DAILY [facility] Last Admin: 04/22/21 08:35 Dose: 4 mg Documented by: CELESTINO Labs CBC & Chem 7: 04/22/21 05:29 04/22/21 05:29 Labs: Laboratory Results - last 24 hr 04/22/21 04/22/21 05:29 05:29 MCV 96.8 MCH 30.1 MCHC 31.1 RDW 16.5 H Plt Count 268 MPV 9.5 Absolute Nucleated RBC 0.000 Nucleated RBC % (auto) 0.0 Estim Creat Clear Calc 64.5 Estimated GFR > 60 Microbiology Microbiology Results: Microbiology 04/19/21 16:20 Blood Culture - Preliminary Blood - Venous No growth after 48 hours. 04/19/21 14:37 Blood Culture - Preliminary Blood - Venous No growth after 48 hours. Assessment and Plan (1) Prostate cancer: Status: Acute (2) Anemia: Status: Acute (3) Acute dehydration: Status: Acute (4) Acute urinary retention: Status: Acute (5) Urinary tract infection: Status: Acute Assessment and Plan: 75-year-old male with a past medical history of paroxysmal AFib on Eliquis, BPH, COPD, tobacco dependence, hyperlipidemia, vitamin-D deficiency, asbestosis, recent history of prostate cancer status post radiotherapy finished 2 weeks ago; presented to the hospital today with a chief complaint of shortness of breath.? Noted to have following conditions Shortness of breath likely multifactorial due to Acute COPD exacerbation and acute anemia Feels better this a.m. less shortness of breath, continue nebulizer treatment, and oxygen support, Will add Flovent and Spiriva Seen by PT they recommend home with PT service Home O2 eval obtained patient noted to have shortness of breath and significant drop in oxygenation to mid 80s with ambulation Will reasses oxygen status at a.m. UTI/urinary retention:? Urine culture grew Enterococcus sensitive to Levaquin, on Levaquin day 2 will treat with total 10 days of antibiotics Normal Renal ultrasound BPH/prostate cancer: Continue? Flomax, finasteride, tolterodine, seen by Dr. Malave case discussed with him he recommend outpatient follow-up with him in 2 weeks and to continue Sykes catheter Atrial fibrillation: Currently rate controlled on diltiazem 30 mg q.6 hours and if tolerated will place him back on home dose diltiazem 120 mg daily at a.m., continue Eliquis Acute Anemia:? No acute blood loss noted stool guaiac negative, elevated MCV, B12 and folate within normal range, hematocrit improved after 1 unit of prbc,ANAYELI negative Case discussed with Dr. Mata from Hematology, she feels anemia likely due to bone marrow suppression from radiation she recommend outpatient follow-up with her in next 2-3 weeks Tobacco dependence:? Patient not smoking for last couple months ,Counseled on smoking cessation. DVT prophylaxis:Patient on Eliquis Code status: Full code Quality Stroke Does the patient have a stroke diagnosis?: No VTE Prior VTE?: No VTE Risk Level:: Medical - moderate - high VTE Device Contraindication: N/A - Device Ordered VTE Drug Contraindication: Treatment Not Indicated
[2021-04-22] MEDS: Fluticasone Propionate 100 MCG BLST.W.DEV 2 PUFF INHALE (20:33)
[2021-04-22] MEDS: Tamsulosin HCL 0.4 MG CAPSULE 0.8 MG PO (20:57)
[2021-04-23] VITALS (8 sets, daily range): BP systolic 100–137; BP diastolic 51–60; PULSE 64–89; RESP 18–20; TEMP 36.7–36.9; O2SAT 92–97
[2021-04-23] MEDS: dilTIAZem HCL 30 MG TABLET PO ×2 (00:38→06:13)
[2021-04-23] MEDS: 0.9 % Sodium Chloride Flush 3 ML SYRINGE IVFLUSH ×2 (00:38→08:57)
[2021-04-23 06:40] LABS: Hematocrit 30.7 % (42.0-52.0); Hemoglobin 9.7 g/dl (14.0-18.0); Mean Corpuscular HGB Conc 31.6 g/dl (31.0-36.0); Mean Corpuscular Hemoglobin 30.7 pg (27.0-33.0); Mean Corpuscular Volume 97.2 fL (80.0-98.0); Mean Platelet Volume 9.7 fL (9.4-12.4); Platelet Count 278 X10*3/uL (160-400); Red Blood Count 3.16 X10*6/uL (4.60-5.80); White Blood Count 4.6 X10*3/uL (4.8-10.8)
[2021-04-23 07:06] LABS: Creatinine Clr Calc Pharmacy 69.1; Estimated Glomerular Filt Rate > 60
[2021-04-23] MEDS: Fluticasone Propionate 100 MCG BLST.W.DEV 2 PUFF INHALE (07:40)
[2021-04-23] MEDS: Albuterol/Iprat 2.5/0.5MG 3 ML AMPUL.NEB INHALE ×2 (07:40→15:05)
[2021-04-23] MEDS: Omeprazole 20 MG CAPSULE.DR PO (08:56)
[2021-04-23] MEDS: dilTIAZem HCL CD 120 MG CAP.ER.DEG PO (08:56)
[2021-04-23] MEDS: Apixaban 5 MG TABLET PO (08:57)
[2021-04-23] MEDS: Finasteride 5 MG TABLET PO (08:57)
[2021-04-23] MEDS: Tolterodine Tartrate LA 4 MG CAP.ER.24H PO (08:57)
--- NOTE | 2021-04-23 11:39 | MHC.CM.PN ---
CM MET WITH PT TO DISCUSS DC PLANNING PT IS AWARE HE WILL DC WITH NEW [facility] AND HOME O2 CM EXPLAINED HE WILL HAVE [facility] AND THEY WILL SEE HIM EARLY NEXT WEEK PTS NURSE HERE WILL EDUCATE HIM ON [facility] MANAGEMENT PRIOR TO DC HE WAS ALSO MADE AWARE RT WOULD BE ARRANGING FOR HIS HOME O2. CM REMINDED HIM HE MUST CALL THEM ONCE HE IS HOME SO THAT THEY CAN DELIVER THE EQUIPMENT CM ALSO INFORMED HIM THEY WOULD SET THE EQUIPMENT UP FOR HIM AND HE SHOULD ASK ANY QUESTIONS REGARDING EQUIPMENT USE AT THAT TIME. PT WAS ON THE PHONE WITH HIS AT THE TIME OF DISCUSSION TO ENSURE SHE DID NOT HAVE OTHER QUESTIONS PT REPORTS FEELING COMFORTABLE WITH THE DC PLAN PT WILL ARRANGE FOR A RIDE IN ABOUT AN HOUR TO ENSURE EVERYTHING IS READY PT WILL DC HOME TODAY WITH [facility] SERVICES
--- NOTE | 2021-04-23 15:13 | P.F2F_ITS ---
Service Date Service Date: 04/23/21 Encounter Date of encounter: 04/23/21 Reasons for Services Signs and symptoms assessed: Generalized weakness/shortness of breath due to anemia, COPD urinary retention and UTI Reason for intermediate: medication treatment and GI/ assessment Reason for physical therapy: home safety and mobility MD Overseeing Care: Lacho Mcdonnell Homebound: Leaving the home is medically contraindicated at this time without the asist of a device and/or another person due th the listed conditions above and below. Certification: Based on the above findings, I certify that this patient is confined to the home and needs intermittent intermediate care, physical therapy and/or speech therapy, or continues to need occupational therapy. The patient is under my care, and I have initiated the establishment of the plan of care. The patient will be followed by a physician who will periodically review the plan of care.
--- NOTE | 2021-04-23 15:14 | PM.DS ---
DS: Providers Provider Date of Service: 04/23/21 Date of admission: 04/19/21 19:17 Primary care physician: Lacho Mcdonnell MD Consults: 04/19/21 19:17 Consult to Urology Routine Consulting Provider: Trevor Malave Reason for consultation: uti; urine retension; recent prostrate ca 04/20/21 15:01 Consult to Infectious Diseases Routine Consulting Provider: Celsa Means Reason for consultation: enterococcusd bacteremia Has provider been notified: No 04/20/21 15:05 Consult to Hematology / Oncology Routine Consulting Provider: Subha Mata Reason for consultation: anemia Has provider been notified: No DS: Diagnosis Discharge Diagnosis (1) Prostate cancer: Status: Acute (2) Anemia: Status: Acute (3) Acute dehydration: Status: Acute (4) Acute urinary retention: Status: Acute (5) Urinary tract infection: Status: Acute DS: Summary Hospital Course Hospital Course: History of presenting illness Chief Complaint: SOB 75-year-old male with a past medical history of paroxysmal AFib on Eliquis, BPH, COPD, tobacco dependence, hyperlipidemia, vitamin-D deficiency, asbestosis, recent history of prostate cancer status post radiotherapy finished 2 weeks ago; presented to the hospital today with a chief complaint of shortness of breath.? Patient reports that over the past 1 month he has been having shortness of breath which has been gradually worsening.? More decline over the past 2 weeks.? Mentioned that he has been smoking cigarettes.? Denies any chest pain palpitations, cough, fever or chills.? Reports that over the past few days he also noted difficulty urinating; Noted to be generally weak and tired; hence presented to the ER for further evaluation.? Denies any numbness tingling or focal weakness.? Denies any falls or trauma.? Denies any blood in the urine.? Review of all other systems is negative except mentioned above ER course: Per ER team patient on presentation noted to be saturating 87% on room air; placed on supplemental oxygen with improvement in oxygenation; lung sounds are diminished/tight; given nebulizer treatments; improved.? Patient refused steroid given he had prior history of a steroid induced agitation/psychosis when he got dexamethasone during his prostate cancer therapy.? Also noted to have abnormal urinalysis consistent UTI-given antibiotics.? CT chest was done which showed no evidence of pulmonary embolism.? On labs noted to have hip drop in hemoglobin from 12-8.9; stool guaiac was negative.? Patient denied any obvious signs of bleeding.? Likely contributing to his fatigue.? Patient had? Sykes catheter placed with 600 cc of urine output.? Admitted for further management. Hospital course 75-year-old male with a past medical history of paroxysmal AFib on Eliquis, BPH, COPD, tobacco dependence, hyperlipidemia, vitamin-D deficiency, asbestosis, recent history of prostate cancer status post radiotherapy finished 2 weeks ago; presented to the hospital today with a chief complaint of shortness of breath, and found to have acute hypoxic respiratory failure likely multifactorial due to acute COPD exacerbation and acute anemia. Acute hypoxic respiratory failure due to acute COPD exacerbation and acute anemia Patient shortness of breath improved significantly at rest but continued to have shortness of breath with activity, hematocrit improved with blood transfusion, workup for anemia showed normal B12 folate and iron studies no evidence of hemolysis, stool guaiac negative, patient evaluated by highway traffic control technician Dr. Mata she feels patient has bone marrow suppression due to radiation she recommend outpatient follow-up with her in next 2-3 weeks , since patient remains hemodynamically stable with no recurrent drop in hematocrit he is being discharged home on Advair, albuterol as needed and Spiriva, home O2 eval was obtain and patient qualifies for 3 L of oxygen at rest and 4 L with ambulation , CT chest showed findings consistent with emphysema and bilateral pleural plaques likely due to prior asbestos exposure. In regard to UTI/urinary retention patient was seen in consultation by Dr. Malave he recommend to continue Sykes catheter and to have outpatient follow-up with him for voiding trials,Urine culture grew Enterococcus sensitive to Levaquin, therefore patient is being discharged home on by mouth Levaquin for 7 more days for total tender treatment. He has been recommended to continue Flomax finasteride and tolterodine. Paroxysmal Atrial fibrillation: Continue diltiazem CD 1 20 mg and Eliquis Time Spent with Patient Time attestation: Total time spent providing and/or coordinating discharge services: Discharge coordination time: Greater than 30 minutes Quality: Stroke Does the patient have a stroke diagnosis?: No Physical Exam Vital Signs: Vital Signs: Last Vital Signs Temp 98.4 F 04/23/21 11:52 Pulse 78 04/23/21 15:07 Resp 18 04/23/21 15:07 BP 126/60 04/23/21 11:52 Pulse Ox 96 04/23/21 11:52 BMI result Body Mass Index 23.3 General awake alert x3, no acute distress.? Neck supple no JVD. CVS? regular rate rhythm, Respiratory lungs clear to auscultation, diminished breath sounds, no respiratory distress, no wheeze, no rhonchi. Gastrointestinal abdomen soft, non tender, bowel sounds audible, Extremities no edema. Neuro?non focal . Skin pale/warm/ no rash Psych appropriate affect Sykes clear urine DS: Data Data Completed and Pending Labs on day of discharge: Laboratory Results - last 24 hr 04/23/21 04/23/21 05:56 05:56 WBC 4.6 L RBC 3.16 L Hgb 9.7 L Hct 30.7 L MCV 97.2 MCH 30.7 MCHC 31.6 RDW 16.0 Plt Count 278 MPV 9.7 Absolute Nucleated RBC 0.000 Nucleated RBC % (auto) 0.0 Creatinine 0.85 Estim Creat Clear Calc 69.1 Estimated GFR > 60 Preliminary micro results at discharge 04/19/21 16:20 Blood Culture - Preliminary Blood - Venous No growth after 48 hours. 04/19/21 14:37 Blood Culture - Preliminary Blood - Venous No growth after 48 hours. Discharge Plan Discharge Patient Disposition: Home Health Service Discharge Diagnosis: Acute hypoxic respiratory failure Mild acute COPD exacerbation Acute anemia Urinary retention UTI Referrals: Nick Hall [Outside] - 3-5 Days Po,Lacho Delgado MD [Primary Care Provider] - 1 Week Discharge Medications: New levofloxacin 500 mg tablet 500 mg PO DAILY 7 Days Qty: 7 RF: 0 Spiriva with HandiHaler 18 mcg Capsule, W/Inhalation Device 1 cap inhalation RDAILY Qty: 30 RF: 0 Continued tamsulosin [Flomax] 0.4 mg capsule 0.8 mg PO BEDTIME 90 Days Qty: 180 RF: 2 diltiazem HCl [Cardizem CD] 120 mg capsule,extended release 24hr 120 mg PO DAILY 30 Days Qty: 30 RF: 6 apixaban [Eliquis] 5 mg tablet 5 mg PO BID Qty: 60 RF: 6 fluticasone propion-salmeterol [Advair Diskus] 250-50 mcg/dose blister with device 1 inh inhalation BID Qty: 3 RF: 3 albuterol sulfate [ProAir HFA] 90 mcg/actuation HFA aerosol inhaler 2 puff inhalation QID PRN (Reason: shortness of breath or wheezing) Qty: 1 RF: 0 finasteride 5 mg tablet 5 mg PO DAILY 90 Days Qty: 90 RF: 0 tolterodine 4 mg capsule,extended release 24hr 1 cap PO DAILY RF: 0 simvastatin 40 mg tablet 1 tab PO DAILY RF: 0 omeprazole 20 mg capsule,delayed release(DR/EC) 1 cap PO DAILY RF: 0 Discontinued naproxen sodium [Aleve] 220 mg Capsule 220 mg PO BID PRN (Reason: Pain) RF: 0 Discharge Orders: Discharge Order (Routine); Ordered 04/23/21 Ordered By: Axel Bruno Diet: low fat, low cholesterol Activity on Discharge: As tolerated Stand Alone Forms: Patient Portal Discharge page Care Plan Goals: Acute hypoxic respiratory failure due to anemia and COPD exacerbation take oxygen 3 L at rest and 4 L with activity, use Spiriva 1 puff daily continue Advair and albuterol inhaler In regard to urinary retention continue Sykes catheter and follow-up with Dr. Malave in next 1-2 weeks Take by mouth antibiotic Levaquin for 7 more days. Health Concerns: Prostate cancer, urinary retention Plan of Treatment: Outpatient follow-up with primary care physician in 1-2 weeks and outpatient follow-up with Dr. Malave in 1-2 weeks. Assessment: Per discharge summary
[2021-04-27 01:31] LABS: Haptoglobin 149 mg/dL (43-212)
== END 2021-04-23 14:38 | disposition home health service (06) | DRG 190 ==
LOC: HO.ED 18:07 → HO.EDOVER 19:30 → HO.IMC 04-21 21:36
PROVIDERS: Internal Medicine Medical Oncology; Admitting Provider Hospitalist; Emergency Provider Emergency Medicine; PCP Internal Medicine; Visit Provider Hospitalist
DX: J43.9 Emphysema, unspecified (principal); J96.01 Acute respiratory failure with hypoxia; N39.0 Urinary tract infection, site not specified; E86.0 Dehydration; N40.1 Benign prostatic hyperplasia with lower urinary tract symptoms; R33.8 Other retention of urine; J61 Pneumoconiosis due to asbestos and other mineral fibers; C61 Malignant neoplasm of prostate; I48.0 Paroxysmal atrial fibrillation; D64.81 Anemia due to antineoplastic chemotherapy; D75.9 Disease of blood and blood-forming organs, unspecified; B95.2 Enterococcus as the cause of diseases classified elsewhere; F17.201 Nicotine dependence, unspecified, in remission; Z71.6 Tobacco abuse counseling; Z91.040 Latex allergy status; Z79.01 Long term (current) use of anticoagulants; Z79.51 Long term (current) use of inhaled steroids; Z79.899 Other long term (current) drug therapy
CPT/HCPCS: 0241U; 36415; 51798; 71045; 71275; 76775; 80048; 80053; 81001; 81003; 82272; 82565; 82607; 82728; 82746; 83010; 83540; 83605; 83615; 83880; 84153; 84484; 85025; 85027; 85045; 85610; 86850; 86880; 86900; 86901; 86923; 87040; 87086; 87088; 87186; 93005; 94640; 94664; 96361; 96365; 96375; 97162; 99285; J0696; J3370; P9016; Q9967

== ENCOUNTER → 2021-05-04 12:43 | Outpatient (BNVA) | payer MEDICARE, SELFPAY | PROVIDERS: PCP Internal Medicine; Referring Provider Internal Medicine; Visit Provider Internal Medicine | DX: I48.0 Paroxysmal atrial fibrillation (principal); I35.1 Nonrheumatic aortic (valve) insufficiency; J44.9 Chronic obstructive pulmonary disease, unspecified; D64.9 Anemia, unspecified; F17.210 Nicotine dependence, cigarettes, uncomplicated | CPT/HCPCS: 93005; 99212 ==

== ENCOUNTER → 2021-05-06 10:57 | Outpatient (BNVA) | payer MEDICARE, SELFPAY | PROVIDERS: PCP Internal Medicine; Visit Provider Urology | DX: N40.1 Benign prostatic hyperplasia with lower urinary tract symptoms (principal); R39.14 Feeling of incomplete bladder emptying; N41.9 Inflammatory disease of prostate, unspecified; C61 Malignant neoplasm of prostate | CPT/HCPCS: 51700; 99212 ==

== ENCOUNTER 2021-05-07 14:10 | Outpatient (REF) | payer MEDICARE, SELFPAY ==
[2021-05-07 14:22] LABS: MANUAL DIFF FLAG NO
[2021-05-07 14:44] LABS: Basophils Percent Auto 0.2 % (0-2); Eosinophils Absolute Auto 0.2 X10*3/uL (0.0-0.4); Eosinophils Percent Auto 3.6 % (0-4); Hematocrit 36.8 % (42.0-52.0); Hemoglobin 11.9 g/dl (14.0-18.0); Imm Gran Abs Auto 0.03 X10*3/uL (0.00-0.03); Imm Gran Pct Auto 0.5 % (0.0-0.4); Immature Retic Fraction 6.1 % (2.3-13.4); Lymphocytes Absolute Auto 1.5 X10*3/uL (1.2-4.9); Lymphocytes Percent Auto 25.8 % (20-40); Mean Corpuscular HGB Conc 32.3 g/dl (31.0-36.0); Mean Corpuscular Hemoglobin 30.7 pg (27.0-33.0); Mean Corpuscular Volume 94.8 fL (80.0-98.0); Mean Platelet Volume 9.7 fL (9.4-12.4); Monocytes Absolute Auto 0.6 X10*3/uL (0.1-1.2); Monocytes Percent Auto 9.8 % (2-11); Neutrophils Absolute Auto 3.4 x10*3/uL (2.0-8.3); Neutrophils Percent Auto 60.1 % (45-73); Platelet Count 183 X10*3/uL (160-400); Red Blood Count 3.88 X10*6/uL (4.60-5.80); Red Cell Distribution Width 14.2 % (11.0-16.0); Retic HGB Equivalent 35.1 pg (30.0-35.0); Reticulocyte Percent 1.4 % (0.5-1.8); Reticulocytes Absolute 0.053 X10*6/uL (0.026-0.095); White Blood Count 5.6 X10*3/uL (4.8-10.8)
[2021-05-07 15:10] LABS: B Type Natriuretic Peptide 226 pg/mL (<100)
[2021-05-07 15:23] LABS: Alanine Aminotransferase 23 U/L (0-40); Albumin Level 3.8 g/dL (3.5-5.0); Alkaline Phosphatase 87 U/L (39-117); Anion Gap 11 (12-20); Aspartate Amino Transferase 20 U/L (5-37); Bilirubin Total 0.3 mg/dL (0.0-1.0); Blood Urea Nitrogen 21 mg/dL (9-16); Calcium 9.3 mg/dL (8.4-10.2); Carbon Dioxide 28 mmol/L (22-29); Chloride 106 mmol/L (96-108); Estimated Glomerular Filt Rate > 60; Glucose Random 88 mg/dL (60-115); Iron 76 mcg/dL (45-160); Percent Iron Saturation 24 % (15-50); Potassium 4.2 mmol/L (3.3-5.1); Sodium 141 mmol/L (135-145); Total Iron Binding Capacity 311 mcg/dL (228-428); Total Protein 6.6 g/dL (6.5-8.0); Unsaturated Iron Binding 235 ug/dL
[2021-05-07 15:40] LABS: Ferritin 486 ng/mL (20-250); Free T4 (Free Thyroxine) 0.98 ng/dL (0.71-1.85); Thyroid Stimulating Hormone 1.38 uIU/mL (0.32-4.0)
[2021-05-07 15:41] LABS: Folate 9.2 ng/mL (> or = 4.0); Vitamin B12 510 pg/mL (200-900)
[2021-05-07 16:10] LABS: PSA,Total (Free>4and<10) 0.48 ng/mL (0.00-4.00)
== END 2021-05-07 14:11 | disposition home or self-care (01) ==
LOC: HO.LAB 14:10
PROVIDERS: PCP Internal Medicine; Visit Provider Internal Medicine
DX: Z12.5 Encounter for screening for malignant neoplasm of prostate (principal); C61 Malignant neoplasm of prostate; I48.0 Paroxysmal atrial fibrillation
CPT/HCPCS: 36415; 80053; 82607; 82728; 82746; 83540; 83880; 84153; 84439; 84443; 85025; 85045

== ENCOUNTER → 2021-05-21 09:24 | Outpatient (BNVA) | payer MEDICARE, SELFPAY | PROVIDERS: PCP Internal Medicine; Visit Provider Urology | DX: C61 Malignant neoplasm of prostate (principal) | CPT/HCPCS: 51798; 96402; 99212; J9217 ==

== ENCOUNTER → 2021-06-03 11:12 | Outpatient (REF) | payer MEDICARE, SELFPAY ==
--- NOTE | 2021-06-03 11:21 | HM_ITS ---
Conclusion: 1. Patient was monitored for total period of 6 days and 10 hours next 2. Predominant underlying rhythm is normal sinus rhythm with average heart of 69 beats per minute 3. Intermittent episodes of atrial fibrillation with total burden of 10% with longest episode of atrial fibrillation lasting 7 hours and 30 minutes 4. Total of 785 PVCs accounting for 0.12% of total burden account for occasional PVCs 5. Total of 19,252 PACs accounting for 3.06% account for frequent PACs 6. No patient reported events MTDD
[2021-06-03 11:31] LABS: MANUAL DIFF FLAG NO
[2021-06-03 11:59] LABS: Basophils Percent Auto 0.3 % (0-2); Eosinophils Absolute Auto 0.2 X10*3/uL (0.0-0.4); Eosinophils Percent Auto 2.4 % (0-4); Imm Gran Abs Auto 0.02 X10*3/uL (0.00-0.03); Imm Gran Pct Auto 0.3 % (0.0-0.4); Lymphocytes Absolute Auto 1.4 X10*3/uL (1.2-4.9); Lymphocytes Percent Auto 23.3 % (20-40); Mean Corpuscular HGB Conc 32.5 g/dl (31.0-36.0); Mean Corpuscular Volume 92.2 fL (80.0-98.0); Mean Platelet Volume 10.2 fL (9.4-12.4); Monocytes Absolute Auto 0.6 X10*3/uL (0.1-1.2); Monocytes Percent Auto 9.4 % (2-11); Neutrophils Percent Auto 64.3 % (45-73); Platelet Count 171 X10*3/uL (160-400); Red Blood Count 4.34 X10*6/uL (4.60-5.80); Red Cell Distribution Width 13.2 % (11.0-16.0); White Blood Count 6.2 X10*3/uL (4.8-10.8)
[2021-06-03 12:25] LABS: B Type Natriuretic Peptide 113 pg/mL (<100)
[2021-06-03 12:29] LABS: Alanine Aminotransferase 32 U/L (0-40); Albumin Level 4.3 g/dL (3.5-5.0); Alkaline Phosphatase 77 U/L (39-117); Anion Gap 14 (12-20); Aspartate Amino Transferase 27 U/L (5-37); Bilirubin Total 0.6 mg/dL (0.0-1.0); Blood Urea Nitrogen 28 mg/dL (9-16); Calcium 9.7 mg/dL (8.4-10.2); Carbon Dioxide 26 mmol/L (22-29); Chloride 103 mmol/L (96-108); Estimated Glomerular Filt Rate > 60; Glucose Random 88 mg/dL (60-115); Iron 109 mcg/dL (45-160); Percent Iron Saturation 32 % (15-50); Sodium 139 mmol/L (135-145); Total Iron Binding Capacity 336 mcg/dL (228-428); Total Protein 6.9 g/dL (6.5-8.0); Unsaturated Iron Binding 227 ug/dL
[2021-06-03 12:52] LABS: Ferritin 374 ng/mL (20-250)
[2021-06-03 13:09] LABS: Folate 9.1 ng/mL (> or = 4.0); Vitamin B12 380 pg/mL (200-900)
== END ==
LOC: HO.CARD 11:12
PROVIDERS: Absent Provider Internal Medicine; PCP Internal Medicine; Visit Provider Internal Medicine
DX: I48.0 Paroxysmal atrial fibrillation (principal)
CPT/HCPCS: 36415; 80053; 82607; 82728; 82746; 83540; 83880; 85025; 93242

== ENCOUNTER 2021-08-03 06:05 | Outpatient (REF) | payer MEDICARE, SELFPAY ==
[2021-08-03 08:22] LABS: Prostate Specific Antigen 0.07 ng/mL (<0.05-4.0)
[2021-08-09 08:35] LABS: Testosterone, Total 13 ng/dL (250-1100)
== END 2021-08-03 06:06 | disposition home or self-care (01) ==
LOC: HO.LAB 06:05
PROVIDERS: PCP Internal Medicine; Visit Provider Urology
DX: Z12.5 Encounter for screening for malignant neoplasm of prostate (principal); C61 Malignant neoplasm of prostate
CPT/HCPCS: 36415; 84153; 84403

== ENCOUNTER → 2021-08-20 08:35 | Outpatient (BNVA) | payer MEDICARE, SELFPAY | PROVIDERS: PCP Internal Medicine; Visit Provider Urology | DX: C61 Malignant neoplasm of prostate (principal) | CPT/HCPCS: Q3014 ==

== ENCOUNTER → 2021-09-02 12:24 | Outpatient (BNVA) | payer MEDICARE, SELFPAY | PROVIDERS: PCP Internal Medicine; Referring Provider Internal Medicine; Visit Provider Internal Medicine | DX: I48.0 Paroxysmal atrial fibrillation (principal); I35.1 Nonrheumatic aortic (valve) insufficiency; J44.9 Chronic obstructive pulmonary disease, unspecified; Z87.891 Personal history of nicotine dependence | CPT/HCPCS: 99212 ==

== ENCOUNTER 2021-11-08 06:01 | Outpatient (REF) | payer MEDICARE, SELFPAY ==
[2021-11-08 06:15] LABS: MANUAL DIFF FLAG NO
[2021-11-08 08:06] LABS: Basophils Percent Auto 0.3 % (0-2); Eosinophils Absolute Auto 0.2 X10*3/uL (0.0-0.4); Eosinophils Percent Auto 5.3 % (0-4); Hematocrit 37.3 % (42.0-52.0); Hemoglobin 12.3 g/dl (14.0-18.0); Imm Gran Abs Auto 0.01 X10*3/uL (0.00-0.03); Imm Gran Pct Auto 0.3 % (0.0-0.4); Lymphocytes Absolute Auto 1.1 X10*3/uL (1.2-4.9); Lymphocytes Percent Auto 28.1 % (20-40); Mean Corpuscular Hemoglobin 29.6 pg (27.0-33.0); Mean Corpuscular Volume 89.9 fL (80.0-98.0); Mean Platelet Volume 10.1 fL (9.4-12.4); Monocytes Absolute Auto 0.3 X10*3/uL (0.1-1.2); Monocytes Percent Auto 8.8 % (2-11); Neutrophils Absolute Auto 2.2 x10*3/uL (2.0-8.3); Neutrophils Percent Auto 57.2 % (45-73); Platelet Count 155 X10*3/uL (160-400); Red Blood Count 4.15 X10*6/uL (4.60-5.80); Red Cell Distribution Width 13.2 % (11.0-16.0); Retic HGB Equivalent 34.5 pg (30.0-35.0); Reticulocyte Percent 1.1 % (0.5-1.8); Reticulocytes Absolute 0.047 X10*6/uL (0.026-0.095); White Blood Count 3.8 X10*3/uL (4.8-10.8)
[2021-11-08 08:29] LABS: Alanine Aminotransferase 20 U/L (0-40); Alkaline Phosphatase 72 U/L (39-117); Anion Gap 11 (12-20); Aspartate Amino Transferase 20 U/L (5-37); Bilirubin Total 0.5 mg/dL (0.0-1.0); Blood Urea Nitrogen 26 mg/dL (9-16); Carbon Dioxide 27 mmol/L (22-29); Chloride 107 mmol/L (96-108); Cholesterol 176 mg/dL; Estimated Glomerular Filt Rate > 60; Glucose Random 85 mg/dL (60-115); HDL Cholesterol 67 mg/dL; Iron 67 mcg/dL (45-160); LDL Cholesterol Calculated 97 mg/dl; Percent Iron Saturation 22 % (15-50); Potassium 4.2 mmol/L (3.3-5.1); Sodium 141 mmol/L (135-145); Total Iron Binding Capacity 299 mcg/dL (228-428); Total Protein 6.2 g/dL (6.5-8.0); Triglycerides 64 mg/dL; Unsaturated Iron Binding 232 ug/dL
[2021-11-08 08:32] LABS: B Type Natriuretic Peptide 121 pg/mL (<100)
[2021-11-08 08:50] LABS: Ferritin 211 ng/mL (20-250); Free T4 (Free Thyroxine) 0.86 ng/dL (0.71-1.85); Prostate Specific Antigen Scr < 0.05 ng/mL (<0.05-4.0)
[2021-11-08 08:53] LABS: Prostate Specific Antigen < 0.05 ng/mL (<0.05-4.0); Thyroid Stimulating Hormone 2.34 uIU/mL (0.32-4.0)
[2021-11-08 11:20] LABS: Folate 16.3 ng/mL (> or = 4.0); Vitamin B12 325 pg/mL (200-900)
[2021-11-14 01:07] LABS: Testosterone, Total 7 ng/dL (250-1100)
== END 2021-11-08 06:02 | disposition home or self-care (01) ==
LOC: HO.LAB 06:01
PROVIDERS: Absent Provider Internal Medicine; PCP Internal Medicine; Visit Provider Urology
DX: Z12.5 Encounter for screening for malignant neoplasm of prostate (principal); C61 Malignant neoplasm of prostate; E78.00 Pure hypercholesterolemia, unspecified; I48.91 Unspecified atrial fibrillation
CPT/HCPCS: 36415; 80053; 80061; 82607; 82728; 82746; 83540; 83735; 83880; 84153; 84403; 84439; 84443; 85025; 85045

== ENCOUNTER → 2021-11-23 09:12 | Outpatient (BNVA) | payer MEDICARE, SELFPAY | PROVIDERS: PCP Internal Medicine; Visit Provider Urology | DX: C61 Malignant neoplasm of prostate (principal) | CPT/HCPCS: 51798; 96402; 99212; J9217 ==

== ENCOUNTER 2022-02-07 10:57 | Outpatient (REF) | payer MEDICARE, SELFPAY ==
[2022-02-07 12:56] LABS: PSA,Total (Free>4and<10) < 0.05 ng/mL (0.00-4.00)
== END 2022-02-07 10:58 | disposition home or self-care (01) ==
LOC: HO.LAB 10:57
PROVIDERS: PCP Internal Medicine; Visit Provider Urology
DX: C61 Malignant neoplasm of prostate (principal)
CPT/HCPCS: 36415; 84153

== ENCOUNTER 2022-02-23 09:20 | Outpatient (REF) | payer MEDICARE, SELFPAY ==
--- NOTE | ~2022-02-23 | CT_ITS ---
EXAMINATION: CT CHEST SCREENING CLINICAL INFORMATION: Former smoker. 65 pack year history. Quit 1 year ago. COMPARISON: Previous chest CT most recent March 2021 TECHNIQUE: Multidetector volumetric CT imaging of the chest is performed without contrast using low dose technique. Additional 2D coronal and sagittal reformatted images and axial 3D maximum intensity projection (MIP) images are generated on the CT workstation. This CT examination was performed using dose optimization techniques as appropriate, variously including the following: *Automated exposure control *Adjustment of mA and/or kV according to patient size (this includes techniques or standardized protocols for targeted exams where dose is matched to indication/reason for exam; i.e. extremities or head) *Use of iterative reconstruction technique DLP: 228 mGy-cm FINDINGS: LUNGS: There is evidence of severe emphysema. There is mild biapical pleural and parenchymal scarring. There is mild bilateral lower lobe and right middle lobe bronchiectasis. There are scattered areas of bronchial soft tissue opacification. There are increased peripheral interstitial markings in both lower lobes questionable for mild interstitial lung disease. There is chronic scarring or subsegmental atelectasis in the right middle lobe that is stable. There is increased soft tissue in the left side of the trachea probably representing patient secretions. MEDIASTINUM: Normal heart size. No pericardial effusion. Severe atherosclerotic disease. Normal caliber thoracic aorta. No enlarged hilar or mediastinal lymph nodes. Normal thyroid gland. CORONARY ARTERY CALCIFICATION: Moderate PLEURA: There are scattered areas of pleural thickening or pleural plaques, some of which appear partially calcified. There are AXILLA: No lymphadenopathy. UPPER ABDOMEN: Unremarkable OSSEOUS STRUCTURES: Degenerative changes of the spine and scoliosis. CT/CT lung screening IMPRESSION: Severe emphysema. Calcified pleural plaques are questionable for specificity related disease. Increased interstitial markings at the lung bases questionable for mild pulmonary asbestosis. Stable scarring or chronic subsegmental atelectasis in the right middle lobe. Basilar mild bronchiectasis. Coronary artery and aortic valve calcification. ASSESSMENT: Lung-RADS category 2: Benign RECOMMENDATION: Annual low-dose chest CT follow-up recommended.
== END 2022-02-23 09:21 | disposition home or self-care (01) ==
LOC: HO.CT 09:20
PROVIDERS: PCP Internal Medicine; Visit Provider Physician Assistant Medical
DX: Z12.2 Encounter for screening for malignant neoplasm of respiratory organs (principal); F17.210 Nicotine dependence, cigarettes, uncomplicated
CPT/HCPCS: 71271

== ENCOUNTER → 2022-02-25 09:33 | Outpatient (BNVA) | payer MEDICARE, SELFPAY | PROVIDERS: PCP Internal Medicine; Visit Provider Urology | DX: C61 Malignant neoplasm of prostate (principal); N40.1 Benign prostatic hyperplasia with lower urinary tract symptoms; N13.8 Other obstructive and reflux uropathy; R33.9 Retention of urine, unspecified; Z92.3 Personal history of irradiation | CPT/HCPCS: Q3014 ==

== ENCOUNTER 2022-05-05 06:01 | Outpatient (REF) | payer MEDICARE, SELFPAY ==
[2022-05-05 06:07] LABS: MANUAL DIFF FLAG NO
[2022-05-05 07:42] LABS: Basophils Percent Auto 0.4 % (0-2); Eosinophils Absolute Auto 0.2 X10*3/uL (0.0-0.4); Eosinophils Percent Auto 4.1 % (0-4); Hematocrit 39.1 % (42.0-52.0); Hemoglobin 12.9 g/dl (14.0-18.0); Imm Gran Abs Auto 0.01 X10*3/uL (0.00-0.03); Imm Gran Pct Auto 0.2 % (0.0-0.4); Immature Retic Fraction 5.1 % (2.3-13.4); Lymphocytes Absolute Auto 1.9 X10*3/uL (1.2-4.9); Lymphocytes Percent Auto 37.8 % (20-40); Mean Corpuscular Hemoglobin 29.3 pg (27.0-33.0); Mean Corpuscular Volume 88.9 fL (80.0-98.0); Mean Platelet Volume 9.8 fL (9.4-12.4); Monocytes Absolute Auto 0.5 X10*3/uL (0.1-1.2); Monocytes Percent Auto 9.1 % (2-11); Neutrophils Absolute Auto 2.4 x10*3/uL (2.0-8.3); Neutrophils Percent Auto 48.4 % (45-73); Platelet Count 176 X10*3/uL (160-400); Red Cell Distribution Width 13.3 % (11.0-16.0); Retic HGB Equivalent 35.1 pg (30.0-35.0); Reticulocyte Percent 1.1 % (0.5-1.8); Reticulocytes Absolute 0.048 X10*6/uL (0.026-0.095); White Blood Count 4.9 X10*3/uL (4.8-10.8)
[2022-05-05 08:11] LABS: Alanine Aminotransferase 39 U/L (0-40); Albumin Level 4.2 g/dL (3.5-5.0); Alkaline Phosphatase 73 U/L (39-117); Anion Gap 13 (12-20); Aspartate Amino Transferase 33 U/L (5-37); Bilirubin Total 0.5 mg/dL (0.0-1.0); Blood Urea Nitrogen 27 mg/dL (9-16); Calcium 9.7 mg/dL (8.4-10.2); Carbon Dioxide 27 mmol/L (22-29); Chloride 107 mmol/L (96-108); Estimated Glomerular Filt Rate > 60; Glucose Random 90 mg/dL (60-115); Iron 83 mcg/dL (45-160); Percent Iron Saturation 28 % (15-50); Potassium 4.6 mmol/L (3.3-5.1); Sodium 142 mmol/L (135-145); Total Iron Binding Capacity 292 mcg/dL (228-428); Total Protein 6.5 g/dL (6.5-8.0); Unsaturated Iron Binding 209 ug/dL
[2022-05-05 08:27] LABS: PSA,Total (Free>4and<10) < 0.10 ng/mL (0.00-4.00)
[2022-05-05 08:28] LABS: Ferritin 245 ng/mL (20-250)
[2022-05-11 11:18] LABS: Testosterone, Total 26 ng/dL (250-1100)
== END 2022-05-05 06:02 | disposition home or self-care (01) ==
LOC: HO.LAB 06:01
PROVIDERS: Absent Provider Urology; PCP Internal Medicine; Visit Provider Internal Medicine
DX: Z12.5 Encounter for screening for malignant neoplasm of prostate (principal); C61 Malignant neoplasm of prostate
CPT/HCPCS: 36415; 80053; 82728; 83540; 84153; 84403; 85025; 85045

== ENCOUNTER → 2022-05-26 11:07 | Outpatient (BNVA) | payer MEDICARE, SELFPAY | PROVIDERS: PCP Internal Medicine; Visit Provider Urology | DX: C61 Malignant neoplasm of prostate (principal); R23.2 Flushing; T50.905A Adverse effect of unspecified drugs, medicaments and biological substances, initial encounter | CPT/HCPCS: Q3014 ==

== ENCOUNTER 2022-07-27 13:17 | Outpatient (REF) | payer MEDICARE, SELFPAY ==
[2022-07-27 15:28] LABS: Prostate Specific Antigen < 0.10 ng/mL (<0.05-4.0)
[2022-08-01 11:28] LABS: Testosterone, Total 5 ng/dL (250-1100)
== END 2022-07-27 13:18 | disposition home or self-care (01) ==
LOC: HO.LAB 13:17
PROVIDERS: PCP Internal Medicine; Visit Provider Urology
DX: Z12.5 Encounter for screening for malignant neoplasm of prostate (principal); C61 Malignant neoplasm of prostate
CPT/HCPCS: 36415; 84153; 84403

== ENCOUNTER → 2022-08-09 15:10 | Outpatient (BNVA) | payer MEDICARE, SELFPAY | PROVIDERS: PCP Internal Medicine; Visit Provider Urology | DX: C61 Malignant neoplasm of prostate (principal) | CPT/HCPCS: Q3014 ==

== ENCOUNTER → 2022-09-29 13:39 | Outpatient (BNVA) | payer MEDICARE, SELFPAY | PROVIDERS: PCP Internal Medicine; Referring Provider Internal Medicine; Visit Provider Internal Medicine | DX: I48.0 Paroxysmal atrial fibrillation (principal); I35.1 Nonrheumatic aortic (valve) insufficiency; J44.9 Chronic obstructive pulmonary disease, unspecified; Z87.891 Personal history of nicotine dependence | CPT/HCPCS: 93005; 99212 ==

== ENCOUNTER 2022-11-18 08:36 | Outpatient (AMB) | payer MEDICARE, SELFPAY ==
--- NOTE | 2022-11-18 08:44 | MHC.PC.OV ---
Vital Signs 11/18/22 08:45 Height 5 ft 7 in Weight 161 lb 8 oz BMI 25.3 BP 130/40 L Blood Pressure Location Rt brachial Position Sitting Pulse 57 Pulse Source Pulse Oximeter Pulse Oximetry (%) 98 Intake Visit Reasons: a fib , cholesterol Intake Note: pt is here for afib and cholesterol Parts Representative Required: No Accompanied by: Self / Same As Patient Allergies gabapentin Allergy (Unknown, Verified 11/18/22 08:46) Insomnia, increased pain latex Allergy (Unknown, Verified 11/18/22 08:46) Slight reaction - Rash nicotine Allergy (Unknown, Verified 11/18/22 08:46) patch- rash, rash Medication List - Last Reconciled 11/18/22 by Lacho Mcdonnell MD albuterol sulfate 90 mcg/actuation (ProAir HFA) 2 puffs inhalation QID PRN apixaban (Eliquis) 5 mg PO BID 90 days tngxjqelye-sorywjgnolk-tjdemrj 8-1-1 % apply to nail qhs >8 hours before washing; clean nail with alcohol q 7 days diltiazem HCl 180 mg PO DAILY 90 days fluticasone furoate-vilanterol 200-25 mcg/dose (Breo Ellipta) 1 inh inhalation Q24H furosemide (Lasix) 20 mg PO DAILY sertraline 25 mg PO DAILY 90 days simvastatin 40 mg PO DAILY 90 days tamsulosin (Flomax) 0.8 mg (2 x 0.4 mg) PO BEDTIME 90 days tobramycin 0.3% 2 drps otic (ear) left Q4H umeclidinium 62.5 mcg/actuation (Incruse Ellipta) 1 inh inhalation BEDTIME Tobacco use date assessed: 11/18/22 Fall risk assessment: No Falls in past year Last assessed Fall Risk: 11/18/22 Dental Screening Dental Screen Date: 11/18/22 Did you have a dental visit in the last 12 months?: No Did you have a dental problem in the last 6 months where you did not have access to dental care?: No Was dental information given to patient?: Patient declined (no dental insurance ) HPI a fib , cholesterol HPI Details 76-year-old male with prostate cancer COPD atrial fibrillation BPH hypercholesterolemia Isabella anxiety disorder and post herpetic neuralgia coming in for follow-up. 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 Otitis media PAF (paroxysmal atrial fibrillation) Post herpetic neuralgia Prostate cancer Prostate cancer Prostatitis PSA elevation Syncope Syncope and collapse Thrombocytopenia Tobacco abuse Vitamin D deficiency Surgical History H/O hand surgery Lesion of tongue Family History Father Bladder cancer Mother Colon cancer Chronic mental illness Brother Myocardial infarction Other Mental health disorder Social History Household Members: Spouse Housing: House Do you presently have visiting nurse or other home services: No Alcohol intake: former Year quit: 1979 Patient Tobacco Use Status: Former Tobacco user Quit Date: 2020 Years Smoked: 60 +/- e-Cigarette/Vaping Use: Never Used Second Hand Smoke Exposure: No Advance Directives Date on File: 03/23/20 service: No Current occupational status: retired Cognitive needs: No Hearing needs: No Vision needs: No Questionnaire PHQ-9 Over the last 2 weeks, how often have you been bothered by any of the following problems? 1. Little interest or pleasure in doing things: not at all 2. Feeling down, depressed, or hopeless: not at all 3. Trouble falling or staying asleep, or sleeping too much: not at all 4. Feeling tired or having little energy: not at all 5. Poor appetite or overeating: not at all 6. Feeling bad about yourself - or that you are a failure or have let yourself or your family down: not at all 7. Trouble concentrating on things, such as reading the newspaper or watching television: not at all 8. Moving or speaking so slowly that other people could have noticed. Or the opposite - being so fidgety or restless that you have been moving around a lot more than usual: not at all 9. Thoughts that you would be better off or of hurting yourself in some way: not at all Total score: 0 Depression Screening Interpretation: Negative 46884 - PHQ-9 Billing: Yes Source: Developed by Drs. Ravin Handy, Angella Reynolds, Rodger Hameed and colleagues, with an educational greg from [employer]. Thrive Questionnaire Date Thrive assessed: 05/09/22 I am a: Patient What is your living situation today?: I have a steady place to live Within the past 12 months, did the food you bought not last and you didn't have the money to get more?: Never true Within the past 12 months, did you worry whether your food would run out before you got money to buy more?: Never true Do you have trouble paying for medicines?: No Do you have trouble getting transportation to medical appointments?: No Do you have trouble paying your heating and electricity bill?: No Do you have trouble taking care of your child, family member or friend?: No Do you have trouble with day-to-day activities such as bathing, preparing meals, shopping, managing finances, etc.?: No Are you currently unemployed and looking for a job?: No Are you interested in more education?: No Please select the resources that you would like help with: None Currently or been in a relationship where the following occur: no concerns reported and I choose not to answer this question CONNOR-7 AMB Questionnaire CONNOR-7 Date CONNOR - 7 assessed: 05/09/22 Feeling nervous, anxious, or on edge: 0 = Not at all Not being able to stop or control worryin = Not at all Worrying too much about different things: 0 = Not at all Trouble relaxin = Not at all Being so restless that it is hard to sit still: 0 = Not at all Becoming easily annoyed or irritable: 0 = Not at all Feeling afraid as if something awful might happen: 0 = Not at all Total CONNOR-7 score (0-4 normal; 5-9 mild; 10-14 moderate; 15-21 severe): 0 Source: Developed by Drs. Ravin Handy, Rodger Samayoa and colleagues, with an educational greg from [employer]. CONNOR-7 Assessment Billing CONNOR-7 Assessment Tool: CONNOR-7 Assessment 60228 Physical exam (Primary Care) Vital Signs: Last Vital Signs Pulse 57 07/21/23 08:45 BP 130/40 L 11/18/22 08:45 Pulse Ox 98 11/18/22 08:45 BMI result Body Mass Index 25.3 Tobacco/Smoking Status: Tobacco use Status Tobacco use date assessed 11/18/22 11/18/22 08:49 Patient Tobacco Use Status Former Tobacco user 11/18/22 08:49 Tobacco use type 09/29/22 14:11 e-Cigarette/Vaping Use Never Used 11/18/22 08:49 PHQ-9: PHQ-9 Score PHQ-9: Total score 0 11/18/22 08:49 Depression Screening Interpretation: Negative Thrive Assessment: Date of Thrive Assessment Date Thrive assessed 05/09/22 11/18/22 08:49 Currently or been in a relationship where the following occur: no concerns reported and I choose not to answer this question Const General: alert; No acute distress Eyes Conjunctivae: conjunctivae normal Resp Auscultation: clear to auscultation bilaterally Cardio Rate: regular rate Rhythm: regular rhythm GI Inspection: Yes normal to inspection Extrem General: Yes normal to inspection and No edema Assessment and Plan Assessment & Plan (1) PAF (paroxysmal atrial fibrillation): Code(s): I48.0 - Paroxysmal atrial fibrillation Plan: Continue with anticoagulation and diltiazem patient follows up with Cardiology (2) COPD (chronic obstructive pulmonary disease): Code(s): J44.9 - Chronic obstructive pulmonary disease, unspecified Qualifiers: COPD type: unspecified COPD Qualified Code(s): J44.9 - Chronic obstructive pulmonary disease, unspecified Plan: Continue with inhaler (3) BPH (benign prostatic hyperplasia): Code(s): N40.0 - Benign prostatic hyperplasia without lower urinary tract symptoms Qualifiers: Lower urinary tract symptom presence: symptoms present Lower urinary tract symptom detail: incomplete bladder emptying Qualified Code(s): N40.1 - Benign prostatic hyperplasia with lower urinary tract symptoms; R39.14 - Feeling of incomplete bladder emptying Plan: Patient is on tamsulosin follows up with urology (4) Hypercholesterolemia: Code(s): E78.00 - Pure hypercholesterolemia, unspecified Plan: Avoid fried foods, chicken skin, eggs, butter margarine, pastries and meat. Be it pork or beef they have a lot of cholesterol patient was advised blood work patient is on simvastatin 40 mg once a day (5) Post herpetic neuralgia: Code(s): B02.29 - Other postherpetic nervous system involvement (6) Prostate cancer: Comment: October 2020 - high-grade, MRI extracapsular extension, high-grade prostate cancer external beam radiation with 18 m hormone therapy Code(s): C61 - Malignant neoplasm of prostate Plan: Continue to follow-up with Urology Medications: New fluticasone propion-salmeterol 250-50 mcg/dose (Advair Diskus) 1 inh inhalation BID 60 ea 0RF J44.9 - Chronic obstructive pulmonary disease, unspecified Refilled furosemide (Lasix) 20 mg PO DAILY 90 tabs 2RF sertraline 25 mg PO DAILY 90 days 90 tabs 2RF F41.1 - Generalized anxiety disorder albuterol sulfate 90 mcg/actuation (ProAir HFA) 2 puffs inhalation QID PRN 1 ea 0RF shortness of breath or wheezing J43.9 - Emphysema, unspecified Discontinued fluticasone furoate-vilanterol 200-25 mcg/dose (Breo Ellipta) Discontinued Reason: Ancillary Entered New Order 1 inh inhalation Q24H 60 ea 3RF J44.9 - Chronic obstructive pulmonary disease, unspecified Coding Level of Care Code Est Pt Level 4 (92073) Diagnoses PAF (paroxysmal atrial fibrillation) I48.0 COPD (chronic obstructive pulmonary disease) J44.9 COPD type: unspecified COPD BPH (benign prostatic hyperplasia) N40.1; R39.14 Lower urinary tract symptom presence: symptoms present Lower urinary tract symptom detail: incomplete bladder emptying Hypercholesterolemia E78.00 Post herpetic neuralgia B02.29 Prostate cancer C61 Additional Codes CONNOR-7 Assessment Billing - CONNOR-7 Assessment Tool: CONNOR-7 Assessment 37296 ([id number])
[2022-11-18 08:45] VITALS: BP 130/40; PULSE 57; O2SAT 98; BMI 25.3
== END 2022-11-18 09:23 | disposition home or self-care (01) ==
PROVIDERS: Visit Provider Internal Medicine
DX: I48.0 Paroxysmal atrial fibrillation (principal); J44.9 Chronic obstructive pulmonary disease, unspecified; C61 Malignant neoplasm of prostate; N40.1 Benign prostatic hyperplasia with lower urinary tract symptoms; R39.14 Feeling of incomplete bladder emptying; E78.00 Pure hypercholesterolemia, unspecified; B02.29 Other postherpetic nervous system involvement
CPT/HCPCS: 99214

== ENCOUNTER 2022-11-29 08:13 | Outpatient (REF) | payer MEDICARE, SELFPAY ==
[2022-11-29 08:46] LABS: MANUAL DIFF FLAG NO
[2022-11-29 09:00] LABS: Basophils Percent Auto 0.4 % (0-2); Eosinophils Absolute Auto 0.3 X10*3/uL (0.0-0.4); Eosinophils Percent Auto 4.8 % (0-4); Hematocrit 40.3 % (42.0-52.0); Hemoglobin 13.3 g/dl (14.0-18.0); Imm Gran Abs Auto 0.03 X10*3/uL (0.00-0.03); Imm Gran Pct Auto 0.6 % (0.0-0.4); Immature Retic Fraction 3.9 % (2.3-13.4); Lymphocytes Absolute Auto 1.2 X10*3/uL (1.2-4.9); Lymphocytes Percent Auto 23.5 % (20-40); Mean Corpuscular Volume 87.8 fL (80.0-98.0); Mean Platelet Volume 9.7 fL (9.4-12.4); Monocytes Absolute Auto 0.5 X10*3/uL (0.1-1.2); Monocytes Percent Auto 8.7 % (2-11); Neutrophils Absolute Auto 3.2 x10*3/uL (2.0-8.3); Platelet Count 160 X10*3/uL (160-400); Red Blood Count 4.59 X10*6/uL (4.60-5.80); Red Cell Distribution Width 13.6 % (11.0-16.0); Reticulocytes Absolute 0.046 X10*6/uL (0.026-0.095); White Blood Count 5.2 X10*3/uL (4.8-10.8)
[2022-11-29 09:48] LABS: Alanine Aminotransferase 25 U/L (0-40); Albumin Level 4.1 g/dL (3.5-5.0); Alkaline Phosphatase 72 U/L (39-117); Anion Gap 17 (12-20); Aspartate Amino Transferase 24 U/L (5-37); Bilirubin Total 0.5 mg/dL (0.0-1.0); Blood Urea Nitrogen 23 mg/dL (9-16); Calcium 9.7 mg/dL (8.4-10.2); Carbon Dioxide 21 mmol/L (22-29); Chloride 109 mmol/L (96-108); Cholesterol 209 mg/dL; Estimated Glomerular Filt Rate > 60; Glucose Random 96 mg/dL (60-115); HDL Cholesterol 69 mg/dL; Iron 79 mcg/dL (45-160); LDL Cholesterol Calculated 125 mg/dl; Percent Iron Saturation 28 % (15-50); Potassium 4.3 mmol/L (3.3-5.1); Sodium 143 mmol/L (135-145); Total Iron Binding Capacity 282 mcg/dL (228-428); Total Protein 6.9 g/dL (6.5-8.0); Triglycerides 77 mg/dL; Unsaturated Iron Binding 203 ug/dL
[2022-11-29 09:58] LABS: Ferritin 247 ng/mL (20-250); Free T4 (Free Thyroxine) 0.88 ng/dL (0.71-1.85); Thyroid Stimulating Hormone 2.38 uIU/mL (0.32-4.0)
[2022-11-29 10:04] LABS: Folate 13.4 ng/mL (> or = 4.0); Vitamin B12 356 pg/mL (200-900)
[2022-11-29 11:02] LABS: Prostate Specific Antigen < 0.10 ng/mL (<0.05-4.0)
[2022-12-03 14:12] LABS: Testosterone, Total 41 ng/dL (250-1100)
== END 2022-11-29 08:14 | disposition home or self-care (01) ==
LOC: HO.LAB 08:13
PROVIDERS: Absent Provider Internal Medicine; PCP Internal Medicine; Visit Provider Urology
DX: C61 Malignant neoplasm of prostate (principal); E78.00 Pure hypercholesterolemia, unspecified; Z12.5 Encounter for screening for malignant neoplasm of prostate
CPT/HCPCS: 36415; 80053; 80061; 82607; 82728; 82746; 83540; 84153; 84403; 84439; 84443; 85025; 85045

== ENCOUNTER 2022-12-13 12:44 | Outpatient (AMB) | payer MEDICARE, SELFPAY ==
--- NOTE | 2022-12-13 13:02 | MHC.OFFVIS ---
Intake Intake Visit Reasons: 4M PVR/PSA/Testo(set) Intake Note: Patient is present for Follow Up Labs/PVR Urology Med: Tamsulosin Antibiotic Allergy: None Blood Thinner: Apixaban Pharmacy: [facility] PVR: 107ML Allergies gabapentin Allergy (Unknown, Verified 12/13/22 13:04) Insomnia, increased pain latex Allergy (Unknown, Verified 12/13/22 13:04) Slight reaction - Rash nicotine Allergy (Unknown, Verified 12/13/22 13:04) patch- rash, rash Medication List - Last Reconciled 12/13/22 by Trevor Malave MD albuterol sulfate 90 mcg/actuation (ProAir HFA) 2 puffs inhalation QID PRN apixaban (Eliquis) 5 mg PO BID 90 days xhdgduaqcf-gxedlibnyix-zheljfs 8-1-1 % apply to nail qhs >8 hours before washing; clean nail with alcohol q 7 days diltiazem HCl 180 mg PO DAILY 90 days fluticasone propion-salmeterol 250-50 mcg/dose (Advair Diskus) 1 inh inhalation BID furosemide (Lasix) 20 mg PO DAILY sertraline 25 mg PO DAILY 90 days simvastatin 40 mg PO DAILY 90 days tamsulosin (Flomax) 0.8 mg (2 x 0.4 mg) PO BEDTIME 90 days tobramycin 0.3% 2 drps otic (ear) left Q4H umeclidinium 62.5 mcg/actuation (Incruse Ellipta) 1 inh inhalation BEDTIME HPI HPI Comments History of Present Illness Details Ravin is a very pleasant male. He is a patient of Dr Mcdonnell. He is seen for the following urologic conditions. - prostate cancer high-grade Slow recovery of testosterone PSA low Continue good response to tamsulosin Prostate cancer high-grade last GnRH 10/28/21 - external beam radiation with hormone therapy Diagnosis - Dr. Malave September 2020 PSA 08/20 <0.1 T 13, 11/19 <0.1 7, 02/19 <0.1, 05/23 <0.1 26, 07/21 <0.1 T 5, 12/21 <0.1 T 41 Initial PSA 9.1 Biopsy 10/19 Histologic type: Adenocarcinoma, acinar type Jerry score: 4+5=9 (right base lateral), 4+3=7 (right base medial), 3+4=7 (right mid lateral, right mid medial, right apex lateral, right apex medial), 3+3=6 (left base lateral, left mid lateral, left mid medial, left apex lateral, left apex medial) Tumor quantitation: Number cores positive: 11 Total number of cores: 12 Periprostatic fat inv.: Present Seminal vesicle inv.: Not identified Perineural inv.: Present LVI: Not identified Staging - 10/19 bone scan negative - 10/19 CT scan negative - no evidence of abdominal pelvic lymph nodes - 01/19 prostate MRI - PI-RADS 5 lesions, highly suspicious for local extracapsular extension. 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 Otitis media PAF (paroxysmal atrial fibrillation) Post herpetic neuralgia Prostate cancer Prostate cancer Prostatitis PSA elevation Syncope Syncope and collapse Thrombocytopenia Tobacco abuse Vitamin D deficiency Surgical History H/O hand surgery Lesion of tongue Family History Father Bladder cancer Mother Colon cancer Chronic mental illness Brother Myocardial infarction Other Mental health disorder Social History Household Members: Spouse Housing: House Do you presently have visiting nurse or other home services: No Alcohol intake: former Year quit: 1979 Patient Tobacco Use Status: Former Tobacco user Quit Date: 2020 Years Smoked: 60 +/- e-Cigarette/Vaping Use: Never Used Second Hand Smoke Exposure: No Advance Directives Date on File: 03/23/20 service: No Current occupational status: retired Cognitive needs: No Hearing needs: No Vision needs: No Review of Systems Const Denies chills and Denies fever(s) Card Reports no additional complaints and Denies syncope Resp Denies cough GI Denies abdominal pain and Denies heartburn Reports as per HPI and Denies change in libido Neuro Denies syncope Psych Denies change in libido Endo Denies change in libido Physical Exam Const General: cooperative, healthy appearing, comfortable and no acute distress Orientation/consciousness: patient oriented x3 HEENT Face and sinus: Yes normal facial exam Mouth: moist mucous membranes Neck Neck: Yes normal visual inspection, Yes full ROM and Yes trachea midline Chest Chest palpation & inspection: normal inspection of the chest Resp Effort & Inspection: normal respiratory effort, able to speak in complete sentences and no respiratory distress GI Inspection: Yes normal to inspection Back/Spine/Pelvis Cervical Spine: normal cervical lordosis Thoracic/Lumbar Spine: thoracic and lumbar spine normal to inspection Skin General skin exam: no rashes or lesions noted Neuro General: patient oriented x3, gait normal, tone normal and moves all extremities Extrem General: Yes normal to inspection and Yes capillary refill normal Office Procedures Post Void Residual Post Residual Void Post Void Residual (PVR): [id number] Void Residual by ultrasound Results AMB Urinalysis, Automated UA Leukoctes 0 Po/uL Last Edit by Annie Stoner [facility] on 12/13/22 13:13 UA Nitrite Negative Last Edit by Annie Stoner [facility] on 12/13/22 13:13 UA Urobilinogen 0.2 mg/dL Last Edit by Annie Stoner [facility] on 12/13/22 13:13 UA Protein 0 mg/dL Last Edit by Annie Stoner [facility] on 12/13/22 13:13 UA pH 5.0 Last Edit by Annie Stoner [facility] on 12/13/22 13:13 UA Blood 0 Herb/uL Last Edit by Annie Stoner [facility] on 12/13/22 13:13 UA Specific [place] 1.020 Last Edit by Annie Stoner [facility] on 12/13/22 13:13 UA Ketone Negative Last Edit by Annie Stoner [facility] on 12/13/22 13:13 UA Bilirubin 0 mg/dL Last Edit by Annie Stoner [facility] on 12/13/22 13:13 UA Glucose 0 mg/dL Last Edit by Annie Stoner [facility] on 12/13/22 13:13 Results Reviewed Results Reviewed: Laboratory Last Values Urine pH (Auto) 5.0 12/13/22 13:04 Specific [place] (Auto) 1.020 12/13/22 13:04 Urine Protein (Auto) 0 mg/dL 12/13/22 13:04 Glucose (UA)(Auto) 0 mg/dL 12/13/22 13:04 Urine Ketones (Auto) Negative 12/13/22 13:04 Urine Blood (Auto) 0 Herb/uL 12/13/22 13:04 Urine Nitrite (Auto) Negative 12/13/22 13:04 Urine Bilirubin (Auto) 0 mg/dL 12/13/22 13:04 Urine Urobilinogen (Auto) 0.2 mg/dL 12/13/22 13:04 Leukocyte Esterase (Auto) 0 Po/uL 12/13/22 13:04 Assessment & Plan Assessment & Plan (1) Prostate cancer: Comment: October 2020 - high-grade, MRI extracapsular extension, high-grade prostate cancer external beam radiation with 18 m hormone therapy Code(s): C61 - Malignant neoplasm of prostate (2) BPH (benign prostatic hyperplasia): Code(s): N40.0 - Benign prostatic hyperplasia without lower urinary tract symptoms Qualifiers: Lower urinary tract symptom presence: symptoms present Lower urinary tract symptom detail: incomplete bladder emptying Qualified Code(s): N40.1 - Benign prostatic hyperplasia with lower urinary tract symptoms; R39.14 - Feeling of incomplete bladder emptying Plan Four month follow-up Orders: Orders AMB Urinalysis Automated Today Z13.9 - Encounter for screening, unspecified AMB Post Void Residual by ultrasound Today N40.1 - Benign prostatic hyperplasia with lower urinary tract symptoms, R39.14 - Feeling of incomplete bladder emptying Prostate Specific Antigen 4 Months C61 - Malignant neoplasm of prostate Testosterone, Total 4 Months C61 - Malignant neoplasm of prostate Patient Instructions: Imaging studies, laboratory and physical exam results were discussed and reviewed in detail. No major barriers to patient understanding were identified. An opportunity to ask questions regarding the treatment plan was provided. All questions were answered. The patient expressed understanding and agreement with the above treatment plan. The patient is aware they should contact our office by phone for worsening of their current condition or the appearance of new urologic symptoms. Compliance is encouraged with any medications and followup testing that is ordered. It is a privilege to participate in the urologic care of your patient. If you have any questions or concerns regarding treatment for the above conditions, or other urologic issues, please do not hesitate to contact me. The office telephone contact is [phone]. This note is constructed using voice recognition software. While every effort has been made to ensure accuracy textiles sales representative errors may have been included. Yours sincerely, Dr Trevor Malave MD, [facility] - Urology Providers of Expert, Compassionate Care for the Genitourinary System Coding Level of Care Code Est Pt Level 3 (67005) Diagnoses Prostate cancer C61 BPH (benign prostatic hyperplasia) N40.1; R39.14 Lower urinary tract symptom presence: symptoms present Lower urinary tract symptom detail: incomplete bladder emptying CPT Codes Post Residual Void - PVR CPT Code: 62369-Fgpf Void Residual by ultrasound ([id number])
== END 2022-12-13 13:31 | disposition home or self-care (01) ==
PROVIDERS: Visit Provider Urology
DX: C61 Malignant neoplasm of prostate (principal); N40.1 Benign prostatic hyperplasia with lower urinary tract symptoms; R39.14 Feeling of incomplete bladder emptying
CPT/HCPCS: 99213

== ENCOUNTER → 2022-12-13 12:44 | Outpatient (BNVA) | payer MEDICARE, SELFPAY | PROVIDERS: Visit Provider Urology | DX: C61 Malignant neoplasm of prostate (principal); N40.1 Benign prostatic hyperplasia with lower urinary tract symptoms; R39.14 Feeling of incomplete bladder emptying | CPT/HCPCS: 51798; 99212 ==

== ENCOUNTER 2023-02-28 08:21 | Outpatient (AMB) | payer MEDICARE, SELFPAY ==
[2023-02-28 08:24] VITALS: BP 140/62; PULSE 68; O2SAT 96; BMI 25.4
--- NOTE | 2023-02-28 08:24 | MHC.PC.OV ---
Vital Signs 02/28/23 08:24 Height 5 ft 7 in Weight 162 lb BMI 25.4 BP 140/62 H Blood Pressure Location Lt brachial Position Sitting Pulse 68 Pulse Source Pulse Oximeter Pulse Oximetry (%) 96 Oxygen Delivery Method Room Air Intake Visit Reasons: Atrial fibrillation Allergies gabapentin Allergy (Unknown, Verified 02/28/23 08:25) Insomnia, increased pain latex Allergy (Unknown, Verified 02/28/23 08:25) Slight reaction - Rash nicotine Allergy (Unknown, Verified 02/28/23 08:25) patch- rash, rash Tobacco use date assessed: 11/18/22 Fall risk assessment: No Falls in past year Last assessed Fall Risk: 02/28/23 Dental Screening Dental Screen Date: 02/28/23 Did you have a dental visit in the last 12 months?: Yes Did you have a dental problem in the last 6 months where you did not have access to dental care?: No Was dental information given to patient?: Patient has dentist HPI Atrial fibrillation HPI Details 77-year-old male with atrial fibrillation on anticoagulation, COPD BPH hypercholesterolemia history of prostate cancer 2020(with external beam radiation and hormone therapy) and post herpetic neuralgia coming in for follow-up. Last seen in October 2022. Patient is up-to-date for colonoscopy July 2013. Patient follows up with urology November 2022 [facility] Medical History Asbestosis Bladder diverticulum BPH (benign prostatic hyperplasia) COPD (chronic obstructive pulmonary disease) History of alcohol abuse Hypercholesterolemia assisted current use of anticoagulant Otitis media PAF (paroxysmal atrial fibrillation) Post herpetic neuralgia Prostate cancer Prostate cancer Prostatitis PSA elevation Syncope Syncope and collapse Thrombocytopenia Tobacco abuse Vitamin D deficiency Surgical History H/O hand surgery Lesion of tongue Family History Father Bladder cancer Mother Colon cancer Chronic mental illness Brother Myocardial infarction Other Mental health disorder Social History Household Members: Spouse Housing: House Do you presently have visiting nurse or other home services: No Alcohol intake: former Year quit: 1979 Patient Tobacco Use Status: Former Tobacco user Quit Date: 2020 Tobacco use type: Cigarette Years Smoked: 60 +/- e-Cigarette/Vaping Use: Never Used Second Hand Smoke Exposure: No Advance Directives Date on File: 03/23/20 service: No Current occupational status: retired Cognitive needs: No Hearing needs: No Vision needs: No Questionnaire PHQ-9 Over the last 2 weeks, how often have you been bothered by any of the following problems? 1. Little interest or pleasure in doing things: not at all 2. Feeling down, depressed, or hopeless: not at all 3. Trouble falling or staying asleep, or sleeping too much: not at all 4. Feeling tired or having little energy: not at all 5. Poor appetite or overeating: not at all 6. Feeling bad about yourself - or that you are a failure or have let yourself or your family down: not at all 7. Trouble concentrating on things, such as reading the newspaper or watching television: not at all 8. Moving or speaking so slowly that other people could have noticed. Or the opposite - being so fidgety or restless that you have been moving around a lot more than usual: not at all 9. Thoughts that you would be better off or of hurting yourself in some way: not at all Total score: 0 Depression Screening Interpretation: Negative Depression Screening Done: Yes 36937 - PHQ-9 Billing: Yes Source: Developed by Drs. Ravin Handy, Angella Reynolds, Rodger Hameed and colleagues, with an educational greg from [employer]. Thrive Questionnaire Date Thrive assessed: 05/09/22 AUDIT C Alcohol Use Questionnaire (AUDIT-C) 1. How often do you have a drink containing alcohol?: Never 3. How often do you have six or more drinks on one occasion?: Never Total Score: 0 CONNOR-7 AMB Questionnaire CONNOR-7 Date CONNOR - 7 assessed: 05/09/22 Source: Developed by Drs. Ravin Handy, Angella Reynolds, Rodger Hameed and colleagues, with an educational greg from [employer]. Physical exam (Primary Care) Vital Signs: Last Vital Signs Pulse 68 02/28/23 08:24 BP 140/62 H 02/28/23 08:24 Pulse Ox 96 02/28/23 08:24 Oxygen Delivery Method Room Air 02/28/23 08:24 BMI result Body Mass Index 25.4 Tobacco/Smoking Status: Tobacco use Status Tobacco use date assessed 11/18/22 02/28/23 08:30 Patient Tobacco Use Status Former Tobacco user 02/28/23 08:30 Tobacco use type Cigarette 02/28/23 08:30 e-Cigarette/Vaping Use Never Used 02/28/23 08:30 PHQ-9: PHQ-9 Score PHQ-9: Total score 0 02/28/23 19:35 Depression Screening Interpretation: Negative Thrive Assessment: Date of Thrive Assessment Date Thrive assessed 05/09/22 02/28/23 08:30 Const General: alert; No acute distress Eyes Conjunctivae: conjunctivae normal Resp Auscultation: clear to auscultation bilaterally Cardio Rate: regular rate Rhythm: regular rhythm GI Inspection: Yes normal to inspection Extrem General: Yes normal to inspection and No edema Assessment and Plan Assessment & Plan (1) Prostate cancer: Comment: October 2020 - high-grade, MRI extracapsular extension, high-grade prostate cancer external beam radiation with 18 m hormone therapy Code(s): C61 - Malignant neoplasm of prostate Plan: Patient continue to follow-up with Urology and on surveillance (2) PAF (paroxysmal atrial fibrillation): Code(s): I48.0 - Paroxysmal atrial fibrillation Plan: Continue with anticoagulation Eliquis (3) Hypercholesterolemia: Code(s): E78.00 - Pure hypercholesterolemia, unspecified Plan: Avoid fried foods, chicken skin, eggs, butter margarine, pastries and meat. Be it pork or beef they have a lot of cholesterol LDL goal of less than 130 and triglyceride of less than 150 on simvastatin 40 mg once a day (4) COPD (chronic obstructive pulmonary disease): Code(s): J44.9 - Chronic obstructive pulmonary disease, unspecified Qualifiers: COPD type: unspecified COPD Qualified Code(s): J44.9 - Chronic obstructive pulmonary disease, unspecified Plan: Continue with inhaler as needed and Advair and Incruse (5) Generalized anxiety disorder: Code(s): F41.1 - Generalized anxiety disorder Plan: Continue with therapy (6) Low testosterone: Code(s): R79.89 - Other specified abnormal findings of blood chemistry Orders: Orders Liver Panel 2 Months E78.00 - Pure hypercholesterolemia, unspecified, R79.89 - Other specified abnormal findings of blood chemistry Magnesium 2 Months E78.00 - Pure hypercholesterolemia, unspecified Phosphorus 2 Months E78.00 - Pure hypercholesterolemia, unspecified Complete Blood Count Auto Diff 2 Months E78.00 - Pure hypercholesterolemia, unspecified Comprehensive Met. Panel 2 Months E78.00 - Pure hypercholesterolemia, unspecified Coding Level of Care Code Est Pt Level 4 (71893) Diagnoses Prostate cancer C61 PAF (paroxysmal atrial fibrillation) I48.0 Hypercholesterolemia E78.00 Pulmonary emphysema, unspecified emphysema type J44.9 COPD type: unspecified COPD Generalized anxiety disorder F41.1 Low testosterone R79.89
== END 2023-02-28 09:00 | disposition home or self-care (01) ==
PROVIDERS: PCP Internal Medicine; Visit Provider Internal Medicine
DX: C61 Malignant neoplasm of prostate (principal); I48.0 Paroxysmal atrial fibrillation; E78.00 Pure hypercholesterolemia, unspecified; J44.9 Chronic obstructive pulmonary disease, unspecified; F41.1 Generalized anxiety disorder; R79.89 Other specified abnormal findings of blood chemistry
CPT/HCPCS: 99214

== ENCOUNTER 2023-04-05 06:12 | Outpatient (REF) | payer MEDICARE, SELFPAY ==
[2023-04-05 06:34] LABS: MANUAL DIFF FLAG NO
[2023-04-05 07:29] LABS: Basophils Percent Auto 0.4 % (0-2); Eosinophils Absolute Auto 0.3 X10*3/uL (0.0-0.4); Hematocrit 40.7 % (42.0-52.0); Hemoglobin 13.3 g/dl (14.0-18.0); Imm Gran Abs Auto 0.02 X10*3/uL (0.00-0.03); Imm Gran Pct Auto 0.4 % (0.0-0.4); Lymphocytes Absolute Auto 1.6 X10*3/uL (1.2-4.9); Lymphocytes Percent Auto 35.4 % (20-40); Mean Corpuscular HGB Conc 32.7 g/dl (31.0-36.0); Mean Corpuscular Hemoglobin 29.2 pg (27.0-33.0); Mean Corpuscular Volume 89.3 fL (80.0-98.0); Monocytes Absolute Auto 0.4 X10*3/uL (0.1-1.2); Monocytes Percent Auto 9.1 % (2-11); Neutrophils Absolute Auto 2.2 x10*3/uL (2.0-8.3); Neutrophils Percent Auto 48.7 % (45-73); Platelet Count 172 X10*3/uL (160-400); Red Blood Count 4.56 X10*6/uL (4.60-5.80); Red Cell Distribution Width 13.3 % (11.0-16.0); White Blood Count 4.5 X10*3/uL (4.8-10.8)
[2023-04-05 07:57] LABS: Alanine Aminotransferase 25 U/L (0-40); Albumin Level 4.3 g/dL (3.5-5.0); Alkaline Phosphatase 76 U/L (39-117); Anion Gap 13 (12-20); Aspartate Amino Transferase 24 U/L (5-37); Bilirubin Direct 0.2 mg/dL (0.0-0.5); Bilirubin Total 0.4 mg/dL (0.0-1.0); Blood Urea Nitrogen 24 mg/dL (9-16); Calcium 9.8 mg/dL (8.4-10.2); Carbon Dioxide 25 mmol/L (22-29); Chloride 108 mmol/L (96-108); Estimated Glomerular Filt Rate > 60; Glucose Random 88 mg/dL (60-115); Magnesium 2.2 mg/dL (1.6-2.6); Phosphorus 3.6 mg/dL (2.7-4.5); Sodium 142 mmol/L (135-145); Total Protein 7.2 g/dL (6.5-8.0)
[2023-04-05 08:41] LABS: Prostate Specific Antigen < 0.10 ng/mL (<0.05-4.0)
[2023-04-09 14:23] LABS: Testosterone, Total 60 ng/dL (250-1100); Testosterone, Total 63 ng/dL (250-1100)
== END 2023-04-05 06:13 | disposition home or self-care (01) ==
LOC: HO.LAB 06:12
PROVIDERS: Absent Provider Urology; PCP Internal Medicine; Visit Provider Internal Medicine
DX: Z12.5 Encounter for screening for malignant neoplasm of prostate (principal); E78.00 Pure hypercholesterolemia, unspecified; R79.89 Other specified abnormal findings of blood chemistry; C61 Malignant neoplasm of prostate
CPT/HCPCS: 36415; 80053; 82248; 83735; 84100; 84153; 84403; 85025

== ENCOUNTER 2023-05-19 10:30 | Outpatient (AMB) | payer MEDICARE, SELFPAY ==
--- NOTE | 2023-05-19 10:33 | MHC.OFFVIS ---
Intake Intake Visit Reasons: PSA/Testosterone(set) Intake Note: Patient is Present for Telephone Follow Up labs Urology Med: Tamsulosin Antibiotic Allergy: None Blood Thinner: Eliquis Allergies gabapentin Allergy (Unknown, Verified 05/19/23 10:33) Insomnia, increased pain latex Allergy (Unknown, Verified 05/19/23 10:33) Slight reaction - Rash nicotine Allergy (Unknown, Verified 05/19/23 10:33) patch- rash, rash Medication List - Last Reconciled 05/19/23 by Trevor Malave MD albuterol sulfate 90 mcg/actuation (ProAir HFA) 2 puffs inhalation QID PRN apixaban (Eliquis) 5 mg PO BID 90 days diltiazem HCl 180 mg PO DAILY 90 days fluticasone propion-salmeterol 250-50 mcg/dose (Advair Diskus) 1 inh inhalation BID furosemide (Lasix) 20 mg PO DAILY sertraline 25 mg PO DAILY 90 days simvastatin 40 mg PO DAILY 90 days tamsulosin (Flomax) 0.8 mg (2 x 0.4 mg) PO BEDTIME 90 days tobramycin 0.3% 2 drps otic (ear) left Q4H umeclidinium 62.5 mcg/actuation (Incruse Ellipta) 1 inh inhalation BEDTIME HPI HPI Comments History of Present Illness Details Ravin is a very pleasant male. He is a patient of Dr Mcdonnell. He is seen for the following urologic conditions. - prostate cancer high-grade Telemedicine Evaluation 15 min Consultation Doximity Ann Video attempted Slow recovery of testosterone Continued PSA low Continue good response to tamsulosin - try 1 tab at night Prostate cancer high-grade last GnRH 10/28/21 - external beam radiation with hormone therapy Diagnosis - Dr. Malave September 2020 PSA 08/20 <0.1 T 13, 11/19 <0.1 7, 02/19 <0.1, 05/23 <0.1 26, 07/21 <0.1 T 5, 12/21 <0.1 T 41, 04/22 <0.1 80 Initial PSA 9.1 Biopsy 10/19 Histologic type: Adenocarcinoma, acinar type Jerry score: 4+5=9 (right base lateral), 4+3=7 (right base medial), 3+4=7 (right mid lateral, right mid medial, right apex lateral, right apex medial), 3+3=6 (left base lateral, left mid lateral, left mid medial, left apex lateral, left apex medial) Tumor quantitation: Number cores positive: 11 Total number of cores: 12 Periprostatic fat inv.: Present Seminal vesicle inv.: Not identified Perineural inv.: Present LVI: Not identified Staging - 10/19 bone scan negative - 10/19 CT scan negative - no evidence of abdominal pelvic lymph nodes - 01/19 prostate MRI - PI-RADS 5 lesions, highly suspicious for local extracapsular extension. 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 PAF (paroxysmal atrial fibrillation) History of alcohol abuse Bladder diverticulum Thrombocytopenia BPH (benign prostatic hyperplasia) Vitamin D deficiency COPD (chronic obstructive pulmonary disease) Hypercholesterolemia Tobacco abuse Asbestosis Post herpetic neuralgia Surgical History H/O hand surgery Lesion of tongue Family History Father Bladder cancer Mother Colon cancer Chronic mental illness Brother Myocardial infarction Other Mental health disorder Social History Household Members: Spouse Housing: House Do you presently have visiting nurse or other home services: No Alcohol intake: former Year quit: 1979 Patient Tobacco Use Status: Former Tobacco user Quit Date: 2020 Tobacco use type: Cigarette Years Smoked: 60 +/- e-Cigarette/Vaping Use: Never Used Second Hand Smoke Exposure: No Advance Directives Date on File: 03/23/20 service: No Current occupational status: retired Cognitive needs: No Hearing needs: No Vision needs: No Assessment & Plan Assessment & Plan (1) BPH (benign prostatic hyperplasia): Code(s): N40.0 - Benign prostatic hyperplasia without lower urinary tract symptoms Qualifiers: Lower urinary tract symptom presence: symptoms present Lower urinary tract symptom detail: incomplete bladder emptying Qualified Code(s): N40.1 - Benign prostatic hyperplasia with lower urinary tract symptoms; R39.14 - Feeling of incomplete bladder emptying (2) Prostate cancer: Comment: October 2020 - high-grade, MRI extracapsular extension, high-grade prostate cancer external beam radiation with 18 m hormone therapy Code(s): C61 - Malignant neoplasm of prostate Plan 4m f/u PSA/T Orders: Orders Prostate Specific Antigen 4 Months C61 - Malignant neoplasm of prostate Testosterone, Total 4 Months C61 - Malignant neoplasm of prostate Patient Instructions: Imaging studies, laboratory and physical exam results were discussed and reviewed in detail. No major barriers to patient understanding were identified. An opportunity to ask questions regarding the treatment plan was provided. All questions were answered. The patient expressed understanding and agreement with the above treatment plan. The patient is aware they should contact our office by phone for worsening of their current condition or the appearance of new urologic symptoms. Compliance is encouraged with any medications and followup testing that is ordered. It is a privilege to participate in the urologic care of your patient. If you have any questions or concerns regarding treatment for the above conditions, or other urologic issues, please do not hesitate to contact me. The office telephone contact is [phone]. This note is constructed using voice recognition software. While every effort has been made to ensure accuracy partnership development manager errors may have been included. Yours sincerely, Dr Trevor Malave MD, [facility] - Urology Providers of Expert, Compassionate Care for the Genitourinary System Telehealth Telehealth Location of provider rendering services: practice address Location of patient: address on file Patient Identification confirmed using: Name, : Yes Telehealth method: video Patient verbally consented to treatment: Yes Patient verbally consented to billing insurance company: Yes Patient informed of any privacy concerns related to visit: Yes Coding Level of Care Code Tele Est Pt Level 4 (67425) Diagnoses Benign prostatic hyperplasia with incomplete bladder emptying N40.1; R39.14 Lower urinary tract symptom presence: symptoms present Lower urinary tract symptom detail: incomplete bladder emptying Prostate cancer C61
== END 2023-05-19 11:41 | disposition home or self-care (01) ==
LOC: HO.HUSH 10:30
PROVIDERS: PCP Internal Medicine; Visit Provider Urology
DX: N40.1 Benign prostatic hyperplasia with lower urinary tract symptoms (principal); R39.14 Feeling of incomplete bladder emptying; C61 Malignant neoplasm of prostate
CPT/HCPCS: 99213

== ENCOUNTER → 2023-05-19 10:30 | Outpatient (BNVA) | payer MEDICARE, SELFPAY | PROVIDERS: PCP Internal Medicine; Visit Provider Urology ==

== ENCOUNTER 2023-06-09 08:24 | Outpatient (AMB) | payer MEDICARE, SELFPAY ==
[2023-06-09 08:27] VITALS: BP 138/72; PULSE 80; O2SAT 98; BMI 25.8
--- NOTE | 2023-06-09 08:27 | A.OFFPC_ITS ---
Vital Signs 06/09/23 08:27 Height 5 ft 7 in Weight 165 lb BMI 25.8 BP 138/72 Blood Pressure Location Lt brachial Position Sitting Pulse 80 Pulse Source Pulse Oximeter Pulse Oximetry (%) 98 Oxygen Delivery Method Room Air Intake Visit Reasons: atrial fib Allergies gabapentin Allergy (Unknown, Verified 06/09/23 08:27) Insomnia, increased pain latex Allergy (Unknown, Verified 06/09/23 08:27) Slight reaction - Rash nicotine Allergy (Unknown, Verified 06/09/23 08:27) patch- rash, rash Medication List - Last Reconciled 06/09/23 by Lacho Mcdonnell MD albuterol sulfate 90 mcg/actuation (ProAir HFA) 2 puffs inhalation QID PRN apixaban (Eliquis) 5 mg PO BID 90 days diltiazem HCl 180 mg PO DAILY 90 days fluticasone propion-salmeterol 250-50 mcg/dose (Advair Diskus) 1 inh inhalation BID furosemide (Lasix) 20 mg PO DAILY sertraline 25 mg PO DAILY 90 days simvastatin 40 mg PO DAILY 90 days tamsulosin (Flomax) 0.8 mg (2 x 0.4 mg) PO BEDTIME 90 days tobramycin 0.3% 2 drps otic (ear) left Q4H umeclidinium 62.5 mcg/actuation (Incruse Ellipta) 1 inh inhalation BEDTIME Tobacco use date assessed: 06/09/23 Fall risk assessment: No Falls in past year Last assessed Fall Risk: 06/09/23 Dental Screening Dental Screen Date: 06/09/23 Did you have a dental visit in the last 12 months?: No Did you have a dental problem in the last 6 months where you did not have access to dental care?: No Was dental information given to patient?: No HPI atrial fib HPI Details 77-year-old male with prostate cancer at [facility] fibrillation hypercholesterolemia COPD generalized anxiety disorder coming in for follow-up. Last seen 02/28/2023. Patient's colonoscopy is due this year. Review of the notes follows up with urology through Telehealth on tamsulosin had external beam radiation March 2021. 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 PAF (paroxysmal atrial fibrillation) History of alcohol abuse Bladder diverticulum Thrombocytopenia BPH (benign prostatic hyperplasia) Vitamin D deficiency COPD (chronic obstructive pulmonary disease) Hypercholesterolemia Tobacco abuse Asbestosis Post herpetic neuralgia Surgical History H/O hand surgery Lesion of tongue Family History Father Bladder cancer Mother Colon cancer Chronic mental illness Brother Myocardial infarction Other Mental health disorder Social History Household Members: Spouse Housing: House Do you presently have visiting nurse or other home services: No Alcohol intake: former Year quit: 1979 Patient Tobacco Use Status: Former Tobacco user Quit Date: 2020 Tobacco use type: Cigarette Years Smoked: 60 +/- e-Cigarette/Vaping Use: Never Used Second Hand Smoke Exposure: No Advance Directives Date on File: 03/23/20 service: No Current occupational status: retired Cognitive needs: No Hearing needs: No Vision needs: No Questionnaire PHQ-9 Over the last 2 weeks, how often have you been bothered by any of the following problems? 1. Little interest or pleasure in doing things: not at all 2. Feeling down, depressed, or hopeless: not at all 3. Trouble falling or staying asleep, or sleeping too much: not at all 4. Feeling tired or having little energy: not at all 5. Poor appetite or overeating: not at all 6. Feeling bad about yourself - or that you are a failure or have let yourself or your family down: not at all 7. Trouble concentrating on things, such as reading the newspaper or watching television: not at all 8. Moving or speaking so slowly that other people could have noticed. Or the opposite - being so fidgety or restless that you have been moving around a lot more than usual: not at all 9. Thoughts that you would be better off or of hurting yourself in some way: not at all Total score: 0 Depression Screening Interpretation: Negative Depression Screening Done: Yes 45159 - PHQ-9 Billing: Yes Source: Developed by Angella Franklin.W. Rodolfo, Rodger Hameed and colleagues, with an educational greg from [employer]. Thrive Questionnaire Date Thrive assessed: 06/09/23 I am a: Patient What is your living situation today?: I have a steady place to live Within the past 12 months, did the food you bought not last and you didn't have the money to get more?: Never true Within the past 12 months, did you worry whether your food would run out before you got money to buy more?: Never true Do you have trouble paying for medicines?: No Do you have trouble getting transportation to medical appointments?: No Do you have trouble paying your heating and electricity bill?: No Do you have trouble taking care of your child, family member or friend?: No Do you have trouble with day-to-day activities such as bathing, preparing meals, shopping, managing finances, etc.?: No Are you currently unemployed and looking for a job?: No Are you interested in more education?: No Currently or been in a relationship where the following occur: no concerns reported THRIVE Score: 0 AUDIT C Alcohol Use Questionnaire (AUDIT-C) 1. How often do you have a drink containing alcohol?: Never 3. How often do you have six or more drinks on one occasion?: Never Total Score: 0 CONNOR-7 AMB Questionnaire CONNOR-7 Date CONNOR - 7 assessed: 06/09/23 Feeling nervous, anxious, or on edge: 0 = Not at all Not being able to stop or control worryin = Not at all Worrying too much about different things: 0 = Not at all Trouble relaxin = Not at all Being so restless that it is hard to sit still: 0 = Not at all Becoming easily annoyed or irritable: 0 = Not at all Feeling afraid as if something awful might happen: 0 = Not at all Total CONNOR-7 score (0-4 normal; 5-9 mild; 10-14 moderate; 15-21 severe): 0 Source: Developed by Drs. Ravin Handy, Angella Reynolds, Rodger Hameed and colleagues, with an educational greg from [employer]. Physical exam (Primary Care) Vital Signs: Last Vital Signs Pulse 80 06/09/23 08:27 BP 138/72 06/09/23 08:27 Pulse Ox 98 06/09/23 08:27 Oxygen Delivery Method Room Air 06/09/23 08:27 BMI result Body Mass Index 25.8 Tobacco/Smoking Status: Tobacco use Status Tobacco use date assessed 06/09/23 06/09/23 08:32 Patient Tobacco Use Status Former Tobacco user 06/09/23 08:32 Tobacco use type Cigarette 06/09/23 08:32 e-Cigarette/Vaping Use Never Used 06/09/23 08:32 PHQ-9: PHQ-9 Score PHQ-9: Total score 0 06/09/23 08:32 Depression Screening Interpretation: Negative Thrive Assessment: Date of Thrive Assessment Date Thrive assessed 06/09/23 06/09/23 08:32 Currently or been in a relationship where the following occur: no concerns reported Const General: alert; No acute distress Eyes Conjunctivae: conjunctivae normal Resp Auscultation: clear to auscultation bilaterally Cardio Rate: regular rate Rhythm: regular rhythm GI Inspection: Yes normal to inspection Extrem General: Yes normal to inspection and No edema Assessment and Plan Assessment & Plan (1) Prostate cancer: Comment: October 2020 - high-grade, MRI extracapsular extension, high-grade prostate cancer external beam radiation with 18 m hormone therapy Code(s): C61 - Malignant neoplasm of prostate Plan: Patient continues to follow-up with urology and surveillance of PSA number patient also has low testosterone (2) PAF (paroxysmal atrial fibrillation): Code(s): I48.0 - Paroxysmal atrial fibrillation Plan: Continue with anticoagulation as well as diltiazem 180 mg once a day (3) Hypercholesterolemia: Code(s): E78.00 - Pure hypercholesterolemia, unspecified Plan: Avoid fried foods, chicken skin, eggs, butter margarine, pastries and meat. Be it pork or beef they have a lot of cholesterol LDL goal of less than 130 and triglyceride of less than 150. Patient on simvastatin 40 mg once a day November 2022 last blood work (4) COPD (chronic obstructive pulmonary disease): Code(s): J44.9 - Chronic obstructive pulmonary disease, unspecified Qualifiers: COPD type: unspecified COPD Qualified Code(s): J44.9 - Chronic obstructive pulmonary disease, unspecified Plan: Continue with inhaler as needed (5) Generalized anxiety disorder: Code(s): F41.1 - Generalized anxiety disorder Plan: Stable (6) Colon cancer screening: Code(s): Z12.11 - Encounter for screening for malignant neoplasm of colon Plan: Reminded about colonoscopy last done in 2013 Orders: Orders Complete Blood Count Auto Diff 6 Months E78.00 - Pure hypercholesterolemia, unspecified Free T4 (Free Thyroxine) 6 Months E78.00 - Pure hypercholesterolemia, unspecified IRON PROFILE 6 Months E78.00 - Pure hypercholesterolemia, unspecified Thyroid Stimulating Hormone 6 Months E78.00 - Pure hypercholesterolemia, unspecified Comprehensive Met. Panel 6 Months E78.00 - Pure hypercholesterolemia, unspecified Ferritin 6 Months E78.00 - Pure hypercholesterolemia, unspecified Reticulocyte Count 6 Months E78.00 - Pure hypercholesterolemia, unspecified Vitamin B12 and Folate 6 Months E78.00 - Pure hypercholesterolemia, unspecified Referrals Gastroenterology Referral Z12.11 - Encounter for screening for malignant neoplasm of colon Medications: Refilled simvastatin 40 mg PO DAILY 90 days 90 tabs 1RF Z12.11 - Encounter for screening for malignant neoplasm of colon furosemide (Lasix) 20 mg PO DAILY 90 tabs 2RF Z12.11 - Encounter for screening for malignant neoplasm of colon umeclidinium 62.5 mcg/actuation (Incruse Ellipta) 1 inh inhalation BEDTIME 30 ea 11RF J44.9 - Chronic obstructive pulmonary disease, unspecified Coding Level of Care Code Est Pt Level 4 (07461) Diagnoses Prostate cancer C61 PAF (paroxysmal atrial fibrillation) I48.0 Hypercholesterolemia E78.00 Pulmonary emphysema, unspecified emphysema type J44.9 COPD type: unspecified COPD Generalized anxiety disorder F41.1 Colon cancer screening Z12.11
== END 2023-06-09 08:54 | disposition home or self-care (01) ==
PROVIDERS: PCP Internal Medicine; Visit Provider Internal Medicine
DX: C61 Malignant neoplasm of prostate (principal); I48.0 Paroxysmal atrial fibrillation; E78.00 Pure hypercholesterolemia, unspecified; J44.9 Chronic obstructive pulmonary disease, unspecified; F41.1 Generalized anxiety disorder; Z12.11 Encounter for screening for malignant neoplasm of colon
CPT/HCPCS: 99214

== ENCOUNTER 2023-09-01 10:31 | Outpatient (REF) | payer MEDICARE, SELFPAY ==
[2023-09-01 13:02] LABS: Prostate Specific Antigen < 0.10 ng/mL (<0.05-4.0)
[2023-09-07 13:58] LABS: Testosterone, Total 46 ng/dL (250-1100)
== END 2023-09-01 10:32 | disposition home or self-care (01) ==
LOC: HO.LAB 10:31
PROVIDERS: PCP Internal Medicine; Visit Provider Urology
DX: Z12.5 Encounter for screening for malignant neoplasm of prostate (principal); C61 Malignant neoplasm of prostate
CPT/HCPCS: 36415; 84153; 84403

== ENCOUNTER 2023-09-19 13:28 | Outpatient (AMB) | payer MEDICARE, SELFPAY ==
--- NOTE | 2023-09-19 13:40 | MHC.OFFVIS ---
Intake Visit Reasons: 4M PSA/Testosterone(SET) Intake Note: Patient is Present for Follow Up Urology Medication: Tamsulosin Antibiotic Allergies: None Blood Thinners:Eliquis Allergies gabapentin Allergy (Unknown, Verified 06/09/23 08:27) Insomnia, increased pain latex Allergy (Unknown, Verified 06/09/23 08:27) Slight reaction - Rash nicotine Allergy (Unknown, Verified 06/09/23 08:27) patch- rash, rash Medication List - Last Reconciled 09/19/23 by Trevor Malave MD albuterol sulfate 90 mcg/actuation (ProAir HFA) 2 puffs inhalation QID PRN apixaban (Eliquis) 5 mg PO BID 90 days diltiazem HCl CD 180 mg PO DAILY fluticasone furoate-vilanterol 200-25 mcg/dose (Breo Ellipta) 1 inh inhalation DAILY furosemide (Lasix) 20 mg PO DAILY sertraline 25 mg PO DAILY 90 days simvastatin 40 mg PO DAILY 90 days tamsulosin (Flomax) 0.8 mg (2 x 0.4 mg) PO BEDTIME 90 days tobramycin 0.3% 2 drps otic (ear) left Q4H umeclidinium 62.5 mcg/actuation (Incruse Ellipta) 1 inh inhalation BEDTIME HPI Comments Details: Ravin is a very pleasant male. He is a patient of Dr Mcdonnell. He is seen for the following urologic conditions. - prostate cancer high-grade Continued low PSA Now at 2 year follow-up Move to every 6 months Continue good response to tamsulosin - requiring 2 tablets at night Does have questions about low testosterone. Prostate cancer high-grade last GnRH 10/28/21 - external beam radiation with hormone therapy Diagnosis - Dr. Malave September 2020 PSA 08/20 <0.1 T 13, 11/19 <0.1 7, 02/19 <0.1, 05/23 <0.1 26, 07/21 <0.1 T 5, 12/21 <0.1 T 41, 04/22 <0.1 80, 09/21 <0.1 T 46 Initial PSA 9.1 Biopsy 10/19 Histologic type: Adenocarcinoma, acinar type [place] score: 4+5=9 (right base lateral), 4+3=7 (right base medial), 3+4=7 (right mid lateral, right mid medial, right apex lateral, right apex medial), 3+3=6 (left base lateral, left mid lateral, left mid medial, left apex lateral, left apex medial) Tumor quantitation: Number cores positive: 11 Total number of cores: 12 Periprostatic fat inv.: Present Seminal vesicle inv.: Not identified Perineural inv.: Present LVI: Not identified Staging - 10/19 bone scan negative - 10/19 CT scan negative - no evidence of abdominal pelvic lymph nodes - 01/19 prostate MRI - PI-RADS 5 lesions, highly suspicious for local extracapsular extension. 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 PAF (paroxysmal atrial fibrillation) History of alcohol abuse Bladder diverticulum Thrombocytopenia BPH (benign prostatic hyperplasia) Vitamin D deficiency COPD (chronic obstructive pulmonary disease) Hypercholesterolemia Tobacco abuse Asbestosis Post herpetic neuralgia Surgical History H/O hand surgery Lesion of tongue Family History Father Bladder cancer Mother Colon cancer Chronic mental illness Brother Myocardial infarction Other Mental health disorder Social History Household Members: Spouse Housing: House Do you presently have visiting nurse or other home services: No Alcohol intake: former Year quit: 1979 Patient Tobacco Use Status: Former Tobacco user Quit Date: 2020 Tobacco use type: Cigarette Years Smoked: 60 +/- e-Cigarette/Vaping Use: Never Used Second Hand Smoke Exposure: No Advance Directives Date on File: 03/23/20 service: No Current occupational status: retired Cognitive needs: No Hearing needs: No Vision needs: No Review of Systems Const Denies chills and Denies fever(s) Card Reports no additional complaints and Denies syncope Resp Denies cough GI Denies abdominal pain and Denies heartburn Reports as per HPI and Denies change in libido Neuro Denies syncope Psych Denies change in libido Endo Denies change in libido Physical Exam Const General: cooperative, healthy appearing, comfortable and no acute distress Orientation/consciousness: patient oriented x3 HEENT Face and sinus: Yes normal facial exam Mouth: moist mucous membranes Neck Neck: Yes normal visual inspection, Yes full ROM and Yes trachea midline Chest Chest palpation & inspection: normal inspection of the chest Resp Effort & Inspection: normal respiratory effort, able to speak in complete sentences and no respiratory distress GI Inspection: Yes normal to inspection Back/Spine/Pelvis Cervical Spine: normal cervical lordosis Thoracic/Lumbar Spine: thoracic and lumbar spine normal to inspection Skin General skin exam: no rashes or lesions noted Neuro General: patient oriented x3, gait normal, tone normal and moves all extremities Extrem General: Yes normal to inspection and Yes capillary refill normal Assessment & Plan Assessment & Plan (1) Low testosterone: Code(s): R79.89 - Other specified abnormal findings of blood chemistry Category: Medical (2) Acute urinary retention: Code(s): R33.8 - Other retention of urine Category: Medical (3) BPH (benign prostatic hyperplasia): Code(s): N40.0 - Benign prostatic hyperplasia without lower urinary tract symptoms Category: Medical Qualifiers: Lower urinary tract symptom presence: symptoms present Lower urinary tract symptom detail: incomplete bladder emptying Qualified Code(s): N40.1 - Benign prostatic hyperplasia with lower urinary tract symptoms; R39.14 - Feeling of incomplete bladder emptying Plan Six-month follow-up Orders: Orders Prostate Specific Antigen 6 Months C61 - Malignant neoplasm of prostate Testosterone, Total 6 Months C61 - Malignant neoplasm of prostate Patient Instructions: Imaging studies, laboratory and physical exam results were discussed and reviewed in detail. No major barriers to patient understanding were identified. An opportunity to ask questions regarding the treatment plan was provided. All questions were answered. The patient expressed understanding and agreement with the above treatment plan. The patient is aware they should contact our office by phone for worsening of their current condition or the appearance of new urologic symptoms. Compliance is encouraged with any medications and followup testing that is ordered. It is a privilege to participate in the urologic care of your patient. If you have any questions or concerns regarding treatment for the above conditions, or other urologic issues, please do not hesitate to contact me. The office telephone contact is [phone]. This note is constructed using voice recognition software. While every effort has been made to ensure accuracy keyboard operator errors may have been included. Yours sincerely, Dr Trevor Malave MD, [facility] - Urology Providers of Expert, Compassionate Care for the Genitourinary System Coding Level of Care Code Est Pt Level 3 (13553) Diagnoses Low testosterone R79.89 Acute urinary retention R33.8 Benign prostatic hyperplasia with incomplete bladder emptying N40.1; R39.14 Lower urinary tract symptom presence: symptoms present Lower urinary tract symptom detail: incomplete bladder emptying
== END 2023-09-19 14:38 | disposition home or self-care (01) ==
PROVIDERS: PCP Internal Medicine; Visit Provider Urology
DX: R79.89 Other specified abnormal findings of blood chemistry (principal); N40.1 Benign prostatic hyperplasia with lower urinary tract symptoms; R33.8 Other retention of urine; R39.14 Feeling of incomplete bladder emptying
CPT/HCPCS: 99213

== ENCOUNTER → 2023-09-19 13:28 | Outpatient (BNVA) | payer MEDICARE, SELFPAY | PROVIDERS: PCP Internal Medicine; Visit Provider Urology | DX: N40.1 Benign prostatic hyperplasia with lower urinary tract symptoms (principal); R39.14 Feeling of incomplete bladder emptying; R79.89 Other specified abnormal findings of blood chemistry; R33.8 Other retention of urine | CPT/HCPCS: 99212 ==

== ENCOUNTER 2023-11-22 13:22 | Outpatient (AMB) | payer MEDICARE, SELFPAY ==
[2023-11-22 13:43] VITALS: BP 122/54; PULSE 58; BMI 25.2
--- NOTE | 2023-11-22 13:43 | A.OFFVIS_ITS ---
Vital Signs 11/22/23 13:43 Height 5 ft 7 in Weight 160 lb 14.999 oz BMI 25.2 BP 122/54 L Blood Pressure Location Lt brachial Position Sitting Pulse 58 Intake Visit Reasons: r/s 10/19/23 1 year followup w/ekg Sleever Required: No Accompanied by: Self / Same As Patient Allergies gabapentin Allergy (Unknown, Verified 06/09/23 08:27) Insomnia, increased pain latex Allergy (Unknown, Verified 06/09/23 08:27) Slight reaction - Rash nicotine Allergy (Unknown, Verified 06/09/23 08:27) patch- rash, rash Medication List - Last Reconciled 11/22/[address] MD albuterol sulfate 90 mcg/actuation (ProAir HFA) 2 puffs inhalation QID PRN apixaban (Eliquis) 5 mg PO BID 90 days diltiazem HCl CD 180 mg PO DAILY fluticasone furoate-vilanterol 200-25 mcg/dose (Breo Ellipta) 1 inh inhalation DAILY furosemide (Lasix) 20 mg PO DAILY sertraline 25 mg PO DAILY 90 days simvastatin 40 mg PO DAILY 90 days tamsulosin (Flomax) 0.8 mg (2 x 0.4 mg) PO BEDTIME 90 days tobramycin 0.3% 2 drps otic (ear) left Q4H umeclidinium 62.5 mcg/actuation (Incruse Ellipta) 1 inh inhalation BEDTIME HPI Comments Details: Ravin returns for follow-up regarding atrial fibrillation. He states he is actually doing quite good. In the last few days, he has walked at least 3-4 miles a day and he has done this for a long time. Shortness of breath seems to be at baseline. No recent atrial fibrillation issues. [facility] Medical History Syncope Prostatitis Prostate cancer Prostate cancer Otitis media PSA elevation Syncope and collapse FDC current use of anticoagulant PAF (paroxysmal atrial fibrillation) History of alcohol abuse Bladder diverticulum Thrombocytopenia BPH (benign prostatic hyperplasia) Vitamin D deficiency COPD (chronic obstructive pulmonary disease) Hypercholesterolemia Tobacco abuse Asbestosis Post herpetic neuralgia Surgical History H/O hand surgery Lesion of tongue Family History Father Bladder cancer Mother Colon cancer Chronic mental illness Brother Myocardial infarction Other Mental health disorder Social History Household Members: Spouse Housing: House Do you presently have visiting nurse or other home services: No Alcohol intake: former Year quit: 1979 Patient Tobacco Use Status: Former Tobacco user Tobacco use type: Cigarette Years Smoked: 60 +/- e-Cigarette/Vaping Use: Never Used Second Hand Smoke Exposure: No Advance Directives Date on File: 03/23/20 service: No Current occupational status: retired Cognitive needs: No Hearing needs: No Vision needs: No Review of Systems Const All systems reviewed & are unremarkable except as noted in HPI and below Reports as per HPI and Reports no additional complaints Eyes Reports as per HPI and Denies no additional complaints ENT Denies no additional complaints and Reports as per HPI Card Reports as per HPI, Reports no additional complaints, Denies acrocyanosis, Denies chest pain, Denies leg edema, Denies lightheadedness, Denies palpitations and Denies dyspnea Resp Reports as per HPI, Denies no additional complaints and Denies dyspnea GI Reports as per HPI and Denies no additional complaints Reports no additional complaints and Reports as per HPI Musc Reports no additional complaints and Reports as per HPI Skin/Breast Reports system reviewed and no additional complaints, except as documented Neuro Reports no additional complaints and Reports as per HPI Psych Reports no additional complaints and Reports as per HPI Endo Reports no additional complaints, Reports as per HPI and Denies palpitations Raphael/Lymph Reports no additional complaints and Reports as per HPI Aller/Immun Reports no additional complaints and Reports as per HPI Physical Exam Vital Signs: Last Vital Signs Pulse 58 11/22/23 13:43 BP 122/54 L 11/22/23 13:43 BMI result Body Mass Index 25.2 Const General: comfortable and no acute distress Orientation/consciousness: patient oriented x3 HEENT Other: Unremarkable Head: Yes normal to inspection Neck Neck: Yes normal visual inspection Chest Chest palpation & inspection: normal inspection of the chest Resp Auscultation: clear to auscultation bilaterally Cardio Palpation: normal PMI Heart sounds: S1 normal heart sound present, S2 normal heart sound present, no gallops, Murmur heart sound present systolic II/ and at the right sternal border and no rubs GI Palpation (GI): Soft to palpation Back/Spine/Pelvis Other: unremarkable Skin General skin exam: no rashes or lesions noted Neuro General: patient oriented x3 Extrem General: Yes normal to inspection Psych Mental Status: mental status grossly normal Office Procedures EKG Details: EKG with sinus bradycardia at 58/Min; right bundle-branch block pattern; [place] prolongation to 226 milliseconds [id number], Complete Assessment & Plan Assessment & Plan (1) PAF (paroxysmal atrial fibrillation): Code(s): I48.0 - Paroxysmal atrial fibrillation Category: Medical Plan: Stable. Continue diltiazem. Continue Eliquis. (2) Nonrheumatic aortic valve regurgitation: Code(s): I35.1 - Nonrheumatic aortic (valve) insufficiency Category: Medical Plan: In the last echocardiogram, there was moderate thickening of the aortic valve and mild aortic regurgitation. Not hemodynamically significant. LVEF is preserved at 60-65%. No specific management. We can check before next visit. (3) Atherosclerotic cardiovascular disease: Code(s): I25.10 - Atherosclerotic heart disease of [place] coronary artery without angina pectoris Category: Medical Plan: His chest CT scan shows coronary/atherosclerotic calcification. However, clinically he is walking miles with no angina and has got no symptoms at all. Mainly risk factor modification. He is on simvastatin. Last LDL is 125 mg/dL. We discussed about switching to high dose Crestor or Lipitor but he wants me to just let his PCP know about this. (4) COPD (chronic obstructive pulmonary disease): Code(s): J44.9 - Chronic obstructive pulmonary disease, unspecified Category: Medical Qualifiers: COPD type: unspecified COPD Qualified Code(s): J44.9 - Chronic obstructive pulmonary disease, unspecified Plan: In the CT scan, described to have severe COPD. He was on home oxygen but does not seem to be on it anymore. Seems fairly active. Orders: Orders CA echo transthoracic complete 1 Year I35.1 - Nonrheumatic aortic (valve) insufficiency Coding Level of Care Code Est Pt Level 4 (63116) Diagnoses PAF (paroxysmal atrial fibrillation) I48.0 Nonrheumatic aortic valve regurgitation I35.1 Atherosclerotic cardiovascular disease I25.10 Pulmonary emphysema, unspecified emphysema type J44.9 COPD type: unspecified COPD CPT Codes EKG - CPT: 94286-[id number], Complete ([id number])
== END 2023-11-22 14:22 | disposition home or self-care (01) ==
PROVIDERS: PCP Internal Medicine; Visit Provider Internal Medicine
DX: I48.0 Paroxysmal atrial fibrillation (principal); I35.1 Nonrheumatic aortic (valve) insufficiency; I25.10 Atherosclerotic heart disease of native coronary artery without angina pectoris; J44.9 Chronic obstructive pulmonary disease, unspecified
CPT/HCPCS: 93010; 99214

== ENCOUNTER → 2023-11-22 13:22 | Outpatient (BNVA) | payer MEDICARE, SELFPAY | PROVIDERS: PCP Internal Medicine; Visit Provider Internal Medicine | DX: I48.0 Paroxysmal atrial fibrillation (principal); I35.1 Nonrheumatic aortic (valve) insufficiency; I25.10 Atherosclerotic heart disease of native coronary artery without angina pectoris; J44.9 Chronic obstructive pulmonary disease, unspecified | CPT/HCPCS: 93005; 99212 ==

== ENCOUNTER 2023-12-13 06:12 | Outpatient (REF) | payer MEDICARE, SELFPAY ==
[2023-12-13 06:22] LABS: MANUAL DIFF FLAG NO
[2023-12-13 07:11] LABS: Basophils Percent Auto 0.4 % (0-2); Eosinophils Absolute Auto 0.5 X10*3/uL (0.0-0.4); Eosinophils Percent Auto 10.9 % (0-4); Hematocrit 36.4 % (42.0-52.0); Hemoglobin 12.3 g/dl (14.0-18.0); Imm Gran Abs Auto 0.03 X10*3/uL (0.00-0.03); Imm Gran Pct Auto 0.6 % (0.0-0.4); Immature Retic Fraction 3.9 % (2.3-13.4); Lymphocytes Absolute Auto 1.7 X10*3/uL (1.2-4.9); Mean Corpuscular HGB Conc 33.8 g/dl (31.0-36.0); Mean Corpuscular Hemoglobin 29.9 pg (27.0-33.0); Mean Corpuscular Volume 88.6 fL (80.0-98.0); Mean Platelet Volume 9.7 fL (9.4-12.4); Monocytes Absolute Auto 0.4 X10*3/uL (0.1-1.2); Neutrophils Absolute Auto 2.2 x10*3/uL (2.0-8.3); Neutrophils Percent Auto 45.1 % (45-73); Platelet Count 155 X10*3/uL (160-400); Red Blood Count 4.11 X10*6/uL (4.60-5.80); Red Cell Distribution Width 13.5 % (11.0-16.0); Reticulocytes Absolute 0.042 X10*6/uL (0.026-0.095); White Blood Count 4.9 X10*3/uL (4.8-10.8)
[2023-12-13 07:50] LABS: Alanine Aminotransferase 18 U/L (0-40); Albumin Level 4.1 g/dL (3.5-5.0); Alkaline Phosphatase 64 U/L (39-117); Anion Gap 11 (12-20); Aspartate Amino Transferase 22 U/L (5-37); Bilirubin Total 0.5 mg/dL (0.0-1.0); Blood Urea Nitrogen 26 mg/dL (9-16); Calcium 9.5 mg/dL (8.4-10.2); Carbon Dioxide 25 mmol/L (22-29); Chloride 107 mmol/L (96-108); Estimated Glomerular Filt Rate > 60; Glucose Random 84 mg/dL (60-115); Iron 73 mcg/dL (45-160); Percent Iron Saturation 27 % (15-50); Potassium 3.8 mmol/L (3.3-5.1); Sodium 139 mmol/L (135-145); Total Iron Binding Capacity 267 mcg/dL (228-428); Total Protein 6.6 g/dL (6.5-8.0); Unsaturated Iron Binding 194 ug/dL
[2023-12-13 08:08] LABS: Ferritin 227 ng/mL (20-250); Free T4 (Free Thyroxine) 0.83 ng/dL (0.71-1.85); Thyroid Stimulating Hormone 3.07 uIU/mL (0.32-4.0)
[2023-12-13 08:11] LABS: Vitamin B12 314 pg/mL (200-900)
== END 2023-12-13 06:13 | disposition home or self-care (01) ==
LOC: HO.LAB 06:12
PROVIDERS: PCP Internal Medicine; Visit Provider Internal Medicine
DX: E78.00 Pure hypercholesterolemia, unspecified (principal)
CPT/HCPCS: 36415; 80053; 82607; 82728; 82746; 83540; 84439; 84443; 85025; 85045

== ENCOUNTER 2023-12-22 10:40 | Outpatient (AMB) | payer MEDICARE, SELFPAY ==
[2023-12-22 10:59] VITALS: BP 132/78; PULSE 61; O2SAT 97; BMI 25.0
--- NOTE | 2023-12-22 11:00 | A.OFFVIS_ITS ---
Intake Vital Signs 12/22/23 10:59 Height 5 ft 7 in Weight 159 lb 8 oz BMI 25.0 BP 132/78 Blood Pressure Location Lt brachial Position Sitting Pulse 61 Pulse Source Pulse Oximeter Pulse Oximetry (%) 97 Oxygen Delivery Method Room Air Intake Visit Reasons: AWV [id number] Health And Safety Technician Required: No Allergies gabapentin Allergy (Unknown, Verified 12/22/23 11:00) Insomnia, increased pain latex Allergy (Unknown, Verified 12/22/23 11:00) Slight reaction - Rash nicotine Allergy (Unknown, Verified 12/22/23 11:00) patch- rash, rash Medication List - Last Reconciled 12/22/23 by Lacho Mcdonnell MD albuterol sulfate 90 mcg/actuation 2 puffs inhalation QID PRN apixaban (Eliquis) 5 mg PO BID 90 days diltiazem HCl CD 180 mg PO DAILY fluticasone furoate-vilanterol 200-25 mcg/dose (Breo Ellipta) 1 inh inhalation DAILY furosemide (Lasix) 20 mg PO DAILY sertraline 25 mg PO DAILY 90 days simvastatin 40 mg PO DAILY 90 days tamsulosin (Flomax) 0.8 mg (2 x 0.4 mg) PO BEDTIME 90 days tobramycin 0.3% 2 drps otic (ear) left Q4H umeclidinium 62.5 mcg/actuation (Incruse Ellipta) 1 inh inhalation BEDTIME Do you need a note to return to daycare/school/sports/work: No HPI AWV G0438 HPI Details 78-year-old male with atrial fibrillatio n history of prostate cancer hypercholesterolemia COPD generalized anxiety disorder last seen in 06/20/2023. Patient is here for an annual physical visit patient was reminded about colon cancer screening. Cardiology 11/18/2023 last echocardiogram EF 60-65%. On simva statin LDL 125 advised to get it down lower. 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 PAF (paroxysmal atrial fibrillation) History of alcohol abuse Bladder diverticulum Thrombocytopenia BPH (benign prostatic hyperplasia) Vitamin D deficiency COPD (chronic obstructive pulmonary disease) Hypercholesterolemia Tobacco abuse Asbestosis Post herpetic neuralgia Surgical History H/O hand surgery Lesion of tongue Family History Father Bladder cancer Mother Colon cancer Chronic mental illness Brother Myocardial infarction Other Mental health disorder Social History (Updated 12/22/23 @ 11:49 by Lacho Mcdonnell MD) Household Members: Spouse Housing: House Do you presently have visiting nurse or other home services: No Alcohol intake: former Year quit: 1979 Patient Tobacco Use Status: Former Tobacco user Tobacco use type: Cigarette Years Smoked: 60 +/- stopped 2020- on on nicotine lozenge still occ (12/21) e-Cigarette/Vaping Use: Never Used Second Hand Smoke Exposure: No Advance Directives Date on File: 03/23/20 service: No Current occupational status: retired Cognitive needs: No Hearing needs: No Vision needs: No Questionnaire Medicare Wellness Checkup [age] What gender do you identify with?: male During the past 4 weeks, how much have you been bothered by emotional problems such as feeling anxious, depressed, irritable, sad or downhearted, and blue?: not at all During the past 4 weeks, has your physical & emotional health limited your social activities with family, friends, neighbors, or groups?: not at all During the past 4 weeks, how much bodily pain have you generally had?: moderate pain During the past 4 weeks, was someone available to help you if you needed & wanted help?: yes, as much as I wanted During the past 4 weeks, what was the hardest physical activity you could do for at least 2 minutes?: moderate Can you get to places out of walking distance without help? (For eg., can you travel alone on buses, taxis or drive your car?): Yes Can you go shopping for groceries or clothes without someone's help?: Yes Can you prepare your own meals?: Yes Can you do your housework without help?: Yes Because of any health problems, do you need the help of another person with your personal care needs such as eating, bathing, dressing or getting around the house?: No Can you handle your own money without help?: Yes During the past 4 weeks, how would you rate your health in general?: good During the past 4 weeks how have things been going for you?: pretty well Are you having difficulties driving your car?: no Do you always fasten your seat belt when you are in a car?: yes, usually During past 4 weeks, have you been bothered by the following: never: Falling or dizzy when standing up, Sexual problems?, Trouble eating well? and Problems using the telephone?, sometimes: Tiredness or fatigue? and often: Teeth or denture problems? Have you fallen 2 or more times in the past year?: No Are you afraid of falling?: No Are you a smoker?: no During the past 4 weeks, how many drinks of wine, beer, or other alcoholic beverages did you have?: no alcohol at all Do you exercise for about 20 minutes 3 or more times a week?: yes, most of the time Have you been given information to help with the following?: no: Hazards in your house that might hurt you? and no: Keeping track of your medications? How often do you have trouble taking medicines the way you have been told to take them?: I always take medicine as prescribed How confident are you that you can control & manage most of your health problems?: very confident What is your race?: White PHQ-9 Over the last 2 weeks, how often have you been bothered by any of the following problems? 1. Little interest or pleasure in doing things: not at all 2. Feeling down, depressed, or hopeless: not at all 3. Trouble falling or staying asleep, or sleeping too much: not at all 4. Feeling tired or having little energy: several days 5. Poor appetite or overeating: not at all 6. Feeling bad about yourself - or that you are a failure or have let yourself or your family down: not at all 7. Trouble concentrating on things, such as reading the newspaper or watching television: not at all 8. Moving or speaking so slowly that other people could have noticed. Or the opposite - being so fidgety or restless that you have been moving around a lot more than usual: not at all 9. Thoughts that you would be better off or of hurting yourself in some way: not at all Total score: 1 Depression Screening Interpretation: Negative Depression Screening Done: Yes 37156 - PHQ-9 Billing: Yes Source: Developed by Drs. Ravin Handy, Angella Reynolds, Rodger Hameed and colleagues, with an educational greg from [employer]. PHQ-2/PHQ-9 PHQ-2 Over the last 2 weeks, how often have you been bothered by any of the following problems? 1. Little interest or pleasure in doing things: not at all 2. Feeling down, depressed, or hopeless: not at all Total score: 0 If score is 3 or greater, continue 3. Trouble falling or staying asleep, or sleeping too much: not at all 4. Feeling tired or having little energy: several days 5. Poor appetite or overeating: not at all 6. Feeling bad about yourself - or that you are a failure or have let yourself or your family down: not at all 7. Trouble concentrating on things, such as reading the newspaper or watching television: not at all 8. Moving or speaking so slowly that other people could have noticed. Or the opposite - being so fidgety or restless that you have been moving around a lot more than usual: not at all 9. Thoughts that you would be better off or of hurting yourself in some way: not at all Total score: 1 0-4 None-Minimal, 5-9 Mild, 10-14 Moderate, 15-19 Moderately Severe, 20-27 Severe Source: Developed by Drs. Ravin Handy, Angella Reynolds, Rodger Hameed and colleagues, with an educational greg from [employer]. Thrive Questionnaire Date Thrive assessed: 12/22/23 I am a: Patient What is your living situation today?: I have a steady place to live Within the past 12 months, did the food you bought not last and you didn't have the money to get more?: Never true Within the past 12 months, did you worry whether your food would run out before you got money to buy more?: Never true Do you have trouble paying for medicines?: No Do you have trouble getting transportation to medical appointments?: No Do you have trouble paying your heating and electricity bill?: No Do you have trouble taking care of your child, family member or friend?: No Do you have trouble with day-to-day activities such as bathing, preparing meals, shopping, managing finances, etc.?: No Are you currently unemployed and looking for a job?: No Are you interested in more education?: No Please select the resources that you would like help with: None Currently or been in a relationship where the following occur: No concerns reported THRIVE Score: 0 CONNOR-7 AMB Questionnaire CONNOR-7 Date CONNOR - 7 assessed: 12/22/23 Feeling nervous, anxious, or on edge: 0 = Not at all Not being able to stop or control worryin = Not at all Worrying too much about different things: 0 = Not at all Trouble relaxin = Not at all Being so restless that it is hard to sit still: 0 = Not at all Becoming easily annoyed or irritable: 0 = Not at all Feeling afraid as if something awful might happen: 0 = Not at all Total CONNOR-7 score (0-4 normal; 5-9 mild; 10-14 moderate; 15-21 severe): 0 Source: Developed by Drs. Ravin Handy, Angella Reynolds, Rodger Hameed and colleagues, with an educational greg from [employer]. Review of Systems Const Denies poor appetite and Denies weakness Eyes Denies no additional complaints ENT Reports Normal hearing present, Denies dizziness, Denies nasal congestion, Denies tinnitus and Denies sore throat Card Denies chest pain, Denies syncope, Denies rapid heart rate and Denies dyspnea Resp Denies cough and Denies dyspnea GI Denies change in stool character, Reports constipation, Denies diarrhea, Denies nausea and Denies vomiting Denies dysuria and Denies urinary frequency Neuro Reports Normal hearing present, Denies confusion, Denies dizziness, Denies syncope and Denies weakness Psych Denies confusion Physical Exam Vital Signs: Last Vital Signs Pulse 61 12/22/23 10:59 BP 132/78 12/22/23 10:59 Pulse Ox 97 12/22/23 10:59 Oxygen Delivery Method Room Air 12/22/23 10:59 BMI result Body Mass Index 25.0 Const General: No confusion Orientation/consciousness: No confusion HEENT Head: Yes normocephalic Ears: external ears normal and TM's normal bilaterally Face and sinus: Yes normal facial exam Mouth: moist mucous membranes Throat: Yes tonsils normal Eyes Conjunctivae: conjunctivae normal Pupils: Equal, round and reactive pupils present and Pupil accommodation reflex normal Direct Ophthalmoscopy: normal light reflex Neck Neck: No lymphadenopathy Thyroid: Thyroid normal Chest Chest palpation & inspection: normal inspection of the chest Resp Effort & Inspection: normal respiratory effort and no audible wheezes Auscultation: clear to auscultation bilaterally, no crackles, no wheezes and lung sounds not diminished Cardio Rate: regular rate Rhythm: regular rhythm Peripheral pulses: radial pulses present and dorsalis pedis present GI Other: guaiac negative no prostate + hemorrhoids Palpation (GI): no masses Auscultation: normal bowel sounds and normoactive bowel sounds Male General Exam: Yes normal external exam Skin General skin exam: no rashes or lesions noted Rashes: no rashes Neuro General: No confusion Cranial nerves: Yes Equal, round and reactive pupils present and Yes Normal hearing present Cognition (Neuro): normal cognition Gait exam (Neuro): Normal gait present Motor exam (neuro): 5/5 motor strength present throughout Deep tendon reflexes (DTR's): Right brachioradialis reflex intensity grade: 2+, Left brachioradialis reflex intensity grade: 2+, Right patellar reflex intensity grade: 2+ and Left patellar reflex intensity grade: 2+ Extrem Other: 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 General: No edema Immunizations tetanus-diphtheria toxoids-Td 2 Lf unit-2 Lf unit/0.5 mL IM suspension Performing Provider: Lacho Mcdonnell MD Performing Location: [facility] Administered by: Jesi Robles CMA on 12/22/23 12:08 Dose Route Admin Location Dispensed Lot Number Expiration Date NDC Spool Maker 0.5 mL IM Left Deltoid 0.5 mL [id number] 06/10/24 [id number] [employer] VIS Given Date VIS Provided VIS Publication Date 12/22/23 Single Vaccine 20 Eligibility Eligibility Date Funding Source Not [facility] Eligible 12/22/23 [facility] funds Assessment & Plan Assessment & Plan (1) Prostate cancer: Comment: October 2020 - high-grade, MRI extracapsular extension, high-grade prostate cancer external beam radiation with 18 m hormone therapy Code(s): C61 - Malignant neoplasm of prostate Plan: Patient continues to follow-up with urology and surveillance (2) PAF (paroxysmal atrial fibrillation): Code(s): I48.0 - Paroxysmal atrial fibrillation Plan: Continue with anticoagulation with Eliquis and on diltiazem 180 mg once a day (3) Hypercholesterolemia: Code(s): E78.00 - Pure hypercholesterolemia, unspecified Plan: Avoid fried foods, chicken skin, eggs, butter margarine, pastries and meat. Be it pork or beef they have a lot of cholesterol with the atherosclerosis concerned about LDL need to have really low cholesterol. On simvastatin (4) BPH (benign prostatic hyperplasia): Code(s): N40.0 - Benign prostatic hyperplasia without lower urinary tract symptoms Qualifiers: Lower urinary tract symptom presence: symptoms present Lower urinary tract symptom detail: incomplete bladder emptying Qualified Code(s): N40.1 - Benign prostatic hyperplasia with lower urinary tract symptoms; R39.14 - Feeling of incomplete bladder emptying Plan: Continue with tamsulosin (5) COPD (chronic obstructive pulmonary disease): Code(s): J44.9 - Chronic obstructive pulmonary disease, unspecified Qualifiers: COPD type: unspecified COPD Qualified Code(s): J44.9 - Chronic obstructive pulmonary disease, unspecified Plan: Continue with albuterol inhaler and Breo rinse mouth after using it (6) Generalized anxiety disorder: Code(s): F41.1 - Generalized anxiety disorder Plan: Continue with sertraline (7) Atherosclerotic cardiovascular disease: Code(s): I25.10 - Atherosclerotic heart disease of [place] coronary artery without angina pectoris (8) Colon cancer screening: Code(s): Z12.11 - Encounter for screening for malignant neoplasm of colon (9) Annual physical exam: Code(s): Z00.00 - Encounter for general adult medical examination without abnormal findings Plan: Patient is advised to eat healthy, keep well hydrated, keep active and have adequate sleep. Orders: Orders Td State Immunization Today Z23 - Encounter for immunization Lipid Panel Today E78.00 - Pure hypercholesterolemia, unspecified Referrals Gastroenterology Referral Z12.11 - Encounter for screening for malignant neoplasm of colon Quality Reporting (2019) Depression/Bipolar (159/160/161/177) PHQ-9: Total score: 1 Coding Diagnoses Prostate cancer C61 PAF (paroxysmal atrial fibrillation) I48.0 Hypercholesterolemia E78.00 Benign prostatic hyperplasia with incomplete bladder emptying N40.1; R39.14 Lower urinary tract symptom presence: symptoms present Lower urinary tract symptom detail: incomplete bladder emptying Pulmonary emphysema, unspecified emphysema type J44.9 COPD type: unspecified COPD Generalized anxiety disorder F41.1 Atherosclerotic cardiovascular disease I25.10 Colon cancer screening Z12.11 Annual physical exam Z00.00
--- NOTE | 2023-12-22 12:32 | MHC.PC.OV ---
Vital Signs 12/22/23 10:59 Height 5 ft 7 in Weight 159 lb 8 oz BMI 25.0 BP 132/78 Blood Pressure Location Lt brachial Position Sitting Pulse 61 Pulse Source Pulse Oximeter Pulse Oximetry (%) 97 Oxygen Delivery Method Room Air Intake Visit Reasons: ANNUAL Allergies gabapentin Allergy (Unknown, Verified 12/22/23 11:00) Insomnia, increased pain latex Allergy (Unknown, Verified 12/22/23 11:00) Slight reaction - Rash nicotine Allergy (Unknown, Verified 12/22/23 11:00) patch- rash, rash Medication List - Last Reconciled 12/22/23 by Lacho Mcdonnell MD albuterol sulfate 90 mcg/actuation 2 puffs inhalation QID PRN apixaban (Eliquis) 5 mg PO BID 90 days diltiazem HCl CD 180 mg PO DAILY fluticasone furoate-vilanterol 200-25 mcg/dose (Breo Ellipta) 1 inh inhalation DAILY furosemide (Lasix) 20 mg PO DAILY sertraline 25 mg PO DAILY 90 days simvastatin 40 mg PO DAILY 90 days tamsulosin (Flomax) 0.8 mg (2 x 0.4 mg) PO BEDTIME 90 days tobramycin 0.3% 2 drps otic (ear) left Q4H umeclidinium 62.5 mcg/actuation (Incruse Ellipta) 1 inh inhalation BEDTIME Tobacco use date assessed: 06/09/23 Dental Screening Dental Screen Date: 06/09/23 HPI ANNUAL HPI Details 78-year-old male with hypercholesterolemia atrial fibrillation COPD history of prostate cancer generalized anxiety disorder and atherosclerotic cardiovascular disease last seen in June patient is here for physical exam. 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 PAF (paroxysmal atrial fibrillation) History of alcohol abuse Bladder diverticulum Thrombocytopenia BPH (benign prostatic hyperplasia) Vitamin D deficiency COPD (chronic obstructive pulmonary disease) Hypercholesterolemia Tobacco abuse Asbestosis Post herpetic neuralgia Surgical History H/O hand surgery Lesion of tongue Family History Father Bladder cancer Mother Colon cancer Chronic mental illness Brother Myocardial infarction Other Mental health disorder Social History (Updated 12/22/23 @ 11:49 by Lacho Mcdonnell MD) Household Members: Spouse Housing: House Do you presently have visiting nurse or other home services: No Alcohol intake: former Year quit: 1979 Patient Tobacco Use Status: Former Tobacco user Tobacco use type: Cigarette Years Smoked: 59 +/- stopped 2020- on on nicotine lozenge still occ (12/21) e-Cigarette/Vaping Use: Never Used Second Hand Smoke Exposure: No Advance Directives Date on File: 03/23/20 service: No Current occupational status: retired Cognitive needs: No Hearing needs: No Vision needs: No Questionnaire Thrive Questionnaire Date Thrive assessed: 12/22/23 CONNOR-7 AMB Questionnaire CONNOR-7 Date CONNOR - 7 assessed: 12/22/23 Source: Developed by Drs. Ravin Handy, Angella Reynolds, Rodger Hameed and colleagues, with an educational greg from [employer]. Review of Systems Const Denies poor appetite and Denies weakness Eyes Denies no additional complaints ENT Reports Normal hearing present, Denies dizziness, Denies nasal congestion, Denies tinnitus and Denies sore throat Card Denies chest pain, Denies syncope, Denies rapid heart rate and Denies dyspnea Resp Denies cough and Denies dyspnea GI Denies change in stool character, Reports constipation, Denies diarrhea, Denies nausea and Denies vomiting Denies dysuria and Denies urinary frequency Neuro Reports Normal hearing present, Denies confusion, Denies dizziness, Denies syncope and Denies weakness Psych Denies confusion Physical exam (Primary Care) Vital Signs: Last Vital Signs Pulse 61 12/22/23 10:59 BP 132/78 12/22/23 10:59 Pulse Ox 97 12/22/23 10:59 Oxygen Delivery Method Room Air 12/22/23 10:59 BMI result Body Mass Index 25.0 Tobacco/Smoking Status: Tobacco use Status Tobacco use date assessed 06/09/23 12/22/23 12:33 Patient Tobacco Use Status Former Tobacco user 12/22/23 12:33 Tobacco use type Cigarette 12/22/23 12:33 e-Cigarette/Vaping Use Never Used 12/22/23 12:33 Thrive Assessment: Date of Thrive Assessment Date Thrive assessed 12/22/23 12/22/23 12:33 Const General: No confusion Orientation/consciousness: No confusion HENMT Head: Yes normocephalic Ears: external ears normal and TM's normal bilaterally Face and sinus: Yes normal facial exam Mouth: moist mucous membranes Throat: Yes tonsils normal Eyes Conjunctivae: conjunctivae normal Pupils: Equal, round and reactive pupils present and Pupil accommodation reflex normal Direct Ophthalmoscopy: normal light reflex Neck Neck: No lymphadenopathy Thyroid: Thyroid normal Chest Chest palpation & inspection: normal inspection of the chest Resp Effort & Inspection: normal respiratory effort and no audible wheezes Auscultation: clear to auscultation bilaterally, no crackles, no wheezes and lung sounds not diminished Cardio Rate: regular rate Rhythm: regular rhythm Peripheral pulses: radial pulses present and dorsalis pedis present GI Other: No prostate guaiac negative, right hand with Dupuytren's contracture and the 5th finger Palpation (GI): no masses Auscultation: normal bowel sounds and normoactive bowel sounds Male General Exam: Yes normal external exam Skin General skin exam: no rashes or lesions noted Rashes: no rashes Neuro General: No confusion Cranial nerves: Yes Equal, round and reactive pupils present and Yes Normal hearing present Cognition (Neuro): normal cognition Gait exam (Neuro): Normal gait present Motor exam (neuro): 5/5 motor strength present throughout Deep tendon reflexes (DTR's): Right brachioradialis reflex intensity grade: 2+, Left brachioradialis reflex intensity grade: 2+, Right patellar reflex intensity grade: 2+ and Left patellar reflex intensity grade: 2+ Extrem General: No edema Immunizations tetanus-diphtheria toxoids-Td 2 Lf unit-2 Lf unit/0.5 mL IM suspension Performing Provider: Lacho Mcdonnell MD [place] [facility] [place] [facility] Administered by: Jesi Robles CMA on 12/22/23 12:08 Dose Route Admin Location Dispensed Lot Number Expiration Date [employer] Regional Maintenance Manager 0.5 mL IM Left Deltoid 0.5 mL [id number] 06/10/24 [address]-0 [employer] VIS Given Date VIS Provided VIS Publication Date 12/22/23 Single Vaccine 20 Eligibility Eligibility Date Funding Source Not VFC Eligible 12/22/23 State funds Assessment and Plan Assessment & Plan (1) Prostate cancer: Comment: October 2020 - high-grade, MRI extracapsular extension, high-grade prostate cancer external beam radiation with 18 m hormone therapy Code(s): C61 - Malignant neoplasm of prostate Plan: Continue to follow-up with urology PSA has been undetectable. (2) PAF (paroxysmal atrial fibrillation): Code(s): I48.0 - Paroxysmal atrial fibrillation Plan: Continue with anticoagulation with Eliquis and continue to monitor renal function (3) Hypercholesterolemia: Code(s): E78.00 - Pure hypercholesterolemia, unspecified Plan: Avoid fried foods, chicken skin, eggs, butter margarine, pastries and meat. Be it pork or beef they have a lot of cholesterol LDL goal of less than 70 and triglyceride of less than 150. Advised to repeat test (4) BPH (benign prostatic hyperplasia): Code(s): N40.0 - Benign prostatic hyperplasia without lower urinary tract symptoms Qualifiers: Lower urinary tract symptom detail: incomplete bladder emptying Lower urinary tract symptom presence: symptoms present Qualified Code(s): N40.1 - Benign prostatic hyperplasia with lower urinary tract symptoms; R39.14 - Feeling of incomplete bladder emptying Plan: Continue with tamsulosin 0.8 mg once a day (5) COPD (chronic obstructive pulmonary disease): Code(s): J44.9 - Chronic obstructive pulmonary disease, unspecified Qualifiers: COPD type: unspecified COPD Qualified Code(s): J44.9 - Chronic obstructive pulmonary disease, unspecified Plan: Continue with the inhalers (6) Generalized anxiety disorder: Code(s): F41.1 - Generalized anxiety disorder Plan: Stable (7) Atherosclerotic cardiovascular disease: Code(s): I25.10 - Atherosclerotic heart disease of [place] coronary artery without angina pectoris Plan: Control the cholesterol, weight, blood pressure, on anticoagulation (8) Colon cancer screening: Code(s): Z12.11 - Encounter for screening for malignant neoplasm of colon Plan: Reminded about colonoscopy (9) Annual physical exam: Code(s): Z00.00 - Encounter for general adult medical examination without abnormal findings Plan: Patient is advised to eat healthy, keep well hydrated, keep active and have adequate sleep. Orders: Orders Td State Immunization Today Z23 - Encounter for immunization Lipid Panel Today E78.00 - Pure hypercholesterolemia, unspecified Referrals Gastroenterology Referral Z12.11 - Encounter for screening for malignant neoplasm of colon Coding Level of Care Code Est Pt Prev Care >65y(40160) Diagnoses Prostate cancer C61 PAF (paroxysmal atrial fibrillation) I48.0 Hypercholesterolemia E78.00 Benign prostatic hyperplasia with incomplete bladder emptying N40.1; R39.14 Lower urinary tract symptom detail: incomplete bladder emptying Lower urinary tract symptom presence: symptoms present Pulmonary emphysema, unspecified emphysema type J44.9 COPD type: unspecified COPD Generalized anxiety disorder F41.1 Atherosclerotic cardiovascular disease I25.10 Colon cancer screening Z12.11 Annual physical exam Z00.00
== END 2023-12-22 12:16 | disposition home or self-care (01) ==
PROVIDERS: PCP Internal Medicine; Visit Provider Internal Medicine
DX: Z00.00 Encounter for general adult medical examination without abnormal findings (principal); J44.9 Chronic obstructive pulmonary disease, unspecified; C61 Malignant neoplasm of prostate; Z23 Encounter for immunization; I48.0 Paroxysmal atrial fibrillation; E78.00 Pure hypercholesterolemia, unspecified; N40.1 Benign prostatic hyperplasia with lower urinary tract symptoms; R39.14 Feeling of incomplete bladder emptying; F41.1 Generalized anxiety disorder; I25.10 Atherosclerotic heart disease of native coronary artery without angina pectoris; Z12.11 Encounter for screening for malignant neoplasm of colon
CPT/HCPCS: 90471; 90714; 99397

== ENCOUNTER 2024-03-01 07:15 | Outpatient (REF) | payer MEDICARE, SELFPAY ==
[2024-03-01 08:55] LABS: Cholesterol 185 mg/dL (<200); HDL Cholesterol 72 mg/dL (>40); LDL Cholesterol Calculated 102 mg/dL (<100); Triglycerides 57 mg/dL (<150)
[2024-03-01 09:22] LABS: Prostate Specific Antigen < 0.10 ng/mL (<0.05-4.0)
[2024-03-06 11:58] LABS: Testosterone, Total 45 ng/dL (250-1100)
== END 2024-03-01 07:16 | disposition home or self-care (01) ==
LOC: HO.LAB 07:15
PROVIDERS: Absent Provider Urology; PCP Internal Medicine; Visit Provider Internal Medicine
DX: C61 Malignant neoplasm of prostate (principal); E78.00 Pure hypercholesterolemia, unspecified; Z12.5 Encounter for screening for malignant neoplasm of prostate
CPT/HCPCS: 36415; 80061; 84153; 84403

== ENCOUNTER 2024-03-20 13:33 | Outpatient (AMB) | payer MEDICARE, SELFPAY ==
--- NOTE | 2024-03-20 13:38 | A.OFFVIS_ITS ---
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 Accompanied by: Self / Same As Patient Allergies gabapentin Allergy (Unknown, Verified 03/20/24 13:41) Insomnia, increased pain latex Allergy (Unknown, Verified 03/20/24 13:41) Slight reaction - Rash nicotine Allergy (Unknown, Verified 03/20/24 13:41) patch- rash, rash Medication List - Last Reconciled 03/20/24 by Trevor Malave MD albuterol sulfate 90 mcg/actuation 2 puffs inhalation QID PRN apixaban (Eliquis) 5 mg PO BID 90 days diltiazem HCl CD 180 mg PO DAILY fluticasone furoate-vilanterol 200-25 mcg/dose (Breo Ellipta) 1 inh inhalation DAILY furosemide (Lasix) 20 mg PO DAILY sertraline 25 mg PO DAILY 90 days simvastatin 40 mg PO DAILY 90 days tamsulosin (Flomax) 0.8 mg (2 x 0.4 mg) PO BEDTIME 90 days tobramycin 0.3% 2 drps otic (ear) left Q4H umeclidinium 62.5 mcg/actuation (Incruse Ellipta) 1 inh inhalation BEDTIME HPI Comments Details: Ravin is a very pleasant male. He is a patient of Dr Mcdonnell. He is seen for the following urologic conditions. - prostate cancer high-grade PSA remains low as does testosterone Continue good response to tamsulosin - requiring 2 tablets at night Feels adequate energy Defer testosterone investigation Six-month follow-up Prostate cancer high-grade last GnRH 10/28/21 - external beam radiation with hormone therapy Diagnosis - Dr. Malave September 2020 PSA 08/20 <0.1 T 13, 11/19 <0.1 7, 02/19 <0.1, 05/23 <0.1 26, 3 <0.1 T 5, 12/21 <0.1 T 41, 04/22 <0.1 80, 09/21 <0.1 T 46. 03/24 <0.1 45 Initial PSA 9.1 Biopsy 10/19 Histologic type: Adenocarcinoma, acinar type [place] score: 4+5=9 (right base lateral), 4+3=7 (right base medial), 3+4=7 (right mid lateral, right mid medial, right apex lateral, right apex medial), 3+3=6 (left base lateral, left mid lateral, left mid medial, left apex lateral, left apex medial) Tumor quantitation: Number cores positive: 11 Total number of cores: 12 Periprostatic fat inv.: Present Seminal vesicle inv.: Not identified Perineural inv.: Present LVI: Not identified Staging - 10/19 bone scan negative - 10/19 CT scan negative - no evidence of abdominal pelvic lymph nodes - 01/19 prostate MRI - PI-RADS 5 lesions, highly suspicious for local extracapsular extension. Contraindication for SPACEOar Therapy - 04/20 external beam radiation completed through [facility] - Did have prostatitis at the end of therapy requiring antibiotics a Sykes catheter Therapeutic plan 4 month lab work [facility] Medical History (Updated 12/22/23 @ 12:27 by Lacho Mcdonnell MD) Syncope Prostatitis Prostate cancer Otitis media PSA elevation Syncope and collapse snf current use of anticoagulant PAF (paroxysmal atrial fibrillation) History of alcohol abuse Bladder diverticulum Thrombocytopenia BPH (benign prostatic hyperplasia) Vitamin D deficiency COPD (chronic obstructive pulmonary disease) Hypercholesterolemia Tobacco abuse Asbestosis Post herpetic neuralgia Surgical History H/O hand surgery Lesion of tongue Family History Father Bladder cancer Mother Colon cancer Chronic mental illness Brother Myocardial infarction Other Mental health disorder Social History (Updated 12/22/23 @ 11:49 by Lacho Mcdonnell MD) Household Members: Spouse Housing: House Do you presently have visiting nurse or other home services: No Alcohol intake: former Year quit: 1979 Patient Tobacco Use Status: Former Tobacco user Tobacco use type: Cigarette Years Smoked: 59 +/- stopped 2020- on on nicotine lozenge still occ (12/21) e-Cigarette/Vaping Use: Never Used Second Hand Smoke Exposure: No Advance Directives Date on File: 03/23/20 service: No Current occupational status: retired Cognitive needs: No Hearing needs: No Vision needs: No Review of Systems Const Denies chills and Denies fever(s) Card Reports no additional complaints and Denies syncope Resp Denies cough GI Denies abdominal pain and Denies heartburn Reports as per HPI and Denies change in libido Neuro Denies syncope Psych Denies change in libido Endo Denies change in libido Physical Exam Const General: cooperative, healthy appearing, comfortable and no acute distress Orientation/consciousness: patient oriented x3 HEENT Face and sinus: Yes normal facial exam Mouth: moist mucous membranes Neck Neck: Yes normal visual inspection, Yes full ROM and Yes trachea midline Chest Chest palpation & inspection: normal inspection of the chest Resp Effort & Inspection: normal respiratory effort, able to speak in complete sentences and no respiratory distress GI Inspection: Yes normal to inspection Back/Spine/Pelvis Cervical Spine: normal cervical lordosis Thoracic/Lumbar Spine: thoracic and lumbar spine normal to inspection Skin General skin exam: no rashes or lesions noted Neuro General: patient oriented x3, gait normal, tone normal and moves all extremities Extrem General: Yes normal to inspection and Yes capillary refill normal Assessment & Plan Assessment & Plan (1) BPH (benign prostatic hyperplasia): Code(s): N40.0 - Benign prostatic hyperplasia without lower urinary tract symptoms Category: Medical Qualifiers: Lower urinary tract symptom presence: symptoms present Lower urinary tract symptom detail: incomplete bladder emptying Qualified Code(s): N40.1 - B enign prostatic hyperplasia with lower urinary tract symptoms; R39.14 - Feeling of incomplete bladder emptying (2) Prostate cancer: Comment: October 2020 - high-grade, MRI extracapsular extension, high-grade prostate cancer external beam radiation with 18 m hormone therapy Code(s): C61 - Malignant neoplasm of prostate Category: Medical Plan Six-month follow-up PSA and testosterone Orders: Orders Prostate Specific Antigen 6 Months C61 - Malignant neoplasm of prostate Testosterone, Total 6 Months C61 - Malignant neoplasm of prostate Medications: Refilled tamsulosin (Flomax) 0.8 mg (2 x 0.4 mg) PO BEDTIME 90 days 180 caps 1RF N40.1 - Benign prostatic hyperplasia with lower urinary tract symptoms, R39.14 - Feeling of incomplete bladder emptying Patient Instructions: Imaging studies, laboratory and physical exam results were discussed and reviewed in detail. No major barriers to patient understanding were identified. An opportunity to ask questions regarding the treatment plan was provided. All questions were answered. The patient expressed understanding and agreement with the above treatment plan. The patient is aware they should contact our office by phone for worsening of their current condition or the appearance of new urologic symptoms. Compliance is encouraged with any medications and followup testing that is ordered. It is a privilege to participate in the urologic care of your patient. If you have any questions or concerns regarding treatment for the above conditions, or other urologic issues, please do not hesitate to contact me. The office telephone contact is [phone]. This note is constructed using voice recognition software. While every effort has been made to ensure accuracy otr company truck driver errors may have been included. Yours sincerely, Dr Trevor Malave MD, [facility] - Urology Providers of Expert, Compassionate Care for the Genitourinary System Coding Level of Care Code Est Pt Level 3 (71836) Diagnoses Benign prostatic hyperplasia with incomplete bladder emptying N40.1; R39.14 Lower urinary tract symptom presence: symptoms present Lower urinary tract symptom detail: incomplete bladder emptying Prostate cancer C61
== END 2024-03-20 13:53 | disposition home or self-care (01) ==
PROVIDERS: PCP Internal Medicine; Visit Provider Urology
DX: N40.1 Benign prostatic hyperplasia with lower urinary tract symptoms (principal); R39.14 Feeling of incomplete bladder emptying; C61 Malignant neoplasm of prostate
CPT/HCPCS: 99213

== ENCOUNTER → 2024-03-20 13:33 | Outpatient (BNVA) | payer MEDICARE, SELFPAY | PROVIDERS: PCP Internal Medicine; Visit Provider Urology | DX: N40.1 Benign prostatic hyperplasia with lower urinary tract symptoms (principal); R39.14 Feeling of incomplete bladder emptying; C61 Malignant neoplasm of prostate | CPT/HCPCS: 99212 ==

== ENCOUNTER 2024-03-22 09:39 | Outpatient (AMB) | payer MEDICARE, SELFPAY ==
[2024-03-22 09:44] VITALS: BP 140/58; PULSE 60; O2SAT 94; BMI 25.4
--- NOTE | 2024-03-22 09:44 | A.OFFPC_ITS ---
Vital Signs 03/22/24 09:44 03/22/24 10:08 Height 5 ft 7 in Weight 162 lb BMI 25.4 BP 140/58 H 124/50 L Blood Pressure Location Lt brachial Lt brachial Position Sitting Sitting Pulse 60 Pulse Source Pulse Oximeter Pulse Oximetry (%) 94 Oxygen Delivery Method Room Air Intake Visit Reasons: 3 Month F/U Intake Note: Patient is here to follow up Allergies gabapentin Allergy (Unknown, Verified 03/22/24 09:46) Insomnia, increased pain latex Allergy (Unknown, Verified 03/22/24 09:46) Slight reaction - Rash nicotine Allergy (Unknown, Verified 03/22/24 09:46) patch- rash, rash Medication List - Last Reconciled 03/22/24 by Sandra Mckinley PA-C albuterol sulfate 90 mcg/actuation 2 puffs inhalation QID PRN apixaban (Eliquis) 5 mg PO BID 90 days diltiazem HCl CD 180 mg PO DAILY fluticasone furoate-vilanterol 200-25 mcg/dose (Breo Ellipta) 1 inh inhalation DAILY furosemide (Lasix) 20 mg PO DAILY sertraline 25 mg PO DAILY 90 days simvastatin 40 mg PO DAILY 90 days tamsulosin (Flomax) 0.8 mg (2 x 0.4 mg) PO BEDTIME 90 days tobramycin 0.3% 2 drps otic (ear) left Q4H umeclidinium 62.5 mcg/actuation (Incruse Ellipta) 1 inh inhalation BEDTIME Tobacco use date assessed: 06/09/23 Fall risk assessment: No Falls in past year Last assessed Fall Risk: 03/22/24 Dental Screening Dental Screen Date: 06/09/23 HPI 3 Month F/U HPI Details 78-year-old male with past medical histo ry of hypercholesterolemia, atrial fibrillation, COPD, history of prostate cancer, generalized anxiety disorder and atherosclerotic cardiovascular disease last seen November 2023 coming in for follow up.? In review of the notes patient was seen by [facility] 03/20/2024 advised to follow up in 4 months with blood work. Patient states he is doing well and does not have any acute concerns at this time. [facility] Medical History Syncope Prostatitis Prostate cancer Otitis media PSA elevation Syncope and collapse nursing home current use of anticoagulant PAF (paroxysmal atrial fibrillation) History of alcohol abuse Bladder diverticulum Thrombocytopenia BPH (benign prostatic hyperplasia) Vitamin D deficiency COPD (chronic obstructive pulmonary disease) Hypercholesterolemia Tobacco abuse Asbestosis Post herpetic neuralgia Surgical History H/O hand surgery Lesion of tongue Family History Father Bladder cancer Mother Colon cancer Chronic mental illness Brother Myocardial infarction Other Mental health disorder Social History Household Members: Spouse Housing: House Do you presently have visiting nurse or other home services: No Alcohol intake: former Year quit: 1979 Patient Tobacco Use Status: Former Tobacco user Tobacco use type: Cigarette Years Smoked: 60 +/- stopped 2020- on on nicotine lozenge still occ (12/21) e-Cigarette/Vaping Use: Never Used Second Hand Smoke Exposure: No Advance Directives Date on File: 03/23/20 service: No Current occupational status: retired Cognitive needs: No Hearing needs: No Vision needs: No Questionnaire Thrive Questionnaire Date Thrive assessed: 12/22/23 AUDIT C Alcohol Use Questionnaire (AUDIT-C) 1. How often do you have a drink containing alcohol?: Never 3. How often do you have six or more drinks on one occasion?: Never Total Score: 0 CONNOR-7 AMB Questionnaire CONNOR-7 Date CONNOR - 7 assessed: 12/22/23 Source: Developed by Drs. Ravin Handy, Angella Reynolds, Rodger Hameed and colleagues, with an educational greg from [employer]. Review of Systems Const Denies body aches, Denies chills, Denies fever(s), Denies headache(s) and Denies poor appetite Eyes Reports no additional complaints ENT Denies dysphagia, Denies dizziness, Denies headache(s) and Denies odynophagia Card Denies chest pain, Denies syncope, Denies edema, Denies irregular heart rhythm, Denies lightheadedness and Denies dyspnea Resp Denies cough and Denies dyspnea GI Denies abdominal pain, Denies constipation, Denies dysphagia, Denies diarrhea, Denies nausea, Denies odynophagia and Denies vomiting Reports no additional complaints Musc Reports no additional complaints and Denies abnormal gait Skin/Breast Reports system reviewed and no additional complaints, except as documented Neuro Denies abnormal gait, Denies dizziness, Denies syncope and Denies headache(s) Psych Reports no additional complaints Physical exam (Primary Care) Vital Signs: Oxygen Delivery Method Room Air 03/22/24 09:44 BMI result Body Mass Index 25.4 Tobacco/Smoking Status: Tobacco use Status Tobacco use date assessed 06/09/23 12/22/23 12:33 Patient Tobacco Use Status Former Tobacco user 12/22/23 12:33 Tobacco use type Cigarette 12/22/23 12:33 e-Cigarette/Vaping Use Never Used 12/22/23 12:33 Thrive Assessment: Date of Thrive Assessment Date Thrive assessed 12/22/23 12/22/23 12:33 Const General: cooperative, healthy appearing, comfortable and no acute distress Orientation/consciousness: patient oriented x3 HENMT Head: Yes normocephalic Ears: hearing grossly normal bilaterally General nose exam: Normal external nose present Eyes General: appearance normal, both eyes and all related structures Conjunctivae: conjunctivae normal Neck Neck: Yes full ROM and Yes no lymphadenopathy Resp Effort & Inspection: normal respiratory effort Auscultation: clear to auscultation bilaterally, no crackles, no rales, no rhonchi and no wheezes Cardio Rate: regular rate Rhythm: regular rhythm Skin General skin exam: no rashes or lesions noted Neuro General: patient oriented x3 Gait exam (Neuro): Normal gait present Extrem General: Yes normal to inspection, Yes full ROM and No edema Psych Affect: normal affect Attitude: cooperative Insight: Good insight present (Psych) Judgement: Good judgement present (Psych) Coding Level of Care Code Est Pt Level 4 (61631) Diagnoses Atherosclerotic cardiovascular disease I25.10 Prostate cancer C61 Pulmonary emphysema, unspecified emphysema type J44.9 COPD type: unspecified COPD PAF (paroxysmal atrial fibrillation) I48.0 Benign prostatic hyperplasia with incomplete bladder emptying N40.1; R39.14 Lower urinary tract symptom presence: symptoms present Lower urinary tract symptom detail: incomplete bladder emptying Hypercholesterolemia E78.00 Assessment & Plan Assessment & Plan (1) Atherosclerotic cardiovascular disease: Code(s): I25.10 - Atherosclerotic heart disease of ramona coronary artery without angina pectoris Category: Medical Plan: Advised good control of cholesterol, blood pressure and blood sugars. (2) Prostate cancer: Comment: October 2020 - high-grade, MRI extracapsular extension, high-grade prostate cancer external beam radiation with 18 m hormone therapy Code(s): C61 - Malignant neoplasm of prostate Category: Medical Plan: Following with urology and was advised blood work and follow up in 4 months. (3) COPD (chronic obstructive pulmonary disease): Code(s): J44.9 - Chronic obstructive pulmonary disease, unspecified Category: Medical Qualifiers: COPD type: unspecified COPD Qualified Code(s): J44.9 - Chronic obstructive pulmonary disease, unspecified Plan: Continue on inhalers and continue to avoid triggers such as allergens and smoke. (4) PAF (paroxysmal atrial fibrillation): Code(s): I48.0 - Paroxysmal atrial fibrillation Category: Medical Plan: Currently on anticoagulation with Eliquis 5 mg b.i.d. and diltiazem. (5) BPH (benign prostatic hyperplasia): Code(s): N40.0 - Benign prostatic hyperplasia without lower urinary tract symptoms Category: Medical Qualifiers: Lower urinary tract symptom presence: symptoms present Lower urinary tract symptom detail: incomplete bladder emptying Qualified Code(s): N40.1 - Benign prostatic hyperplasia with lower urinary tract symptoms; R39.14 - Feeling of incomplete bladder emptying Plan: Continue to follow with Urology. (6) Hypercholesterolemia: Code(s): E78.00 - Pure hypercholesterolemia, unspecified Category: Medical Plan: Avoid foods that are high in cholesterol such as red meat, fried foods, eggs and baked goods. Triglyceride goal of less than 50 and LDL goal of less than 70. currently on simvastatin 40 mg recommending to switch to high intensity statin and we will switch to atorvastatin 40 mg with repeat cholesterol in 3 months and follow up at that time. Plan This note was constructed using voice recognition software. While every effort has been made to ensure accuracy and outpatient dietitian, still areas may have been included sometimes these areas may affect the content or meeting of the given symptoms. Total time spent caring for the patient today was 20 minutes. This includes time spent before the visit reviewing the chart, time spent during the visit, and time spent after the visit and documentation. Orders: Orders Lipid Panel 3 Months E78.00 - Pure hypercholesterolemia, unspecified, I25.10 - Atherosclerotic heart disease of ramona coronary artery without angina pectoris Medications: New atorvastatin 40 mg PO DAILY 30 tabs 3RF Refilled albuterol sulfate 90 mcg/actuation 2 puffs inhalation QID PRN 1 inhaler 3RF shortness of breath or wheezing J43.9 - Emphysema, unspecified Discontinued simvastatin Discontinued Reason: Patient no longer taking 40 mg PO DAILY 90 days 90 tabs 1RF Z12.11 - Encounter for screening for malignant neoplasm of colon
[2024-03-22 10:08] VITALS: BP 124/50
== END 2024-03-22 10:15 | disposition home or self-care (01) ==
PROVIDERS: PCP Internal Medicine
DX: I25.10 Atherosclerotic heart disease of native coronary artery without angina pectoris (principal); C61 Malignant neoplasm of prostate; J44.9 Chronic obstructive pulmonary disease, unspecified; I48.0 Paroxysmal atrial fibrillation; N40.1 Benign prostatic hyperplasia with lower urinary tract symptoms; R39.14 Feeling of incomplete bladder emptying; E78.00 Pure hypercholesterolemia, unspecified

== ENCOUNTER → 2024-03-22 09:39 | Outpatient (BNVA) | payer MEDICARE, SELFPAY | PROVIDERS: PCP Internal Medicine | DX: I25.10 Atherosclerotic heart disease of native coronary artery without angina pectoris (principal); J44.9 Chronic obstructive pulmonary disease, unspecified; C61 Malignant neoplasm of prostate; I48.0 Paroxysmal atrial fibrillation; N40.1 Benign prostatic hyperplasia with lower urinary tract symptoms; R39.14 Feeling of incomplete bladder emptying; E78.00 Pure hypercholesterolemia, unspecified | CPT/HCPCS: 99212 ==

== ENCOUNTER 2024-06-28 06:09 | Outpatient (REF) | payer MEDICARE, SELFPAY ==
--- OUTSIDE RECORDS SUMMARY | 2024-06-28 06:13 | XMS_ITS ---
Author Organization [facility] Address [address] [place] [phone] Care Team Providers Care Incinerator Plant General Supervisor Name Role Phone Lahco Mcdonnell MD Primary Care Provider Ravin Grey Unavailable [phone] REASON FOR VISIT Patient presents today for a colon screening Encounters Encounter Location Date Provider Diagnosis [facility] [address] [place] [phone] 10/17/2023 Ravin Mckeon PLAN OF TREATMENT No Information
--- OUTSIDE RECORDS SUMMARY | 2024-06-28 06:13 | XMS_ITS | Patient Health Record ---
Author Organization [facility] Address [address] [place] [phone] Care Team Providers Care Key Punch Teacher Name Role Phone Lacho Mcdonnell MD Primary Care Provider Unavailsabrina e Gurvinder Mckeon Unavailable [phone] ALLERGIES No Known Allergies REASON FOR REFERRAL No Information MEDICATIONS Medication SIG (Take, Route, Frequency, Duration) Notes Start Date End Date Status Breo Ellipta 200-25 MCG/ACT Inhalation for 30 Active Incruse Ellipta 62.5 MCG/ACT INHALE 1 PUFF BY MOUTH AT BEDTIME Inhalation for 30 Active Eliquis 5 MG TAKE 1 TABLET BY MOUTH TWICE DAILY Oral for 30 Active Atorvastatin Calcium 40 MG TAKE 1 TABLET BY MOUTH DAILY Oral for 90 Active dilTIAZem HCl ER Coated Beads 180 MG Oral for 90 Active Tamsulosin HCl 0.4 MG TAKE 2 CAPSULES BY MOUTH EVERY NIGHT AT BEDTIME Oral for 90 Active Furosemide 20 MG TAKE 1 TABLET BY MOUTH DAILY Oral for 90 Active Sertraline HCl 25 MG TAKE 1 TABLET BY MOUTH DAILY Oral for 90 F411,Unavailabl e Active SOCIAL HISTORY Tobacco Use: Social History Observation Description Date Details (start date - stop date) Former Smoker NA - NA Sex Assigned At : Social History Observation Description Sex Assigned At Unknown Tobacco Use/Smoking Question Answer Notes Patient is a former smoker PROBLEMS Problem Type ICD Code Onset Dates Problem Status W/U Status Risk SNOMED Code Notes Problem Colon cancer screening (Z12.11) Active confirmed Colon cancer screening (888805992) Problem Encounter for other preprocedural examination (Z01.818) Active confirmed Pre-procedure evaluation check (352216505) VITAL SIGNS Blood pressure diastolic 00 mm Hg 05/07/2024 Height 68 in 05/07/2024 Blood pressure systolic 00 mm Hg 05/07/2024 Weight 163 lbs 05/07/2024 BMI 24.78 kg/m2 05/07/2024 Encounters Encounter Location Date Provider Diagnosis [facility] [address] [place] [address] 10/17/2023 Gurvinder Mckeon [facility] [address] [place] [phone] 05/07/2024 Gurvinder Mckeon Colon cancer screeni ng Z12.11 and Encounter for other preprocedural examination Z01.818 [facility] [address] [place] [address] 10/16/2023 Gurvinder Mckeon ASSESSMENTS Encounter Date Diagnosis Assessment Notes Treatment Notes Treatment Clinical Notes 05/07/2024 Colon cancer screening (ICD-10 - Z12.11) Ask Dr. Mcdonnell about obtaining a Cologuard test and then let me know the results either way. If it is positive we will then set up a colonoscopy for you 05/07/2024 Encounter for other preprocedural examination (ICD-10 - Z01.818) PLAN OF TREATMENT Future Test Test Name Order Date COLONOSCOPY 06/04/2013 Insurance Providers Payer Name Payer Address Payer Phone Subscriber Number Group Number Insured Name Patient Relationship to Insured Coverage Start Date Coverage End Date [facility] [address] [place], [place] [id number] [phone] [id number] GURVINDER LOPEZ Self - patient is the insured MEDICAL (GENERAL) HISTORY Medical History History ICD Code Colonoscopy 07-12-2006- smal l tubular adenoma removed--also had mild sigmoid diverticulosis, and internal and external hemorrhoids Hyperlipidemia Denies [place],DM,CVA,renal disease Mild asthma/sinus issues COPD/aspestosis/emphysema Colonoscopy 2013 with a small tubular ad enoma Atrial fibrillation-Dr. Lane 2021 Prostate cancer - Dr. Malave --XRT, hormone treatments Surgical History Surgery Date(Month/Year) Tongue surgery for precancerous lesions in the Hand surgery for Dupuytren's contracture s on the left-Dr. Denton Cataract surgery
--- OUTSIDE RECORDS SUMMARY | 2024-06-28 06:13 | XMS_ITS ---
Author Organization [facility] Address [address] [place] [phone] Care Team Providers Care Way Inspector Name Role Phone Lacho Mcdonnell MD Primary Care Provider Unavailabl e Gurvinder Mckeon Unavailable [phone] ALLERGIES No Known Allergies REASON FOR VISIT colon screening MEDICATIONS Medication SIG (Take, Route, Frequency, Duration) Notes Start Date End Date Status Incruse Ellipta 62.5 MCG/ACT INHALE 1 PUFF [...] NIGHT AT BEDTIME Oral for 90 Active Breo Ellipta 200-25 MCG/ACT Inhalation for 30 Active Furosemide 20 MG TAKE 1 TABLET [...] Answer Notes Patient is a former smoker Alcohol Screen Question Answer Notes Did you have a drink containing alcohol in the p ast year? No Points 0 Interpretation Negative PROBLEMS Problem Type ICD Code Onset Dates Problem Status W/U Status Risk SNOMED Code Notes Problem Colon cancer screening (Z12.11) Active confirmed Colon cancer screening (306928859) Problem Encounter for other preprocedural examination (Z01.818) Active confirmed Pre-procedure evaluation check (761165790) VITAL SIGNS Blood pressure systolic 00 mm Hg 05/07/19 25 Blood pressure diastolic 00 mm Hg 025 Height 68 in 05/07/2024 Weight 163 lbs 05/07/2024 BMI 24.78 kg/m2 05/07/2024 Encounters Encounter Location Date Provider Diagnosis [facility] [address] [place] [address] 05/07/2024 Gurvinder Mckeon Colon cancer screeni ng Z12.11 and Encounter for other preprocedural examination Z01.818 ASSESSMENTS Encounter Date Diagnosis Assessment Notes Treatment Notes Treatment Clinical Notes 05/07/2024 Colon cancer screening (ICD-10 - Z12.11) Ask Dr. Mcdonnell about obtaining a Cologuard test and then let me know the results either way. If it is positive we will then set up a colonoscopy for you 05/07/2024 Encounter for other preprocedural examination (ICD-10 - Z01.818) PLAN OF TREATMENT Treatment Notes Assessment Notes Colon cancer screening Ask Dr. Mcdonnell about obtaining a Cologuard test and then let me know the results either way. If it is positive we will then set up a colonoscopy for you Next Appt Details Follow Up: prn, Reason: Progress Notes * Examination Category Sub-Category Detail Notes General Examination GENERAL APPEARANCE: pleasant , well nourished, well developed, in no acute distress EYES: sclera non-icteric NECK/THYROID: no cervical lymphade nopathy, neck supple HEART: S1, S2 normal LUNGS: clear to auscultatio n bilaterally ABDOMEN: normal bowel sounds, no guarding or rigidity, no hepatosplenomegaly, no masses palpable, soft, nontender, nondistended. NEUROLOGIC: alert and oriented SKIN: nonjaundiced, no spi cindy angiomata. EXTREMITIES: no edema ORAL CAVITY: mucosa moist
--- OUTSIDE RECORDS SUMMARY | 2024-06-28 06:13 | XMS_ITS ---
Author Organization [facility] Address [address] [place] [phone] Care Team Providers Care Latex Caster Name Role Phone Po Lacho MORALES Primary Care Provider Gurvinder Grey Unavailable [phone] REASON FOR VISIT cancel OV Encounters Encounter Location Date Provider Diagnosis [facility] [address] [place] [phone] 10/16/2023 Gurvinder Mckeon PLAN OF TREATMENT No Information
[2024-06-28 08:40] LABS: Cholesterol 165 mg/dL (<200); HDL Cholesterol 61 mg/dL (>40); LDL Cholesterol Calculated 84 mg/dL (<100); Triglycerides 102 mg/dL (<150)
== END 2024-06-28 06:10 | disposition home or self-care (01) ==
LOC: HO.LAB 06:09
PROVIDERS: PCP Internal Medicine
DX: E78.00 Pure hypercholesterolemia, unspecified (principal); I25.10 Atherosclerotic heart disease of native coronary artery without angina pectoris
CPT/HCPCS: 36415; 80061

== ENCOUNTER 2024-07-04 11:26 | Outpatient (AMB) | payer MEDICARE, SELFPAY ==
[2024-07-04 11:33] VITALS: BP 142/70; PULSE 66; TEMP 36.6; O2SAT 97; BMI 26.5
--- NOTE | 2024-07-04 11:33 | MHC.PC.OV ---
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 Accompanied by: Self / Same As Patient Allergies gabapentin Allergy (Unknown, Verified 07/04/24 11:35) Insomnia, increased pain latex Allergy (Unknown, Verified 07/04/24 11:35) Slight reaction - Rash nicotine Allergy (Unknown, Verified 07/04/24 11:35) patch- rash, rash Medication List - Last Reconciled 07/04/24 by Lacho Mcdonnell MD albuterol sulfate 90 mcg/actuation 2 puffs inhalation QID PRN apixaban (Eliquis) 5 mg PO BID 90 days atorvastatin 40 mg PO DAILY diltiazem HCl CD 180 mg PO DAILY fluticasone furoate-vilanterol 200-25 mcg/dose (Breo Ellipta) 1 inh inhalation DAILY furosemide (Lasix) 20 mg PO DAILY sertraline 25 mg PO DAILY 90 days tamsulosin (Flomax) 0.8 mg (2 x 0.4 mg) PO BEDTIME 90 days tobramycin 0.3% 2 drps otic (ear) left Q4H umeclidinium 62.5 mcg/actuation (Incruse Ellipta) 1 inh inhalation BEDTIME Tobacco use date assessed: 07/04/24 Fall risk assessment: 1 Fall in past year Last assessed Fall Risk: 07/04/24 Dental Screening Dental Screen Date: 07/04/24 Did you have a dental visit in the last 12 months?: No Did you have a dental problem in the last 6 months where you did not have access to dental care?: No PFSH Medical History Syncope Prostatitis Prostate cancer Otitis media PSA elevation 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 PAF (paroxysmal atrial fibrillation) History of alcohol abuse Bladder diverticulum Thrombocytopenia BPH (benign prostatic hyperplasia) Vitamin D deficiency COPD (chronic obstructive pulmonary disease) Hypercholesterolemia Tobacco abuse Asbestosis Post herpetic neuralgia Surgical History H/O hand surgery Lesion of tongue Family History Father Bladder cancer Mother Colon cancer Chronic mental illness Brother Myocardial infarction Other Mental health disorder Social History Household Members: Spouse Housing: House Do you presently have visiting nurse or other home services: No Alcohol intake: former Year quit: 1979 Patient Tobacco Use Status: Former Tobacco user Tobacco use type: Cigarette Years Smoked: 59 +/- stopped 2020- on on nicotine lozenge still occ (12/21) e-Cigarette/Vaping Use: Never Used Second Hand Smoke Exposure: No Advance Directives Date on File: 03/23/20 service: No Current occupational status: retired Cognitive needs: No Hearing needs: No Vision needs: No Questionnaire PHQ-9 Over the last 2 weeks, how often have you been bothered by any of the following problems? 1. Little interest or pleasure in doing things: not at all 2. Feeling down, depressed, or hopeless: not at all 3. Trouble falling or staying asleep, or sleeping too much: not at all 4. Feeling tired or having little energy: not at all 5. Poor appetite or overeating: not at all 6. Feeling bad about yourself - or that you are a failure or have let yourself or your family down: not at all 7. Trouble concentrating on things, such as reading the newspaper or watching television: not at all 8. Moving or speaking so slowly that other people could have noticed. Or the opposite - being so fidgety or restless that you have been moving around a lot more than usual: not at all 9. Thoughts that you would be better off or of hurting yourself in some way: not at all Total score: 0 Source: Developed by Drs. Ravin Handy, Angella Reynolds, Rodger Hameed and colleagues, with an educational greg from [employer]. Thrive Questionnaire Date Thrive assessed: 07/04/24 I am a: Patient What is your living situation today?: I have a steady place to live Within the past 12 months, did the food you bought not last and you didn't have the money to get more?: Never true Within the past 12 months, did you worry whether your food would run out before you got money to buy more?: Never true Do you have trouble paying for medicines?: No Do you have trouble getting transportation to medical appointments?: No Do you have trouble paying your heating and electricity bill?: No Do you have trouble taking care of your child, family member or friend?: No Do you have trouble with day-to-day activities such as bathing, preparing meals, shopping, managing finances, etc.?: No Are you currently unemployed and looking for a job?: No Are you interested in more education?: No THRIVE Score: 0 AUDIT C Alcohol Use Questionnaire (AUDIT-C) 1. How often do you have a drink containing alcohol?: Never 3. How often do you have six or more drinks on one occasion?: Never Total Score: 0 CONNOR-7 AMB Questionnaire CONNOR-7 Date CONNOR - 7 assessed: 07/04/24 Feeling nervous, anxious, or on edge: 0 = Not at all Not being able to stop or control worryin = Not at all Worrying too much about different things: 0 = Not at all Trouble relaxin = Not at all Being so restless that it is hard to sit still: 0 = Not at all Becoming easily annoyed or irritable: 0 = Not at all Feeling afraid as if something awful might happen: 0 = Not at all Total CONNOR-7 score (0-4 normal; 5-9 mild; 10-14 moderate; 15-21 severe): 0 Source: Developed by Drs. Ravin Handy, Angella Reynolds, Rodger Hameed and colleagues, with an educational greg from [employer]. Physical exam (Primary Care) Vital Signs: Last Vital Signs Temp 97.8 F 07/04/24 11:33 Pulse 66 07/04/24 11:33 BP 142/70 H 07/04/24 11:33 Pulse Ox 97 07/04/24 11:33 Oxygen Delivery Method Room Air 07/04/24 11:33 BMI result Body Mass Index 26.5 Tobacco/Smoking Status: Tobacco use Status Tobacco use date assessed 07/04/24 07/04/24 11:41 Patient Tobacco Use Status Former Tobacco user 07/04/24 11:41 Tobacco use type Cigarette 03/06/25 11:41 e-Cigarette/Vaping Use Never Used 07/04/24 11:41 PHQ-9: PHQ-9 Score PHQ-9: Total score 0 07/04/24 11:41 Thrive Assessment: Date of Thrive Assessment Date Thrive assessed 07/04/24 07/04/24 11:41 Const General: alert; No acute distress Eyes Conjunctivae: conjunctivae normal Resp Auscultation: clear to auscultation bilaterally Cardio Rate: regular rate Rhythm: regular rhythm GI Inspection: Yes normal to inspection Extrem General: Yes normal to inspection and No edema Coding Level of Care Code Est Pt Level 4 (99930) Complex EM visit Add On G2211 Diagnoses Colon cancer screening Z12.11 Atherosclerotic cardiovascular disease I25.10 Low testosterone R79.89 Prostate cancer C61 Pulmonary emphysema, unspecified emphysema type J44.9 COPD type: unspecified COPD PAF (paroxysmal atrial fibrillation) I48.0 Benign prostatic hyperplasia with incomplete bladder emptying N40.1; R39.14 Lower urinary tract symptom presence: symptoms present Lower urinary tract symptom detail: incomplete bladder emptying Hypercholesterolemia E78.00 Assessment & Plan Assessment & Plan (1) Colon cancer screening: Code(s): Z12.11 - Encounter for screening for malignant neoplasm of colon Category: Medical Plan: Patient is going to have Cologuard testing as recommended by Gastroenterology (2) Atherosclerotic cardiovascular disease: Code(s): I25.10 - Atherosclerotic heart disease of [place] coronary artery without angina pectoris Category: Medical Plan: Control the cholesterol, weight, blood pressure, on anticoagulation right now with Eliquis (3) Low testosterone: Code(s): R79.89 - Other specified abnormal findings of blood chemistry Category: Medical Plan: Patient continues to follow-up with urology (4) Prostate cancer: Comment: October 2020 - high-grade, MRI extracapsular extension, high-grade prostate cancer external beam radiation with 18 m hormone therapy Code(s): C61 - Malignant neoplasm of prostate Category: Medical Plan: Patient follows up with urology surveillance (5) COPD (chronic obstructive pulmonary disease): Code(s): J44.9 - Chronic obstructive pulmonary disease, unspecified Category: Medical Qualifiers: COPD type: unspecified COPD Qualified Code(s): J44.9 - Chronic obstructive pulmonary disease, unspecified Plan: Stable and on albuterol inhaler as needed (6) PAF (paroxysmal atrial fibrillation): Code(s): I48.0 - Paroxysmal atrial fibrillation Category: Medical Plan: Continue with anticoagulation and diltiazem. will continue to monitor (7) BPH (benign prostatic hyperplasia): Code(s): N40.0 - Benign prostatic hyperplasia without lower urinary tract symptoms Category: Medical Qualifiers: Lower urinary tract symptom presence: symptoms present Lower urinary tract symptom detail: incomplete bladder emptying Qualified Code(s): N40.1 - Benign prostatic hyperplasia with lower urinary tract symptoms; R39.14 - Feeling of incomplete bladder emptying Plan: Patient takes tamsulosin (8) Hypercholesterolemia: Code(s): E78.00 - Pure hypercholesterolemia, unspecified Category: Medical Plan: Avoid fried foods, chicken skin, eggs, butter margarine, pastries and meat. Be it pork or beef they have a lot of cholesterol LDL goal of less than 70 and triglyceride of less than 150 patient is on atorvastatin 40 mg once a day Plan History of Present Illness The patient is a 78-year-old male presenting with multiple chronic conditions including hypercholesterolemia and atrial fibrillation. The patient's current management of hypercholesterolemia with atorvastatin is under review to achieve further lipid profile improvements. He adheres to his anticoagulation regimen for atrial fibrillation, with regular heart rate monitoring at home. His benign prostatic hyperplasia is maintained under regular urological surveillance, and his past prostate cancer is in a watchful waiting phase with no recent complications. COPD management is in place with minimal reliance on rescue inhalers. Routine surveillance and additional screenings, specifically Cologuard testing following a significant gap since the last colonoscopic evaluation, are critical components of his ongoing care. The patient's health maintenance practices include adherence to vaccine protocols and understanding the importance of disease prevention measures given his current stable status regarding anemia and thrombocytopenia. Health Maintenance - Pending Cologuard test as recommended by gastroenterology - Lipid level target: LDL goal of less than 70 mg/dL - Statin therapy adjustment considered - Consistent vaccination: flu, COVID-19 - Surveillance for prostate cancer and BPH management - COPD management: minimal use of rescue inhalers - Regular checking of heart rate and blood pressure at home Social History - The patient mentions cautious engagement in activities; physical activity limits due to COPD symptoms. - He reports self-monitoring health metrics such as heart rate and blood pressure. - Has experienced a recent fall, but no serious injury reported; careful with daily activities. Review of Systems - Respiratory: Reports using albuterol inhaler upon exacerbations, but infrequent use noted. - General: Denies recent chest pain; mentions fatigue associated with atrial fibrillation. Physical Exam - Cardiovascular- Blood pressure 134/60 mmHg Results - Labs: Last blood work in November 2023 showed anemia and mild thrombocytopenia. Normal renal function, electrolytes, glucose, and liver function tests. - Tests: Most recent cholesterol test from March 2024 revealed LDL at 84 mg/dL. Plan The patient's lipid management is optimized by adjusting atorvastatin to 80 mg daily for improved LDL control. Continued monitoring of blood work is essential for evaluating treatment efficacy, particularly in managing anemia and thrombocytopenia. The anticoagulation therapy for atrial fibrillation also remains a priority, with patient education on at-home heart rate monitoring. Surveillance and treatment through urology will carry on the current regimen for BPH and post-cancer care. COPD management relies on infrequent inhaler use and proper inhalation technique to minimize symptoms. Cologuard testing is a proactive measure for colorectal health, while regular vaccination updates sustain overall health integrity. Patient guidance included reinforcement on activity caution considering recent musculoskeletal events. Patient was informed and verbally consented to the use of an ambient scribe for clinic note documentation during this visit. Discussion Notes I discussed with the patient the importance of optimizing lipid control in the context of thoracic cardiovascular disease and atherosclerosis prevention by increasing atorvastatin dosage to 80 mg daily. Risks, benefits, and follow-up procedures were addressed to ensure understanding and consent. We talked through his readiness and aspiration for achieving LDL targets alongside regular monitoring. For anticoagulation management, we reviewed adherence with Eliquis and reassured the patient about stroke prevention benefits associated with consistent use. Surveillance for urological health was reiterated, maintaining the current strategy for BPH and prostate cancer monitoring. I emphasized the importance of preventive healthcare practices, including upcoming Cologuard testing and adherence to vaccination schedules, educating the patient on the widened scope of preventive care in his age bracket. We addressed his COPD regimen, confirming infrequent reliance on inhaler use and underlying symptoms to be watchful for. The patient recognizes the significance of careful engagement in physical activities, mindful of post-fall precautions. Patient Instructions - Increase atorvastatin dosage to 80 mg daily; review cholesterol levels in three months. - Continue Eliquis as prescribed. - Maintain regular home monitoring of blood pressure and heart rate. - Follow up with urology as per surveillance plan. - Use albuterol and Brio inhalers as needed and practice oral care post-inhalation. - Complete Cologuard testing as recommended. - Stay up-to-date with flu and COVID-19 vaccinations. - Engage in physical activities mindfully, considering recent fall history. - Notify any signs of increased fatigue or health changes promptly. Orders: Orders Lipid Panel 3 Months E78.00 - Pure hypercholesterolemia, unspecified, I25.10 - Atherosclerotic heart disease of [place] coronary artery without angina pectoris Comprehensive Met. Panel 3 Months I25.10 - Atherosclerotic heart disease of [place] coronary artery without angina pectoris Free T4 (Free Thyroxine) 3 Months I25.10 - Atherosclerotic heart disease of [place] coronary artery without angina pectoris Thyroid Stimulating Hormone 3 Months I25.10 - Atherosclerotic heart disease of [place] coronary artery without angina pectoris Vitamin B12 and Folate 3 Months I25.10 - Atherosclerotic heart disease of [place] coronary artery without angina pectoris Vitamin D 25-OH Total 3 Months I25.10 - Atherosclerotic heart disease of [place] coronary artery without angina pectoris Complete Blood Count Auto Diff 3 Months I25.10 - Atherosclerotic heart disease of [place] coronary artery without angina pectoris Prostate Specific Antigen Scr 3 Months C61 - Malignant neoplasm of prostate Referrals Cologuard Test Z12.11 - Encounter for screening for malignant neoplasm of colon, Z12.12 - Encounter for screening for malignant neoplasm of rectum Medications: Changed From atorvastatin 40 mg PO DAILY 30 tabs 3RF E78.00 - Pure hypercholesterolemia, unspecified, I25.10 - Atherosclerotic heart disease of [place] coronary artery without angina pectoris To atorvastatin 80 mg PO DAILY 90 tabs 3RF E78.00 - Pure hypercholesterolemia, unspecified, I25.10 - Atherosclerotic heart disease of [place] coronary artery without angina pectoris
[2024-07-04 12:17] VITALS: BP 132/60
--- OUTSIDE RECORDS SUMMARY | 2024-07-04 14:04 | XMS_ITS ---
Author Organization [facility] Address [address] [place] [address] Care Team Providers Care Armhole Presser Name Role Phone Lacho Mcdonnell MD Primary Care Provider Unavailabl e Gurvinder Mckeon Unavailable [phone] Allergies No Known Allergies REASON FOR VISIT colon screening Medications Medication SIG (Take, Route, Frequency, Duration) Notes [...] DAILY Oral for 90 F411,Unavailabl e Active Social History Tobacco Use: Social History Observation Description Date Details (start date - stop date) Former Smoker NA - NA Tobacco Use/Smoking Question Answer Notes Patient is a former smoker Alcohol Screen Question Answer Notes Did you have a drink containing alcohol in the p ast year? No Points 0 Interpretation Negative Section Notes: Former smoker, no significan t alcohol Problems Problem Type SNOMED Code ICD Code Onset Dates Problem Status W/U Status Risk Notes Problem Colon cancer screening (411430065) Colon cancer screening (Z12.11) Active confirmed Problem Pre-procedure evaluation check (216586646) Encounter for other preprocedural examination (Z01.818) Active confirmed Vital Signs Blood pressure systolic 00 mm Hg 05/07/19 25 Blood pressure diastolic 00 mm Hg 025 Height 68 in 05/07/2024 Weight 163 lbs 05/07/2024 BMI 24.78 kg/m2 05/07/2024 Encounters Encounter Location Date Provider Diagnosis [facility] [address] [place] [address] 05/07/2024 Gurvinder Mckeon Colon cancer screeni ng Z12.11 and Encounter for other preprocedural examination Z01.818 Assessments Encounter Date Diagnosis (ICD Code) Assessment Notes Treatment Notes Treatment Clinical Notes Section Notes 05/07/2024 Colon cancer screening (ICD-10 - Z12.11) Ask Dr. Mcdonnell about obtaining a Cologuard test and then let me know the results either way. If it is positive we will then set up a colonoscopy for you Overall, Gurvinder appears well from a GI standpoint and is not having any new or worrisome GI complaints. We did review his previous history of tubular adenomas of the colon. While he has had a history of these colon polyps, they have all been small and few in number. We did review current guidelines in regard to colorectal cancer screening and the recommendations to hold off on screening colonoscopies as patient's approach age 79 and/or have any underlying significant comorbidities. As such, given Gurvinder's age, comorbidities of pulmonary disease and atrial fibrillation with chronic anticoagulation, lack of any GI symptoms to suggest any significant colonic pathology, and a relatively recent rectal exam that was heme-negative, I advised him that my advice would be to hold off on a screening colonoscopy at this point in his life as I don't think the benefits would outweigh any theoretical risks of the procedure and/or anesthesia. Gurvinder was comfortable with this plan but nonetheless would like to consider other options for colorectal cancer screening. As such, I did instruct him to speak with you about obtaining a Cologuard test through his insurance if possible. I advised him that if that test is negative that would certainly be reassuring as well and I would continue to certainly hold off on a colonoscopy at that point. However, if the Cologuard test is positive I advised him that we could then certainly have him undergo a colonoscopy but at that point would at least have a more definitive indication for him to undergo the procedure rather than strictly as an asymptomatic screening exam. At this point I have advised Gurvinder to let me know the results of his Cologuard test. I advised him that if it is positive we could then simply set up a colonoscopy over the phone rather than have him come in for another office visit. I did advise him that if the test is negative he could simply see me on a p.r.n. basis. However, I advised him that that point he should contact me in the future if he develops any significant GI problems such as a change in bowel habits and/or signs of GI bleeding. Gurvinder was very comfortable with this plan. Thank you again for allowing me to have participated in Gurvinder's care. Please do not hesitate to contact me if I can be of any further assistance in the future. 05/07/2024 Encounter for other preprocedural examination (ICD-10 - Z01.818) Overall, Gurvinder appears well from a GI standpoint and is not having any new or worrisome GI complaints. We did review his previous history of tubular adenomas of the colon. While he has had a history of these colon polyps, they have all been small and few in number. We did review current guidelines in regard to colorectal cancer screening and the recommendations to hold off on screening colonoscopies as patient's approach age 79 and/or have any underlying significant comorbidities. As such, given Gurvinder's age, comorbidities of pulmonary disease and atrial fibrillation with chronic anticoagulation, lack of any GI symptoms to suggest any significant colonic pathology, and a relatively recent rectal exam that was heme-negative, I advised him that my advice would be to hold off on a screening colonoscopy at this point in his life as I don't think the benefits would outweigh any theoretical risks of the procedure and/or anesthesia. Gurvidner was comfortable with this plan but nonetheless would like to consider other options for colorectal cancer screening. As such, I did instruct him to speak with you about obtaining a Cologuard test through his insurance if possible. I advised him that if that test is negative that would certainly be reassuring as well and I would continue to certainly hold off on a colonoscopy at that point. However, if the Cologuard test is positive I advised him that we could then certainly have him undergo a colonoscopy but at that point would at least have a more definitive indication for him to undergo the procedure rather than strictly as an asymptomatic screening exam. At this point I have advised Gurvinder to let me know the results of his Cologuard test. I advised him that if it is positive we could then simply set up a colonoscopy over the phone rather than have him come in for another office visit. I did advise him that if the test is negative he could simply see me on a p.r.n. basis. However, I advised him that that point he should contact me in the future if he develops any significant GI problems such as a change in bowel habits and/or signs of GI bleeding. Gurvinder was very comfortable with this plan. Thank you again for allowing me to have participated in Gurvinder's care. Please do not hesitate to contact me if I can be of any further assistance in the future. Plan Of Treatment Treatment Notes Assessment Notes Colon cancer screening Ask Dr. Mcdonnell about obtaining a Cologuard test and then let me know the results either way. If it is positive we will then set up a colonoscopy for you Next Appt Details Follow Up: prn, Reason: Progress Notes * GURVINDER LOPEZDOB:1945 (78 yo M)Acc No.[id number]:05/07/2024 Progress Notes Patient:?GURVINDER LOPEZ Provider:?Gurvinder Mckeon MD :1945???Age:78 Y???Sex:Male Chriss e:05/07/2024 Address:[address] [place], [place] [id number] Pcp:Lacho Mcdonnell MD Subjective: * Chief Complaints: * ???Colon screening * HPI: ???incontinence:? I saw Gurvinder in the office today for evaluation of his personal history of tubular adenomas of the colon and possible need for colorectal cancer screening. ?I last saw Gurvinder in 2013, at which time he underwent a followup screening colonoscopy with removal of a small tubular adenoma. He has had previous colonoscopies with similar findings as well. He has not had a colonoscopy since 2013. He presently feels well from a GI standpoint. He enjoys a good appetite, without any significant heartburn or dysphagia. His bowel movements have been regular and without any signs of bleeding. He denies abdominal pain, jaundice, nor unintentional weight loss. He denies any known family history of colon cancer. ?As you know he did have a physical exam with you this past November and had a heme negative rectal exam according to your notes. Laboratories at that time in November revealed a stable anemia with a hemoglobin of 12.3 with a normal MCV, iron saturation, and ferritin level. ?He does report that he is interested in colorectal cancer screening in himself given his previous history of colon polyps and his last colonoscopy being over 10 years ago. However, he is also well aware of his age and medical issues that might prove to be obstacles in regard to undergoing a screening colonoscopy. * ROS:?General/Constitutional:?Change in appetite?denies.?Chills?denies.?Fatigue?denies.?Ophthalmologic:?Patient denies? Negative..?ENT:?Patient denies?Negative..?Respiratory:?Patient denies?No coughing/hemoptysis..?Cardiovascular:?Patient denies? No chest pain/orthopnea..?Gastrointestinal:?Comments?See HPI for details.?Genitourinary:?Patient denies? No dysuria/hematuria..?Musculoskeletal:?Patient denies? No specific arthralgias/myalgias..?Skin:?Patient denies?No rash/pruritus..?Neurologic:?Patient denies? No headaches/seizures..?Psychiatric:?Patient denies?Negative..? * Medical History:? * Surgical History:?Tongue german sienna for precancerous lesions in the Hand surgery for Dupuytren's contractures on the left-Dr. Denton Cataract surgery * Hospitalization/Major Diagno stic Procedure:?No Hospitalization History. * Family History:?Father: dece ased.?Mother: .? No colon cancer. * Social History:?Tobacco Use:?Tobacco Use/Smoking?Patient is a?former smoker.?Drugs/Alcohol:?Alcohol Screen?Did you have a drink containing alcohol in the past year??No,?Points?0,?Interpretation?Negative.?Miscellaneous:?Marital status: . Occupation: retired. ???Former smoker, no significant alcohol. * Medications:?TakingBreo Kiersten captain/airline pilot 200-25 MCG/ACT Aerosol Powder Breath Activated Inhalation Incruse Ellipta 62.5 MCG/ACT Aerosol Powder Breath Activated INHALE 1 PUFF BY MOUTH AT BEDTIME Inhalation Eliquis 5 MG Tablet TAKE 1 TABLET BY MOUTH TWICE DAILY Oral Atorvastatin Calcium 40 MG Tablet TAKE 1 TABLET BY MOUTH DAILY Oral dilTIAZem HCl ER Coated Beads 180 MG Capsule Extended Release 24 Hour Oral Tamsulosin HCl 0.4 MG Capsule TAKE 2 CAPSULES BY MOUTH EVERY NIGHT AT BEDTIME Oral Furosemide 20 MG Tablet TAKE 1 TABLET BY MOUTH DAILY Oral Sertraline HCl 25 MG Tablet TAKE 1 TABLET BY MOUTH DAILY Oral , Notes: F411,UnavailableTaking Breo Ellipta 200-25 MCG/ACT Aerosol Powder Breath Activated Inhalation Taking Incruse Ellipta 62.5 MCG/ACT Aerosol Powder Breath Activated INHALE 1 PUFF BY MOUTH AT BEDTIME Inhalation Taking Eliquis 5 MG Tablet TAKE 1 TABLET BY MOUTH TWICE DAILY Oral Taking Atorvastatin Calcium 40 MG Tablet TAKE 1 TABLET BY MOUTH DAILY Oral Taking dilTIAZem HCl ER Coated Beads 180 MG Capsule Extended Release 24 Hour Oral Taking Tamsulosin HCl 0.4 MG Capsule TAKE 2 CAPSULES BY MOUTH EVERY NIGHT AT BEDTIME Oral Taking Furosemide 20 MG Tablet TAKE 1 TABLET BY MOUTH DAILY Oral Taking Sertraline HCl 25 MG Tablet TAKE 1 TABLET BY MOUTH DAILY Oral , Notes: F411,UnavailableDiscontinuedSimvastatin 40mg Aspirin 81mg Daily Vitamin ProAir HFA Colyte with Flavor Packs 227.1 GM Solution Reconstituted As directed Orally As directedMedication List reviewed and reconciled with the patientDiscontinued Simvastatin 40mg Discontinued Aspirin 81mg Discontinued Daily Vitamin Discontinued ProAir HFA Discontinued Colyte with Flavor Packs 227.1 GM Solution Reconstituted As directed Orally As directedMedication List reviewed and reconciled with the patient * Allergies:?N.K.D.A.yes[Aller gies Verified] Objective: * Vitals:?Wt: 163 lbs, Ht: 68 in, BMI:24.78 Index, BP: 00/00 mm Hg. * Examination: ???General Examination: ?GENERAL APPEARANCE:?pleasant, well nourished, well developed, in no acute distress.?EYES:?sclera non-icteric.?ORAL CAVITY:?mucosa moist.?NECK/THYROID:?no cervical lymphadenopathy, neck supple.?SKIN:?nonjaundiced, no spider angiomata..?HEART:?S1, S2 normal.?LUNGS:?clear to auscultation bilaterally.?ABDOMEN:?normal bowel sounds, no guarding or rigidity, no hepatosplenomegaly, no masses palpable, soft, nontender, nondistended..?EXTREMITIES:?no edema.?NEUROLOGIC:?alert and oriented.? Assessment: * Assessment: 1.?Encounter for other prepr ocedural examination - Z01.818 (Primary)?2.?Colon cancer screening - Z12.11? Overall, Gurvinder appears well from a GI standpoint and is not having any new or worrisome GI complaints. We did review his previous history of tubular adenomas of the colon. While he has had a history of these colon polyps, they have all been small and few in number. We did review current guidelines in regard to colorectal cancer screening and the recommendations to hold off on screening colonoscopies as patient's approach age 79 and/or have any underlying significant comorbidities. As such, given Gurvinder's age, comorbidities of pulmonary disease and atrial fibrillation with chronic anticoagulation, lack of any GI symptoms to suggest any significant colonic pathology, and a relatively recent rectal exam that was heme-negative, I advised him that my advice would be to hold off on a screening colonoscopy at this point in his life as I don't think the benefits would outweigh any theoretical risks of the procedure and/or anesthesia. Gurvinder was comfortable with this plan but nonetheless would like to consider other options for colorectal cancer screening. As such, I did instruct him to speak with you about obtaining a Cologuard test through his insurance if possible. I advised him that if that test is negative that would certainly be reassuring as well and I would continue to certainly hold off on a colonoscopy at that point. However, if the Cologuard test is positive I advised him that we could then certainly have him undergo a colonoscopy but at that point would at least have a more definitive indication for him to undergo the procedure rather than strictly as an asymptomatic screening exam. At this point I have advised Gurvinder to let me know the results of his Cologuard test. I advised him that if it is positive we could then simply set up a colonoscopy over the phone rather than have him come in for another office visit. I did advise him that if the test is negative he could simply see me on a p.r.n. basis. However, I advised him that that point he should contact me in the future if he develops any significant GI problems such as a change in bowel habits and/or signs of GI bleeding. Gurvinder was very comfortable with this plan. Thank you again for allowing me to have participated in Gurvinder's care. Please do not hesitate to contact me if I can be of any further assistance in the future. Plan: * Treatment: * Procedure Codes:?1036F TOBAC CO NON-XHANO8735 BP SCR NOT PRFRM REC REASON NOS * Preventive Medicine:? ??Screenings:?Fall Risk Screening?Fall Risk Assessment:?No falls in the past year,?Screening:?No falls in the past year,?Assessment:?Not performed, no reason specified,?Plan of Care:?Not documented, no reason specified.? * Follow Up:?prn * * Sign off status: Completed true * Provider:?Gurvinder Mckeon MD Date:? 025 Generated for Smith hayward/Alex/Rosaliesmitting on:?07/04/2024 02:04 PM EST History and Physical Notes * HPI (History of Present Illness) Category Sub-Category Detail Notes Category Not es incontinence I saw Gurvinder in the office today for evaluation of his personal history of tubular adenomas of the colon and possible need for colorectal cancer screening. I last saw Gurvinder in 2013, at which time he underwent a followup screening colonoscopy with removal of a small tubular adenoma. He has had previous colonoscopies with similar findings as well. He has not had a colonoscopy since 2013. He presently feels well from a GI standpoint. He enjoys a good appetite, without any significant heartburn or dysphagia. His bowel movements have been regular and without any signs of bleeding. He denies abdominal pain, jaundice, nor unintentional weight loss. He denies any known family history of colon cancer. As you know he did have a physical exam with you this past November and had a heme negative rectal exam according to your notes. Laboratories at that time in November revealed a stable anemia with a hemoglobin of 12.3 with a normal MCV, iron saturation, and ferritin level. He does report that he is interested in colorectal cancer screening in himself given his previous history of colon polyps and his last colonoscopy being over 10 years ago. However, he is also well aware of his age and medical issues that might prove to be obstacles in regard to undergoing a screening colonoscopy. Examination Category Sub-Category Detail Notes Category Not es General Examination GENERAL APPEARANCE: pleasant , well [...]
--- OUTSIDE RECORDS SUMMARY | 2024-07-04 14:04 | XMS_ITS | Patient Health Record ---
Author Organization [facility] Address [address] [place] [address] Care Team Providers Care Manager Learning Name Role Phone Lacho Mcdonnell MD Primary Care Provider Unavailsabrina e Gurvinder Mckeon Unavailable [phone] Allergies No Known Allergies Reason For Referral No Information Medications Medication SIG (Take, Route, Frequency, Duration) [...] Answer Notes Patient is a former smoker Section Notes: Smokes 1/2 ppd, no alcohol Former smoker, no significan t alcohol Problems Problem Type SNOMED Code ICD Code Onset Dates Problem Status W/U Status Risk Notes Problem Colon cancer screening (985286509) Colon cancer screening (Z12.11) Active confirmed Problem Pre-procedure evaluation check (691323298) Encounter for other preprocedural examination (Z01.818) Active confirmed Vital Signs Blood pressure diastolic 00 mm Hg 05/07/2024 Height 68 in 05/07/2024 Blood pressure systolic 00 mm Hg 05/07/2024 Weight 163 lbs 05/07/2024 BMI 24.78 kg/m2 05/07/2024 Encounters Encounter Location Date Provider Diagnosis [facility] [address] [place] [address] 05/07/2024 Gurvinder Mckeon Colon cancer screeni ng Z12.11 and Encounter for other preprocedural examination Z01.818 [facility] [address] [place] [address] 10/16/2023 Gurvinder Mckeon Assessments Encounter Date Diagnosis (ICD Code) Assessment [...] assistance in the future. Plan Of Treatment Future Test Test Name Order Date COLONOSCOPY 06/04/2013 Insurance Providers Payer Name Payer Address Payer Phone Subscriber Number Group Number Insured Name Patient Relationship to Insured Coverage Start Date Coverage End Date [facility] [address] [place], [place] [id number] GURVINDER LOPEZ Self - patient is the insured Medical (General) History Medical History History ICD Code Colonoscopy 07-12-2006- smal l tubular adenoma removed--also had mild sigmoid diverticulosis, and internal and external hemorrhoids Hyperlipidemia Denies ID,DM,CVA,renal disease Mild asthma/sinus issues COPD/aspestosis/emphysema Colonoscopy 2013 with a small tubular ad enoma Atrial fibrillation-Dr. Lane 2021 Prostate cancer - Dr. Malave --XRT, hormone treatments Surgical History Surgery Date(Month/Year) Tongue surgery for precancerous lesions in the Hand surgery for Dupuytren's contracture s on the left-Dr. Denton Cataract surgery
--- OUTSIDE RECORDS SUMMARY | 2024-07-04 14:04 | XMS_ITS ---
Author Organization [facility] Address [address] [place] [address] Care Team Providers Care Calculating Machine Operator Name Role Phone Po Lacho MORALES Primary Care Provider Gurvinder Grey Unavailable [phone] REASON FOR VISIT cancel OV Encounters Encounter Location Date Provider Diagnosis [facility] [address] [place] [address] 10/16/2023 Gurvinder Mckeon Plan Of Treatment No Information Progress Notes * GURVINDER LOPEZDOB:1945 (77 yo M)Acc No.[id number]:10/16/2023 Patient:?GURVINDER LOPEZ :1945???Age:77 Y???Sex:Male Address:[address] [place] [address] * true * Date:? Generated for Smith hayward/Alex/eTransmitting on:?07/04/2024 02:04 PM EST
--- OUTSIDE RECORDS SUMMARY | 2024-07-04 14:04 | XMS_ITS ---
Author Organization [facility] Address [address] [place] [address] Care Team Providers Care Electric Train Driver Name Role Phone Lacho Mcdonnell MD Primary Care Provider Gurvinder Grey Unavailable [phone] REASON FOR VISIT Patient presents today for a colon screening Encounters Encounter Location Date Provider Diagnosis [facility] [address] [facility] [address] [place] [address] 10/17/2023 Gurvinder Mckeon Plan Of Treatment No Information Progress Notes * GURVINDER LOPEZDOB:1945 (78 yo M)Acc No.[id number]:10/17/2023 Progress Notes Patient:?GURVINDER LOPEZ Provider:?Gurvinder Mckeon MD :1945???Age:77 Y???Sex:Male Chriss e:10/17/2023 Address:[address] [place], [place] [id number] Pcp:Lacho Mcdonnell MD Subjective: * Chief Complaints: * ???1. Patient presents today for a colon screening. * Medical History:? Objective: * Vitals:? Assessment: Plan: * Treatment: * * The named appointment provid er may or may not be the originator of this progress note, and it is not deemed complete until electronically signed by the appointment provider. Sign off status: Pending * Provider:?Gurvinder Mckeon MD Date:? 024 Generated for Martyi mainor/Alex/eTransmitting on:?07/04/2024 02:04 PM EST
== END 2024-07-04 12:24 | disposition home or self-care (01) ==
PROVIDERS: PCP Internal Medicine; Visit Provider Internal Medicine
DX: I25.10 Atherosclerotic heart disease of native coronary artery without angina pectoris (principal); C61 Malignant neoplasm of prostate; J44.9 Chronic obstructive pulmonary disease, unspecified; I48.0 Paroxysmal atrial fibrillation; Z12.11 Encounter for screening for malignant neoplasm of colon; R79.89 Other specified abnormal findings of blood chemistry; N40.1 Benign prostatic hyperplasia with lower urinary tract symptoms; R39.14 Feeling of incomplete bladder emptying; E78.00 Pure hypercholesterolemia, unspecified

== ENCOUNTER → 2024-07-04 11:26 | Outpatient (BNVA) | payer MEDICARE, SELFPAY | PROVIDERS: PCP Internal Medicine; Visit Provider Internal Medicine | DX: I25.10 Atherosclerotic heart disease of native coronary artery without angina pectoris (principal); R79.89 Other specified abnormal findings of blood chemistry; C61 Malignant neoplasm of prostate; J44.9 Chronic obstructive pulmonary disease, unspecified; I48.0 Paroxysmal atrial fibrillation; N40.1 Benign prostatic hyperplasia with lower urinary tract symptoms; R39.14 Feeling of incomplete bladder emptying; E78.00 Pure hypercholesterolemia, unspecified | CPT/HCPCS: 99212 ==

== ENCOUNTER 2024-08-30 14:50 | Outpatient (REF) | payer MEDICARE, SELFPAY ==
--- OUTSIDE RECORDS SUMMARY | 2024-08-30 14:55 | XMS_ITS ---
Author Organization [facility] Address [address] [place] [address] Care Team Providers Care Hand I Blocker Name Role Phone Lacho Mcdonnell MD Primary Care Provider Unavailabl e Gurvinder Mckeon Unavailable [phone] Allergies No Known Allergies REASON FOR VISIT [...] Status Risk Notes Problem Colon cancer screening (469976256) Colon cancer screening (Z12.11) Active confirmed Problem Pre-procedure evaluation check (308352225) Encounter for other preprocedural examination (Z01.818) Active confirmed Vital Signs Blood pressure systolic 00 mm Hg 05/07/19 25 Blood pressure diastolic 00 mm Hg 025 Height 68 in 05/07/2024 Weight 163 lbs 05/07/2024 BMI 24.78 kg/m2 05/07/2024 Encounters Encounter Location Date Provider Diagnosis [facility] [address] [place] [address] 05/07/2024 Gurvinder Mckeon Colon cancer screeni ng [...] for allowing me to have participated in Guvrinder's care. Please do not hesitate to contact [...] Notes * GURVINDER LOPEZDOB:1945 (78 yo M)Acc No.[id number]:05/07/2024 Progress Notes Patient:?GURVINDER LOPEZ Provider:?Gurvinder Mckeon MD :1945???Age:78 Y???Sex:Male Chriss e:05/07/2024 Address:[address] [place], [place] [phone] Pcp:Lacho Mcdonnell MD Subjective: * Chief Complaints: [...] smoker, no significant alcohol. * Medications:?TakingBreo Kiersten cryptanalyst 200-25 MCG/ACT Aerosol Powder Breath Activated Inhalation [...] * Treatment: * Procedure Codes:?1036F TOBAC CO NON-[id number] BP SCR NOT PRFRM REC REASON NOS * Preventive Medicine:? ??Screenings:?Fall Risk Screening?Fall Risk Assessment:?No falls in the past year,?Screening:?No falls in the past year,?Assessment:?Not performed, no reason specified,?Plan of Care:?Not documented, no reason specified.? * Follow Up:?prn * * Sign off status: Completed true * Provider:?Gurvinder Mckeon MD Date:? 025 Generated for Smith hayward/Alex/eTransmitting on:?08/30/2024 02:54 PM EDT History and Physical Notes * HPI (History [...]
--- OUTSIDE RECORDS SUMMARY | 2024-08-30 14:55 | XMS_ITS ---
Author Organization [facility] Address [address] [place] [phone] Care Team Providers Care Venetian Blind Cleaner And Repairer Name Role Phone Lacho Mcdonnell MD Primary Care Provider Gurvinder Grey Unavailable [phone] REASON FOR VISIT Patient presents today for a colon screening Encounters Encounter Location Date Provider Diagnosis [facility] [address] [facility] [address] [place] [phone] 10/17/2023 Gurvinder Mckeon Plan Of Treatment No Information Progress Notes * GURVINDER LOPEZDOB:1945 (78 yo M)Acc No.[id number]:10/17/2023 Progress Notes Patient:?GURVINDER LOPEZ Provider:?Gurvinder Mckeon MD :1945???Age:77 Y???Sex:Male Chriss e:10/17/2023 Address:[address] [place], [place] [id number] Pcp:Lacho Mcdonnell MD Subjective: * Chief Complaints: [...] Mckeon MD Date:? 024 Generated for Martyi ng/Faaarong/eTransmitting on:?08/30/2024 02:55 PM EDT
--- OUTSIDE RECORDS SUMMARY | 2024-08-30 14:55 | XMS_ITS ---
Author Organization [facility] Address [address] [place] [phone] Care Team Providers Care Youth Agent Name Role Phone Po Lacho MORALES Primary Care Provider Gurvinder Grey Unavailable [phone] REASON FOR VISIT cancel OV Encounters Encounter Location Date Provider Diagnosis [facility] [address] [place] [phone] 10/16/2023 Gurvinder Mckeon Plan Of Treatment No Information Progress Notes * GURVINDER LOPEZDOB:1945 (77 yo M)Acc No.[id number]:10/16/2023 Patient:?JESSICA GURVINDER :1945???Age:77 Y???Sex:Male Address:[address] [place] [id number] * true * Date:? Generated for Smith hayward/Alex/eTransmitting on:?08/30/2024 02:54 PM EDT
--- OUTSIDE RECORDS SUMMARY | 2024-08-30 14:55 | XMS_ITS | Patient Health Record ---
Author Organization [facility] Address [address] [place] [phone] Care Team Providers Care Corrugator Operator Helper Name Role Phone Lacho Mcdonnell MD Primary Care Provider Unavailsabrina e Gurvinder Mckeon Unavailable [phone] Allergies No Known Allergies Reason For Referral [...] Status Risk Notes Problem Colon cancer screening (Z12.11) Active confirmed Problem Pre-procedure evaluation check ([id number]) Encounter for other preprocedural examination (Z01.818) Active confirmed Vital Signs Blood pressure diastolic 00 mm Hg 05/07/2024 Height 68 in 05/07/2024 Blood pressure systolic 00 mm Hg 05/07/2024 Weight 163 lbs 05/07/2024 BMI 24.78 kg/m2 05/07/2024 Encounters Encounter Location Date Provider Diagnosis [facility] [address] [place] [address] 05/07/2024 Gurvinder Mckeon Colon cancer screeni ng Z12.11 and Encounter for other preprocedural examination Z01.818 [facility] [address] [place] [address] 10/16/2023 Gurvinder Mckeon Assessments Encounter Date Diagnosis [...] Coverage End Date [facility] [address] [place], [place] [id number] GURVINDER LOPEZ Self - patient is the insured Medical (General) History Medical History History ICD Code Colonoscopy 07-12-2006- smal l tubular adenoma removed--also had mild sigmoid diverticulosis, and internal and external hemorrhoids Hyperlipidemia Denies LA,DM,CVA,renal disease Mild asthma/sinus issues COPD/aspestosis/emphysema Colonoscopy 2013 with a small tubular ad enoma Atrial fibrillation-Dr. Lane 2021 Prostate cancer - Dr. Malave --XRT, hormone treatments Surgical History Surgery Date(Month/Year) Tongue surgery for precancerous lesions in the Hand surgery for Dupuytren's contracture s on the left-Dr. Denton Cataract surgery
[2024-08-30 15:51] LABS: Prostate Specific Antigen < 0.10 ng/mL (<0.05-4.0)
[2024-09-05 15:03] LABS: Testosterone, Total 41 ng/dL (250-1100)
== END 2024-08-30 14:51 | disposition home or self-care (01) ==
LOC: HO.LAB 14:50
PROVIDERS: PCP Internal Medicine; Visit Provider Urology
DX: C61 Malignant neoplasm of prostate (principal); Z12.5 Encounter for screening for malignant neoplasm of prostate
CPT/HCPCS: 36415; 84153; 84403

== ENCOUNTER 2024-09-20 11:14 | Outpatient (AMB) | payer MEDICARE, SELFPAY ==
--- NOTE | 2024-09-20 11:18 | MHC.OFFVIS ---
Intake Visit Reasons: 6M PSA Intake Note: Patient is present for 6M/PSA Urology Medication:TAMSULOSIN Antibiotic Allergy:GABAPENTIN Blood Thinner:APIXABAN Conservation Coordinator Required: No Allergies gabapentin Allergy (Unknown, Verified 09/20/24 11:19) Insomnia, increased pain latex Allergy (Unknown, Verified 09/20/24 11:19) Slight reaction - Rash nicotine Allergy (Unknown, Verified 09/20/24 11:19) patch- rash, rash HPI Comments Details: Ravin is a very pleasant male. He is a patient of Dr Mcdonnell. He is seen for the following urologic conditions. - prostate cancer high-grade - bladder outlet obstruction PSA and testosterone continues to remain low Has been on tamsulosin for urination Continue surveillance every 6 months out to 10 years Prostate cancer grade group 5 last GnRH 10/28/21 - external beam radiation with hormone therapy Diagnosis - Dr. Malave September 2020 PSA 08/20 <0.1 T 13, 11/19 <0.1 7, 02/19 <0.1, 05/23 <0.1 26, 07/21 <0.1 T 5, 12/21 <0.1 T 41, 04/22 <0.1 80, 09/21 <0.1 T 46. 03/24 <0.1 45, 09/22 <0.1 41 Initial PSA 9.1 Biopsy 10/19 Histologic type: Adenocarcinoma, acinar type Jerry score: 4+5=9 (right base lateral), 4+3=7 (right base medial), 3+4=7 (right mid lateral, right mid medial, right apex lateral, right apex medial), 3+3=6 (left base lateral, left mid lateral, left mid medial, left apex lateral, left apex medial) Tumor quantitation: Number cores positive: 11 Total number of cores: 12 Periprostatic fat inv.: Present Seminal vesicle inv.: Not identified Perineural inv.: Present LVI: Not identified Staging - 10/19 bone scan negative - 10/19 CT scan negative - no evidence of abdominal pelvic lymph nodes - 01/19 prostate MRI - PI-RADS 5 lesions, highly suspicious for local extracapsular extension. 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 PAF (paroxysmal atrial fibrillation) History of alcohol abuse Bladder diverticulum Thrombocytopenia BPH (benign prostatic hyperplasia) Vitamin D deficiency COPD (chronic obstructive pulmonary disease) Hypercholesterolemia Tobacco abuse Asbestosis Post herpetic neuralgia Surgical History H/O hand surgery Lesion of tongue Family History Father Bladder cancer Mother Colon cancer Chronic mental illness Brother Myocardial infarction Other Mental health disorder Social History Household Members: Spouse Housing: House Do you presently have visiting nurse or other home services: No Alcohol intake: former Year quit: 1979 Patient Tobacco Use Status: Former Tobacco user Tobacco use type: Cigarette Years Smoked: 60 +/- stopped 2020- on on nicotine lozenge still occ (12/21) e-Cigarette/Vaping Use: Never Used Second Hand Smoke Exposure: No Advance Directives Date on File: 03/23/20 service: No Current occupational status: retired Cognitive needs: No Hearing needs: No Vision needs: No Review of Systems Const Denies chills and Denies fever(s) Card Reports no additional complaints and Denies syncope Resp Denies cough GI Denies abdominal pain and Denies heartburn Reports as per HPI and Denies change in libido Neuro Denies syncope Psych Denies change in libido Endo Denies change in libido Physical Exam Const General: cooperative, healthy appearing, comfortable and no acute distress Orientation/consciousness: patient oriented x3 HEENT Face and sinus: Yes normal facial exam Mouth: moist mucous membranes Neck Neck: Yes normal visual inspection, Yes full ROM and Yes trachea midline Chest Chest palpation & inspection: normal inspection of the chest Resp Effort & Inspection: normal respiratory effort, able to speak in complete sentences and no respiratory distress GI Inspection: Yes normal to inspection Back/Spine/Pelvis Cervical Spine: normal cervical lordosis Thoracic/Lumbar Spine: thoracic and lumbar spine normal to inspection Skin General skin exam: no rashes or lesions noted Neuro General: patient oriented x3, gait normal, tone normal and moves all extremities Extrem General: Yes normal to inspection and Yes capillary refill normal Assessment & Plan Assessment & Plan (1) Prostate cancer: Comment: October 2020 - high-grade, MRI extracapsular extension, high-grade prostate cancer external beam radiation with 18 m hormone therapy Code(s): C61 - Malignant neoplasm of prostate Category: Medical (2) Acute urinary retention: Code(s): R33.8 - Other retention of urine Category: Medical (3) BPH (benign prostatic hyperplasia): Code(s): N40.0 - Benign prostatic hyperplasia without lower urinary tract symptoms Category: Medical Qualifiers: Lower urinary tract symptom detail: incomplete bladder emptying Lower urinary tract symptom presence: symptoms present Qualified Code(s): N40.1 - Benign prostatic hyperplasia with lower urinary tract symptoms; R39.14 - Feeling of incomplete bladder emptying Plan Continue six-month surveillance Orders: Orders Prostate Specific Antigen 6 Months C61 - Malignant neoplasm of prostate Testosterone, Total 6 Months C61 - Malignant neoplasm of prostate Patient Instructions: This note is constructed using voice recognition software. While every effort has been made to ensure accuracy real estate appraiser supervisor errors may have been included. Imaging studies, laboratory and physical exam results were discussed and reviewed in detail. No major barriers to patient understanding were identified. An opportunity to ask questions regarding the treatment plan was provided. All questions were answered. The patient expressed understanding and agreement with the above treatment plan. The patient is aware they should contact our office by phone for worsening of their current condition or the appearance of new urologic symptoms. Compliance is encouraged with any medications and followup testing that is ordered. It is a privilege to participate in the urologic care of your patient. If you have any questions or concerns regarding treatment for the above conditions, or other urologic issues, please do not hesitate to contact me. The office telephone contact is [phone]. Sincerely, Dr Trevor Malave MD, [facility] - Urology Compassionate Specialist Care for the Genitourinary System Coding Level of Care Code Est Pt Level 3 (26448) Complex EM visit Add On G2211 Diagnoses Prostate cancer C61 Acute urinary retention R33.8 Benign prostatic hyperplasia with incomplete bladder emptying N40.1; R39.14 Lower urinary tract symptom detail: incomplete bladder emptying Lower urinary tract symptom presence: symptoms present
--- OUTSIDE RECORDS SUMMARY | 2024-09-20 11:19 | XMS_ITS ---
Author Organization [facility] Address [address] [place] [phone] Care Team Providers Care Private Inquiry Agent Name Role Phone Po Lacho MORALES Primary Care Provider Gurvinder Grey Unavailable [phone] REASON FOR VISIT cancel OV Encounters Encounter Location Date Provider Diagnosis [facility] [address] [place] [phone] 10/16/2023 Gurvinder Mckeon Plan Of Treatment No Information Progress Notes * GURVINDER LOPEZDOB:1945 (77 yo M)Acc No.[id number]:10/16/2023 Patient:?GURVINDER LOPEZ :1945???Age:77 Y???Sex:Male Address:[address] [place] [phone] * true * Date:? Generated for Smith hayward/Alex/eTransmitting on:?09/20/2024 11:19 AM EDT
== END 2024-09-20 12:01 | disposition home or self-care (01) ==
LOC: HO.HUSH 11:15
PROVIDERS: PCP Internal Medicine; Visit Provider Urology
DX: C61 Malignant neoplasm of prostate (principal); N40.1 Benign prostatic hyperplasia with lower urinary tract symptoms; R33.8 Other retention of urine; R39.14 Feeling of incomplete bladder emptying
CPT/HCPCS: 99213; G2211

== ENCOUNTER → 2024-09-20 11:14 | Outpatient (BNVA) | payer MEDICARE, SELFPAY | PROVIDERS: PCP Internal Medicine; Visit Provider Urology | DX: N40.1 Benign prostatic hyperplasia with lower urinary tract symptoms (principal); C61 Malignant neoplasm of prostate; R33.8 Other retention of urine; R39.14 Feeling of incomplete bladder emptying | CPT/HCPCS: 99212 ==

== ENCOUNTER 2024-10-03 06:04 | Outpatient (REF) | payer MEDICARE, SELFPAY ==
--- OUTSIDE RECORDS SUMMARY | 2024-10-03 06:07 | XMS_ITS ---
Author Organization [facility] Address [address] [place] [phone] Care Team Providers Care Mcat Tutor Name Role Phone Po Lacho MORALES Primary Care Provider Gurvinder Grey Unavailable [phone] REASON FOR VISIT cancel OV Encounters Encounter Location Date Provider Diagnosis [facility] [address] [place] [phone] 10/16/2023 Gurvinder Mckeon Plan Of Treatment No Information Progress Notes * GURVINDER LOPEZDOB:1945 (77 yo M)Acc No.[id number]:10/16/2023 Patient:?JESSICA GURVINDER :1945???Age:77 Y???Sex:Male Address:[address] [place] [address] * true * Date:? Generated for Smith hayward/Alex/eTransmitting on:?10/03/2024 06:06 AM EDT
[2024-10-03 06:26] LABS: MANUAL DIFF FLAG NO
[2024-10-03 07:22] LABS: Basophils Percent Auto 0.4 % (0-2); Eosinophils Absolute Auto 0.2 X10*3/uL (0.0-0.4); Eosinophils Percent Auto 4.7 % (0-4); Hematocrit 35.7 % (42.0-52.0); Imm Gran Abs Auto 0.02 X10*3/uL (0.00-0.03); Imm Gran Pct Auto 0.4 % (0.0-0.4); Lymphocytes Absolute Auto 1.7 X10*3/uL (1.2-4.9); Lymphocytes Percent Auto 34.9 % (20-40); Mean Corpuscular HGB Conc 33.6 g/dl (31.0-36.0); Mean Corpuscular Volume 89.3 fL (80.0-98.0); Mean Platelet Volume 10.2 fL (9.4-12.4); Monocytes Absolute Auto 0.5 X10*3/uL (0.1-1.2); Monocytes Percent Auto 9.4 % (2-11); Neutrophils Absolute Auto 2.5 x10*3/uL (2.0-8.3); Neutrophils Percent Auto 50.2 % (45-73); Platelet Count 154 X10*3/uL (160-400); Red Cell Distribution Width 13.3 % (11.0-16.0); White Blood Count 4.9 X10*3/uL (4.8-10.8)
[2024-10-03 08:11] LABS: Alkaline Phosphatase 85 U/L (39-117); Anion Gap 9 (12-20); Aspartate Amino Transferase 24 U/L (5-37); Bilirubin Total 0.4 mg/dL (0.0-1.0); Blood Urea Nitrogen 27 mg/dL (9-16); Calcium 9.3 mg/dL (8.4-10.2); Carbon Dioxide 27 mmol/L (22-29); Chloride 110 mmol/L (96-108); Cholesterol 161 mg/dL (<200); Estimated Glomerular Filt Rate > 60; Glucose Random 90 mg/dL (60-115); HDL Cholesterol 56 mg/dL (>40); LDL Cholesterol Calculated 90 mg/dL (<100); Sodium 142 mmol/L (135-145); Total Protein 6.5 g/dL (6.5-8.0); Triglycerides 76 mg/dL (<150)
[2024-10-03 08:24] LABS: Free T4 (Free Thyroxine) 0.92 ng/dL (0.71-1.85); Thyroid Stimulating Hormone 3.35 uIU/mL (0.32-4.0); Vitamin D 25-OH Total 21.5 ng/mL (>30)
[2024-10-03 08:35] LABS: Folate 7.5 ng/mL (> or = 4.0); Prostate Specific Antigen Scr < 0.10 ng/mL (<0.05-4.0); Vitamin B12 276 pg/mL (200-900)
[2024-10-03 08:56] LABS: Alanine Aminotransferase 26 U/L (0-40)
== END 2024-10-03 06:05 | disposition home or self-care (01) ==
LOC: HO.LAB 06:04
PROVIDERS: PCP Internal Medicine; Visit Provider Internal Medicine
DX: C61 Malignant neoplasm of prostate (principal); I25.10 Atherosclerotic heart disease of native coronary artery without angina pectoris; Z12.5 Encounter for screening for malignant neoplasm of prostate
CPT/HCPCS: 36415; 80053; 80061; 82306; 82607; 82746; 84153; 84439; 84443; 85025

== ENCOUNTER 2024-10-10 12:50 | Outpatient (AMB) | payer MEDICARE, SELFPAY ==
--- NOTE | 2024-10-10 12:55 | A.OFFPC_ITS ---
Vital Signs 10/10/24 12:58 Height 5 ft 7 in Weight 164 lb 4 oz BMI 25.7 BP 114/42 L Blood Pressure Location Lt brachial Position Sitting Pulse 56 Pulse Source Pulse Oximeter Temp 97.1 F Temp Source Temporal Artery Scan Pulse Oximetry (%) 93 Oxygen Delivery Method Room Air Intake Visit Reasons: 3 Month F/U Rotor Coil Taper Required: No Information Interpreted: non-clinical & clinical Bankruptcy Manager: Not Required per policy Accompanied by: Self / Same As Patient Allergies gabapentin Allergy (Unknown, Verified 10/10/24 13:00) Insomnia, increased pain latex Allergy (Unknown, Verified 10/10/24 13:00) Slight reaction - Rash nicotine Allergy (Unknown, Verified 10/10/24 13:00) patch- rash, rash Tobacco use date assessed: 07/04/24 Dental Screening Dental Screen Date: 07/04/24 [facility] Medical History Syncope Prostatitis Prostate cancer Otitis media PSA elevation 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 PAF (paroxysmal atrial fibrillation) History of alcohol abuse Bladder diverticulum Thrombocytopenia BPH (benign prostatic hyperplasia) Vitamin D deficiency COPD (chronic obstructive pulmonary disease) Hypercholesterolemia Tobacco abuse Asbestosis Post herpetic neuralgia Surgical History H/O hand surgery Lesion of tongue Family History Father Bladder cancer Mother Colon cancer Chronic mental illness Brother Myocardial infarction Other Mental health disorder Social History Household Members: Spouse Housing: House Do you presently have visiting nurse or other home services: No Alcohol intake: former Year quit: 1979 Patient Tobacco Use Status: Former Tobacco user Tobacco use type: Cigarette Years Smoked: 59 +/- stopped 2020- on on nicotine lozenge still occ (12/21) e-Cigarette/Vaping Use: Never Used Second Hand Smoke Exposure: No Advance Directives Date on File: 03/23/20 service: No Current occupational status: retired Cognitive needs: No Hearing needs: No Vision needs: No Questionnaire PHQ-9 Over the last 2 weeks, how often have you been bothered by any of the following problems? 1. Little interest or pleasure in doing things: not at all 2. Feeling down, depressed, or hopeless: not at all 3. Trouble falling or staying asleep, or sleeping too much: not at all 4. Feeling tired or having little energy: not at all 5. Poor appetite or overeating: not at all 6. Feeling bad about yourself - or that you are a failure or have let yourself or your family down: not at all 7. Trouble concentrating on things, such as reading the newspaper or watching television: not at all 8. Moving or speaking so slowly that other people could have noticed. Or the opposite - being so fidgety or restless that you have been moving around a lot more than usual: not at all 9. Thoughts that you would be better off or of hurting yourself in some way: not at all Total score: 0 Depression Screening Interpretation: Negative Depression Screening Done: Yes 91269 - PHQ-9 Billing: Yes Source: Developed by Drs. Ravin Handy, Angella Reynolds, Rodger Hameed and colleagues, with an educational greg from [employer]. Thrive Questionnaire Date Thrive assessed: 10/10/24 I am a: Patient What is your living situation today?: I have a steady place to live Within the past 12 months, did the food you bought not last and you didn't have the money to get more?: Often true Within the past 12 months, did you worry whether your food would run out before you got money to buy more?: I choose not to answer this question Do you have trouble paying for medicines?: I choose not to answer this question Do you have trouble getting transportation to medical appointments?: No Do you have trouble paying your heating and electricity bill?: No Do you have trouble taking care of your child, family member or friend?: No Do you have trouble with day-to-day activities such as bathing, preparing meals, shopping, managing finances, etc.?: No Are you currently unemployed and looking for a job?: No Are you interested in more education?: No Please select the resources that you would like help with: None Currently or been in a relationship where the following occur: No concerns reported THRIVE Score: 1 AUDIT C Alcohol Use Questionnaire (AUDIT-C) 1. How often do you have a drink containing alcohol?: Never 3. How often do you have six or more drinks on one occasion?: Never Total Score: 0 CONNOR-7 AMB Questionnaire CONNOR-7 Date CONNOR - 7 assessed: 10/10/24 Feeling nervous, anxious, or on edge: 0 = Not at all Not being able to stop or control worryin = Not at all Worrying too much about different things: 0 = Not at all Trouble relaxin = Not at all Being so restless that it is hard to sit still: 1 = Several days Becoming easily annoyed or irritable: 1 = Several days Feeling afraid as if something awful might happen: 0 = Not at all Total CONNOR-7 score (0-4 normal; 5-9 mild; 10-14 moderate; 15-21 severe): 2 Source: Developed by Drs. Ravin Handy, Angella Reynolds, Rodger Hameed and colleagues, with an educational greg from [employer]. CONNOR-7 Assessment Billing CONNOR-7 Assessment Tool: CONNOR-7 Assessment 11739 Physical exam (Primary Care) Vital Signs: Last Vital Signs Temp 97.1 F 10/10/24 12:58 Pulse 56 10/10/24 12:58 BP 114/42 L 10/10/24 12:58 Pulse Ox 93 10/10/24 12:58 Oxygen Delivery Method Room Air 10/10/24 12:58 BMI result Body Mass Index 25.7 Tobacco/Smoking Status: Tobacco use Status Tobacco use date assessed 07/04/24 10/10/24 12:55 Patient Tobacco Use Status Former Tobacco user 10/10/24 12:55 Tobacco use type Cigarette 10/10/24 12:55 e-Cigarette/Vaping Use Never Used 10/10/24 12:55 PHQ-9: PHQ-9 Score PHQ-9: Total score 0 10/10/24 13:29 Depression Screening Interpretation: Negative Thrive Assessment: Date of Thrive Assessment Date Thrive assessed 10/10/24 10/10/24 12:55 Currently or been in a relationship where the following occur: No concerns reported Const General: alert; No acute distress Eyes Conjunctivae: conjunctivae normal Resp Auscultation: clear to auscultation bilaterally Cardio Rate: regular rate Rhythm: regular rhythm GI Inspection: Yes normal to inspection Extrem General: Yes normal to inspection and No edema Coding Level of Care Code Est Pt Level 4 (88030) Complex EM visit Add On G2211 Diagnoses Atherosclerotic cardiovascular disease I25.10 Hypercholesterolemia E78.00 PAF (paroxysmal atrial fibrillation) I48.0 Pulmonary emphysema, unspecified emphysema type J44.9 COPD type: unspecified COPD Prostate cancer C61 Generalized anxiety disorder F41.1 Additional Codes CONNOR-7 Assessment Billing - CONNOR-7 Assessment Tool: CONNOR-7 Assessment 13306 ([id number]) PHQ-9 - 76716 - PHQ-9 Billing: Yes ([id number]) Assessment & Plan Assessment & Plan (1) Atherosclerotic cardiovascular disease: Code(s): I25.10 - Atherosclerotic heart disease of [place] coronary artery without angina pectoris Category: Medical Plan: Control the cholesterol, weight, blood pressure, patient is on anticoagulation (2) Hypercholesterolemia: Code(s): E78.00 - Pure hypercholesterolemia, unspecified Category: Medical Plan: Avoid fried foods, chicken skin, eggs, butter margarine, pastries and meat. Be it pork or beef they have a lot of cholesterol LDL goal of less than 70 and triglyceride of less than 150 on atorvastatin 80 mg once a day (3) PAF (paroxysmal atrial fibrillation): Code(s): I48.0 - Paroxysmal atrial fibrillation Category: Medical Plan: Continue with anticoagulation with Eliquis and on diltiazem 180 mg once a day (4) COPD (chronic obstructive pulmonary disease): Code(s): J44.9 - Chronic obstructive pulmonary disease, unspecified Category: Medical Qualifiers: COPD type: unspecified COPD Qualified Code(s): J44.9 - Chronic obstructive pulmonary disease, unspecified Plan: Continue with albuterol inhaler as needed and Incruse and Breo (5) Prostate cancer: Comment: October 2020 - high-grade, MRI extracapsular extension, high-grade prostate cancer external beam radiation with 18 m hormone therapy Code(s): C61 - Malignant neoplasm of prostate Category: Medical Plan: Continue to follow-up with urology and on surveillance (6) Generalized anxiety disorder: Code(s): F41.1 - Generalized anxiety disorder Category: Medical Plan: Continue with sertraline Plan History of Present Illness The patient is a 78-year-old male presenting with the management of multiple chronic conditions including hypercholesterolemia, atrial fibrillation, and COPD. He has a history of postherpetic neuralgia, hypercholesterolemia, benign prostatic hyperplasia, and atrial fibrillation. Additionally, he has chronic obstructive pulmonary disease and prostate cancer diagnosed in 2020, for which he continues to follow up with urology and remains under surveillance. The patient was last seen in June 2024 for atherosclerotic cardiovascular disease management. His colonoscopy was last performed in 2013, and although it is due for a repeat, the patient has declined further screening. Recent blood work indicates chronic anemia and mild thrombocytopenia, with normal electrolytes, renal, and liver function. The patient's LDL cholesterol is currently 90 mg/dL, with a target of less than 70 mg/dL. Health Maintenance - Colonoscopy screening last performed in 2013, declined repeat screening Social History Review of Systems Physical Exam Results - Labs: Chronic anemia, mild thrombocytopenia, normal electrolytes, renal, and liver function - Lipid panel: LDL cholesterol 90 mg/dL, target less than 70 mg/dL Plan The patient will continue anticoagulation therapy with Eliquis and manage atrial fibrillation with diltiazem 180 mg once daily. For hypercholesterolemia, the patient is on atorvastatin 80 mg daily, with a goal to reduce LDL cholesterol to less than 70 mg/dL and triglycerides to less than 150 mg/dL. The patient will continue using an albuterol inhaler as needed and Breo for COPD management. He will also continue follow-up with urology for prostate cancer surveillance and maintain sertraline therapy. Patient was informed and verbally consented to the use of an ambient scribe for clinic note documentation during this visit. Discussion Notes Patient Instructions Orders: Orders Lipid Panel 3 Months E78.00 - Pure hypercholesterolemia, unspecified, I25.10 - Atherosclerotic heart disease of [place] coronary artery without angina pectoris Ferritin 3 Months I25.10 - Atherosclerotic heart disease of [place] coronary artery without angina pectoris Reticulocyte Count 3 Months I25.10 - Atherosclerotic heart disease of [place] co ronary artery without angina pectoris IRON PROFILE 3 Months I25.10 - Atherosclerotic heart disease of [place] coronary artery without angina pectoris Comprehensive Met. Panel 3 Months I25.10 - Atherosclerotic heart disease of [place] coronary artery without angina pectoris Vitamin B12 and Folate 3 Months I25.10 - Atherosclerotic heart disease of [place] coronary artery without angina pectoris
[2024-10-10 12:58] VITALS: BP 114/42; PULSE 56; TEMP 36.2; O2SAT 93; BMI 25.7
--- OUTSIDE RECORDS SUMMARY | 2024-10-10 14:49 | XMS_ITS ---
Author Organization [facility] Address [address] [place] [phone] Care Team Providers Care High School Agriculture Teacher Name Role Phone Po Lacho MORALES Primary Care Provider Gurvinder Grey Unavailable [phone] REASON FOR VISIT cancel OV Encounters Encounter Location Date Provider Diagnosis [facility] [address] [place] [address] 10/16/2023 Gurvinder Mckeon Plan Of Treatment No Information Progress Notes * GURVINDER LOPEZDOB:1945 (77 yo M)Acc No.[id number]:10/16/2023 Patient:?GURVINDER LOPEZ :1945???Age:77 Y???Sex:Male Address:[address] [place] [id number] * true * Date:? Generated for Smith hayward/Alex/eTransmitting on:?10/10/2024 02:48 PM EDT
== END 2024-10-10 13:40 | disposition home or self-care (01) ==
LOC: HO.HMCH 12:51
PROVIDERS: PCP Internal Medicine; Visit Provider Internal Medicine
DX: I25.10 Atherosclerotic heart disease of native coronary artery without angina pectoris (principal); I48.0 Paroxysmal atrial fibrillation; J44.9 Chronic obstructive pulmonary disease, unspecified; C61 Malignant neoplasm of prostate; E78.00 Pure hypercholesterolemia, unspecified; F41.1 Generalized anxiety disorder

== ENCOUNTER → 2024-10-10 12:50 | Outpatient (BNVA) | payer MEDICARE, SELFPAY | PROVIDERS: PCP Internal Medicine; Visit Provider Internal Medicine | DX: I25.10 Atherosclerotic heart disease of native coronary artery without angina pectoris (principal); E78.00 Pure hypercholesterolemia, unspecified; I48.0 Paroxysmal atrial fibrillation; J44.9 Chronic obstructive pulmonary disease, unspecified; C61 Malignant neoplasm of prostate; F41.1 Generalized anxiety disorder; N40.0 Benign prostatic hyperplasia without lower urinary tract symptoms | CPT/HCPCS: 96127; 99212 ==

== ENCOUNTER → 2024-11-18 13:23 | Outpatient (REF) | payer MEDICARE, SELFPAY ==
--- NOTE | 2024-11-18 13:25 | CA_ITS ---
Transthoracic Echocardiogram Patient (Last, First, Middle): Ravin Lowery P Gender: Male Date of : 1945 Age: 78 Procedure Date: 11/18/2024 Procedure Type: Transthoracic Echocardiogram Location: OP Height: 167.64 cm Weight: 72.58 kg BSA: 1.82 m2 Heart Rate: 56 bpm BP: 148 / 50 mmHg [place]wood Layup Line Back Feeder: SB Referring MD: Anderson Lane MD Symptoms: I35.1 - Nonrheumatic aortic (valve) insufficiency Study Quality: Adequate ECG Rhythm: Bradycardia Conclusions: - The left ventricular systolic function is normal. The calculated ejection fraction is 66% by biplane method. - There is mild aortic valve stenosis. There is mild aortic valve regurgitation. Findings Left Ventricle Normal left ventricular cavity size. There is normal left ventricular wall thickness. The left ventricular systolic function is normal. The calculated ejection fraction is 66% by biplane method. There is no evidence of regional wall motion abnormalities. Diastolic function is normal for age. Right Ventricle Mildly increased right ventricular cavity size. There is normal right ventricular systolic function. Atria The left atrium is normal in size. The right atrium is mildly dilated. There is a prominent Chiari network. Aortic Valve There is mild calcification of the aortic valve. There is mild aortic valve stenosis. There is mild aortic valve regurgitation. Mitral Valve The mitral valve appears normal. There is trace mitral valve regurgitation. There is no mitral valve stenosis. Pulmonic Valve The pulmonic valve is likely normal. Tricuspid Valve There is mild tricuspid valve regurgitation. Borderline RVSP. Great Vessels The asc aorta is normal in size. Venous The inferior vena cava is mildly dilated and collapses less than 50% with inspiration. Pericardium/Pleural There is no evidence of pericardial effusion. Prior Study Comparison Changes noted compared to prior study dated: 04/16/2020. Aortic stenosis noted. Measurements 2D Linear Measurements IVSd: 1.03 0.6-0.9/0.6-1.0 cm LVIDd: 5.18 3.9-5.3/4.2-5.9 cm LVIDd Index: 2.85 2.4-3.2/2.2-3.1 cm/m2 LVIDs: 3.36 2.0-3.6 cm LVPWd: 0.75 0.7-1.1 cm LV Mass: 206.09 67-162/88-224 g LV Mass Index: 113.24 43-95/49-115 g/m2 LVOT Diam: 1.80 3.0+(-)1.3 cm 2D Systolic Function EF 4C: 61.60 >55% EF 2C: 69.20 >55% EF BiP: 65.80 >55% Mitral Valve MV Pk E: 0.93 MV PK A: 1.04 MV Decel Time: 288.00 E/A: 0.90 E'Lateral: 9.25 E'Medial: 8.05 E/E' Med: 11.60 E/E' Lat: 10.10 PHT: 84.00 MVA PHT: 2.62 Decel Mathews: 3.23 Aortic Valve AoV Pk Royce: 2.21 AoV Mn Royce: 1.35 AoV VTI: 0.49 AoV Pk Grad: 20.00 Aov Mn Grad: 9.00 GARRETT Cont.VTI: 1.43 AI Pk Royce: 3.83 AI VTI: 2.25 AI Mathews: 2.36 LVOT LVOT Pk Royce: 1.25 LVOT Mn Royce: 0.82 LVOT VTI: 0.28 LVOT Pk Grad: 6.00 LVOT Mn Grad: 3.00 LVOT Diam: 1.80 LVOT Area: 2.54 Diastolic Function MV Pk E: 0.93 MV Pk A: 1.04 E/A: 0.90 E'Medial: 8.05 E/E' Med: 11.60 E' Laterial: 9.25 E/E' Lat: 10.10 Right Ventricle TAPSE (mm): 27.20 TVS' Royce: 16.20 Tricuspid Valve TR Pk Royce: 2.52 TR Pk Grad: 25.00 RA Press: 15.00 RVSP: 40.00 Great Vessels Aorta Sinus of Valsalva: 3.40 2.0-3.5 cm Ao Asc: 3.00 2.1-3.4 cm Pulmonary Veins Pulm Vein S/D 1.10 Pulmonary Valve PV Pk Royce: 0.85 Peak PV Grad: 3.00 Updated in Other Vendor System with Status of Final Anderson Lane MD electronically signed on 11/19/2024 8:43:14 AM with status of Final
--- OUTSIDE RECORDS SUMMARY | 2024-11-18 14:05 | XMS_ITS | Patient Health Record ---
Author Organization [facility] Address [address] [place] [phone] Care Team Providers Care Bean Weigher Name Role Phone Lacho Mcdonnell MD Primary Care Provider Unavailsabrina e Gurvinder Mckeon Unavailable [phone] Allergies No Known Allergies Reason For Referral [...] Status Risk Notes Problem Colon cancer screening (896350698) Colon cancer screening (Z12.11) Active confirmed Problem Pre-procedure evaluation check (829970062) Encounter for other preprocedural examination (Z01.818) Active confirmed Vital Signs Blood pressure diastolic 00 mm Hg 05/07/2024 Height 68 in 05/07/2024 Blood pressure systolic 00 mm Hg 05/07/2024 Weight 163 lbs 05/07/2024 BMI 24.78 kg/m2 05/07/2024 Encounters Encounter Location Date Provider Diagnosis [facility] [address] [place] [address] 05/07/2024 Gurvinder Mckeon Colon cancer screeni ng [...] Insured Coverage Start Date Coverage End Date [facility] [address] [place], [place] [id number] GURVINDER LOPEZ Self - patient is the [...]
== END ==
LOC: HO.CARD 13:23
PROVIDERS: PCP Internal Medicine; Visit Provider Internal Medicine
DX: I35.1 Nonrheumatic aortic (valve) insufficiency (principal)
CPT/HCPCS: 93306

== ENCOUNTER → 2024-11-18 13:25 | Outpatient (BNV) | payer MEDICARE, SELFPAY | PROVIDERS: PCP Internal Medicine; Visit Provider Internal Medicine | DX: I35.2 Nonrheumatic aortic (valve) stenosis with insufficiency (principal); I36.1 Nonrheumatic tricuspid (valve) insufficiency | CPT/HCPCS: 93306 ==

== ENCOUNTER 2024-12-09 08:58 | Outpatient (AMB) | payer MEDICARE, SELFPAY ==
[2024-12-09 09:02] VITALS: BP 124/68; PULSE 84; BMI 25.2
--- NOTE | 2024-12-09 09:02 | MHC.OFFVIS ---
Vital Signs 12/09/24 09:02 Height 5 ft 7 in Weight 160 lb 14.999 oz BMI 25.2 BP 124/68 Blood Pressure Location Lt brachial Position Sitting Pulse 84 Pulse Source Monitor Intake Visit Reasons: 1 year f/up echo Allergies gabapentin Allergy (Unknown, Verified 10/10/24 13:00) Insomnia, increased pain latex Allergy (Unknown, Verified 10/10/24 13:00) Slight reaction - Rash nicotine Allergy (Unknown, Verified 10/10/24 13:00) patch- rash, rash Medication List - Last Reconciled 12/09/[address] MD albuterol sulfate 90 mcg/actuation 2 puffs inhalation QID PRN apixaban (Eliquis) 5 mg PO BID atorvastatin 80 mg PO DAILY diltiazem HCl CD 180 mg PO DAILY fluticasone furoate-vilanterol 200-25 mcg/dose (Breo Ellipta) 1 inh inhalation DAILY furosemide (Lasix) 20 mg PO DAILY sertraline 25 mg PO DAILY 90 days tamsulosin (Flomax) 0.8 mg (2 x 0.4 mg) PO BEDTIME 90 days umeclidinium 62.5 mcg/actuation (Incruse Ellipta) 1 inh inhalation BEDTIME HPI Comments Details: Ravin returns for follow-up regarding atrial fibrillation. Overall, he states he is feeling fine. However, for the last couple of days he thinks he is back in atrial fibrillation as he can feel some sensation of that but again no overt symptoms. Otherwise, getting along fine. 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 PAF (paroxysmal atrial fibrillation) History of alcohol abuse Bladder diverticulum Thrombocytopenia BPH (benign prostatic hyperplasia) Vitamin D deficiency COPD (chronic obstructive pulmonary disease) Hypercholesterolemia Tobacco abuse Asbestosis Post herpetic neuralgia Surgical History H/O hand surgery Lesion of tongue Family History Father Bladder cancer Mother Colon cancer Chronic mental illness Brother Myocardial infarction Other Mental health disorder Social History Household Members: Spouse Housing: House Do you presently have visiting nurse or other home services: No Alcohol intake: former Year quit: 1979 Patient Tobacco Use Status: Former Tobacco user Tobacco use type: Cigarette Years Smoked: 60 +/- stopped 2020- on on nicotine lozenge still occ (12/21) e-Cigarette/Vaping Use: Never Used Second Hand Smoke Exposure: No Advance Directives Date on File: 03/23/20 service: No Current occupational status: retired Cognitive needs: No Hearing needs: No Vision needs: No Review of Systems Const Reports fatigue and Denies weakness ENT Denies dizziness Card Denies chest pain, Denies chest pain with activity, Denies syncope, Denies rapid heart rate, Denies pedal edema, Denies edema, Denies leg edema, Denies lightheadedness, Denies palpitations, Denies dyspnea, Denies dyspnea on exertion and Denies orthopnea Resp Denies cough, Denies dyspnea and Denies dyspnea on exertion GI Denies hematochezia and Denies change in stool character Musc Denies abnormal gait, Denies muscle cramps, Denies muscle weakness, Denies numbness, Denies radiating pain into limb and Denies tingling Neuro Denies abnormal gait, Denies dizziness, Denies syncope, Denies numbness, Denies tingling and Denies weakness Endo Reports fatigue and Denies palpitations Physical Exam Vital Signs: Last Vital Signs Pulse 84 12/09/24 09:02 BP 124/68 12/09/24 09:02 BMI result Body Mass Index 25.2 Const General: comfortable and no acute distress Orientation/consciousness: patient oriented x3 HEENT Other: Unremarkable Head: Yes normal to inspection Neck Neck: Yes normal visual inspection Chest Chest palpation & inspection: normal inspection of the chest Resp Auscultation: clear to auscultation bilaterally Cardio Palpation: normal PMI Heart sounds: S1 normal heart sound present, S2 normal heart sound present, no gallops, no murmurs and no rubs GI Palpation (GI): Soft to palpation Back/Spine/Pelvis Other: unremarkable Skin General skin exam: no rashes or lesions noted Neuro General: patient oriented x3 Extrem General: Yes normal to inspection Psych Mental Status: mental status grossly normal Office Procedures EKG Details: EKG with atrial flutter at a rate of 84/Min; premature ventricular or aberrantly conducted complexes; leftward axis; incomplete right bundle-branch block pattern. [id number], Complete Assessment & Plan Assessment & Plan (1) PAF (paroxysmal atrial fibrillation): Code(s): I48.0 - Paroxysmal atrial fibrillation Category: Medical Plan: Today, he is in atrial flutter with controlled rate. Smart phone data reviewed regarding this. Prior to this, episode was not may. He might just go back to sinus rhythm by himself. If not, advised him to contact us, especially if he feels any overt symptoms. He agrees to that. If so, consider cardioversion. Otherwise, continue diltiazem and Eliquis as before. (2) Atherosclerotic cardiovascular disease: Code(s): I25.10 - Atherosclerotic heart disease of yocha dehe coronary artery without angina pectoris Category: Medical Plan: In the past, chest CT scan with coronary/atherosclerotic calcification. Clinically, he has never had angina. Hence mainly risk factor modification and continue statins. (3) COPD (chronic obstructive pulmonary disease): Code(s): J44.9 - Chronic obstructive pulmonary disease, unspecified Category: Medical Qualifiers: COPD type: unspecified COPD Qualified Code(s): J44.9 - Chronic obstructive pulmonary disease, unspecified Plan: In the CT scan, described to have severe COPD. He was on home oxygen but does not seem to be on it anymore. Seems fairly active. Plan Discussion Notes I discussed with the patient the management of his atrial flutter, emphasizing the importance of monitoring symptoms and contacting me if the condition does not resolve or if he feels unwell. We talked about the possibility of a cardioversion procedure if necessary, which would involve anesthesia. I reassured the patient that his current use of a blood thinner and the absence of a rapid heart rate allow for a conservative management approach at this time. Patient was informed and verbally consented to the use of an ambient scribe for clinic note documentation during this visit. Patient Instructions: - Monitor your symptoms closely. - Contact us if you experience persistent episodes or feel unwell. - Be aware that a cardioversion procedure may be necessary if symptoms do not resolve. - Continue taking your blood thinner as prescribed. Coding Level of Care Code Est Pt Level 4 (53255) Complex EM visit Add On G2211 Diagnoses PAF (paroxysmal atrial fibrillation) I48.0 Atherosclerotic cardiovascular disease I25.10 Pulmonary emphysema, unspecified emphysema type J44.9 COPD type: unspecified COPD CPT Codes EKG - CPT: 79780-Ludajjagmitzwtynu, Complete ([id number])
--- OUTSIDE RECORDS SUMMARY | 2024-12-09 09:21 | XMS_ITS | Patient Health Record ---
Author Organization [facility] Address [address] [place] [phone] Care Team Providers Care Senior Site Manager Name Role Phone Lacho Mcdonnell MD Primary Care Provider Unavailsabrina e Gurvinder Mckeon Unavailable [phone] Allergies No Known Allergies Reason For Referral [...] (Z12.11) Active confirmed Problem Pre-procedure evaluation check (120752836) Encounter for other preprocedural examination (Z01.818) Active confirmed Vital Signs Blood pressure diastolic 00 mm Hg 05/07/2024 Height 68 in 05/07/2024 Blood pressure systolic 00 mm Hg 05/07/2024 Weight 163 lbs 05/07/2024 BMI 24.78 kg/m2 05/07/2024 Encounters Encounter Location Date Provider Diagnosis [facility] [address] [place] [address] 05/07/2024 Gurvinder Mckeon Colon cancer screeni ng [...] Insured Coverage Start Date Coverage End Date [facility] [address] [place], [place] [id number] GURVINDER LOPEZ Self - patient is the insured Medical (General) History Medical History History ICD Code Colonoscopy -14-2006- smal l tubular adenoma removed--also had mild sigmoid diverticulosis, and internal and external hemorrhoids Hyperlipidemia Denies DE,DM,CVA,renal disease Mild asthma/sinus issues COPD/aspestosis/emphysema Colonoscopy 2013 with a small tubular ad enoma Atrial fibrillation-Dr. Lane 2021 Prostate cancer - Dr. Malave --XRT, hormone treatments Surgical History Surgery Date(Month/Year) Tongue surgery for precancerous lesions in the Hand surgery for Dupuytren's contracture s on the left-Dr. Denton Cataract surgery
== END 2024-12-09 09:25 | disposition home or self-care (01) ==
LOC: HO.HCS 08:59
PROVIDERS: PCP Internal Medicine; Visit Provider Internal Medicine
DX: I48.0 Paroxysmal atrial fibrillation (principal); I25.10 Atherosclerotic heart disease of native coronary artery without angina pectoris; J44.9 Chronic obstructive pulmonary disease, unspecified
CPT/HCPCS: 93010; 99214; G2211

== ENCOUNTER → 2024-12-09 08:58 | Outpatient (BNVA) | payer MEDICARE, SELFPAY | PROVIDERS: PCP Internal Medicine; Visit Provider Internal Medicine | DX: I48.0 Paroxysmal atrial fibrillation (principal); I25.10 Atherosclerotic heart disease of native coronary artery without angina pectoris; J44.9 Chronic obstructive pulmonary disease, unspecified | CPT/HCPCS: 93005; 99212 ==

== ENCOUNTER 2025-02-03 07:03 | Outpatient (REF) | payer MEDICARE, SELFPAY ==
--- OUTSIDE RECORDS SUMMARY | 2023-10-17 09:20 | XMS_ITS ---
Author Organization [facility] Address [address] [place] [id number] Care Team Providers Care Rn Navigator Name Role Phone Lacho Mcdonnell MD Primary Care Provider Gurvinder Grey Unavailable [phone] REASON FOR VISIT Patient presents today for a colon screening Encounters Encounter Location Date Provider Diagnosis [facility] [address] [place] [phone] 10/17/2023 Gurvinder Mckeon Plan Of Treatment No Information Progress Notes * GURVINDER LOPEZDOB:1945 (79 yo M)Acc No.[id number]:10/17/2023 Progress Notes Patient: GURVINDER FISHMAN Provider: Reji Mckeon MD :1945 A ge:77 Y S ex:Male Date:10/17/2023 Address:[address] [place], [place] [id number] Pcp:Lacho Mcdonnell MD Subjective: * Chief Complaints: * 1 . Patient presents today for a colon screening. * Medical History: Objective: * Vitals: Assessment: Plan: * Treatment: * * The named appointment provid er may or may not be the originator of this progress note, and it is not deemed complete until electronically signed by the appointment provider. Sign off status: Pending * Provider: Reji Mckeon MD Date: 0 10/17/2023 Generated for Printi ng/Faxing/eTransmitting on: 1 07:10 AM EDT
--- OUTSIDE RECORDS SUMMARY | 2025-02-03 07:10 | XMS_ITS | Patient Health Record ---
Author Organization [facility] Address [address] [place] [phone] Care Team Providers Care Quality Control Scientist Name Role Phone Lacho Mcdonnell MD Primary Care Provider Unavailsabrina e Gurvinder Mckeon Unavailable [phone] Allergies No Known Allergies Reason For Referral [...] Status Risk Notes Problem Colon cancer screening (732921143) Colon cancer screening (Z12.11) Active confirmed Problem Pre-procedure evaluation check (175005173) Encounter for other preprocedural examination (Z01.818) Active confirmed Vital Signs Blood pressure diastolic 00 mm Hg 05/07/2024 Height 68 in 05/07/2024 Blood pressure systolic 00 mm Hg 05/07/2024 Weight 163 lbs 05/07/2024 BMI 24.78 kg/m2 05/07/2024 Encounters Encounter Location Date Provider Diagnosis [facility] [address] [place] [address] 05/07/2024 Gurvinder Mckeon Colon cancer screeni ng [...] Insured Coverage Start Date Coverage End Date [facility] [address] [place], [place] [id number] GURVINDER LOPEZ Self - patient is the insured Medical (General) History Medical History History ICD Code Colonoscopy 07-12-2006- smal l tubular adenoma removed--also had mild sigmoid diverticulosis, and internal and external hemorrhoids Hyperlipidemia Denies [place],DM,CVA,renal disease Mild asthma/sinus issues COPD/aspestosis/emphysema Colonoscopy 2013 with a small tubular ad enoma Atrial fibrillation-Dr. Lane 2021 Prostate cancer - Dr. Malave --XRT, hormone treatments Surgical History Surgery Date(Month/Year) Tongue surgery for precancerous lesions in the Hand surgery for Dupuytren's contracture s on the left-Dr. Denton Cataract surgery
[2025-02-03 07:25] LABS: Reticulocytes Absolute 0.043 X10*6/uL (0.026-0.095)
[2025-02-03 08:12] LABS: Alanine Aminotransferase 30 U/L (0-40); Albumin Level 4.2 g/dL (3.5-5.0); Alkaline Phosphatase 81 U/L (39-117); Anion Gap 10 (12-20); Aspartate Amino Transferase 29 U/L (5-37); Blood Urea Nitrogen 22 mg/dL (9-16); Calcium 9.3 mg/dL (8.4-10.2); Carbon Dioxide 26 mmol/L (22-29); Chloride 109 mmol/L (96-108); Cholesterol 162 mg/dL (<200); Estimated Glomerular Filt Rate > 60; HDL Cholesterol 57 mg/dL (>40); Iron 88 mcg/dL (45-160); Percent Iron Saturation 33 % (15-50); Potassium 4.2 mmol/L (3.3-5.1); Sodium 141 mmol/L (135-145); Total Iron Binding Capacity 269 mcg/dL (228-428); Total Protein 6.6 g/dL (6.5-8.0); Triglycerides 75 mg/dL (<150); Unsaturated Iron Binding 181 ug/dL
[2025-02-03 08:24] LABS: Ferritin 197 ng/mL (20-250)
[2025-02-03 08:28] LABS: Folate 11.1 ng/mL (> or = 4.0); Vitamin B12 618 pg/mL (200-900)
== END 2025-02-03 07:04 | disposition home or self-care (01) ==
LOC: HO.LAB 07:03
PROVIDERS: PCP Internal Medicine; Visit Provider Internal Medicine
DX: I25.10 Atherosclerotic heart disease of native coronary artery without angina pectoris (principal); E78.00 Pure hypercholesterolemia, unspecified
CPT/HCPCS: 36415; 80053; 80061; 82607; 82728; 82746; 83540; 85045

== ENCOUNTER 2025-02-10 10:45 | Outpatient (AMB) | payer MEDICARE, SELFPAY ==
[2025-02-10 10:53] VITALS: BP 122/62; PULSE 56; O2SAT 95; BMI 25.1
--- NOTE | 2025-02-10 10:53 | MHC.PC.OV ---
Vital Signs 02/10/25 10:53 Height 5 ft 7 in Weight 160 lb BMI 25.1 BP 122/62 Blood Pressure Location Lt brachial Position Sitting Pulse 56 Pulse Source Pulse Oximeter Pulse Oximetry (%) 95 Oxygen Delivery Method Room Air Intake Visit Reasons: cholesterol Allergies gabapentin Allergy (Unknown, Verified 02/10/25 10:54) Insomnia, increased pain latex Allergy (Unknown, Verified 02/10/25 10:54) Slight reaction - Rash nicotine Allergy (Unknown, Verified 02/10/25 10:54) patch- rash, rash Medication List - Last Reconciled 02/10/25 by Lacho Mcdonnell MD albuterol sulfate 90 mcg/actuation 2 puffs inhalation QID PRN apixaban (Eliquis) 5 mg PO BID diltiazem HCl CD 180 mg PO DAILY fluticasone furoate-vilanterol 200-25 mcg/dose (Breo Ellipta) 1 inh inhalation DAILY furosemide (Lasix) 20 mg PO DAILY rosuvastatin 40 mg PO DAILY sertraline 25 mg PO DAILY 90 days tamsulosin (Flomax) 0.8 mg (2 x 0.4 mg) PO BEDTIME 90 days umeclidinium 62.5 mcg/actuation (Incruse Ellipta) 1 inh inhalation BEDTIME Tobacco use date assessed: 07/04/24 Fall risk assessment: No Falls in past year Last assessed Fall Risk: 02/10/25 Dental Screening Dental Screen Date: 07/04/24 [facility] Medical History Syncope Prostatitis Prostate cancer Otitis media PSA elevation 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 PAF (paroxysmal atrial fibrillation) History of alcohol abuse Bladder diverticulum Thrombocytopenia BPH (benign prostatic hyperplasia) Vitamin D deficiency COPD (chronic obstructive pulmonary disease) Hypercholesterolemia Tobacco abuse Asbestosis Post herpetic neuralgia Surgical History H/O hand surgery Lesion of tongue Family History Father Bladder cancer Mother Colon cancer Chronic mental illness Brother Myocardial infarction Other Mental health disorder Social History Household Members: Spouse Housing: House Do you presently have visiting nurse or other home services: No Alcohol intake: former Year quit: 1979 Patient Tobacco Use Status: Former Tobacco user Tobacco use type: Cigarette Years Smoked: 59 +/- stopped 2020- on on nicotine lozenge still occ (12/21) e-Cigarette/Vaping Use: Never Used Second Hand Smoke Exposure: No Advance Directives Date on File: 03/23/20 service: No Current occupational status: retired Cognitive needs: No Hearing needs: No Vision needs: No Questionnaire PHQ-9 Over the last 2 weeks, how often have you been bothered by any of the following problems? 1. Little interest or pleasure in doing things: not at all 2. Feeling down, depressed, or hopeless: not at all 3. Trouble falling or staying asleep, or sleeping too much: not at all 4. Feeling tired or having little energy: not at all 5. Poor appetite or overeating: not at all 6. Feeling bad about yourself - or that you are a failure or have let yourself or your family down: not at all 7. Trouble concentrating on things, such as reading the newspaper or watching television: not at all 8. Moving or speaking so slowly that other people could have noticed. Or the opposite - being so fidgety or restless that you have been moving around a lot more than usual: not at all 9. Thoughts that you would be better off or of hurting yourself in some way: not at all Total score: 0 Depression Screening Interpretation: Negative Depression Screening Done: Yes Source: Developed by Drs. Ravin Handy, Angella Reynolds, Rodger Hameed and colleagues, with an educational greg from [employer]. Thrive Questionnaire Date Thrive assessed: 10/04/24 I am a: Patient What is your living situation today?: I have a steady place to live Within the past 12 months, did the food you bought not last and you didn't have the money to get more?: Often true Within the past 12 months, did you worry whether your food would run out before you got money to buy more?: I choose not to answer this question Do you have trouble paying for medicines?: I choose not to answer this question Do you have trouble getting transportation to medical appointments?: No Do you have trouble paying your heating and electricity bill?: No Do you have trouble taking care of your child, family member or friend?: No Do you have trouble with day-to-day activities such as bathing, preparing meals, shopping, managing finances, etc.?: No Are you currently unemployed and looking for a job?: No Are you interested in more education?: No Please select the resources that you would like help with: None Currently or been in a relationship where the following occur: No concerns reported THRIVE Score: 1 CONNOR-7 AMB Questionnaire CONNOR-7 Date CONNOR - 7 assessed: 10/10/24 Source: Developed by Drs. Ravin Handy, Angella Reynolds, Rodger Hameed and colleagues, with an educational greg from [employer]. Physical exam (Primary Care) Vital Signs: Last Vital Signs Pulse 56 02/10/25 10:53 BP 122/62 02/10/25 10:53 Pulse Ox 95 02/10/25 10:53 Oxygen Delivery Method Room Air 02/10/25 10:53 BMI result Body Mass Index 25.1 Tobacco/Smoking Status: Tobacco use Status Tobacco use date assessed 07/04/24 02/10/25 10:54 Patient Tobacco Use Status Former Tobacco user 02/10/25 10:54 Tobacco use type Cigarette 02/10/25 10:54 e-Cigarette/Vaping Use Never Used 02/10/25 10:54 PHQ-9: PHQ-9 Score PHQ-9: Total score 0 02/10/25 11:27 Depression Screening Interpretation: Negative Thrive Assessment: Date of Thrive Assessment Date Thrive assessed 10/04/24 02/10/25 10:54 Currently or been in a relationship where the following occur: No concerns reported Const General: alert; No acute distress Eyes Conjunctivae: conjunctivae normal Resp Auscultation: clear to auscultation bilaterally Cardio Rate: regular rate Rhythm: regular rhythm GI Inspection: Yes normal to inspection Extrem General: Yes normal to inspection and No edema Office Procedures Flu Questionnaire Does the patient have a severe egg allergy?: No Does the patient have severe life threatening allergies?: No Does the patient have a fever or illness today?: No Has the patient ever had Guillain-Cimarron Syndrome?: No Has the patient ever had any past reaction to a flu shot?: No Immunizations Fluarix [id number] (PF) 45 mcg (15 mcg x 3)/0.5 mL IM syringe Performing Provider: Lacho Mcdonnell MD Performing Location: [facility] Administered by: Jesi Robles CMA on 02/10/25 11:27 Dose Route Admin Location Dispensed Lot Number Expiration Date NDC [employer] Shoe Inspector 0.5 mL IM Left Deltoid 0.5 mL [id number] 10/28/25 [id number] [employer] VIS Given Date VIS Provided VIS Publication Date 02/10/25 Single Vaccine 24 Eligibility Eligibility Date Funding Source Not [facility] Eligible 02/10/25 Private Coding Level of Care Code Est Pt Level 4 (80480) Complex EM visit Add On G2211 Diagnoses Mild aortic stenosis I35.0 Atherosclerotic cardiovascular disease I25.10 PAF (paroxysmal atrial fibrillation) I48.0 Hypercholesterolemia E78.00 Benign prostatic hyperplasia with incomplete bladder emptying N40.1; R39.14 Lower urinary tract symptom detail: incomplete bladder emptying Lower urinary tract symptom presence: symptoms present Prostate cancer C61 Pulmonary emphysema, unspecified emphysema type J44.9 COPD type: unspecified COPD Post herpetic neuralgia B02.29 Assessment & Plan Assessment & Plan (1) Mild aortic stenosis: Comment: October 2024 1.43 Code(s): I35.0 - Nonrheumatic aortic (valve) stenosis Category: Medical Plan: Continue to monitor (2) Atherosclerotic cardiovascular disease: Code(s): I25.10 - Atherosclerotic heart disease of [place] coronary artery without angina pectoris Category: Medical Plan: Control the cholesterol, weight, blood pressure, patient on anticoagulation (3) PAF (paroxysmal atrial fibrillation): Code(s): I48.0 - Paroxysmal atrial fibrillation Category: Medical Plan: Continue with anticoagulation renal function January 2025 (4) Hypercholesterolemia: Code(s): E78.00 - Pure hypercholesterolemia, unspecified Category: Medical Plan: Avoid fried foods, chicken skin, eggs, butter margarine, pastries and meat. Be it pork or beef they have a lot of cholesterol LDL goal of less than 70 and triglyceride of less than 150 on atorvastatin 80 mg once a day (5) BPH (benign prostatic hyperplasia): Code(s): N40.0 - Benign prostatic hyperplasia without lower urinary tract symptoms Category: Medical Qualifiers: Lower urinary tract symptom detail: incomplete bladder emptying Lower urinary tract symptom presence: symptoms present Qualified Code(s): N40.1 - Benign prostatic hyperplasia with lower urinary tract symptoms; R39.14 - Feeling of incomplete bladder emptying Plan: On tamsulosin (6) Prostate cancer: Comment: October 2020 - high-grade, MRI extracapsular extension, high-grade prostate cancer external beam radiation with 18 m hormone therapy Code(s): C61 - Malignant neoplasm of prostate Category: Medical Plan: Continue to follow-up with urology (7) COPD (chronic obstructive pulmonary disease): Code(s): J44.9 - Chronic obstructive pulmonary disease, unspecified Category: Medical Qualifiers: COPD type: unspecified COPD Qualified Code(s): J44.9 - Chronic obstructive pulmonary disease, unspecified Plan: On albuterol inhaler and Incruse (8) Post herpetic neuralgia: Code(s): B02.29 - Other postherpetic nervous system involvement Category: Medical Plan: Stable Plan History of Present Illness The patient is an 79-year-old male presenting for management of multiple chronic conditions including atrial fibrillation, COPD, and hypercholesterolemia. The patient has a history of benign prostatic hyperplasia and prostate cancer, for which he underwent radiation and hormone therapy in 2020. He continues to follow up with urology and is currently on tamsulosin. He has been diagnosed with atrial fibrillation and is on anticoagulation therapy with Eliquis. His echocardiogram in October 2020 showed a normal left ventricular ejection fraction of 66%, with mild aortic valve stenosis and regurgitation. The patient has chronic obstructive pulmonary disease and is on home oxygen therapy, although he feels he does not need it. He uses an albuterol inhaler and Incruse for management. He has a history of hypercholesterolemia and is on atorvastatin 80 mg daily, with a goal LDL of less than 70 mg/dL and triglycerides less than 150 mg/dL. Recent blood work in September 2024 showed mild anemia, with normal renal function, blood sugar, and liver function tests. Health Maintenance Social History Review of Systems Physical Exam Results - Echocardiogram (October 2020): Normal left ventricular ejection fraction of 66%, mild aortic valve stenosis, mild aortic valve regurgitation - Blood work (September 2024): Mild anemia, normal renal function, normal blood sugar, normal liver function tests Plan Patient was informed and verbally consented to the use of an ambient scribe for clinic note documentation during this visit. 1. Atrial Fibrillation The patient is on anticoagulation therapy with Eliquis to manage atrial fibrillation. His condition is stable with a controlled rate. 2. Chronic Obstructive Pulmonary Disease (Copd) The patient is on home oxygen therapy and uses an albuterol inhaler and Incruse for management. He feels he does not need the oxygen therapy. 3. Hypercholesterolemia The patient is on atorvastatin 80 mg daily with a goal LDL of less than 70 mg/dL and triglycerides less than 150 mg/dL. 4. Prostate Cancer The patient underwent radiation and hormone therapy in 2020 and continues to follow up with urology. 5. Benign Prostatic Hyperplasia (Bph) The patient is on tamsulosin and continues to follow up with urology. 6. Mild Aortic Valve Stenosis The patient's echocardiogram showed mild aortic valve stenosis, and the condition is being monitored. 7. Anemia Recent blood work showed mild anemia, and the condition is being monitored. Discussion Notes Patient Instructions Orders: Orders Influenza [id number] Immunization Today Z23 - Encounter for immunization Lipid Panel 3 Months E78.00 - Pure hypercholesterolemia, unspecified Comprehensive Met. Panel 3 Months E78.00 - Pure hypercholesterolemia, unspecified Medications: New rosuvastatin 40 mg PO DAILY 30 tabs 3RF E78.00 - Pure hypercholesterolemia, unspecified Discontinued atorvastatin Discontinued Reason: Doctor's Order 80 mg PO DAILY 90 tabs 3RF E78.00 - Pure hypercholesterolemia, unspecified, I25.10 - Atherosclerotic heart disease of [place] coronary artery without angina pectoris
== END 2025-02-10 11:34 | disposition home or self-care (01) ==
LOC: HO.HMCH 10:46
PROVIDERS: PCP Internal Medicine; Visit Provider Internal Medicine
DX: I35.0 Nonrheumatic aortic (valve) stenosis (principal); I25.10 Atherosclerotic heart disease of native coronary artery without angina pectoris; I48.0 Paroxysmal atrial fibrillation; E78.00 Pure hypercholesterolemia, unspecified; N40.1 Benign prostatic hyperplasia with lower urinary tract symptoms; R39.14 Feeling of incomplete bladder emptying; C61 Malignant neoplasm of prostate; J44.9 Chronic obstructive pulmonary disease, unspecified; B02.29 Other postherpetic nervous system involvement; Z23 Encounter for immunization

== ENCOUNTER → 2025-02-10 10:45 | Outpatient (BNVA) | payer MEDICARE, SELFPAY | PROVIDERS: PCP Internal Medicine; Visit Provider Internal Medicine | DX: I35.0 Nonrheumatic aortic (valve) stenosis (principal); Z23 Encounter for immunization; I25.10 Atherosclerotic heart disease of native coronary artery without angina pectoris; I48.0 Paroxysmal atrial fibrillation; E78.00 Pure hypercholesterolemia, unspecified; N40.1 Benign prostatic hyperplasia with lower urinary tract symptoms; R39.14 Feeling of incomplete bladder emptying; C61 Malignant neoplasm of prostate; J44.9 Chronic obstructive pulmonary disease, unspecified; B02.29 Other postherpetic nervous system involvement; D64.9 Anemia, unspecified; Z79.01 Long term (current) use of anticoagulants; Z79.899 Other long term (current) drug therapy; Z13.31 Encounter for screening for depression | CPT/HCPCS: 90471; 90656; 96127; 99212 ==

== ENCOUNTER 2025-02-27 13:14 | Outpatient (REF) | payer MEDICARE, SELFPAY ==
--- OUTSIDE RECORDS SUMMARY | 2023-10-17 09:20 | XMS_ITS ---
Author Organization [facility] Address [address] [place] [phone] Care Team Providers Care Batt Packer Name Role Phone Lacho Mcdonnell MD Primary Care Provider Gurvinder Grey Unavailable [phone] REASON FOR VISIT Patient presents today for a colon screening Encounters Encounter Location Date Provider Diagnosis [facility] [address] [facility] [address] [place] [phone] 10/17/2023 Gurvinder Mckeon Plan Of Treatment No Information Progress Notes * GURVINDER LOPEZDOB:1945 (79 yo M)Acc No.[id number]:10/17/2023 Progress Notes Patient: GURVINDER FISHMAN Provider: Reji Mkceon MD :1945 A ge:77 Y S ex:Male Date:10/17/2023 Address:[address] [place], [place] [id number] Pcp:Lacho Mcdonnell MD Subjective: * Chief Complaints: [...] 10/17/2023 Generated for Printi ng/Faxing/eTransmitting on: 1 04:10 PM EDT
[2025-02-27 15:09] LABS: Prostate Specific Antigen < 0.10 ng/mL (<0.05-4.0)
--- OUTSIDE RECORDS SUMMARY | 2025-02-27 16:11 | XMS_ITS | Patient Health Record ---
Author Organization [facility] Address [address] [place] [address] Care Team Providers Care Therapeutic Assistant Name Role Phone Lacho Mcdonnell MD Primary Care Provider Unavailsabrina e Gurvinder Mckeon Unavailable [phone] Allergies No Known Allergies Reason For Referral No Information Medications Medication SIG (Take, Route, Frequency, Duration) Notes Start Date End Date Status Breo Ellipta 200-25 MCG/ACT Inhalation; Duration: 30 Active Incruse Ellipta 62.5 MCG/ACT INHALE 1 PUFF BY MOUTH AT BEDTIME Inhalation; Duration: 30 Active Eliquis 5 MG TAKE 1 TABLET BY MOUTH TWICE DAILY Oral; Duration: 30 Active Atorvastatin Calcium 40 MG TAKE 1 TABLET BY MOUTH DAILY Oral; Duration: 90 Active dilTIAZem HCl ER Coated Beads 180 MG Oral; Duration: 90 Active Tamsulosin HCl 0.4 MG TAKE 2 CAPSULES BY MOUTH EVERY NIGHT AT BEDTIME Oral; Duration: 90 Active Furosemide 20 MG TAKE 1 TABLET BY MOUTH DAILY Oral; Duration: 90 Active Sertraline HCl 25 MG TAKE 1 TABLET BY MOUTH DAILY Oral; Duration: 90 F411,Unavailabl e Active Social History Tobacco [...] Status Risk Notes Problem Colon cancer screening (783944727) Colon cancer screening (Z12.11) Active confirmed Problem Pre-procedure evaluation check (621057812) Encounter for other preprocedural examination (Z01.818) Active confirmed Vital Signs Blood pressure diastolic 00 mm Hg 05/07/2024 Height 68 in 05/07/2024 Blood pressure systolic 00 mm Hg 05/07/2024 Weight 163 lbs 05/07/2024 BMI 24.78 kg/m2 05/07/2024 Encounters Encounter Location Date Provider Diagnosis [facility] [address] [place] [address] 05/07/2024 Gurvinder Mckeon Colon cancer screeni ng [...] Coverage End Date [facility] [address] [place], [place] [id number] GURVINDER LOPEZ Self - patient is the [...]
== END 2025-02-27 13:15 | disposition home or self-care (01) ==
LOC: HO.LAB 13:14
PROVIDERS: PCP Internal Medicine; Visit Provider Urology
DX: C61 Malignant neoplasm of prostate (principal); Z12.5 Encounter for screening for malignant neoplasm of prostate
CPT/HCPCS: 36415; 84153; 84403

== ENCOUNTER 2025-03-21 09:39 | Outpatient (AMB) | payer MEDICARE, SELFPAY ==
--- NOTE | 2025-03-21 09:41 | MHC.OFFVIS ---
Intake Visit Reasons: 6M PSA/Testo/PVR Intake Note: Patient Is Present for PSA/Testo Urology Med: Tamsulosin Antibiotic Allergy: None Blood Thinner: Eliquis 02/27/25- PSA- <0.10 TESTOSTERONE- 35 Safety Physician Required: No Accompanied by: Self / Same As Patient Allergies gabapentin Allergy (Unknown, Verified 03/21/25 09:42) Insomnia, increased pain latex Allergy (Unknown, Verified 03/21/25 09:42) Slight reaction - Rash nicotine Allergy (Unknown, Verified 03/21/25 09:42) patch- rash, rash HPI Comments Details: Ravin is a very pleasant male. He is a patient of Dr Mcdonnell. He is seen for the following urologic conditions. - prostate cancer high-grade - bladder outlet obstruction Telemedicine Evaluation 15 min Consultation [employer] Ann Video PSA and testosterone continues to remain low Continue surveillance every 6 months out to 10 years Prostate cancer grade group 5 last GnRH 10/28/21 - external beam radiation with hormone therapy Diagnosis - Dr. Malave September 2020 PSA 08/20 <0.1 T 13, 11/19 <0.1 7, 02/19 <0.1, 05/23 <0.1 26, 07/21 <0.1 T 5, 12/21 <0.1 T 41, 04/22 <0.1 80, 09/21 <0.1 T 46. 03/24 <0.1 45, 09/22 <0.1 41, 02/22 <0.1 T35 Initial PSA 9.1 Biopsy 10/19 Histologic type: Adenocarcinoma, acinar type [place] score: 4+5=9 (right base lateral), 4+3=7 (right base medial), 3+4=7 (right mid lateral, right mid medial, right apex lateral, right apex medial), 3+3=6 (left base lateral, left mid lateral, left mid medial, left apex lateral, left apex medial) Tumor quantitation: Number cores positive: 11 Total number of cores: 12 Periprostatic fat inv.: Present Seminal vesicle inv.: Not identified Perineural inv.: Present LVI: Not identified Staging - 10/19 bone scan negative - 10/19 CT scan negative - no evidence of abdominal pelvic lymph nodes - 01/19 prostate MRI - PI-RADS 5 lesions, highly suspicious for local extracapsular extension. 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 PAF (paroxysmal atrial fibrillation) History of alcohol abuse Bladder diverticulum Thrombocytopenia BPH (benign prostatic hyperplasia) Vitamin D deficiency COPD (chronic obstructive pulmonary disease) Hypercholesterolemia Tobacco abuse Asbestosis Post herpetic neuralgia Surgical History H/O hand surgery Lesion of tongue Family History Father Bladder cancer Mother Colon cancer Chronic mental illness Brother Myocardial infarction Other Mental health disorder Social History Household Members: Spouse Housing: House Do you presently have visiting nurse or other home services: No Alcohol intake: former Year quit: 1979 Patient Tobacco Use Status: Former Tobacco user Tobacco use type: Cigarette Years Smoked: 59 +/- stopped 2020- on on nicotine lozenge still occ (12/21) e-Cigarette/Vaping Use: Never Used Second Hand Smoke Exposure: No Advance Directives Date on File: 03/23/20 service: No Current occupational status: retired Cognitive needs: No Hearing needs: No Vision needs: No Review of Systems Const Denies chills and Denies fever(s) Card Reports no additional complaints and Denies syncope Resp Denies cough GI Denies abdominal pain and Denies heartburn Reports as per HPI and Denies change in libido Neuro Denies syncope Psych Denies change in libido Endo Denies change in libido Physical Exam Const General: cooperative, healthy appearing, comfortable and no acute distress Orientation/consciousness: patient oriented x3 HEENT Face and sinus: Yes normal facial exam Mouth: moist mucous membranes Neck Neck: Yes normal visual inspection, Yes full ROM and Yes trachea midline Chest Chest palpation & inspection: normal inspection of the chest Resp Effort & Inspection: normal respiratory effort, able to speak in complete sentences and no respiratory distress GI Inspection: Yes normal to inspection Back/Spine/Pelvis Cervical Spine: normal cervical lordosis Thoracic/Lumbar Spine: thoracic and lumbar spine normal to inspection Skin General skin exam: no rashes or lesions noted Neuro General: patient oriented x3, gait normal, tone normal and moves all extremities Extrem General: Yes normal to inspection and Yes capillary refill normal Telehealth Telehealth Telehealth Platform: [employer] Location of provider rendering services: practice address Location of patient: address on file Patient Identification confirmed using: Name, : Yes Patient verbally consented to treatment: Yes Patient verbally consented to billing insurance company: Yes Patient informed of any privacy concerns related to visit: Yes Minutes spent on Phone/Video with Pt.: 15 Assessment & Plan Assessment & Plan (1) Prostate cancer: Comment: October 2020 - high-grade, MRI extracapsular extension, high-grade prostate cancer external beam radiation with 18 m hormone therapy Code(s): C61 - Malignant neoplasm of prostate Category: Medical Plan Six-month follow-up Orders: Orders Prostate Specific Antigen 6 Months C61 - Malignant neoplasm of prostate Patient Instructions: This note is constructed using voice recognition software. While every effort has been made to ensure accuracy clinic nurse errors may have been included. Imaging studies, laboratory and physical exam results were discussed and reviewed in detail. No major barriers to patient understanding were identified. An opportunity to ask questions regarding the treatment plan was provided. All questions were answered. The patient expressed understanding and agreement with the above treatment plan. The patient is aware they should contact our office by phone for worsening of their current condition or the appearance of new urologic symptoms. Compliance is encouraged with any medications and followup testing that is ordered. It is a privilege to participate in the urologic care of your patient. If you have any questions or concerns regarding treatment for the above conditions, or other urologic issues, please do not hesitate to contact me. The office telephone contact is [phone]. Sincerely, Dr Trevor Malave MD, [facility] - Urology Compassionate Specialist Care for the Genitourinary System Coding Level of Care Code Complex visit Add On G2211 Diagnoses Prostate cancer C61
--- OUTSIDE RECORDS SUMMARY | 2025-03-21 10:19 | XMS_ITS | Patient Health Record ---
Author Organization [facility] Address [address] [place] [id number] Care Team Providers Care Digital Advisor Name Role Phone Lacho Mcdonnell MD Primary Care Provider Gurvinder Grey Unavailable [phone] Allergies No Known Allergies Reason For Referral No Information Medications Medication SIG (Take, Route, Frequency, Duration) Notes Start Date End Date Status Breo Ellipta 200-25 MCG/ACT Aerosol Powder Breath Activated Inhalation; Duration: 30 Active Incruse Ellipta 62.5 MCG/ACT Aerosol Powder Breath Activated INHALE 1 PUFF BY MOUTH AT BEDTIME Inhalation; Duration: 30 Active Eliquis 5 MG Tablet TAKE 1 TABLET BY MOUTH TWICE DAILY Oral; Duration: 30 Active Atorvastatin Calcium 40 MG Tablet TAKE 1 TABLET BY MOUTH DAILY Oral; Duration: 90 Active dilTIAZem HCl ER Coated Beads 180 MG Capsule Extended Release 24 Hour Oral; Duration: 90 Active Tamsulosin HCl 0.4 MG Capsule TAKE 2 CAPSULES BY MOUTH EVERY NIGHT AT BEDTIME Oral; Duration: 90 Active Furosemide 20 MG Tablet TAKE 1 TABLET BY MOUTH DAILY Oral; Duration: 90 Active Sertraline HCl 25 MG Tablet TAKE 1 TABLET BY MOUTH DAILY Oral; Duration: 90 F411,Unavailabl e Active Social History Tobacco Use: Social History Observation Description Date Details (start date - stop date) Former Smoker NA - NA Social History Tobacco Use: Social Info Question Answer Notes Tobacco Use/Smoking Patient is a former smoker Additional Details Category Social Info Options Details Miscellaneous: Marital status: Occupation: retired Section Notes: Smokes 1/2 ppd, no alcohol Former smoker, no significan t alcohol Problems Problem Type SNOMED Code ICD Code Onset Dates Problem Status W/U Status Risk Notes Problem Colon cancer screening (915519353) Colon cancer screening (Z12.11) Active confirmed Problem Pre-procedure evaluation check (989681099) Encounter for other preprocedural examination (Z01.818) Active confirmed Vital Signs Blood pressure diastolic 00 mm Hg 05/07/2024 Height 68 in 05/07/2024 Blood pressure systolic 00 mm Hg 05/07/2024 Weight 163 lbs 05/07/2024 BMI 24.78 kg/m2 05/07/2024 Encounters Encounter Location Date Provider Diagnosis [facility] [address] [place] [address] 05/07/2024 Gurvinder Mckeon Colon cancer screeni ng [...] Insured Coverage Start Date Coverage End Date [facility] [address] [place], [place] [id number] JESSICAGURVINDER Self - patient is the insured Medical [...]
== END 2025-03-21 11:57 | disposition home or self-care (01) ==
LOC: HO.HUSH 09:39
PROVIDERS: PCP Internal Medicine; Visit Provider Urology
DX: C61 Malignant neoplasm of prostate (principal)
CPT/HCPCS: 99213; G2211